=== PATIENT | female | born 1960 | race Caucasian/White ===

== ENCOUNTER 2021-03-24 13:04 | Outpatient (CLI) | payer MEDICAID, SELFPAY ==
--- NOTE | 2021-03-24 13:00 | RT.EKG_ITS ---
APPROVED REPORT Exam: Resting ECG Reason for Exam: HTN Patient Location: O HR:82 bpm ECG Measurements Heart Rate 82 AXIS CO 146 P 18 QRSd 88 QRS 11 QT 368 T 13 QTc 430 Conclusion Sinus rhythm...normal P axis, V-rate 50- [address] abnormalities
== END 2021-03-24 13:05 | disposition home or self-care (01) ==
LOC: DI.CARD 13:04
PROVIDERS: PCP Internal Medicine; Visit Provider Internal Medicine Cardiovascular Disease
DX: I10 Essential (primary) hypertension (principal)
CPT/HCPCS: 93010

== ENCOUNTER 2023-02-09 19:39 | Outpatient (REF) | payer BC, SELFPAY ==
[2023-02-09 21:16] LABS: HGB 15.6 g/dL (11.2-15.7); MCH 29.8 pg (27.0-33.0); MCHC 33.9 % (32.0-36.0); MCV 88 fL (80-95); MPV 11.6 fL (8.0-11.0); Platelet Count 248 10^3/uL (130-400); RBC 5.24 10^6/uL (3.93-5.22); RDW 12.5 % (11.7-14.6); RDW-SD 40.4 fL; WBC 9.83 10^3/uL (4.4-10.8)
[2023-02-09 21:35] LABS: ALT 45 U/L (14-59); AST 30 U/L (15-37); Albumin 3.8 g/dL (3.4-5.0); Alkaline Phosphatase 86 U/L (46-116); Anion Gap 7.8 mmol/L (3-11); BUN 22 mg/dL (7-18); Bilirubin, Total 0.3 mg/dL (0.2-1.0); CO2 28.2 mmol/L (21.0-32.0); CREATININE 0.8 mg/dL (0.55-1.02); Calcium 9.8 mg/dL (8.5-10.1); Chloride 103 mmol/L (98-107); Estimated GFR 82.74 (mL/min/1.73m2); Glucose 93 mg/dL (74-106); Potassium 3.9 mmol/L (3.5-5.1); Sodium 139 mmol/L (136-145); TSH (W/Ref FT4) 1.38 uIU/mL (0.36-3.74); Total Protein 7.7 g/dL (6.4-8.2)
[2023-02-09 21:50] LABS: Hemoglobin A1C 5.7 % (<5.7)
== END 2023-02-09 19:40 | disposition home or self-care (01) ==
LOC: NCHCN 19:39
PROVIDERS: PCP Internal Medicine; Visit Provider Family Medicine
DX: E03.9 Hypothyroidism, unspecified (principal); R73.03 Prediabetes; E66.9 Obesity, unspecified
CPT/HCPCS: 80053; 85027; 83036; 84443

== ENCOUNTER 2024-03-09 07:57 | Outpatient (REF) | payer BC, SELFPAY ==
--- OUTSIDE RECORDS SUMMARY | 2024-03-09 08:00 | XMS_ITS ---
Author Organization Unknown Address [address] [place] [address] [phone] Phone Care Team Providers Care Hr Assistant Name Role Phone JEFF Tamez Attending Unavailable AYESHA [place] Primary Unavailable Social History Type Status Start Date End Date Code Code Syst em Smoking History Former smoker 0580133 SNOMED CT Sex Female Medications Medication Start Date End Date Route Frequency Dose Code Code System Medication Instructions Home Meds Antivert/25 25MG Oral Tablet 03/18/2021 05/04/2021 ORAL NEEDED EVERY 8 HOURS 1 TABLET 090915 RxNorm TAKE 1 TABLET ORAL NEEDED EVERY 8 HOURS No alcohol/driving with this Tamsulosin HCl 0.4MG Oral Capsule 05/04/2021 05/29/2022 ORAL DAILY 1 CAPSULE 404367 RxNorm TAKE 1 CAPSULE ORAL DAILY Hospital Discharge Instructions Should you have any questions prior to discharge, please contact a member of your healthcare team. If you have left the hospital and have any questions, please contact your primary care physician. Reason For Referral No Data Found Allergies and Adverse Reactions Allergy Substance Reaction Severity Start Date Concern Status Co de Code System OPIOID Active [id number] SNOMED-CT Plan of Treatment Pre-Op Covid-19 Testing 03/30/2020 MRI UPPER EXT JOINT W/O CONTRAST 2021 LAB DRAW 15MIN 11/04/2021 US CAROTID BILAT 11/04/2021 LAB DRAW 15MIN 05/06/2021 Personal Care Team Section Performer Name Performer Role Active Date Inactive Da te
--- OUTSIDE RECORDS SUMMARY | 2024-03-09 08:00 | XMS_ITS ---
Author Organization Unknown Address [address] [place] [address] [phone] Phone Care Team Providers Care Real Estate Developer Name Role Phone EV LUND Attending Unavailable AYESHA [place] Primary Unavailable Social History Type Status Start Date End Date Code Code Syst em Smoking History Former smoker 9061055 SNOMED CT Sex Female Medications Medication Start Date End Date Route Frequency Dose Code Code System Medication Instructions Home Meds Antivert/25 25MG Oral Tablet 03/18/2021 05/04/2021 ORAL NEEDED EVERY 8 HOURS 1 TABLET 849392 RxNorm TAKE 1 TABLET ORAL NEEDED EVERY 8 HOURS No alcohol/driving with this Tamsulosin HCl 0.4MG Oral Capsule 05/04/2021 05/29/2022 ORAL DAILY 1 CAPSULE 480308 RxNorm TAKE 1 CAPSULE ORAL DAILY Hospital [...] Status Co de Code System OPIOID Active [id number] SNOMED-CT Plan of Treatment Pre-Op Covid-19 Testing 03/30/2020 MRI UPPER EXT JOINT W/O CONTRAST 2021 LAB DRAW 15MIN 11/04/2021 US CAROTID BILAT 11/04/2021 LAB DRAW 15MIN 05/06/2021 Encounters Encounter Diagnosis Start Date Code Code Sys tem 04/28/2021 [id number] SNOMED-CT Personal Care Team Section Performer Name Performer Role Active Date Inactive Da te
--- OUTSIDE RECORDS SUMMARY | 2024-03-09 08:01 | XMS_ITS ---
Author Organization Unknown Address [address] [place] [address] [phone] Phone Care Team Providers Care Gusset Folder Name Role Phone CHERYL HOPE Registered Nurse Unavailable VIRGEN Isaacs Attending Unavailable ZULEIMA An [facility] Unavailable AYESHA [place] Primary Unavailable UNLISTED PROVIDER - REQUESTED Xhandoff Un available Results LACTIC ACID - Collect Date/T keegan: 05/04/2021 14:23 [facility] ID: [id number] [address] [place] [address], [address] LOINC: Test Value Unit Reference Range Code Code System Flag LACTIC ACID 2.4 mmol/L L=0.7 H=2.1 62808-9 LOINC H [facility]* - Eva ect Date/Time: 05/04/2021 13:01 [facility] ID: [id number] [address] [place] [address], [id number] LOINC: 48088-1 Test Value Unit Reference Range Code Code System Flag Tier- INPATIENT/ED SARS COV2 RNA: NEGATIVE REFERENCE RAN GE: NEGAT 67968-4 LOINC CULT URINE CULTURE* - Collec t Date/Time: 05/04/2021 12:37 [facility] ID: [id number] [address] [place] [address], [phone] LOINC: 630-4 Test Value Unit Reference Range Code Code System Flag COLLECTION MODE: STRAIGHT CATH C REACTIVE PROTEIN HIGH SENS ITIVITY* - Collect Date/Time: 05/04/2021 12:37 [facility] ID: [id number] - [id number] [address] [place], [place], [address] LOINC: 59166-4 Test Value Unit Reference Range Code Code System Flag CRP-HIGH SENS. 91.74 mg/L L=0.00 H=3.00 57001-9 LOINC H CRP-HIGH SENS 9.17 mg/dL L=0.00 H=0.30 22841-1 LOINC H CBC W/ DIFFERENTIAL* - Colle ct Date/Time: 05/04/2021 12:37 [facility] ID: [id number] [address] [place], [place], [address] LOINC: 10773-6 Test Value Unit Reference Range Code Code System Flag WBC 10.91 th/cmm L=5.00 H=10.00 6690-2 LOINC H NEUT % 85.3 % L=40.0 H=80.0 H LYMPH % 4.2 % L=10.0 H=50.0 L MONO % 5.8 % L=2.0 H=12.0 34763-2 LOINC EOS % 4.0 % L=0.0 H=8.0 BASO % 0.3 % L=0.0 H=3.0 IG % 0.4 % L=0.0 H=1.1 2514-8 LOINC NRBC % 0.0 % L=0.0 H=0.0 25026-2 LOINC NEUT abs count 9.3 th/cmm L=1.6 H=8.4 751-8 LOINC H LYMPH abs count 0.5 th/cmm L=1.5 H=4.0 731-0 LOINC L MONO abs count 0.6 th/cmm L=0.2 H=1.0 742-7 LOINC EOS abs count 0.4 th/cmm L=0.0 H=0.5 711-2 LOINC BASO abs count 0.0 th/cmm L=0.0 H=0.2 704-7 LOINC IG abs count 0.0 th/cmm L=0.0 H=0.1 30374-3 LOINC NRBC abs count 0.0 mil/cmm L=0.0 H=0.0 29350-2 LOINC RBC 5.11 mil/cmm L=3.90 H=5.40 789-8 LOINC HEMOGLOBIN 15.4 gm/dL L=12.0 H=16.0 718-7 LOINC HEMATOCRIT 45 % L=37 H=47 4544-3 LOINC MCV 88 fL L=82 H=92 787-2 LOINC MCH 30.1 pg L=27.0 H=31.0 785-6 LOINC MCHC 34.3 % L=32.0 H=36.0 786-4 LOINC RDW-SD 40.6 fL L=39.0 H=49.0 788-0 LOINC PLATELET COUNT 167 th/cmm L=150 H=450 777-3 LOINC Vaccuol neutr 1+ COMPREHENSIVE METABOLIC PANE L (CMP) - Collect Date/Time: 05/04/2021 12:37 [facility] ID: [id number] [address] [place], [place], [address] LOINC: 53073-7 Test Value Unit Reference Range Code Code System Flag GLUCOSE 137 mg/dL L=70 H=116 2345-7 LOINC H BUN 14 mg/dL L=6 H=25 3094-0 LOINC CREATININE 0.81 mg/dL L=0.51 H=0.95 2160-0 LOINC SODIUM SERUM 134 mmol/L L=136 H=145 2951-2 LOINC L POTASSIUM SERUM 3.8 mmol/L L=3.4 H=5.2 2823-3 LOINC CHLORIDE SERUM 101 mmol/L L=96 H=110 2075-0 LOINC CARBON DIOXIDE (CO2) 28 mmol/L L=22 H=34 2028-9 LOINC ANION GAP 5.3 mmol/L 66821-6 LOINC CALCIUM SERUM 8.6 mg/dL L=8.2 H=10.2 52819-4 LOINC BILIRUBIN TOTAL 0.8 mg/dL L=0.0 H=1.3 1975-2 LOINC ALK. PHOS. 94 U/L L=46 H=116 6768-6 LOINC SGOT (AST) 35 U/L L=15 H=37 1920-8 LOINC SGPT (ALT) 51 U/L L=12 H=78 1742-6 LOINC TOTAL PROTEIN 6.8 gm/dL L=6.0 H=8.0 2885-2 LOINC ALBUMIN 3.1 gm/dL L=3.4 H=5.0 1751-7 LOINC L AGE 61 years eGFR (non-Afr.Amer.) 72 mL/min 43193-5 LOINC eGFR (Afr-Jordanian) 87 mL/min 66804-0 LOINC URINALYSIS WITH REFLEX CULT IF POSITIVE* - Collect Date/Time: 05/04/2021 12:37 [facility] ID: [id number] - [id number] [address] [place], [place], [address] LOINC: 32513-0 Test Value Unit Reference Range Code Code System Flag COLLECTION MODE: STRAIGHT CATH Color ORANGE yellow 5778-6 LOINC A Appearance CLEAR clear 5767-9 LOINC Glucose urine DNR negative mg/dl 18915-0 LOINC Bilirubin DNR negative 5770-3 LOINC Ketones DNR negative mg/dl 2514-8 LOINC Spec gravity DNR 1.003 - 1.030 5811-5 LOINC pH urine DNR 5.0 - 7.0 2756-5 LOINC Protein DNR negative mg/dl 56577-3 LOINC Urobilinogen DNR <or= 1 EU/dl 73361-6 LOINC Nitrite. DNR negative 5802-4 LOINC Blood DNR negative 5794-3 LOINC Leukocytes. DNR negative MICROSCOPIC INDICATED WBCs. 0-5 0-5 / hpf 38631-7 LOINC RBCs 0-5 0-5 / hpf 23653-4 LOINC Epith cells 0-5 0-5 / hpf 28697-8 LOINC Cell types squamous Crystals none none Bacteria minimal none Mucus present none 8247-9 LOINC Casts none none /lpf 85466-2 LOINC Other 72536-[address] ABD + PELV W CONTRAST - C ompleted: 05/04/2021 19:00 LOINC: Radiation optimization: All CT scans at this facility use at least one of these dose optimization techniques: automated exposure control; mA and/or kV adjustment per patient size (includes targeted exams where dose is matched to clinical indication); or iterative reconstruction. ABDOMINAL AND PELVIC CT:CT examination of the abdomen and pelvis was performed with a bolus infusion of 100 cc of Omnipaque 350. Images obtained through the lung bases are unremarkable. The liver and spleen appear normal as does the pancreas. The gallbladder and bile ducts are CT normal. Abdominal aorta and major visceral branches appear intact. No significant abdominal wall hernia. No abdominal or pelvic adenopathy. The appendix is normal. No evidence of diverticulitis or bowel obstruction. Adrenals appear normal bilaterally. Right kidney and ureter are normal with incidental tiny right renal cortical cyst. There is a small nonobstructing left upper pole renal stone. There is no left hydronephrosis or hydroureter. There is, however, a 2 mm in diameter stone which appears to lie at the orifice of the distal ureter on the left. Alternatively, this could lie within the urinary bladder. MAINTENANCE GROUNDMAN structures appear intact. CONCLUSION: 1. Nonobstructing left upper pole renal calculus. 2. Nonobstructing stone which lies either in the intramural portion of the distal left ureter or within the urinary bladder. No evidence of left hydroureter or hydronephrosis. Dictated by: HELEN BURR RADIOLOGIST Transcribed by: KRYSTA 05/04/21/16:26 D Tuesday, May 04, 2021 2:54:48 PM [id number] Electronically Reviewed and Signed By: ASHELY BURR RADIOLOGIST 05/06/21 08:14 Copy for: [facility] [employer] INFORMATION MGMT DISCHARGED XR EXAM ABDOMEN 1 VIEW - Com pleted: 05/04/2021 17:58 LOINC: KUB Comparison CT scan is from 05/04/21. The visualized lung bases are clear. There is intravenous contrast seen within the renal collecting system and urinary bladder. The renal calyces are within normal limits. Contrast is seen in the urinary bladder. There is a rounded calcification in the left pelvis just superior to the urinary bladder which may represent a phlebolith. The stone noted in the bladder on the CT scan from 05/04/21 appears to lie within the urinary bladder. Bowel gas pattern is nonspecific. There are degenerative changes seen in the lumbar spine. No definite urinary tract calculi are appreciated. Dictated by: JOSE GUADALUPE CORRALES MD Transcribed by: [facility] 05/05/21/08:37 D 05/05/2021 08:01:55 [id number] Electronically Reviewed and Signed By: LUCIA CORRALES MD 05/05/21 12:32 Copy for: 185 HEALTH INFORMATION MGMT DISCHARGED Social History Type Status Start Date End Date Code Code Syst em Smoking History Former smoker 4242976 SNOMED CT Sex Female Vital Signs Vital Sign Value Unit Harris Value Harris Unit Date/Time Recent/Initial? Code Code System Body Mass Index 32.95 kg/m2 05/04/2021 12:24 Initial 23731 -5 LOINC Systolic Blood Pressure 121 mm[Hg] 05/04/2021 16:16 Most Recent 8480- 6 LOINC Diastolic Blood Pressure 64 mm[Hg] 05/04/2021 16:16 Most Recent 8462- 4 LOINC Systolic Blood Pressure 150 mm[Hg] 05/04/2021 12:24 Initial 8480- 6 LOINC Diastolic Blood Pressure 111 mm[Hg] 05/04/2021 12:24 Initial 8462- 4 LOINC Body Surface Area 2.03 m2 05/04/2021 12:24 Initial 3140- 1 LOINC Height 165.100 0 cm 65.00 in 05/04/2021 12:24 Initial 8302- 2 LOINC O2 Saturation 98 % 2021 16:16 Most Recent 28858 -5 LOINC O2 Saturation 100 % 2021 12:24 Initial 97649 -5 LOINC Pulse 86.0 /min 05/04/2021 16:16 Most Recent 8867- 4 LOINC Pulse 129.0 /min 05/04/2021 12:24 Initial 8867- 4 LOINC Respiration 16 /min 05/04/19 16:16 Most Recent 9279- 1 LOINC Respiration 20 /min 05/04/19 12:24 Initial 9279- 1 LOINC Temperature 39.1 Valeria 102.4 F 05/04/19 12:24 Initial 8310- 5 LOINC Weight 89.81 kg 198.00 lbs 05/04/2021 12:24 Initial 36932 -7 [facility] Medications Medication Start Date End Date Route Frequency Dose Code Code System Medication Instructions Home Meds Antivert/25 25MG Oral Tablet 03/18/2021 05/04/2021 ORAL NEEDED EVERY 8 HOURS 1 TABLET 760690 RxNorm TAKE 1 TABLET ORAL NEEDED EVERY 8 HOURS No alcohol/driving with this Tamsulosin HCl 0.4MG Oral Capsule 05/04/2021 05/29/2022 ORAL DAILY 1 CAPSULE 635406 RxNorm TAKE 1 CAPSULE ORAL DAILY Hospital [...] Status Co de Code System OPIOID Active 239847327 SNOMED-CT Plan of Treatment Pre-Op Covid-19 Testing 03/30/2020 MRI UPPER EXT JOINT W/O CONTRAST 2021 LAB DRAW 15MIN 11/04/2021 US CAROTID BILAT 11/04/2021 LAB DRAW 15MIN 05/06/2021 Encounters Encounter Diagnosis Start Date Code Code Sys tem Calculus of ureter 05/04/2021 SNOMED-CT Personal Care Team Section Performer Name Performer Role Active Date Inactive Da te
--- OUTSIDE RECORDS SUMMARY | 2024-03-09 08:03 | XMS_ITS ---
Author Organization Unknown Address [address] [place] [address] [phone] Phone Care Team Providers Care Program Services Assistant Name Role Phone EV LUND Attending Unavailable AYESHA [place] Primary Unavailable Social History Type Status Start Date End Date Code Code Syst em Smoking History Former smoker 1851839 SNOMED CT Sex Female Medications Medication Start Date End Date Route Frequency Dose Code Code System Medication Instructions Home Meds Tamsulosin HCl 0.4MG Oral Capsule 05/04/2021 05/29/2022 ORAL DAILY 1 CAPSULE 339166 RxNorm TAKE 1 CAPSULE ORAL DAILY Hospital [...] Status Co de Code System OPIOID Active 363570686 SNOMED-CT Plan of Treatment Pre-Op Covid-19 Testing 03/30/2020 MRI UPPER EXT JOINT W/O CONTRAST 2021 LAB DRAW 15MIN 11/04/2021 US CAROTID BILAT 11/04/2021 LAB DRAW 15MIN 05/06/2021 Encounters Encounter Diagnosis Start Date Code Code Sys tem Pain in right shoulder 05/21/2021 SNOME D-CT Personal Care Team Section Performer Name Performer Role Active Date Inactive Da te
--- OUTSIDE RECORDS SUMMARY | 2024-03-09 08:03 | XMS_ITS ---
Author Organization Unknown Address [address] [place] [address] [phone] Phone Care Team Providers Care Electric Wheelchair Repairer Name Role Phone EV LUND Attending Unavailable AYESHA Houston Primary Unavailable Results MR UPPER EXT ANY JOINT RT WO CONTRAST - Completed: 03/05/2022 15:32 LOINC: [facility] RADIOLOGY [place], [place] [address] PACS PASSENGER CONDUCTOR REPORT Patient Name: MARIETTA DAVIS MRN: Sex: : Age: F 1960 62 Account: Accession: Admit: StayType: [id number] 03/05/2022 O/P Ordered: Order ID: Submitted: Ordering Provider: 03/05/2022 15:04 [id number] ASHELY CARMONA Completed: Technologist: Resulted: 03/05/2022 15:32 ALS 03/05/2022 17:28 Study Description: MR UPPER EXT ANY JOINT RT WO CONTRAST Study Reason: EVAL FOR NEW RETEAR TECHNIQUE: Multiplanar multisequence MRI of the shoulder was performed. COMPARISON: Prior x-rays of 02/20/2022. These radiographs reveal evidence of biceps tenodesis at the upper diaphysis level of the humerus and widening of the AC joint. FINDINGS: MARROW:There is no evidence of fracture, Hill-Sachs deformity, nor osseous Bankhart lesion. There are no ominous osseous lesions. There are degenerative cysts in the posterior lateral and lateral aspects of the humeral head. ROTATOR CUFF MECHANISM: AC JOINT/ACROMIUM: There is postoperative decompression widening of the AC joint. Distance between the acromion and clavicle is 12 mm.. There is no evidence of os acromiale. Supraspinatus: Evidence of previous surgery with 2 fasteners at the greater tuberosity level. There is signal abnormality in the most anterior aspect of the supraspinatus tendon. Also at the space between the supra and infraspinatus. These have appearance of partial thickness tears although there does appear to be a small amount of fluid in the overlying subacromial-subdeltoid bursa. There is no retraction of the musculotendinous junction. No significant supraspinatus atrophy. Infraspinatus: Abnormal signal at the conjoined tendon as scribed above. There is degenerative subarticular cyst in the posterior humeral head subjacent to the infraspinatus. Teres Minor: Intact. No evidence of tear nor muscle atrophy. Subscapularis/anterior cuff: Intact. No abnormal signal at the level of the multipennate insertional fibers. No significant tear nor atrophy. BICEPS TENDON: Tenodesis evident. LABRUM: No labral tear identified. No evidence of paralabral cyst. GLENOHUMERAL JOINT: No joint effusion nor obvious loose intra-articular bodies. No chondral defects. No osteophytes. No degenerative subarticular cysts. No evidence of capsular tear. The inferior glenohumeral ligament is intact. QUADRILATERAL SPACE: No evidence of mass in the region of the axillary nerve and dorsal circumflex humeral vessels. Visualized triceps at this level appears unremarkable. IMPRESSION: 1. There is evidence of surgery as described above including decompression widening of the AC joint, rotator cuff tendon tear repair surgery, and biceps tenodesis. 2. There are partial-thickness tears evident at the conjoined tendon level of the supra/infraspinatus. Also at the most anterior level supraspinatus fibers.. There is some fluid in the overlying subacromial bursa and therefore there may be a small thickness component to these tears. There is no retraction musculotendinous junction and there a is no muscle atrophy. 3. Biceps tenodesis appears intact. There are no labral tears Report Digitally Signed by Al Trotter on 03/05/2022 05:28 PM EDT Social History Type Status Start Date End Date Code Code Syst em Smoking History Former smoker 4325616 SNOMED CT Sex Female Medications Medication Start Date End Date Route Frequency Dose Code Code System Medication Instructions Home Meds Tamsulosin HCl 0.4MG Oral Capsule 05/04/2021 05/29/2022 ORAL DAILY 1 CAPSULE 729068 RxNorm TAKE 1 CAPSULE ORAL DAILY Hospital [...] Status Co de Code System OPIOID Active 976199359 SNOMED-CT Plan of Treatment Pre-Op Covid-19 Testing 03/30/2020 MRI UPPER EXT JOINT W/O CONTRAST 2021 LAB DRAW 15MIN 11/04/2021 US CAROTID BILAT 11/04/2021 LAB DRAW 15MIN 05/06/2021 Encounters Encounter Diagnosis Start Date Code Code Sys tem Incomplete rotator cuff tear or rupture of right shoulder, not specified as traumatic 03/05/2022 SNO MED-CT Personal Care Team Section Performer Name Performer Role Active Date Inactive Da nataliia
--- OUTSIDE RECORDS SUMMARY | 2024-03-09 08:03 | XMS_ITS ---
Author Organization Unknown Address [address] [place] [address] [phone] Phone Care Team Providers Care Instrumentation Specialist Name Role Phone AYESHA [place] Attending Unavailable Results C REACTIVE PROTEIN HIGH SENS ITIVITY* - Collect Date/Time: 11/04/2021 14:44 [facility] ID: [id number] [address] [place] [address], [address] LOINC: 82986-2 Test Value Unit Reference Range Code Code System Flag CRP-HIGH SENS. 1.19 mg/L L=0.00 H=3.00 24915-4 LOINC CRP-HIGH SENS 0.12 mg/dL L=0.00 H=0.30 47363-6 LOINC LIPID PANEL* - Collect Date/ Time: 11/04/2021 14:44 [facility] ID: [id number] [address] [place] [address], [phone] LOINC: Test Value Unit Reference Range Code Code System Flag FASTING STATUS: FASTING CHOLESTEROL 117 mg/dL L=0 H=200 2093-3 LOINC TRIGLYCERIDES 107 mg/dL L=57 H=256 2571-8 LOINC HDL 40 mg/dL L=38 H=92 2085-9 LOINC non-HDL-C 77 mg/dL L=0 H=160 76248-2 LOINC LDL (CALC) 56 mg/dL L=0 H=130 96255-0 LOINC % HDL 34.2 % Chol/HDL Ratio 2.9 L=0.0 H=4.4 9830-1 LOINC CHD Relative Risk 0.7 x Avg L=0.0 H=1.0 LDL/HDL Ratio 1.4 L=0.0 H=3.2 79494-4 LOINC CHD Relative Risk. 0.4 x Avg L=0.0 H=1.0 LIPOPROTEIN A (LP a) - [facility] Date/Time: 11/04/2021 14:44 [facility] ID: [id number] [address] [place], [place], [id number] LOINC: 79777-0 Test Value Unit Reference Range Code Code System Flag Lipoprotein(a), S 104 <75 24402-2 LOINC H CBC W/ DIFFERENTIAL* - [facility] ct Date/Time: 11/04/2021 14:44 [facility] ID: [id number] [address] [place] [address], [address] LOINC: 38197-5 Test Value Unit Reference Range Code Code System Flag WBC 6.58 th/cmm L=5.00 H=10.00 6690-2 LOINC NEUT % 45.1 % L=40.0 H=80.0 LYMPH % 45.6 % L=10.0 H=50.0 MONO % 7.0 % L=2.0 H=12.0 12384-0 LOINC EOS % 1.8 % L=0.0 H=8.0 BASO % 0.3 % L=0.0 H=3.0 IG % 0.2 % L=0.0 H=1.1 2514-8 LOINC NRBC % 0.0 % L=0.0 H=0.0 41988-1 LOINC NEUT abs count 3.0 th/cmm L=1.6 H=8.4 751-8 LOINC LYMPH abs count 3.0 th/cmm L=1.5 H=4.0 731-0 LOINC MONO abs count 0.5 th/cmm L=0.2 H=1.0 742-7 LOINC EOS abs count 0.1 th/cmm L=0.0 H=0.5 711-2 LOINC BASO abs count 0.0 th/cmm L=0.0 H=0.2 704-7 LOINC IG abs count 0.0 th/cmm L=0.0 H=0.1 92790-7 LOINC NRBC abs count 0.0 mil/cmm L=0.0 H=0.0 77300-4 LOINC RBC 4.72 mil/cmm L=3.90 H=5.40 789-8 LOINC HEMOGLOBIN 14.5 gm/dL L=12.0 H=16.0 718-7 LOINC HEMATOCRIT 43 % L=37 H=47 4544-3 LOINC MCV 91 fL L=82 H=92 787-2 LOINC MCH 30.7 pg L=27.0 H=31.0 785-6 LOINC MCHC 33.7 % L=32.0 H=36.0 786-4 LOINC RDW-SD 40.5 fL L=39.0 H=49.0 788-0 LOINC PLATELET COUNT 193 th/cmm L=150 H=450 777-3 LOINC TSH THYROID STIMULATING HORM ONE* - Collect Date/Time: 11/04/2021 14:44 [facility] ID: [id number] [address] [place] [address], [address] LOINC: 3014-8 Test Value Unit Reference Range Code Code System Flag TSH 1.970 uIU/mL L=0.360 H=3.740 3014-8 LOINC COMPREHENSIVE METABOLIC PANE L (CMP) - Collect Date/Time: 11/04/2021 14:44 [facility] ID: [id number] [address] [place] [address], [address] LOINC: 87450-5 Test Value Unit Reference Range Code Code System Flag GLUCOSE 80 mg/dL L=70 H=116 2345-7 LOINC BUN 19 mg/dL L=6 H=25 3094-0 LOINC CREATININE 0.75 mg/dL L=0.51 H=0.95 2160-0 LOINC SODIUM SERUM 137 mmol/L L=136 H=145 2951-2 LOINC POTASSIUM SERUM 4.0 mmol/L L=3.4 H=5.2 2823-3 LOINC CHLORIDE SERUM 102 mmol/L L=96 H=110 2075-0 LOINC CARBON DIOXIDE (CO2) 28 mmol/L L=22 H=34 2028-9 LOINC ANION GAP 7.5 mmol/L 09070-3 LOINC CALCIUM SERUM 8.6 mg/dL L=8.2 H=10.2 51997-7 LOINC BILIRUBIN TOTAL 0.6 mg/dL L=0.0 H=1.3 1975-2 LOINC ALK. PHOS. 69 U/L L=46 H=116 6768-6 LOINC SGOT (AST) 12 U/L L=15 H=37 1920-8 LOINC L SGPT (ALT) 23 U/L L=12 H=78 1742-6 LOINC TOTAL PROTEIN 7.0 gm/dL L=6.0 H=8.0 2885-2 LOINC ALBUMIN 3.7 gm/dL L=3.4 H=5.0 1751-7 LOINC AGE 61 years eGFR (non-Afr.Amer.) 79 mL/min 82028-1 LOINC eGFR (Afr-Vatican Citizen) 95 mL/min 54251-3 LOINC US CAROTID BILATERAL - Compl eted: 11/04/2021 15:34 LOINC: CAROTID ULTRASOUND:Compariso n is made with January 21. There is minimal plaque in the common carotid bulbs and proximal internal carotid arteries but no significant visible stenosis. Both internal carotid arteries are tortuous in the mid to distal portion. Elevated velocities are seen in these regions. Both vertebral arties show antegrade flow. IMPRESSION:Minimal plaque. Elevated velocity measurements in the mid and distal internal carotid arteries bilaterally could be secondary to tortuosity since no focal stenosis is visible. Dictated by: CEO FRANCISCO JAVIER PEÑALOZA MD Transcribed by: KRYSTA 11/05/21/08:58 D Thursday, November 04, 2021 3:42:21 PM [id number] Electronically Reviewed and Signed By: FRANCISCO JAVIER PEÑALOZA MD 11/06/21 09:37 Copy for: AYESHA [place] via modem Copy for: [facility] HEALTH INFORMATION MGMT Social History Type Status Start Date End Date Code Code Syst em Smoking History Former smoker 5725910 SNOMED CT Sex Female Medications Medication Start Date End Date Route Frequency Dose Code Code System Medication Instructions Home Meds Tamsulosin HCl 0.4MG Oral Capsule 05/04/2021 05/29/2022 ORAL DAILY 1 CAPSULE 936534 RxNorm TAKE 1 CAPSULE ORAL DAILY Hospital [...] Status Co de Code System OPIOID Active [id number] SNOMED-CT Plan of Treatment Pre-Op Covid-19 Testing 03/30/2020 MRI UPPER EXT JOINT W/O CONTRAST 2021 LAB DRAW 15MIN 11/04/2021 US CAROTID BILAT 11/04/2021 LAB DRAW 15MIN 05/06/2021 Encounters Encounter Diagnosis Start Date Code Code Sys tem Occlusion and stenosis of bilateral carotid arteries 0 11/04/2021 SNOMED-CT Personal Care Team Section Performer Name Performer Role Active Date Inactive Da nataliia
--- OUTSIDE RECORDS SUMMARY | 2024-03-09 08:03 | XMS_ITS ---
Author Organization Unknown Address [address] [place] [address] [phone] Phone Care Team Providers Care Dye Tub Operator Name Role Phone EV LUND Attending Unavailable AYESHA Houston Primary Unavailable Results XR SHOULDER 2V OR MORE RT* - Completed: 02/20/2022 14:24 [facility]: [place], [place] [address] PACS CAVITY PUMP OPERATOR REPORT Patient Name: MARIETTA DAVIS MRN: Sex: : Age: F 1960 62 Account: Accession: Admit: StayType: [id number] 02/20/2022 CLINIC Ordered: Order ID: Entered Order: Ordering Provider: 02/20/2022 14:19 [id number] ASHELY NIELSEN Completed: Tech Completed: Resulted DTTM: 02/20/2022 14:24 KUL[facility]ER 02/20/2022 14:56 Study Description: XR SHOULDER 2V OR MORE RT* Reason for Study: Pain COMPARISON: Findings: 3 views were obtained. There is a suture anchor adjacent to the proximal humeral diaphysis with presumed reimplanted biceps tendon bony cortical defect. There are slight degenerative changes of the AC joint and glenohumeral joint. No other significant abnormality seen. Impressions: Report Digitally Signed by Ashely Knight on 02/20/2022 02:56 PM EDT Social History Type Status Start Date End Date Code Code Syst em Smoking History Former smoker [id number] SNOMED CT Sex Female Medications Medication Start Date End Date Route Frequency Dose Code Code System Medication Instructions Home Meds Tamsulosin HCl 0.4MG Oral Capsule 05/04/2021 05/29/2022 ORAL DAILY 1 CAPSULE 338699 RxNorm TAKE 1 CAPSULE ORAL DAILY Hospital [...] Status Co de Code System OPIOID Active 851193016 SNOMED-CT Plan of Treatment Pre-Op Covid-19 Testing 03/30/2020 MRI UPPER EXT JOINT W/O CONTRAST 2021 LAB DRAW 15MIN 11/04/2021 US CAROTID BILAT 11/04/2021 LAB DRAW 15MIN 05/06/2021 Encounters Encounter Diagnosis Start Date Code Code Sys tem 02/20/2022 [id number] SNOMED-CT Personal Care Team Section Performer Name Performer Role Active Date Inactive Da te
--- OUTSIDE RECORDS SUMMARY | 2024-03-09 08:04 | XMS_ITS ---
Author Organization Unknown Address [address] [place] [address] [phone] Phone Care Team Providers Care Hospital Fellow Name Role Phone EV LUND Attending Unavailable ZACKERY DUNLAP Primary Unavailable Social History Type Status Start Date End Date Code Code Syst em Smoking History Former smoker [id number] SNOMED CT Sex Female Medications Medication Start Date End Date Route Frequency Dose Code Code System Medication Instructions Home Meds Tamsulosin HCl 0.4MG Oral Capsule 05/04/2021 05/29/2022 ORAL DAILY 1 CAPSULE 999817 RxNorm TAKE 1 CAPSULE ORAL DAILY Hospital [...] Status Co de Code System OPIOID Active 671662496 SNOMED-CT Plan of Treatment Pre-Op Covid-19 Testing 03/30/2020 MRI UPPER EXT JOINT W/O CONTRAST 2021 LAB DRAW 15MIN 11/04/2021 US CAROTID BILAT 11/04/2021 LAB DRAW 15MIN 05/06/2021 Encounters Encounter Diagnosis Start Date Code Code Sys tem 04/09/2022 [id number] SNOMED-CT Personal Care Team Section Performer Name Performer Role Active Date Inactive Da te
--- OUTSIDE RECORDS SUMMARY | 2024-03-09 08:04 | XMS_ITS ---
Author Organization Unknown Address [address] [place] [address] [phone] Phone Care Team Providers Care Clinical Nursing Instructor Name Role Phone ARY PENG Manley Attending Unavailable ZACKERY DULNAP Primary Unavailable Results BASIC METABOLIC PANEL (BMP) - Collect Date/Time: 05/25/2022 16:29 [facility] ID: [id number] [address] [place], [place], [address] LOINC: 86978-8 Test Value Unit Reference Range Code Code System Flag GLUCOSE 84 mg/dL L=70 H=116 2345-7 LOINC BUN 18 mg/dL L=6 H=25 3094-0 LOINC CREATININE 0.71 mg/dL L=0.51 H=0.95 2160-0 LOINC SODIUM SERUM 142 mmol/L L=136 H=145 2951-2 LOINC POTASSIUM SERUM 3.6 mmol/L L=3.4 H=5.2 2823-3 LOINC CHLORIDE SERUM 105 mmol/L L=96 H=110 2075-0 LOINC CARBON DIOXIDE (CO2) 29 mmol/L L=22 H=34 2028-9 LOINC ANION GAP 8.1 mmol/L 80599-0 LOINC CALCIUM SERUM 9.0 mg/dL L=8.2 H=10.2 47165-7 LOINC AGE 62 years eGFR (non-Afr.Amer.) 83 mL/min 15727-3 LOINC eGFR (Afr-Lithuanian) 101 mL/min 29555-5 LOINC CBC W/ DIFFERENTIAL* - Colle ct Date/Time: 05/25/2022 16:29 [facility] ID: [id number] 8 [facility], [place], [place], [address] LOINC: 13655-1 Test Value Unit Reference Range Code Code System Flag WBC 7.50 th/cmm L=5.00 H=10.00 6690-2 LOINC NEUT % 58.4 % L=40.0 H=80.0 LYMPH % 32.3 % L=10.0 H=50.0 MONO % 7.6 % L=2.0 H=12.0 41936-4 LOINC EOS % 0.9 % L=0.0 H=8.0 BASO % 0.4 % L=0.0 H=3.0 IG % 0.4 % L=0.0 H=1.1 2514-8 LOINC NRBC % 0.0 % L=0.0 H=0.0 88972-8 LOINC NEUT abs count 4.4 th/cmm L=1.6 H=8.4 751-8 LOINC LYMPH abs count 2.4 th/cmm L=1.5 H=4.0 731-0 LOINC MONO abs count 0.6 th/cmm L=0.2 H=1.0 742-7 LOINC EOS abs count 0.1 th/cmm L=0.0 H=0.5 711-2 LOINC BASO abs count 0.0 th/cmm L=0.0 H=0.2 704-7 LOINC IG abs count 0.0 th/cmm L=0.0 H=0.1 04505-8 LOINC NRBC abs count 0.0 mil/cmm L=0.0 H=0.0 70350-0 LOINC RBC 4.95 mil/cmm L=3.90 H=5.40 789-8 LOINC HEMOGLOBIN 14.8 gm/dL L=12.0 H=16.0 718-7 LOINC HEMATOCRIT 45 % L=37 H=47 4544-3 LOINC MCV 90 fL L=82 H=92 787-2 LOINC MCH 29.9 pg L=27.0 H=31.0 785-6 LOINC MCHC 33.1 % L=32.0 H=36.0 786-4 LOINC RDW-SD 41.8 fL L=39.0 H=49.0 788-0 LOINC PLATELET COUNT 210 th/cmm L=150 H=450 777-3 LOINC Social History Type Status Start Date End Date Code Code Syst em Smoking History Former smoker 9622028 SNOMED CT Sex Female Medications Medication Start Date End Date Route Frequency Dose Code Code System Medication Instructions Home Meds Tamsulosin HCl 0.4MG Oral Capsule 05/04/2021 05/29/2022 ORAL DAILY 1 CAPSULE 299479 RxNorm TAKE 1 CAPSULE ORAL DAILY Hospital [...] Status Co de Code System OPIOID Active 444570571 SNOMED-CT Plan of Treatment Pre-Op Covid-19 Testing 03/30/2020 MRI UPPER EXT JOINT W/O CONTRAST 2021 LAB DRAW 15MIN 11/04/2021 US CAROTID BILAT 11/04/2021 LAB DRAW 15MIN 05/06/2021 Encounters Encounter Diagnosis Start Date Code Code Sys tem Other specified diseases of anus and rectum 05/25/2022 SNOMED-CT Personal Care Team Section Performer Name Performer Role Active Date Inactive Iftikhar william
--- OUTSIDE RECORDS SUMMARY | 2024-03-09 08:05 | XMS_ITS ---
Author Organization Unknown Address [address] [place] [address] [phone] Phone Care Team Providers Care Recreation Instructor Name Role Phone JEFF RANDOLPH Attending Unavailable AYESHA [place] Primary Unavailable Social History Type Status Start Date End Date Code Code Syst em Smoking History Former smoker 7531932 SNOMED CT Sex Female Medications Medication Start Date End Date Route Frequency Dose Code Code System Medication Instructions Home Meds Antivert/25 25MG Oral Tablet 03/18/2021 05/04/2021 ORAL NEEDED EVERY 8 HOURS 1 TABLET 642403 RxNorm TAKE 1 TABLET ORAL NEEDED EVERY 8 HOURS No alcohol/driving with this Tamsulosin HCl 0.4MG Oral Capsule 05/04/2021 05/29/2022 ORAL DAILY 1 CAPSULE 056030 RxNorm TAKE 1 CAPSULE ORAL DAILY Hospital [...] Status Co de Code System OPIOID Active 350526727 SNOMED-CT Plan of Treatment Pre-Op Covid-19 Testing 03/30/2020 MRI UPPER EXT JOINT W/O CONTRAST 2021 LAB DRAW 15MIN 11/04/2021 US CAROTID BILAT 11/04/2021 LAB DRAW 15MIN 05/06/2021 Encounters Encounter Diagnosis Start Date Code Code Sys tem Postprocedural state finding 11/18/2020 900401143 SNOMED-CT Personal Care Team Section Performer Name Performer Role Active Date Inactive Da te
--- OUTSIDE RECORDS SUMMARY | 2024-03-09 08:05 | XMS_ITS ---
Author Organization Unknown Address [address] [place] [address] [phone] Phone Care Team Providers Care Rental Sales Agent Name Role Phone NEYMAR Tamez Attending Unavailable ZACKERY DUNLAP Primary Unavailable Social History Type Status Start Date End Date Code Code Syst em Smoking History Former smoker 9708454 SNOMED CT Sex Female Hospital Discharge Instructions Should you have any questions prior to discharge, please contact a member of your healthcare team. If you have left the hospital and have any questions, please contact your primary care physician. Reason For Referral No Data Found Allergies and Adverse Reactions Allergy Substance Reaction Severity Start Date Concern Status Co de Code System OPIOID Active 812600046 SNOMED-CT Plan of Treatment Pre-Op Covid-19 Testing 03/30/2020 MRI UPPER EXT JOINT W/O CONTRAST 2021 LAB DRAW 15MIN 11/04/2021 US CAROTID BILAT 11/04/2021 LAB DRAW 15MIN 05/06/2021 Encounters Encounter Diagnosis Start Date Code Code Sys tem Idiopathic osteoarthritis 01/31/2024 109764264 SN OMED-CT Personal Care Team Section Performer Name Performer Role Active Date Inactive Da te
--- OUTSIDE RECORDS SUMMARY | 2024-03-09 08:05 | XMS_ITS ---
Author Organization Unknown Address [address] [place] [address] [phone] Phone Care Team Providers Care Change Number Operator Name Role Phone ARY Manley Attending Unavailable ZACKERY DUNLAP Primary Unavailable Social History Type Status Start Date End Date Code Code Syst em Smoking History Former smoker 2829669 SNOMED CT Sex Female Hospital Discharge Instructions Should you have any questions prior to discharge, please contact a member of your healthcare team. If you have left the hospital and have any questions, please contact your primary care physician. Reason For Referral No Data Found Allergies and Adverse Reactions Allergy Substance Reaction Severity Start Date Concern Status Co de Code System OPIOID Active 950152069 SNOMED-CT Plan of Treatment Pre-Op Covid-19 Testing 03/30/2020 MRI UPPER EXT JOINT W/O CONTRAST 2021 LAB DRAW 15MIN 11/04/2021 US CAROTID BILAT 11/04/2021 LAB DRAW 15MIN 05/06/2021 Encounters Encounter Diagnosis Start Date Code Code Sys tem Canceled operative procedure 06/06/2022 57048637 SNOMED-CT Personal Care Team Section Performer Name Performer Role Active Date Inactive Da te
--- OUTSIDE RECORDS SUMMARY | 2024-03-09 08:05 | XMS_ITS ---
Author Organization Unknown Address [address] [place] [address] [phone] Phone Care Team Providers Care Spinning Machine Tender Name Role Phone KARON Warren Attending Unavailable ZACKERY DUNLAP Primary Unavailable Results XR KNEE 4V LT* - Completed: 11/17/2023 15:49 LOINC: [facility] [place], [place] [address] RADIOLOGY RING SPINNER REPORT Patient Name: MARIETTA DAVIS MRN: Sex: : Age: F 1960 63 Account: Accession: Admit: StayType: [id number] 11/17/2023 O Ordered: Order ID: Submitted: Ordering Provider: 11/17/2023 15:30 [id number] TINO SANTIZO Completed: Technologist: Resulted: 11/17/2023 15:27 MG 12/27/2023 08:10 ADDENDUM #1 TECHNIQUE: 4 views LEFT knee Thank you for letting us participate in the care of this patient. If you are a health care provider and have any questions regarding this report, please contact the number below. For patients who have questions please contact the health family day care provider that requested your imaging first. Electronically signed by: Nima Agarwal MD [facility] ([phone]), at 12/27/2023 8:10 AM ORIGINAL EXAMINATION: XR KNEE 4V LT CLINICAL HISTORY: Reason for Extrem: LT KNEE PAIN Add'l Info: TECHNIQUE: 3 views LEFT knee COMPARISON: None FINDINGS: No acute fracture or dislocation is noted. A small joint effusion is present. Mild osteoarthritis is noted with preferential narrowing the medial tibiofemoral and patellofemoral compartments of the knee. Small osteophyte is identified along the medial aspect of the medial femoral condyle. IMPRESSION: 1. No acute fracture or dislocation. 2. Small joint effusion. 3. Mild osteoarthritis is noted with preferential narrowing the medial tibiofemoral and patellofemoral compartments of the knee. Thank you for letting us participate in the care of this patient. If you are a health care provider and have any questions regarding this report, please contact the number below. For patients who have questions please contact the health family day care provider that requested your imaging first. Electronically signed by: Nima Agarwal MD [facility] ([phone]), at 11/17/2023 6:11 PM -- Social History Type Status Start Date End Date Code Code Syst em Smoking History Former smoker 6382822 SNOMED CT Sex Female Hospital Discharge Instructions Should you have any questions prior to discharge, please contact a member of your healthcare team. If you have left the hospital and have any questions, please contact your primary care physician. Reason For Referral No Data Found Allergies and Adverse Reactions Allergy Substance Reaction Severity Start Date Concern Status Co de Code System OPIOID Active 885891465 SNOMED-CT Plan of Treatment Pre-Op Covid-19 Testing 03/30/2020 MRI UPPER EXT JOINT W/O CONTRAST 2021 LAB DRAW 15MIN 11/04/2021 US CAROTID BILAT 11/04/2021 LAB DRAW 15MIN 05/06/2021 Encounters Encounter Diagnosis Start Date Code Code Sys tem Idiopathic osteoarthritis 11/17/2023 515128256 SN OMED-CT Personal Care Team Section Performer Name Performer Role Active Date Inactive Da te
--- OUTSIDE RECORDS SUMMARY | 2024-03-09 08:06 | XMS_ITS | Encounter Summary ---
Author Organization [facility] Address [facility] [place] [address] Care Team Providers Care Roof Cement And Paint Maker Helper Name Role Phone Sun Borrero DO Primary Care Provider [phone] Encounter Details Date Type Department Care Team (Late st Contact Info) Description 04/14/2022 Telephone Cardiology at [address] [place] [address] Carmita Chandler MD [facility] [place] [address] Social History Tobacco Use Types Packs/Day Years Used Date Smoking Tobacco: Never Smokeless Tobacco: Never Sex and Gender Information Value Date Recorded Sex Assigned at Not on file Gender Identity Not on file Sexual Orientation Not on file documented as of this encounter Miscellaneous Notes * Telephone Encounter - Carmita Chandler MD - 04/14/2022 8:57 AM ESTSummary: letter sent with follow up information Cortes Hewitt, Can you please put this on letterhead and send to her? I had sent a previous message-- the AVS can also be put into this envelope to her. Dear Ms. Ruano, It was a pleasure to meet with you yesterday and I hope I was helpful in explaining your cholesterol issues. I do feel you are at goal. In terms of plans, I know that it is a far trip to come here and we talked about my recommending a can top setter closer to where you live. [facility] in [facility] now has a multimedia teacher can top setter who used to work with me here at [facility]. He also has practiced lipidology and is an excellent can top setter. They do all the stress testing at [place] as well. His name is Dr. Aditya Lechuga and you can schedule an appointment with him by calling [phone]. He will be able to access the notes from Dr. Hahn and my clinic note as well. Enclosed is the printed version of your After Visit Summary. You can also call in to our office andask to have a copy of your lab tests mailed to you. I made note that you do not want any information sent via the internet All the very best wishes, Carmita Chandler MD, Christina documented in this encounter Plan of Treatment Not on file documented as of this encounter Visit Diagnoses Not on filedocumented in this encounter Care Teams Roof Cement And Paint Maker Helper Relationship Specialty Start Date End Date Sun Borrero DO [address] [place] [id number] PCP - General Internal Medicine 01/29/21 02/17/24 documented as of this encounter
--- OUTSIDE RECORDS SUMMARY | 2024-03-09 08:06 | XMS_ITS | Encounter Summary ---
[place] [address] Care Team Providers Care Rand Maker Name Role Phone Niki Boykin MD Primary Care Provider [phone] Encounter Details Date Type Department Care Team (Latest Contact Info) Description 02/18/2024 Travel Social History Tobacco Use Types Packs/Day Years Used Date Smoking Tobacco: Never Smokeless Tobacco: Never Sex and Gender Information Value Date Recorded Sex Assigned at Not on file Gender Identity Not on file Sexual Orientation Not on file documented as of this encounter Plan of Treatment Not on file documented as of this encounter Visit Diagnoses Not on filedocumented in this encounter Care Teams Rand Maker Relationship Specialty Start Date End Date Niki Boykin MD [address] [place] [address] PCP - General General Internal Medicine 02/18/24 documented as of this encounter
--- OUTSIDE RECORDS SUMMARY | 2024-03-09 08:06 | XMS_ITS ---
Author Organization Unknown Address [address] [place] [address] [phone] Phone Care Team Providers Care Senior Mechanical Project Engineer Name Role Phone VICKY GARIBAY Attending Unavailable AYESHA Houston Primary Unavailable Social History Type Status Start Date End Date Code Code Syst em Smoking History Former smoker 4172357 SNOMED CT Sex Female Medications Medication Start Date End Date Route Frequency Dose Code Code System Medication Instructions Home Meds Antivert/25 25MG Oral Tablet 03/18/2021 05/04/2021 ORAL NEEDED EVERY 8 HOURS 1 TABLET 764236 RxNorm TAKE 1 TABLET ORAL NEEDED EVERY 8 HOURS No alcohol/driving with this Tamsulosin HCl 0.4MG Oral Capsule 05/04/2021 05/29/2022 ORAL DAILY 1 CAPSULE 677060 RxNorm TAKE 1 CAPSULE ORAL DAILY Hospital [...] Status Co de Code System OPIOID Active 606336383 SNOMED-CT Plan of Treatment Pre-Op Covid-19 Testing 03/30/2020 MRI UPPER EXT JOINT W/O CONTRAST 2021 LAB DRAW 15MIN 11/04/2021 US CAROTID BILAT 11/04/2021 LAB DRAW 15MIN 05/06/2021 Encounters Encounter Diagnosis Start Date Code Code Sys tem Tremor, unspecified 12/10/2020 SNOMED-C T Personal Care Team Section Performer Name Performer Role Active Date Inactive Da te
--- OUTSIDE RECORDS SUMMARY | 2024-03-09 08:06 | XMS_ITS | Encounter Summary ---
[place] [address] Care Team Providers Care Supervisor Assembly Department Name Role Phone Niki Boykin MD Primary Care Provider [phone] Reason for Visit * Reason Comments Annual Exam Encounter Details Date Type Department Care Team (Late st Contact Info) Description 02/18/2024 4:00 PM EDT Office Visit Dermatology at [address] [phone] Miguel Ángel Thomason MD [address] [facility] [place] [address] History of SCC (squamous cell carcinoma) of skin; Seborrheic keratosis; Seborrheic keratoses, inflamed Social History Tobacco Use Types Packs/Day Years Used Date Smoking Tobacco: Never Smokeless Tobacco: Never Sex and Gender Information Value Date Recorded Sex Assigned at Not on file Gender Identity Not on file Sexual Orientation Not on file documented as of this encounter Progress Notes * Miguel Ángel Thomason MD - 02/18/2024 4:00 PM EDT Problem: 1. Early annual skin checkup 2. 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 History of SCCA right mid back October 2020 3. History of seborrheic dermatitis of scalp, improved with softened water 4. [place] ethnic background Alejandra follows up for her yearly skin checkup. Her tinea unguium has resolved and she has been able to finish and stop the thymol. Unfortunately her acrochordon/hemorrhoid recurred but is not symptomatic or bothering her. She does not desire any further treatment of it. Physical examination reveals a pleasant 64-year-old woman who has a benign examination of the head and the neck the chest the back the hands arms forearms thighs and calves. She has no evidence of any cutaneous malignancies. Her toenails are free today of tinea unguium. Assessment plan: Benign skin examination 1. Patient reassured about her benign skin examination 2. No treatment necessary 3. Return to clinic in a year for recheck. Tinea unguium, resolved 1. Would call in new prescription for thymol 3% in ethyl alcohol if she has recurrence 2. No need for therapy now Seborrheic dermatitis scalp 1. Patient request refills of her ketoconazole 2% shampoo, uses shampoo for scalp every day 2 weekson 2 weeks off dispense 120 mL with 5 refills 2. Patient request refills of her selenium sulfide 2.5% lotion uses shampoo every other day 2 weekson 2 weeks off alternating with other shampoo dispense 120 mL with 5 refills. CC: Niki Boykin MD documented in this encounter Plan of Treatment Not on file documented as of this encounter Visit Diagnoses Diagnosis History of SCC (squamous cell carcinoma) of skin Personal history of other malignant neoplasm of skin Seborrheic keratosis Other seborrheic keratosis Seborrheic keratoses, inflamed documented in this encounter Care Teams Supervisor Assembly Department Relationship Specialty Start Date End Date Niki Boykin MD [address] [place] [address] PCP - General General Internal Medicine 02/18/24 documented as of this encounter
--- OUTSIDE RECORDS SUMMARY | 2024-03-09 08:06 | XMS_ITS | Encounter Summary ---
[place] [address] Care Team Providers Care Fitter Helper Name Role Phone Sun Borrero Primary Care Provider [phone] Encounter Details Date Type Department Care Team (Latest Contact Info) Description 04/13/2022 3:40 PM EST Laboratory Appointment Lab [address] [place] [address] PONCHO (obstructive sleep apnea); Pure hypercholesterolemia Social History Tobacco Use Types Packs/Day Years Used Date Smoking Tobacco: Never Smokeless Tobacco: Never Sex and Gender Information Value Date Recorded Sex Assigned at Not on file Gender Identity Not on file Sexual Orientation Not on file documented as of this encounter Plan of Treatment Not on file documented as of this encounter Procedures Procedure Name Priority Date/Time Associated Diagnosis Comments [facility] APOLIPO PROTEIN B Routine 04/13/2022 5:26 PM EST PONCHO (obstructive sleep apnea) Pure hypercholesterolemia PC LIPOPROTEIN A Routine 04/13/2022 5:26 PM EST PONCHO (obstructive sleep apnea) Pure hypercholesterolemia HC VENIPUNCTURE Routine 04/13/2022 5:26 PM EST PONCHO (obstructive sleep apnea) Pure hypercholesterolemia documented in this encounter Results * (ABNORMAL) Lipoprotein A (04/13/2022 5:26 PM EST) Lipoprotein(A) (AUGUST) 109(H) <75 nmol/L [facility] Comment: Lp(a) confers increased risk for coronary disease and aortic stenosis starting at concentrations of 75 nmol/L and greater. Lp(a) >=125 nmol/L is considered a risk-enhancing factor for cardiovascular disease by several professional societies. ??Clinician-patient discussion of therapeutic strategy is warranted. ADDITIONAL INFORMATION Please notice that Lp(a) values are reported in molar units (nmol/L). ??These units are recommended by professional society guidelines and expert opinion statements. ??Measured results and risk thresholds are higher than those generated using mass units (mg/dL). Cardiovascular risk increases starting at 75 nmol/L. Lp(a) >=125 nmol/L is considered a risk enhancing factor by the [place] [employer]. This test has been modified from the relocation director's instructions. Its performance characteristics were determined by [facility] in a manner consistent with CLIA requirements. This test has not been cleared or approved by the U.S. Food and Drug Administration. Test Performed by: [facility] [place] [place] [address] Seed Cutter: Venu Michaud M.D. Ph.D.; CLIA# [id number] Blood 04/13/2022 5:26 PM EST 04/14/2022 11:29 AM EST Narrative Resulting Agency Comment Spec In Lab Carmita Chandler MD LAB SEND OUT ORDERAB LES Performing Organization Address City/State/[facility] Co de Phone Number [facility] [place] [address] * Apolipoprotein B (04/13/2022 5:26 PM EST) Apolipoprotein B (AUGUST) 65 mg/dL [facility] Comment: REFERENCE VALUE Desirable: <90 Above Desirable: 90-99 Borderline high: 100-119 High: 120-139 Very high: > or = 140 Test Performed by: [facility] - [address] [address] Seed Cutter: Venu Michaud M.D. Ph.D.; CLIA# [id number] Blood 04/13/2022 5:26 PM EST 04/14/2022 11:29 AM EST Narrative Resulting Agency Comment Spec In Lab Carmita Chandler MD LAB SEND OUT ORDERAB LES Performing Organization Address City/State/[facility] Co de Phone Number [facility] [place] [address] * Lipid Panel (Reflex Direct LDL) (04/13/2022 5:26 PM EST) [facility] Cholesterol, Total 127 mg/dL [facility] Comment: Lower Risk: <200 mg/dL Average Risk: 200-239 mg/dL Higher Risk: >rc=933 mg/dL Triglyceride 70 mg/dL [facility] Comment: Average Risk/Lower Risk: <150 mg/dL Borderline High Risk: 150-199 mg/dL High Risk: 200-499 mg/dL Very High Risk: >nq=431 mg/dL HDL Cholesterol 43 mg/dL [facility] Comment: Males: ?? Higher Risk: <40 mg/dL Females: ?? Higher Risk: <50 mg/dL LDL Cholesterol 70 mg/dL [facility] Comment: Lowest Risk: <100 mg/dL Lower Risk: 100-129 mg/dL Borderline High Risk: 130-159 mg/dL High Risk: 160-189 mg/dL Very High Risk: >ip=662 mg/dL Cholesterol/HDL Ratio 3.0 ratio [facility] Lipid Interpretation See Note [facility] Comment: Lipid management should be guided by a patient? s ASCVD risk, goals and preferences. ACC/AHA Guidelines recommend high intensity statin if clinical ASCVD or LDL greater than or equal to 190 mg/dL. http://tinyurl.com/BJP-KCS-Swbcxhujp Adults aged 40-75 with LDL 70-189 mg/dL should have their 10 year ASCVD risk estimated with the ACC/AHA ASCVD risk lumber estimator http://tools.acc.org/VVAUH-Pucy-Euuxealoi/ Statin should be discussed if risk greater than or equal to 7.5% in non-diabetics. With diabetes, moderate intensity statin is recommended if risk less than 7.5%, high intensity if risk greater than or equal to 7.5%. Annual lipid monitoring on statins is not necessary. Evaluate secondary causes of Triglycerides greater than 500 mg/dL or LDL greater than 190 mg/dL: See table 6 of ACC/AHA Guideline. Lifestyle modification is a critical component of ASCVD risk reduction. Blood 04/13/2022 5:26 PM EST 04/13/2022 5:59 PM EST Narrative Resulting Agency Comment Spec In Lab Carmita Chandler MD CHEMISTRY ORDERABLES [facility] [place] [address] documented in this encounter Visit Diagnoses Diagnosis PONCHO (obstructive sleep apnea) Obstructive sleep apnea (adult) (pediatric) Pure hypercholesterolemia documented in this encounter Care Teams Fitter Helper Relationship Specialty Start Date End Date Sun Borrero DO [address] [place] [id number] PCP - General Internal Medicine 01/29/21 02/17/24 documented as of this encounter
--- OUTSIDE RECORDS SUMMARY | 2024-03-09 08:06 | XMS_ITS ---
Author Organization Unknown Address [address] [place] [phone] Phone Care Team Providers Care Ball Machine Operator Name Role Phone AYESHA Houston Attending Unavailable Results US CAROTID BILATERAL - Compl eted: 01/10/2021 16:43 LOINC: ULTRASOUND OF THE CAROTID AR TERIES: Dc scale, color, and doppler imaging was performed. There is no significant plaque in the ascending right common carotid artery. Mild plaque is noted at the right carotid bulb/proximal right internal carotid artery. However, there are no significant elevated velocities at this level. Right ICA higher up in the neck is patent. Left common carotid artery also exhibits minimal plaque. At the carotid bifurcation and proximal left ICA there is mild plaque without elevated velocities evident. Left ICA in the upper aspect of the neck is patent. Antegrade flow is demonstrated in both vertebral arteries. IMPRESSION: Mild bilateral plaque as described above. No prominent stenosis. Stenosis is estimated at less than 40% bilaterally. Dictated by: YOANA TENORIO M.D. RADIOLOGIST Transcribed by: CATIA 01/11/21/16:51 [id number] Electronically Reviewed and Signed By: KODY TENORIO M.D. RADIOLOGIST 01/11/21 17:03 Copy for: AYESHA Houston via link Social History Type Status Start Date End Date Code Code Syst em Smoking History Former smoker [id number] SNOMED CT Sex Female Medications Medication Start Date End Date Route Frequency Dose Code Code System Medication Instructions Home Meds Antivert/25 25MG Oral Tablet 03/18/2021 05/04/2021 ORAL NEEDED EVERY 8 HOURS 1 TABLET 337383 RxNorm TAKE 1 TABLET ORAL NEEDED EVERY 8 HOURS No alcohol/driving with this Tamsulosin HCl 0.4MG Oral Capsule 05/04/2021 05/29/2022 ORAL DAILY 1 CAPSULE [id number] RxNorm TAKE 1 CAPSULE ORAL DAILY Hospital [...] Status Co de Code System OPIOID Active 314852801 SNOMED-CT Plan of Treatment Pre-Op Covid-19 Testing 03/30/2020 MRI UPPER EXT JOINT W/O CONTRAST 2021 LAB DRAW 15MIN 11/04/2021 US CAROTID BILAT 11/04/2021 LAB DRAW 15MIN 05/06/2021 Encounters Encounter Diagnosis Start Date Code Code Sys tem Occlusion and stenosis of bilateral carotid arteries 0 01/10/2021 SNOMED-CT Personal Care Team Section Performer Name Performer Role Active Date Inactive Da te
--- OUTSIDE RECORDS SUMMARY | 2024-03-09 08:06 | XMS_ITS | Encounter Summary ---
[place] [address] Care Team Providers Care Railroad Construction Director Name Role Phone Sun Borrero DO Primary Care Provider [phone] Encounter Details Date Type Department Care Team (Latest Contact Info) Description 04/13/2022 Travel Social History Tobacco Use Types Packs/Day [...] on filedocumented in this encounter Care Teams Railroad Construction Director Relationship Specialty Start Date End Date Sun Borrero DO [address] [facility] [place] [facility] [place] [address] PCP - General Internal Medicine 01/29/21 02/17/24 documented as of this encounter
--- OUTSIDE RECORDS SUMMARY | 2024-03-09 08:06 | XMS_ITS | Encounter Summary ---
Author Organization [facility] Address [facility] [place] [address] Care Team Providers Care Planishing Hammer Operator Name Role Phone Sun Borrero Primary Care Provider [phone] Encounter Details Date Type Department Care Team (Latest Contact Info) Description 04/13/2022 4:40 PM EST Office Visit Cardiology at [address] [place] [address] Carmita Chandler MD [facility] [place] [address] PONCHO (obstructive sleep apnea); Pure hypercholesterolemia Social History Tobacco Use Types Packs/Day Years Used Date Smoking Tobacco: Never Smokeless Tobacco: Never Sex and Gender Information Value Date Recorded Sex Assigned at Not on file Gender Identity Not on file Sexual Orientation Not on file documented as of this encounter Last Filed Vital Signs Vital Sign Reading Time Taken Comments Blood Pressure 150/84 04/13/2022 4:38 PM EST Pulse 83 04/13/2022 4:38 PM EST Temperature - - Respiratory Rate - - Oxygen Saturation 99% 04/13/2022 4:38 PM EST Inhaled Oxygen Concentration - - Weight 80.7 kg (178 lb) 04/13/2022 4:38 PM EST p atient reported Height - - Body Mass Index 29.17 08/04/2021 3:00 PM EDT documented in this encounter Patient Instructions * Patient Instructions* Carmita Chandler MD - 04/13/2022 4:40 PM EST Information on lipids When you get your cholesterol numbers (from your blood tests) you will see several results. Note that the word ???lipid?? refers to all your values and ???cholesterol?? to all values except Triglycerides. Total cholesterol: this is a measure of all the cholesterol however it is more important to look atthe ???breakdown?? into LDL, HDL, and Triglycerides LDL cholesterol: this is the ???bad?? cholesterol. Your goal is based on your medical history and risk factors. For patients at low risk, this number should be < 130 and optimally < 100. For those at higher risk (with diabetes, known coronary artery disease, stroke, or peripheral vascular disease) your number should be < 70 (with some guidelines recommending < 55) HDL cholesterol: this is the ???good?? cholesterol because it helps take the bad cholesterol out of your body. Higher numbers are generally better but > 40 is considered adequate. At this time the importance of HDL is not entirely clear and we have no good medications to raise this at present. Triglycerides: This is another lipid and is associated with risk for heart disease. Very high levels (> 1000) can put you at risk for pancreatitis (an inflammation of your pancreas organ). Lifestyle factors are very helpful in lowering Triglycerides including weight loss, diet, and exercise. Optimal level is < 150 however mild elevations are generally treated with life style changes. Apolipoprotein B (ApoB): you may also see a result for this on your lab sheet. This is another measure of the ???bad?? cholesterol and is felt to be a very accurate way to measure how much you have Lipoprotein(a) (Lp(a)): This is another lipid particle that is associated with risk for cardiovascular disease. It is heavily influenced by genetics (your level is determined from ). At present we do not have specific medications to lower Lp(a) but when it is elevated we try to get the LDL cholesterol level very low Lipid targets and goals: The targets for treatment of dyslipidemia, in particular LDL-cholesterol and Apolipoprotein B (a better measure of total atherosclerotic particle burden) are based on the 2020 [place] [employer] ofClinical Endocrinologists and the [place] College [employer]ocrin[employer], also with information from [id number] ACC/AHA/National Lipid Association Guideline on the Management of Blood Cholesterol. The 2013 ACC/AHA Guidelines eliminated lipid targets and goals and provided 4 categories; if a patient was inone of these then initiation of statin was indicated. The Guidelines were based only on randomized clinical statin trials and were directed to patients ages 40-70 years. 2020 Endocrinology Guidelines Category LDL-C Goal Apolipoprotein B Goal Extreme Risk < 55 < 70 Very High Risk < 70 < 80 High Risk < 100 < 90 Moderate Risk < 100 < 90 Low Risk < 130 none Extreme Risk Progressive ASCVD, established ASCVD + CKD 3+, Heterozygous Familial Hypercholesterolemia, premature ASCVD (male < 55 and female < 65) Very High Risk Established ASCVD, 10-year risk score > 20%, diabetes and 1+ risk factor, CKD 3 + albuminuria, Heterozygous Familial Hypercholesterolemia High Risk 2+ risk factors and 10 year risk score 10-20%, diabetes or CKD 3+ with no other risk factors Moderate Risk < 2 risk factors and 10-year risk < 10% Low Risk No risk factors Incorporation of ASCVD Risk Enhancers ?? Many guidelines list markers of risk that can be considered when determining need for LDL-lowering. These include Chronic Kidney Disease, family history of premature ASCVD, metabolic syndrome, inflammatory diseases (HIV, arthritis), [place] ancestry. ?? Coronary Artery Calcium: if score = zero, consider no treatment unless patient has diabetes, family history of premature CAD, or other compelling reasons. Note that very elevated LDL should be considered for reducing long-term risk (> 10 years) ?? Elevated CRP (2.0+ mg/dL) has been included however CRP is a non-specific marker and may be elevated due to many medical conditions therefore harder to interpret significance in terms of lipid management ?? Elevated Lipoprotein (a). Lp(a) is a very atherogenic lipid particle: it is similar to plasminogen and is antifibrinolytic, content contains oxidized phospholipids, and has an LLD-like component. It is very influenced by genetics. PCSK9 inhibitors can lower Lp(a) however no RCT has specifically shown benefit to lowering Lp(a) although it is assumed to be of benefit. Elevated Lp(a) is associated with premature ASCVD and family history of premature disease. Some Guidelines recommend measuring once in all patients, in particular those with family history, risk factors, or known ASCVD. Measurement should be done in a lab that uses assays for nmol/L. In general Lp(a) is stable without need for routine measurement. Guidelines recommend aggressive LDL-lowering in patients with elevated Lp(a) and treatment of risk factors. documented in this encounter Progress Notes * Carmita Chandler MD - 04/13/2022 4:40 PM EST CARDIOLOGY OUTPATIENT CLINIC NOTE PRIMARY CARE PROVIDER: Sun Borrero DO REFERRING PROVIDER: Sun Borrero Patient ID: Alejandra Ruano is a 62 y.o. female. HPI: 04/13/22 NEW PATIENT EVALUATION DYSLIPIDEMIA She has been followed by general cardiology, most recently by Dr. Hahn in [facility]. She states that my current artificial marble worker does not seem to understand Lipoprotein (a) and I asked tosee someone else. She was seeing a artificial marble worker as she has a strong family history. She has buildup plaque in my carotid arteries. She has no history of personal heart disease. She has unusual pains in her legs and a magnesium supplement has helped resolve this. She has a little trouble breathing and does not know if this isbecause she is not in good physical shape. She does not have chest pain. She states she is taking thornton pplements that have been shown in peer reviewed research to lower Lipoprotein (a) and she is using the amounts that were used in the research. Note: she does not use My and asks that [facility] does not put any information online. She is concerned about breach of information. EKG 04/13/22 CT Angiogram 02/18/22 Coronary calcium score: Left main: Agatston score: 0; Volume score: 0; Mass: 0 mg Left anterior descending: Agatston score: 1; Volume score: 4; Mass: 0.56 mg Left circumflex: Agatston score: 0; Volume score: 0; Mass: 0 mg Right coronary: Agatston score: 0; Volume score: 0; Mass: 0 mg TOTAL: Agatston score: 1; Volume score: 4; Mass: 0.56 mg ??Coronary arteries: Right dominant coronary artery circulation. Left main: Normal origin. No demonstrable plaque or stenosis. Left anterior descending: Very small punctate eccentric calcified plaque in the proximal left anterior descending artery. No luminal narrowing. Diagonal branches: No demonstrable plaque or stenosis. Left Circumflex: No demonstrable plaque or stenosis. Obtuse marginal branches: No demonstrable plaque or stenosis. Right coronary: Normal origin. Soft plaque in the mid right coronary artery with subtle associated atherosclerotic calcification. Luminal narrowing is 25-49%. Posterior descending: No demonstrable plaque or stenosis. Posterolateral branch: No demonstrable plaque or stenosis. ?? Cardiac chambers: No significant findings. Great vessels: No significant findings. Pulmonary parenchyma, airways, pleura: No significant findings. Upper abdomen: No significant findings Skeletal Structures: No significant findings. ?? IMPRESSION Coronary calcium score of 1, consistent with minimal atherosclerotic plaque burden and 59%-ile rank based on age, race/ethnicity, and gender. ?? Punctate atherosclerotic calcifications in the proximal LAD with luminal narrowing of less than 25%. Soft plaque in the mid right coronary artery narrows the lumen by slightly more than 25%. Atherosclerotic plaque burden, based on Agatston score: Minimal Percentile rank, based on age, race/ethnicity, and gender PROBLEM LIST: Problem List: 2021-08: PONCHO (obstructive sleep apnea) 2021-08: Anxiety 2021-08: Hyperlipidemia 2021-08: Essential tremor 2018-04: Seborrheic keratoses, inflamed 2017-07: History of SCC (squamous cell carcinoma) of skin 2017-03: Seborrheic dermatitis 2015-06: Varicose veins of both lower extremities 2014-: AK (actinic keratosis) 2013-01: Seborrheic keratosis 2011-11: Seborrheic keratosis, inflamed MEDICATIONS: Current Outpatient Medications Medication Sig Dispense Refill ??? ciclopirox (PENLAC) 8 % Solution ??? ondansetron ODT (Zofran-ODT) 4 mg Tablet, Rapid Dissolve ??? zolpidem (AMBIEN) 10 mg Tablet ??? ketoconazole (NIZORAL) 2 % Shampoo Use as shampoo for scalp every day , two weeks on and 2 weeks off 120 mL 5 ??? selenium sulfide 2.5 % Lotion Use as shampoo for scalp every day 2 weeks on and 2 weeks off, alternating with second shampoo 120 mL 5 ??? FLUoxetine (PROzac) 20 mg Capsule Take 20 mg by mouth daily. ??? propranoloL (Inderal) 10 mg Tablet Take 10 mg by mouth as needed. For tremor ??? famciclovir (FAMVIR) 125 mg Tablet Take 500 mg by mouth as needed. ??? rosuvastatin (Crestor) 20 mg Tablet Take 20 mg by mouth daily. ??? aspirin 81 mg Tablet, Chewable Take 81 mg by mouth Daily. One tablet every 5 days ??? ALPRAZolam (XANAX) 1 mg Tablet Takes 1/2 as needed 1 No current facility-administered medications for this visit. Subjective: Review of Systems Constitutional: Negative for malaise/fatigue and weight gain. Cardiovascular: Positive for dyspnea on exertion. Negative for chest pain, claudication, cyanosis, irregular heartbeat, leg swelling, near-syncope, orthopnea, palpitations, paroxysmal nocturnal dyspnea and syncope. Respiratory: Negative for shortness of breath and sleep disturbances due to breathing. Hematologic/Lymphatic: Does not bruise/bleed easily. Musculoskeletal: Positive for myalgias. Negative for back pain, falls and joint pain. Genitourinary: Negative for frequency. Neurological: Negative for dizziness, light-headedness and loss of balance. Psychiatric/Behavioral: Negative for altered mental status and memory loss. Social History: Social History Socioeconomic History ??? Marital status: Spouse name: Not on file ??? Number of children: Not on file ??? Years of education: Not on file ??? Highest education level: Not on file Occupational History ??? Not on file Tobacco Use ??? Smoking status: Never ??? Smokeless tobacco: Never Substance and Sexual Activity ??? Alcohol use: Not on file ??? Drug use: Not on file ??? Sexual activity: Not on file Other Topics Concern ??? Not on file Social History Narrative ??? Not on file Social Determinants of Health Financial Resource Strain: Not on file Food Insecurity: Not on file Transportation Needs: Not on file Physical Activity: Not on file Housing Stability: Not on file Objective: Physical Exam Constitutional: Appearance: She is well-developed. Neck: Vascular: No JVD. Cardiovascular: Rate and Rhythm: Normal rate and regular rhythm. Heart sounds: Normal heart sounds. Pulmonary: Effort: Pulmonary effort is normal. Breath sounds: Normal breath sounds. Skin: General: Skin is warm and dry. Neurological: Mental Status: She is alert and oriented to person, place, and time. Psychiatric: Behavior: Behavior normal. Patient Vitals for the past 24 hrs: Pulse BP SpO2 04/13/22 1638 83 150/84 99 % No results found for this or any previous visit (from the past 72 hour(s)). Assessment and Plan: No problem-specific Assessment & Plan notes found for this encounter. Blood pressure Lipids ?? Lp(a) 104 11/02/21 Nmol/L 11/05/20 148 nmol/L ?? Supplements being two tablespoons of flax seed every morning Red yeast rice, L carnitine, clover, CoEnzyme Q 10, rosuvastatin 20 mg ?? 11/04/21 total cholesterol 117 LDL 56 HDL 40 TG 107 We had an extended discussion on each lipid measure, what it represented, and what her goal would be. I explained that Lp(a) was a very atherogenic lipid particle and highly influenced by genetics. At present we do not have any FDA- approved medications for lowering this (or results from randomized controlled trials to show reduction in mortality from lowering Lp(a)). Current guidelines recommend aggressively lowering LDL for patients who have elevated Lp(a) which hers is already very low and would be considered at goal. She is on a statin but also on several supplements, one is Red Yeast Rice which contains lovastatin. I explained that as these are not FDA approved, I could not attest to their safety and efficacy. In my experience as a Board-certified Lipidologist I have no information on these supplements being used to lower Lp(a). She asks why her Lp(a) changed from 2020 to 2021. I explained that different labs may use different assays but short of using niacin (she did not) I would not be able to determine why. While my feeling was that she was at goal for her lipids, she did request repeat panel including Lp(a). I ordered this and it was drawn right after her appointment; I will have results communicated to her (she does not use myDH). PLAN: 1. Discussed that her lipid panel was at goal and reviewed Lp(a) 2. I reviewed her CT scan and explained the results noted above. I explained that this was more of an anatomical test and understood that Dr. Hahn (the artificial marble worker who ordered the test) did not feel any further cardiac testing was indicated. I suggested she reach out to Dr. Hahn to review however she said that I won't be going back to Dr. Hahn. I also explained that a functional test such as a stress test would provide other information and another way to evaluate 3. She shared with me that coming to [facility] is a 3 [address] round trip. In the future we may no longer have telemedicine and also that I strongly prefer to have in- person appointments so that I may see andexamine them. To have a stress test here would require coming to [facility] as may any follow up appointments. I let her know that I will identify cardiologists near where she lives and communicate with them regarding her cardiac issues; she could then have follow up in a more convenient manner. Time spent for this clinic appointment on the date of service includes: New patient evaluation, 20 minutes review of previous records, extensive discussion, documentation,coordination of care. 1) [id number] counseling as noted above 2) reviewing past medical records, cardiac testing, results of laboratory testing 3) coordinating care with other physicians and allied health care providers Carmita Chandler MD, Christina, FACC, FNLA Attending Doping Supervisor [facility] Preventive Cardiology Lipid Clinic Advanced Hypertension Clinic documented in this encounter Plan of Treatment Not on file documented as of this encounter Procedures Procedure Name Priority Date/Time Associated Diagnosis Comments EKG 12-LEAD Routine 04/13/2022 4:44 PM EST PONCHO (obstructive sleep apnea) Pure hypercholesterolemia documented in this encounter Results * Lipid Panel (Reflex Direct LDL) (04/13/2022 5:26 PM EST) [facility] Cholesterol, Total 127 mg/dL [facility] Comment: Lower Risk: <200 mg/dL Average Risk: 200-239 mg/dL Higher Risk: >ca=496 mg/dL Triglyceride 70 mg/dL [facility] Comment: Average Risk/Lower Risk: <150 mg/dL Borderline High Risk: 150-199 mg/dL High Risk: 200-499 mg/dL Very High Risk: >xm=270 mg/dL HDL Cholesterol 43 mg/dL [facility] Comment: Males: ?? Higher Risk: <40 mg/dL Females: ?? Higher Risk: <50 mg/dL LDL Cholesterol 70 mg/dL [facility] Comment: Lowest Risk: <100 mg/dL Lower Risk: 100-129 mg/dL Borderline High Risk: 130-159 mg/dL High Risk: 160-189 mg/dL Very High Risk: >sy=430 mg/dL Cholesterol/HDL Ratio 3.0 ratio [facility] Lipid Interpretation See Note [facility] Comment: Lipid management should be guided by a patient? s ASCVD risk, goals and preferences. ACC/AHA Guidelines recommend high intensity statin if clinical ASCVD or LDL greater than or equal to 190 mg/dL. [email or web address] Adults aged 40-75 with LDL 70-189 mg/dL should have their 10 year ASCVD risk estimated with the ACC/AHA ASCVD risk sales estimator http://tools.acc.org/SPSVI-Mfbj-Qycotbdyi/ Statin should be discussed if risk greater [...] In Lab Carmita Chandler MD CHEMISTRY ORDERABLES [facility] [place] [address] * Apolipoprotein B (04/13/2022 5:26 PM EST) Apolipoprotein B (AUGUST) 65 mg/dL [facility] Comment: REFERENCE VALUE Desirable: <90 Above Desirable: 90-99 Borderline high: 100-119 High: 120-139 Very high: > or = 140 Test Performed by: [facility] - [address] [address] Assistant Director Of Public Works: Venu Michaud M.D. Ph.D.; CLIA# [id number] Blood 04/13/2022 5:26 PM EST 04/14/2022 11:29 AM EST Narrative Resulting Agency Comment Spec In Lab Carmita Chandler MD LAB SEND OUT ORDERAB LES Performing Organization Address City/[facility] Co de Phone Number [facility] [place] [address] * (ABNORMAL) Lipoprotein A (04/13/2022 5:26 PM EST) Lipoprotein(A) (AUGUST) 109(H) <75 nmol/L [facility] Comment: Lp(a) confers increased risk for [...] considered a risk enhancing factor by the [place] [employer]. This test has been modified from the code enforcement inspector's instructions. Its performance characteristics were determined by [facility] in a manner consistent with CLIA requirements. This test has not been cleared or approved by the U.S. Food and Drug Administration. Test Performed by: [facility] [place] [address] Assistant Director Of Public Works: Venu Michaud M.D. Ph.D.; CLIA# [id number] Blood 04/13/2022 5:26 PM EST 04/14/2022 11:29 AM EST Narrative Resulting Agency Comment Spec In Lab Carmita Chandler MD LAB SEND OUT ORDERAB LES Performing Organization Address City/State/[facility] Co de Phone Number [facility] [place] [address] * EKG 12 Lead (04/13/2022 4:44 PM EST) Ventricular rate 73 BPM MUSE SYSTEM Atrial Rate 73 BPM MUSE SYSTEM P-R Interval 150 ms MUSE SYSTEM QRS Duration 86 ms MUSE SYSTEM Q-T Interval 402 ms MUSE SYSTEM QTC Calculated (Bezet) 442 ms MUSE SYSTEM Calculated P [place] 72 degrees MUSE SYSTEM Calculated R [place] 67 degrees MUSE SYSTEM Calculated T [place] 62 degrees MUSE SYSTEM INTERPRETATION Normal sinus rhythm with sinus arrhythmia Nonspecific ST abnormality Abnormal ECG No previous ECGs available Confirmed by MD LUIS F, SAMEER ([id number]) on 04/13/2022 9:22:54 PM MUSE SYSTEM 04/13/2022 4:44 PM EST 04/13/2022 9:22 PM EST Carmita Chandler MD ECG ORDERABLES Performing Organization Address City/[facility] Co de Phone Number MUSE SYSTEM documented in this encounter Visit Diagnoses Diagnosis PONCHO (obstructive sleep apnea) Obstructive sleep apnea (adult) (pediatric) Pure hypercholesterolemia documented in this encounter Care Teams Planishing Hammer Operator Relationship Specialty Start Date End Date Sun Borrero DO [facility] [place] [address] PCP - General Internal Medicine 01/29/21 02/17/24 documented as of this encounter
--- OUTSIDE RECORDS SUMMARY | 2024-03-09 08:06 | XMS_ITS | Encounter Summary ---
[place] [address] Care Team Providers Care Venetian Blind Worker Name Role Phone Sun Borrero Primary Care Provider [phone] Encounter Details Date Type Department Care Team (Late st Contact Info) Description 11/17/2023 Interpretation Only in [address] [address] Peggy Hernandez MD [address] [place], [place] [address] Social History Tobacco Use Types Packs/Day Years Used Date Smoking Tobacco: Never Smokeless Tobacco: Never Sex and Gender Information Value Date Recorded Sex Assigned at Not on file Gender Identity Not on file Sexual Orientation Not on file documented as of this encounter Plan of Treatment Not on file documented as of this encounter Procedures Procedure Name Priority Date/Time Associated Diagnosis Comments XR KNEE 4 OR MORE VIEWS LEFT Routine 11/17/2023 3:49 PM EDT documented in this encounter Results * XR Knee 4 or more views Left (11/17/2023 3:49 PM EDT) PT CLASS O RAD ADMITDTTM [id number] RAD PT RAD INFO [id number]^KARON ^PEGGY^Briana RAD EXAM DESC XKN4L^XR KNEE 4V LT^RIS DH RAD WORKSTATION ID [id number] [facility] Anatomical Region Laterality Modality Knee Left Radiographic Lauren ging Addenda Addendum by Nima Agarwal MD on 12/27/2023 8:16 AM EDT ADDENDUM #1 TECHNIQUE: 4 views LEFT knee Thank you for letting us participate in the care of this patient. ??If you are a health care provider and have any questions regarding this report, please contact the number below. ??For patients who have questions please contact the health certified caregiver that requested your imaging first. ? Electronically signed by: Nima Agarwal MD, [facility] ([phone]), at 12/27/2023 8:10 AM ORIGINAL REPORT EXAMINATION: XR KNEE 4V LT CLINICAL HISTORY: ??Reason for Extrem: ??LT KNEE PAIN ??Add'l Info: TECHNIQUE: 3 views LEFT knee COMPARISON: [...] participate in the care of this patient. ??If you are a health care provider and have any questions regarding this report, please contact the number below. ??For patients who have questions please contact the health certified caregiver that requested your imaging first. ? Electronically signed by: Nima Agarwal MD, [facility] ([phone]), at 11/17/2023 6:11 PM Addendum by Nima Agarwal MD on 12/24/2023 3:43 PM EDT ADDENDUM #1 TECHNIQUE: 4 views LEFT knee ORIGINAL REPORT EXAMINATION: XR KNEE 4V LT CLINICAL HISTORY: ??Reason for Extrem: ??LT KNEE PAIN ??Add'l Info: TECHNIQUE: 3 views LEFT knee COMPARISON: [...] participate in the care of this patient. ??If you are a health care provider and have any questions regarding this report, please contact the number below. ??For patients who have questions please contact the health certified caregiver that requested your imaging first. ? Electronically signed by: Nima Agarwal MD, [facility] ([phone]), at 11/17/2023 6:11 PM Impressions 11/17/2023 6:11 PM EDT 1. No acute fracture or dislocation. 2. Small joint effusion. 3. Mild osteoarthritis is noted with preferential narrowing the medial tibiofemoral and patellofemoral compartments of the knee. Thank you for letting us participate in the care of this patient. ??If you are a health care provider and have any questions regarding this report, please contact the number below. ??For patients who have questions please contact the health certified caregiver that requested your imaging first. ? Narrative 11/17/2023 6:11 PM EDT EXAMINATION: XR KNEE 4V LT CLINICAL HISTORY: ??Reason for Extrem: ??LT KNEE PAIN ??Add'l Info: TECHNIQUE: 3 views LEFT knee COMPARISON: None FINDINGS: No acute fracture or dislocation is noted. A small joint effusion is present. Mild osteoarthritis is noted with preferential narrowing the medial tibiofemoral and patellofemoral compartments of the knee. Small osteophyte is identified along the medial aspect of the medial femoral condyle. Procedure Note Nima Agarwal MD - 11/17/2023 EXAMINATION: XR KNEE 4V LT CLINICAL HISTORY: Reason for Extrem: LT KNEE PAIN Add'l Info: TECHNIQUE: 3 views LEFT knee COMPARISON: None FINDINGS: No acute fracture or dislocation is noted. A small joint effusion ispresent. Mild osteoarthritis is noted with preferential narrowing the medialtibiofemoral and patellofemoral compartments of the knee. Small osteophyte isidentified along the medial aspect of the medial femoral condyle. IMPRESSION 1. No acute fracture or dislocation. 2. Small joint effusion. 3. Mild osteoarthritis is noted with preferential narrowing the medial tibiofemoral and patellofemoral compartments of the knee. Thank you for letting us participate in the care of this patient. If youare a health care provider and have any questions regarding this report,please contact the number below. For patients who have questions please contactthe health certified caregiver that requested your imaging first. Electronically signed by: Nima Agarwal MD, [facility]([phone]), at 11/17/2023 6:11 PM Peggy Hernandez MD IMG DX ORDERABLES documented in this encounter Visit Diagnoses Not on filedocumented in this encounter Care Teams Venetian Blind Worker Relationship Specialty Start Date End Date Sun Borrero DO [address] [place] [address] PCP - General Internal Medicine 01/29/21 02/17/24 documented as of this encounter
--- OUTSIDE RECORDS SUMMARY | 2024-03-09 08:06 | XMS_ITS | Encounter Summary ---
Author Organization [facility] [place] [address] Care Team Providers Care Computational Mathematician Name Role Phone Sun Borrero DO Primary Care Provider [phone] Reason for Visit * Reason Comments Annual Exam Encounter Details Date Type Department Care Team (Late st Contact Info) Description 04/16/2023 4:00 PM EST Office Visit Dermatology at [address] [address] Miguel Ángel Thomason MD [address] [facility], ON LICENSE OF [facility] [address] History of SCC (squamous cell carcinoma) of skin; Seborrheic keratosis Social History Tobacco Use Types Packs/Day Years Used Date Smoking Tobacco: Never Smokeless Tobacco: Never Sex and Gender Information Value Date Recorded Sex Assigned at Not on file Gender Identity Not on file Sexual Orientation Not on file documented as of this encounter Progress Notes * Miguel Ángel Thomason MD - 04/16/2023 4:00 PM EST Problem: 1. Annual skin checkup 2. 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 History of SCCA right mid back October 2020 3. History of seborrheic dermatitis of scalp, improved with softened water 4. [place] ethnic background Alejandra follows up for her yearly skin checkup. Physical examination reveals a pleasant 63-year-old woman who has a benign examination of the head and the neck the chest the back the hands arms forearms thighs and calves. She has no evidence of any cutaneous malignancies. She continues to have a probable external hemorrhoid rectum on her perineum. Assessment plan: Benign skin examination 1. Patient reassured about her benign skin examination 2. No treatment necessary 3. Return to clinic in a year for recheck. Tinea unguium 1. Significantly improved with thymol 3% in ethyl alcohol 2. Continue to apply to affected toenails. External hemorrhoid, perineum 1. After obtaining informed patient consent, the site was anesthetized and the lesion removed with electrodesiccation. 2. A specimen was submitted to [facility] [place] at patient request 3. Wound care instructions and supplies given. CC: Sun Borrero DO documented in this encounter Plan of Treatment Not on file documented as of this encounter Visit Diagnoses Diagnosis History of SCC (squamous cell carcinoma) of skin Personal history of other malignant neoplasm of skin Seborrheic keratosis Other seborrheic keratosis documented in this encounter Care Teams Computational Mathematician Relationship Specialty Start Date End Date Sun Borrero DO [address] [place] [address] PCP - General Internal Medicine 01/29/21 02/17/24 documented as of this encounter
--- OUTSIDE RECORDS SUMMARY | 2024-03-09 08:06 | XMS_ITS | Encounter Summary ---
[place] [address] Care Team Providers Care Bi Report Developer Name Role Phone Sun Borrero Primary Care Provider Encounter Details Date Type Department Care Team (Late st Contact Info) Description 02/18/2022 9:20 AM EDT Laboratory Appointment Lab [address] [place] [id number] Social History Tobacco Use Types Packs/Day Years Used Date Smoking Tobacco: Never Smokeless Tobacco: Never Sex and Gender Information Value Date Recorded Sex Assigned at Not on file Gender Identity Not on file Sexual Orientation Not on file documented as of this encounter Plan of Treatment Not on file documented as of this encounter Procedures Procedure Name Priority Date/Time Associated Diagnosis Comments CREATININE Routine 02/18/2022 9:43 AM EDT documented in this encounter Results * (ABNORMAL) Creatinine (02/18/2022 9:43 AM EDT) Creatinine 0.63(L) 0.70 - 1.20 mg/dL [facility] Est Glomerular Filtration Rate 100 >=60 mL/min/1. 73 m?? [facility] Comment: This patient's estimated GFR was calculated using the 2020 CKD-EPI equation. The estimated GFR can vary from the measured GFR by up to 30% in the absence of rapidly changing kidney function. Assessment of the estimated GFR is not appropriate when creatinine concentrations are rapidly changing. For clinical situations in which a more precise estimate of GFR is necessary, consider alternative methods of GFR estimation such as a 24-hour urine creatinine clearance. Assignment of CKD stage 1-5 for patients with an eGFR near the transition point between stages may be based on clinical assessment of muscle mass and symptoms in addition to eGFR. Blood Venous Draw / Unknown 02/18/2022 9:43 AM EDT 02/18/2022 9:52 AM EDT Narrative Resulting Agency Comment Spec In Lab Betty Hahn MD CHEMISTRY ORDERABLES [facility] [place] [address] documented in this encounter Visit Diagnoses Not on filedocumented in this encounter Care Teams Bi Report Developer Relationship Specialty Start Date End Date Sun Borrero DO [address] [place] [address] PCP - General Internal Medicine 01/29/21 02/17/24 documented as of this encounter
--- OUTSIDE RECORDS SUMMARY | 2024-03-09 08:06 | XMS_ITS | Encounter Summary ---
[place] [address] Care Team Providers Care Oil Rigger Name Role Phone Sun Borrero DO Primary Care Provider Encounter Details Date Type Department Care Team (Latest Contact Info) Description 04/16/2023 Travel Social History Tobacco Use Types Packs/Day [...] on filedocumented in this encounter Care Teams Oil Rigger Relationship Specialty Start Date End Date Sun Borrero DO [address] [facility] [address] PCP - General Internal Medicine 01/29/21 02/17/24 documented as of this encounter
--- OUTSIDE RECORDS SUMMARY | 2024-03-09 08:06 | XMS_ITS | Encounter Summary ---
[place] [address] Care Team Providers Care Gill Box Fixer Name Role Phone Sun Borrero Primary Care Provider [phone] Encounter Details Date Type Department Care Team (Latest Contact Info) Description 04/16/2023 10:03 PM EST - 04/16/2023 11:59 PM EST Hospital [place] [address] Discharge Disposition: Home Social History Tobacco Use Types Packs/Day Years Used Date Smoking Tobacco: Never Smokeless Tobacco: Never Sex and Gender Information Value Date Recorded Sex Assigned at Not on file Gender Identity Not on file Sexual Orientation Not on file documented as of this encounter Medications at Time of Discharge Medication Sig Dispensed Refills Start Date End Date rosuvastatin (Crestor) 20 mg Tablet Take 20 mg by mouth daily. aspirin 81 mg Tablet, Chewable Take 81 mg by mouth Daily. One tablet every 5 days ketoconazole (NIZORAL) 2 % Shampoo Use as shampoo for scalp every day , two weeks on and 2 weeks off 120 mL 5 01/06/2022 02/18/2024 selenium sulfide 2.5 % Lotion Use as shampoo for scalp every day 2 weeks on and 2 weeks off, alternating with second shampoo 120 mL 5 01/06/2022 02/18/2024 ciclopirox (PENLAC) 8 % Solution 01/29/2022 02/18/2024 zolpidem (AMBIEN) 10 mg Tablet 11/20/2021 02/18/2024 propranoloL (Inderal) 10 mg Tablet Take 10 mg by mouth as needed. For tremor 02/18/2024 ALPRAZolam (XANAX) 1 mg Tablet Takes 1/2 as needed 1 01/29/2017 02/18/20 24 documented as of this encounter Plan of Treatment Not on file documented as of this encounter Procedures Procedure Name Priority Date/Time Associated Diagnosis Comments SURGICAL PATHOLOGY REPORT Routine 04/16/2023 4:30 PM EST documented in this encounter Results * Surgical Pathology Report (04/16/2023 4:30 PM EST) Final Diagnosis [id number] ? Location: [facility] The signing pathologist has (i) examined the relevant preparation(s) for the specimen(s) and (ii) rendered or confirmed the diagnosis(es). . ?Surgical Pathology DIAGNOSIS Perineum, skin shave biopsy: - ??Acrochordon Electronically signed by: ?Dg ZULETA, PhD, Angelo An Verified: ??04/29/2023 9:32 ?? Dermatopatholog ist, Bone & Soft Tissue Pathologist Performed at: ??-[facility] Dept. of [place]ology, [place] [address] [place]: Quincy Ruvalcaba MD, FCAP, ??CLIA Certificate: [id number] SPECIMEN(S) SUBMITTED A - Perineum, shave CLINICAL INFORMATION Soft fleshy protuberance. ??Verruca, acrochordon, hemorrhoid (external) SPECIMEN PROCESSING A - Labeled/Fixativ e: Patient demographics, formalin. Quantity/Size: ??Single, 0.5 x 0.4 x 0.3 cm. Tissue Description: Stack-anderson papule. Sections/Proces sing: Inked, bisected and entirely submitted in 1 cassette labeled A1. ??pps 04/29/2023 9:32 AM EST [facility] SPECIMEN FROM SKIN / Unknown 04/16/2023 4:30 PM EST 04/16/2023 4:30 PM EST Miguel Ángel Thomason MD [facility] [place] [address] [place] [address] documented in this encounter Visit Diagnoses Not on filedocumented in this encounter Care Teams Gill Box Fixer Relationship Specialty Start Date End Date Sun Borrero DO [address] [place] [address] PCP - General Internal Medicine 01/29/21 02/17/24 documented as of this encounter
--- OUTSIDE RECORDS SUMMARY | 2024-03-09 08:06 | XMS_ITS | Clinical Summary ---
Author Organization [facility] [place] [address] Care Team Providers Care Dealer Support Technician Name Role Phone Niki Boykin MD Primary Care Provider [phone] Allergies No known active allergies Medications Medication Sig Dispensed Refills Start Date End Date Status aspirin 81 mg Tablet, Chewable Take 81 mg by mouth Daily. One tablet every 5 days Active rosuvastatin (Crestor) 20 mg Tablet Take 20 mg by mouth daily. Active ketoconazole (NIZORAL) 2 % Shampoo Use as shampoo for scalp every day , two weeks on and 2 weeks off 120 mL 5 02/18/2024 Active selenium sulfide 2.5 % Lotion Use as shampoo for scalp every day 2 weeks on and 2 weeks off, alternating with second shampoo 120 mL 5 02/18/2024 Active Active Problems Problem Noted Date Diagnosed Date PONCHO (obstructive sleep apnea) 09/12/2021 Anxiety 08/04/2021 Hyperlipidemia 08/04/2021 Essential tremor 08/04/2021 Seborrheic keratoses, inflamed 04/06/2018 History of SCC (squamous cell carcinoma) of skin 07/08/2017 Seborrheic dermatitis 03/16/2017 Varicose veins of both lower extremities 016 AK (actinic keratosis) 06/19/2014 Seborrheic keratosis 01/23/2013 Seborrheic keratosis, inflamed 11/23/2011 Encounters Date Type Department Care Team Description 02/18/2024 4:00 PM EDT Office Visit Dermatology at [address] [place] [phone] Miguel Ángel Thomason MD History of SCC (squamous cell carcinoma) of skin; Seborrheic keratosis; Seborrheic keratoses, inflamed 02/18/2024 Travel from Last 3 Months Social History Tobacco Use Types Packs/Day Years Used Date Smoking Tobacco: Never Smokeless Tobacco: Never Sex and Gender Information Value Date Recorded Sex Assigned at Not on file Gender Identity Not on file Sexual Orientation Not on file Last Filed Vital Signs Vital Sign Reading Time Taken Comments Blood Pressure 150/84 04/13/2022 4:38 PM EST Pulse 83 04/13/2022 4:38 PM EST Temperature - - Respiratory Rate - - Oxygen Saturation 99% 04/13/2022 4:3 8 PM EST Inhaled Oxygen Concentration - - Weight 80.7 kg (178 lb) 04/13/2022 4:38 PM EST patient reported Height 166.4 cm (5' 5.5) 08/04/2021 3: 00 PM EDT Body Mass Index 29.17 08/04/2021 3:00 PM EDT Plan of Treatment Health Maintenance Due Date Last Done Comments CT Colonography 1960 Colonoscopy 1960 Colorectal Cancer Screening 1960 FIT DNA 1960 FIT 1960 Sigmoidoscopy (10 year) with FIT yearly 1960 Sigmoidoscopy 1960 HIV screen 12/31/1977 Hepatitis C Screening 12/31/1977 Tetanus/Diphtheria/Pertussis Vaccines (1 - Tdap) 12/31/1978 HPV test 12/31/1989 PAP Smear 12/31/1989 Breast Cancer Share Decision Needed 2000 Breast Cancer screening 2000 Diabetes Screening (HgbA1C o r Glucose) 2000 Zoster vaccine (1 of 2) 12/31/2009 Advance Directive 12/31/2014 Covid-19 Vaccine ( season) 2024 03/06/2021, 09/02/2020, 08/05/2020 Influenza (Flu) vaccine (1 o f 1 - Influenza standard series) 01/02/2024 Care Teams Dealer Support Technician Relationship Specialty Start Date End Date Niki Boykin MD [address] [place], [place] [address] PCP - General General Internal Medicine 02/18/24
--- OUTSIDE RECORDS SUMMARY | 2024-03-09 08:06 | XMS_ITS | Encounter Summary ---
[place] [address] Care Team Providers Care Product Demonstrator Name Role Phone Sun Borrero DO Primary Care Provider [phone] Reason for Visit * Reason Comments Skin Check Encounter Details Date Type Department Care Team (Late st Contact Info) Description 02/23/2022 3:30 PM EDT Office Visit Dermatology at [address] [address] Miguel Ángel Thomason MD [address] [place] [address], [facility] [place] [address] History of SCC (squamous cell carcinoma) of [...] Notes * Miguel Ángel Thomason MD - 02/23/2022 3:30 PM EDT Problem: 1.?Annual skin checkup 2. 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 History of SCCA right mid back October 2020 3. ??History of seborrheic dermatitis of scalp, improved with softened water 4. ??Mohawk ethnic background Alejandra follows up for her yearly skin checkup. Physical examination reveals a pleasant 62-year-old woman who has benign examination of the head and the neck the chest the back the hands arms forearms thighs and calves. There is no evidence of anymalignant lesions or premalignant lesions. She has some early tinea unguium developing in the hallux left and right and wonders about treatment for that. She has a tag versus condyloma present adjacent to the rectal verge on just to the left of the rectum. Assessment plan: Benign skin examination 1. Patient reassured about her benign skin examination 2. Recommend I see again in a year for repeat check Tinea unguium 1. Prescription will be called in for thymol 3% in ethyl alcohol apply to affected toenails on a twice daily basis for the next 3 to 6 months. Dispense 30 mL with 2 refills 2. This be called into her [facility] compounding pharmacy. Tag versus condyloma perirectal 1. Site was visualized today and is about 2 to 3 mm in diameter 2. We will schedule a 15-minute appointment for snip biopsy removal of this. She would like this nilda sent to [facility] [place]. CC: Sun Borrero DO documented in this encounter Plan of Treatment Not on file documented as of this encounter Visit Diagnoses Diagnosis History of SCC (squamous cell carcinoma) of skin Personal history of other malignant neoplasm of skin Seborrheic keratosis Other seborrheic keratosis Seborrheic keratoses, inflamed documented in this encounter Care Teams Product Demonstrator Relationship Specialty Start Date End Date Sun Borrero DO [facility] [place] [address] PCP - General Internal Medicine 01/29/21 02/17/24 documented as of this encounter
--- OUTSIDE RECORDS SUMMARY | 2024-03-09 08:06 | XMS_ITS ---
Author Organization Unknown Address [address] [place] [phone] Phone Care Team Providers Care Mixing And Molding Machine Operator Name Role Phone VICKY GARIBAY Attending Unavailable AYESHA Houston Primary Unavailable Social History Type Status Start Date End Date Code Code Syst em Smoking History Former smoker [id number] SNOMED CT Sex Female Medications Medication Start Date End Date Route Frequency Dose Code Code System Medication Instructions Home Meds Antivert/25 25MG Oral Tablet 03/18/2021 05/04/2021 ORAL NEEDED EVERY 8 HOURS 1 TABLET 975806 RxNorm TAKE 1 TABLET ORAL NEEDED EVERY 8 HOURS No alcohol/driving with this Tamsulosin HCl 0.4MG Oral Capsule 05/04/2021 05/29/2022 ORAL DAILY 1 CAPSULE [id number] RxNorm TAKE 1 CAPSULE ORAL DAILY Hospital [...] Status Co de Code System OPIOID Active [id number] SNOMED-CT Plan of Treatment Pre-Op Covid-19 Testing 03/30/2020 MRI UPPER EXT JOINT W/O CONTRAST 2021 LAB DRAW 15MIN 11/04/2021 US CAROTID BILAT 11/04/2021 LAB DRAW 15MIN 05/06/2021 Encounters Encounter Diagnosis Start Date Code Code Sys tem Dysphagia, pharyngeal phase 01/10/2021 SNOMED-CT Personal Care Team Section Performer Name Performer Role Active Date Inactive Da te
--- OUTSIDE RECORDS SUMMARY | 2024-03-09 08:07 | XMS_ITS | Encounter Summary ---
Author Organization [facility] [place] [address] Care Team Providers Care Making Department Preparer Name Role Phone Sun Borrero DO Primary Care Provider Encounter Details Date Type Department Care Team (Late st Contact Info) Description 12/16/2021 Telephone Sleep Center at [facility] [address] [place] [address] Tanna Adams Social History Tobacco Use Types Packs/Day Years Used Date Smoking Tobacco: Never Smokeless Tobacco: Never Sex and Gender Information Value Date Recorded Sex Assigned at Not on file Gender Identity Not on file Sexual Orientation Not on file documented as of this encounter Miscellaneous Notes * Telephone Encounter - Tanna Adams - 12/16/2021 3:45 PM EDT Lvm/mydh to r/s 01/06 Due to SD leaving documented in this encounter Plan of Treatment Not on file documented as of this encounter Visit Diagnoses Not on filedocumented in this encounter Care Teams Making Department Preparer Relationship Specialty Start Date End Date Sun Borrero DO [address] [place] [address] PCP - General Internal Medicine 01/29/21 02/17/24 documented as of this encounter
--- OUTSIDE RECORDS SUMMARY | 2024-03-09 08:07 | XMS_ITS | Encounter Summary ---
Author Organization Formerly [facility] [place] [address] Care Team Providers Care Networks Computer Consultant Name Role Phone Sun Borrero Primary Care Provider [phone] Encounter Details Date Type Department Care Team (Latest Contact Info) Description 02/21/2021 9:19 PM EDT - 02/21/2021 11:59 PM EDT Hospital Encounter [place] [address] Discharge Disposition: Home Social History Tobacco Use Types Packs/Day Years Used Date Smoking Tobacco: Never Smokeless Tobacco: Never Sex and Gender Information Value Date Recorded Sex Assigned at Not on file Gender Identity Not on file Sexual Orientation Not on file documented as of this encounter Medications at Time of Discharge Medication Sig Dispensed Refills Start Date End Date aspirin 81 mg Tablet, Chewable Take 81 mg by mouth Daily. One tablet every 5 days ketoconazole (NIZORAL) 2 % Shampoo Use as shampoo for scalp every day, two weeks on and 2 weeks off 120 mL 5 07/05/2017 05/13/2021 ALPRAZolam (XANAX) 1 mg Tablet Takes 1/2 as needed 1 01/29/2017 02/18/20 24 guanFACINE (INTUNIV) 3 mg Tablet Sustained Release 24 hr TAKE 1 (ONE) TABLET BY MOUTH EVERY MORNING 1 03/05/2017 05/13/2021 fluocinolone acetonide (SYNALAR) 0.01 % Solution Apply to scalp every HS 60 mL 5 03/16/2017 05/13/2021 documented as of this encounter Plan of Treatment Not on file documented as of this encounter Procedures Procedure Name Priority Date/Time Associated Diagnosis Comments SURGICAL PATHOLOGY REPORT Routine 02/21/2021 12:00 PM EDT documented in this encounter Results * Surgical Pathology Report (02/21/2021 12:00 PM EDT) Final Diagnosis [id number] ? Location: [facility] The signing pathologist has (i) examined the relevant preparation(s) for the specimen(s) and (ii) rendered or confirmed the diagnosis(es). . ?Surgical Pathology DIAGNOSIS Right back, skin shave biopsy: - ??Seborrheic keratosis Electronically signed by: ?Dhiraj ZULETA, PhD, [facility] Verified: ??02/27/2021 10:09 ??Dermatopathol ogist Performed at: ??-[facility] [place] Dept. of Pathology, [place], [place] SPECIMEN(S) SUBMITTED A - R back, skin shave biopsy Referring Identifier: ?(not provided) CLINICAL INFORMATION Gerald K, patient concerned SPECIMEN PROCESSING A - Labeled/Fixativ e: Patient demographics, formalin. Quantity/Size: ??Single, 0.4 x 0.3 x 0.1 cm. Tissue Description: Shave of white skin with a 0.3 cm norwood papule. Sections/Proces sing: Inked, bisected and entirely submitted in 1 cassette labeled A1. ??sns 02/27/2021 10:09 AM EDT [facility] SPECIMEN FROM SKIN / Unknown 02/21/2021 12:00 PM EDT 02/21/2021 12:00 PM EDT Miguel Ángel Thomason MD PATHOLOGY/CYTOLOGY Jenn BLANCA [facility] [place] [address] documented in this encounter Visit Diagnoses Not on filedocumented in this encounter Care Teams Networks Computer Consultant Relationship Specialty Start Date End Date Sun Borrero DO [address] [place] [address] PCP - General Internal Medicine 01/29/21 02/17/24 documented as of this encounter
--- OUTSIDE RECORDS SUMMARY | 2024-03-09 08:07 | XMS_ITS | Encounter Summary ---
Author Organization Formerly [facility] [place] [address] Care Team Providers Care Heel Top Lift Splitter Name Role Phone Lee Anne APRN Primary Care Provider [phone] Reason for Visit * Reason Comments Skin Check Encounter Details Date Type Department Care Team (Late st Contact Info) Description 06/14/2020 4:00 PM EST Office Visit Dermatology at [address] [address] Miguel Ángel Thomason MD [address] [facility] [place] [address] History of SCC (squamous cell carcinoma) of skin; Seborrheic keratosis Social History Tobacco Use Types Packs/Day Years Used Date Smoking Tobacco: Never Smokeless Tobacco: Never Sex and Gender Information Value Date Recorded Sex Assigned at Not on file Gender Identity Not on file Sexual Orientation Not on file documented as of this encounter Progress Notes * Miguel Ángel Thomason MD - 06/14/2020 4:00 PM EST Problem: 1.? Follow-up for yearly skin checkup 2. 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 ??History of seborrheic dermatitis of scalp, improved with softened water 4. ??[place]ambodian ethnic background ?? Alejandra follows up for her yearly check. She has been doing well. She has not noted any particulars of concerns of one on her right superior helical rim. Physical examination reveals a pleasant 60-year-old woman who is very fair skinned with minimal minimal sun damage fortunately on examination of the face the neck the chest to the back the hands the arms forearms the thighs and the calves. There is no evidence of recurrent SCC on the left lower back. She does have a hyperkeratotic papule on the right helical rim which appears to be an early seborrheic keratosis. Otherwise examination is benign. She just underwent right rotator cuff surgery a few months back and still is dealing with that unable to fully utilize her right arm. She has some early seborrheic keratoses developing on the submammary breast areas and in the inguinal fold areas. Assessment plan: Benign skin examination 1. Patient reassured about her benign skin examination 2. No evidence of new lesions concerns 3. Return to clinic another year for repeat check. History of SCCA left lower back July 2017 1. No evidence recurrence 2. Patient reassured 3. Return to clinic in 1 year Seborrheic keratosis right superior helical rim 1. Could consider LN2 x2 for this site. CC: Lee Anne APRN documented in this encounter Plan of Treatment Not on file documented as of this encounter Visit Diagnoses Diagnosis History of SCC (squamous cell carcinoma) of skin Personal history of other malignant neoplasm of skin Seborrheic keratosis Other seborrheic keratosis documented in this encounter Care Teams Heel Top Lift Splitter Relationship Specialty Start Date End Date Lee Anne APRN [address] [place] [address] [place] [address] PCP - General Family Medicine 06/19/15 01/28/21 documented as of this encounter
--- OUTSIDE RECORDS SUMMARY | 2024-03-09 08:07 | XMS_ITS | Encounter Summary ---
Author Organization Formerly [facility] [place] [address] Care Team Providers Care Support Teacher Name Role Phone Sun Borrero DO Primary Care Provider [phone] Encounter Details Date Type Department Care Team (Late st Contact Info) Description 01/06/2022 Refill Dermatology at [address] [address] Clarisse Marsh LPN Social History Tobacco Use Types Packs/Day Years Used Date Smoking Tobacco: Never Smokeless Tobacco: Never Sex and Gender Information Value Date Recorded Sex Assigned at Not on file Gender Identity Not on file Sexual Orientation Not on file documented as of this encounter Miscellaneous Notes * Telephone Encounter - Clarisse Marsh LPN - 01/06/2022 4:18 PM EDT Patient requesting refills on ketoconazole 2% shampoo and selenium sulfide 2.5% lotion. Seborrheic dermatitis of scalp documented in this encounter Plan of Treatment Not on file documented as of this encounter Visit Diagnoses Not on filedocumented in this encounter Care Teams Support Teacher Relationship Specialty Start Date End Date Sun Borrero DO [address] [place] [id number] PCP - General Internal Medicine 01/29/21 02/17/24 documented as of this encounter
--- OUTSIDE RECORDS SUMMARY | 2024-03-09 08:07 | XMS_ITS | Encounter Summary ---
[place] [address] Care Team Providers Care Education Director Name Role Phone Franko Vance MD Primary Care Provider [phone] Reason for Visit * Reason Comments Skin Check Encounter Details Date Type Department Care Team (Late st Contact Info) Description 06/19/2014 9:45 AM EST Office Visit Dermatology at [address] [place] [address] Miguel Ángel Thomason MD [address] [facility] [place] [address] [place] (actinic keratosis) Discharge Disposition: Home Social History Tobacco Use Types Packs/Day Years Used Date Smoking Tobacco: Never Sex and Gender Information Value Date Recorded Sex Assigned at Not on file Gender Identity Not on file Sexual Orientation Not on file documented as of this encounter Patient Instructions * Patient Instructions* Andie Nuñez LPN - 06/19/2014 10:18 AM EST Images from the original note were not included. [facility] Seborrheic Keratosis: After Your Visit Your Care Instructions Seborrheic keratoses are raised skin growths that look scaly or warty. They usually look like they were stuck onto the skin. They most often grow in groups on the back or chest and are more common inolder people. A seborrheic keratosis can be norwood or dark brown. A seborrheic keratosis is not a moleand never turns into cancer. But it is still a good idea to check your skin regularly. Sometimes a seborrheic keratosis can itch. Scratching it can cause it to bleed and sometimes even scar. A seborrheic keratosis is removed only if it bothers you. The doctor will freeze it or scrape it off with a tool. The doctor can also use a laser to remove a seborrheic keratosis. Treatment usually results in normal-looking skin, but it can leave a light or dark jian or even a scar on the skin. Follow-up care is a moore part of your treatment and safety. Be sure to make and go to all appointments, and call your doctor if you are having problems. It's also a good idea to know your test resultsand keep a list of the medicines you take. How can you care for yourself at home? ?? If clothing irritates your seborrheic keratosis, cover it with a bandage to prevent rubbing and bleeding. ?? If you have a seborrheic keratosis removed, clean the area with soap and water two times a day unless your doctor gives you different instructions. Don't use hydrogen peroxide or alcohol, which can slow healing. ?? You may cover the wound with a thin layer of petroleum jelly, such as Vaseline, and a nonstick bandage. ?? Check all the skin on your body once a month for skin growths or other changes, such as color and feel of the skin. ?? in store marketing associate front of a full-length mirror. Look carefully at the front and back of your body. Then look at your right and left sides with your arms raised. ?? Bend your elbows and look carefully at your forearms, the back of your upper arms, and your palms. ?? Look at your feet, the soles of your feet, and the spaces between your toes. ?? Use a hand mirror to look at the back of your legs, the back of your neck, and your back, rear end (buttocks), and genital area. Part the hair on your head to look at your scalp. ?? If you see a change in a skin growth, contact your doctor. Look for: ?? A mole that bleeds. ?? A fast-growing mole. ?? A scaly or crusted growth on the skin. ?? A sore that will not heal. When should you call for help? Call your doctor now or seek immediate medical care if: ?? You have an area of normal skin that suddenly changes in shape, size, or how it looks. ?? Your skin is badly broken from scratching. ?? You have signs of infection such as: ?? Pain, warmth, or swelling in your skin. ?? Red streaks near a wound in your skin. ?? Pus coming from a wound in your skin. ?? A fever not due to the flu or other illness. Watch closely for changes in your health, and be sure to contact your doctor if: ?? You do not get better as expected. Where can you learn more? Visit our health information library at [email or web address] You can also view health information on [employer], your personal patient account. Log in or sign up today. Enter Z945 in the search box to learn more about Seborrheic Keratosis: After Your Visit. ?? [id number] [employer]. Care instructions adapted under license by [facility]. This care instruction is for use with your licensed healthcare professional. If you have questions about a medical condition or this instruction, always ask your healthcare professional. [employer] disclaims any warranty or liability for your use of this information. Content Version: 10.3.834395; Current as of: July 12, 2013 documented in this encounter Progress Notes * Miguel Ángel Thomason MD - 06/19/2014 10:32 AM EST Problem: Yearly skin checkup. Alejandra follows up and is doing well. She would like to have a yearly skin checkup. She reminds me that she lived for many years in [facility] but did have a lot of sun exposure and tried to norwood in the past. She would never norwood. Eventually she would just end up burning. She denies any personal history of skin cancer or melanoma. Physical examination reveals a pleasant, 54-year-old woman who has seborrheic keratoses, one on the left and one on the right lateral breast. She has a number of small seborrheic keratoses on her back diffusely. She has several small seborrheic keratoses, each about 6 mm in diameter and non pigmented on the right medial knee. She also has a milium on the right upper medial canthus. Otherwise, careful examination of the head and neck, chest, back, hands, arms, forearms, thighs, and calves is benign. Assessment and Plan: Benign skin examination. a. Patient reassured about benign skin examination and benign seborrheic keratoses. b. No treatment necessary. c. LN2 was utilized today to treat the sites on her breasts, which are occasionally rubbed and irritated. d. I reinforced sun avoidance precautions, which the patient is following. e. Return to clinic in another year for repeat check. Note: I had treated the breast seborrheic keratoses with LN2 last year, and they resolved for about a year and then recurred. We discussed the option of light C and D to remove them, but the patient deferred, preferring again LN2 this time. documented in this encounter Plan of Treatment Not on file documented as of this encounter Visit Diagnoses Diagnosis AK (actinic keratosis) Actinic keratosis documented in this encounter Care Teams Education Director Relationship Specialty Start Date End Date Franko Vance MD [address] [place] [id number] PCP - General 01/23/13 06/18/15 documented as of this encounter
--- OUTSIDE RECORDS SUMMARY | 2024-03-09 08:07 | XMS_ITS | Clinical Summary ---
Author Organization [facility] Address [address] [place] [address] Care Team Providers Care Substance Abuse Nurse Name Role Phone AnneLee Jenn VEGA Primary Care Provider [phone] Allergies No known active allergies Medications Medication Sig Dispensed Refills Start Date End Date Status ASCORBIC ACID/HESPERIDIN (BIOFLAVONOID PRODUCTS ORAL) Take by mouth. Active famciclovir (FAMVIR) 250 mg tablet Take 250 mg by mouth as needed. Active propRANolol (INDERAL) 40 mg tablet Take 40 mg by mouth as needed. Active meloxicam (MOBIC) 7.5 mg tablet Take 7.5 mg by mouth daily. Active zolpidem (AMBIEN) 10 mg tablet Take 10 mg by mouth at bedtime as needed for Sleep. Active ALPRAZolam (XANAX) 1 mg tablet Take 0.5 mg by mouth at bedtime as needed. Active sertraline (ZOLOFT) 100 mg tablet Take 100 mg by mouth 2 times daily. 2 tabs by mouth daily Active aspirin chewable 81 mg tablet Take 81 mg by mouth daily. Active rosuvastatin (CRESTOR) 20 mg tablet Take 1 Tab by mouth daily. 90 Tab 2 02/27/2020 Active Surgical History Surgery Date Site/Laterality Comments NOSE SURGERY Medical History Medical History Date Comments Environmental allergies Anxiety Cancer (HCC-CMS) skin Depression Neuromuscular disorder (HCC-CMS) Thyroid disease Ruptured lumbar disc Hyperlipidemia Family History Medical History Relation Comments *Other(comment) Father aortic aneurysm Cancer Mother breast Heart Disease Mother Relation Status Comments Father Mother Social History Tobacco Use Types Packs/Day Years Used Date Smoking Tobacco: Former Cigarettes Smokeless Tobacco: Never Tobacco Cessation:Counseling Given: Yes Comments:quit 13 years ago Alcohol Use Standard Drinks/Week Comments No 0 (1 standard drink = 0.6 oz pur e alcohol) Interpersonal Safety Answer Date Record ed Physically Hurt Never 12/03/2019 Verbally Threaten Not on file 12/03/2019 Sex and Gender Information Value Date Recorded Sex Assigned at Not on file Gender Identity Not on file Sexual Orientation Not on file Obstetrics History Last Filed Vital Signs Vital Sign Reading Time Taken Comments Blood Pressure 147/75 02/26/2020 1135 EDT Pulse 99 04/22/2020 1152 EST Temperature 36.8 ??C (98.3 ??F) 04/22/2020 1152 EST Respiratory Rate - - Oxygen Saturation - - Inhaled Oxygen Concentration - - Weight 91.6 kg (202 lb) 02/26/2020 1135 EDT Height 167.6 cm (5' 6) 10/22/2017 1441 EDT Body Mass Index 32.6 10/22/2017 1441 EDT Plan of Treatment Health Maintenance Due Date Last Done Comments Hepatitis C Screen 1960 RSV Immunization ( o r 60+ Years) (1 - 1-dose 60+ series) 2020 COVID-19 Vaccine (2022-24 season) 2023 Care Teams Substance Abuse Nurse Relationship Specialty Start Date End Date Lee Anne APRN [address] [place] [address] [facility] [address] [place] [address] PCP - General 07/16/17
--- OUTSIDE RECORDS SUMMARY | 2024-03-09 08:07 | XMS_ITS | Encounter Summary ---
Author Organization [facility] Address [address] [place] [address] Care Team Providers Care Jewel Hole Gauger Name Role Phone Lee Anne APRN Primary Care Provider [phone] Encounter Details Date Type Department Care Team (Late st Contact Info) Description 05/21/2021 Lab Requisition [facility] Pathology & Laboratory Medicine - [address] [address] Outr Resulting Lab, Provider Social History Tobacco Use Types Packs/Day Years Used Date Smoking Tobacco: Former Cigarettes Smokeless Tobacco: Never Comments:quit 13 years ago Alcohol Use Standard [...] on file documented as of this encounter Functional Status Functional Status Response Date of Assess ment Because of a physical, menta l, or emotional condition, does this person have difficulty doing errands alone such as visiting a doctor's office or shopping? No 10/14/2017 Cognitive Status Response Date of Assessm ent Because of a physical, menta l, or emotional condition, does this person have serious difficulty concentrating, remembering, or making decisions? Yes 10/14/2017 documented as of this encounter Plan of Treatment Not on file documented as of this encounter Visit Diagnoses Not on filedocumented in this encounter Care Teams Jewel Hole Gauger Relationship Specialty Start Date End Date Lee Anne APRN [address] [place] [address] [address] [place] [address] PCP - General 07/16/17 documented as of this encounter
--- OUTSIDE RECORDS SUMMARY | 2024-03-09 08:07 | XMS_ITS | Encounter Summary ---
[place] [address] Care Team Providers Care Counter Intelligence Name Role Phone Lee Anne APRN Primary Care Provider [phone] Reason for Visit * Reason Comments Skin Check Encounter Details Date Type Department Care Team (Late st Contact Info) Description 10/18/2020 9:15 AM EDT Office Visit Dermatology at [address] [address] Miguel Ángel Thomason MD [address] [facility] [address] History of SCC (squamous cell carcinoma) of [...] Notes * Miguel Ángel Thomason MD - 10/18/2020 9:15 AM EDT Problem: 1.?Early follow-up for skin lesion of concern on back 2. 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 ??History of seborrheic dermatitis of scalp, improved with softened water 4. ??Sudanese ethnic background Alejandra follows up for a lesion of concern on her back. She concerned that it might be an early SCCA. She has been developing symptoms that may indicate she is developing early Parkinson's disease. She has lost 30 pounds and is trying to become more physically active and fit in an attempt prevent development of Parkinson's disease which is very prevalent in her family. Physical examination reveals a pleasant 60-year-old woman who has what appears to be an early seborrheic keratosis, a 3 mm papule on the right mid central back. There is no surrounding erythema or underlying induration. I see no evidence of recurrent SCCA, nor new area of SCCA. She has number of other small seborrheic keratoses on her back as well which are somewhat irritated and red. Also on herleft medial breast. Assessment plan: Probable early seborrheic keratosis, rule out SCCA given high level of patient concern 1. Today site was anesthetized removed shave biopsy 2. Submitted for pathologic analysis 3. Wound care instructions and supplies given. Irritated seborrheic keratoses on back and left breast. 1. Today sites were treated with LN2 at patient request. 2. Return to clinic in January for regular annual skin checkup. Patient prefers January to Aprilgiven weather issues and her distance of travel. CC: Lee Anne APRN ?? documented in this encounter Plan of Treatment Not on file documented as of this encounter Visit Diagnoses Diagnosis History of SCC (squamous cell carcinoma) of skin Personal history of other malignant neoplasm of skin Seborrheic keratosis Other seborrheic keratosis Seborrheic keratoses, inflamed documented in this encounter Care Teams Counter Intelligence Relationship Specialty Start Date End Date Lee Anne APRN [address] [place] [address] [place] [address] PCP - General Family Medicine 06/19/15 01/28/21 documented as of this encounter
--- OUTSIDE RECORDS SUMMARY | 2024-03-09 08:07 | XMS_ITS | Encounter Summary ---
Author Organization [facility] Address [address] [place] [address] Care Team Providers Care Well Logging Mud Analysis Captain Name Role Phone Omid Lee Barajas APRN Primary Care Provider [phone] Reason for Visit * Reason Onset Date Comments Appointment Related 2021 Encounter Details Date Type Department Care Team (Late st Contact Info) Description 2021 Telephone [facility] Endocrinology - [address] [address] Arpan Truong MD [address] [place] [address] Appointment Related Social History Tobacco Use Types Packs/Day Years [...] Yes 10/14/2017 documented as of this encounter Miscellaneous Notes * Telephone Encounter - Genoveva Walton - 2021 1510 EDT LMOM to schedule FUR from the Recall List. Deleted Recall. Mailed letter. Different provider/same pathway. documented in this encounter Plan of Treatment Not on file documented as of this encounter Visit Diagnoses Not on filedocumented in this encounter Care Teams Well Logging Mud Analysis Captain Relationship Specialty Start Date End Date Lee Anne APRN [address] [place] [address] [address] [place] [address] PCP - General 07/16/17 documented as of this encounter
--- OUTSIDE RECORDS SUMMARY | 2024-03-09 08:07 | XMS_ITS | Encounter Summary ---
Author Organization [facility] [place] [address] Care Team Providers Care Administrative Medical Director Name Role Phone Lee Anne APRN Primary Care Provider [phone] Encounter Details Date Type Department Care Team (Late st Contact Info) Description 11/07/2018 3:15 PM EDT Office Visit Dermatology at [address] [place] [address] Miguel Ángel Thomason MD [address] [facility], [place] [address] Seborrheic keratosis; Seborrheic dermatitis; History of SCC (squamous cell carcinoma) of skin; Seborrheic keratoses, inflamed Social History Tobacco Use Types Packs/Day Years Used Date Smoking Tobacco: Never Smokeless Tobacco: Never Sex and Gender Information Value Date Recorded Sex Assigned at Not on file Gender Identity Not on file Sexual Orientation Not on file documented as of this encounter Progress Notes * Miguel Ángel Thomason MD - 11/07/2018 3:15 PM EDT Problem: 1. Changing lesion of concern of the left superior shoulder 2. 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 History of seborrheic dermatitis of scalp, improved with softened water 4. Tajik ethnic background Alejandra follows up and is concerned about a lesion that is enlarging on her left superior shoulder. She states that this has been there for some time, actually a flat topped papule and a satellite smaller papule just superior to it. However in recent months the larger of the 2 sites has become much more elevated. Has not bled, it has not scabbed, nor has it crusted. But because of her past SCCA of the lower back she is concerned about this changing lesion and would like to have it checked. Physical examination reveals a pleasant 58-year-old woman who has what appears to be a 4 x 5 mm seborrheic keratosis that is arising and becoming more elevated on her left superior shoulder. There jayshree satellite lesion 2 mm papule immediately superior to it. Examination of her back is unremarkable.She has a well-healed shave C&D scar on the left lower back at the site of her SCCA from July 2017. Assessment plan: Probable irritated seborrheic keratosis left superior shoulder, rule out SCCA/BCCA 1. After obtaining consent site was anesthetized and removed with shave C&D x3. 2. Triple antibiotic ointment and bandage placement 3. Wound care instructions and supplies given 4. Discussed my opinion that this is a benign lesion but will let patient know the biopsy results in 1 week. 5. After curettage site measured 7 mm in diameter. 6. Return to clinic in March for regular yearly skin checkup. Note: Patient states that her seborrheic dermatitis resolved while using softened water at a different home/domicile. She will be moving out of her current home and hopes that she will be able to have a water softener and that new place and expects her seborrheic dermatitis will again resolve with this. Cc: Lee Anne APRN documented in this encounter Plan of Treatment Not on file documented as of this encounter Visit Diagnoses Diagnosis Seborrheic keratosis Other seborrheic keratosis Seborrheic dermatitis Seborrheic dermatitis, unspecified History of SCC (squamous cell carcinoma) of skin Personal history of other malignant neoplasm of skin Seborrheic keratoses, inflamed documented in this encounter Care Teams Administrative Medical Director Relationship Specialty Start Date End Date Lee Anne APRN [address] [place] [address] [place] [address] PCP - General Family Medicine 06/19/15 01/28/21 documented as of this encounter
--- OUTSIDE RECORDS SUMMARY | 2024-03-09 08:07 | XMS_ITS | Encounter Summary ---
Author Organization [facility] Address [address] [place] [address] Care Team Providers Care Computer Operations Technician Name Role Phone OmidElizabethjessica Barajas APRN Primary Care Provider [phone] Encounter Details Date Type Department Care Team (Late st Contact Info) Description 12/31/2020 Transcribe Orders [facility] Gastroenterology - Main [address] [address] Maxwell Adhikari MD [address] [place] [phone] Dysphagia, unspecified type (Primary Dx); Family history of Parkinson disease Social History Tobacco Use Types Packs/Day Years [...] as of this encounter Visit Diagnoses Diagnosis Dysphagia, unspecified type- Primary Family history of Parkinson disease documented in this encounter Care Teams Computer Operations Technician Relationship Specialty Start Date End Date Lee Anne APRN [address] [place] [address] [address] [place] [address] PCP - General 07/16/17 documented as of this encounter
--- OUTSIDE RECORDS SUMMARY | 2024-03-09 08:07 | XMS_ITS | Encounter Summary ---
[place] [address] Care Team Providers Care Color Corrector Name Role Phone Franko Vance MD Primary Care Provider [phone] Reason for Visit * Reason Comments Skin Check Encounter Details Date Type Department Care Team (Late st Contact Info) Description 01/23/2013 3:00 PM EDT Office Visit Dermatology [address] [facility] [address] [place] [address] Miguel Ángel Thomason MD [address] [facility], [place] [address] Seborrheic keratosis (Primary Dx) Social History Tobacco Use Types Packs/Day Years Used Date Smoking Tobacco: Never Sex and Gender Information Value Date Recorded Sex Assigned at Not on file Gender Identity Not on file Sexual Orientation Not on file documented as of this encounter Progress Notes * Miguel Ángel Thomason MD - 01/23/2013 3:24 PM EDT Problem is skin check. Alejandra is a 53-year-old woman who would like to have a general skin checkup. She was seen by Dr. Nguyen in October but would like to have her skin checkups done in the [facility], as she lives in [place]. She denies any personal history of skin cancer or melanoma. Apparently her parents had a nonmelanomatous skin cancer in later years. She has had seborrheic keratoses treated with LN2 on both breasts in the past, but they are starting to grow back again. Physical examination reveals a pleasant 53-year-old woman who has seborrheic keratoses present, one on the left and one on the right breast. She has a number of small seborrheic keratoses on her back diffusely. She has two small seborrheic keratoses, each about 6 mm in diameter, on the right medial knee. She is brown eyed and reddish brown haired and has a very benign examination of the head and the neck, the chest, the back, hands, arms, forearms, thighs, and calves. She has relatively little solar damage of the sun exposed skin of the face or of her shoulders. Assessment and Plan: Benign skin examination. a. Patient reassured about benign seborrheic keratoses. b. As they are asymptomatic, we have opted not to treat them today. c. The patient is happy that they are smaller following the LN2 therapy even though they are starting to come back a little bit again on her breasts. d. Recommend yearly skin checkups, and we will set this up for her. e. The patient is following sun avoidance precautions, and I advised her to continue with these. f. The patient wonders whether she should use Retin-A cream for her face, and I would in her situation and benign examination actually advise against it. Return to clinic in one year. COPY: Franko Vance M.D. documented in this encounter Plan of Treatment Not on file documented as of this encounter Visit Diagnoses Diagnosis Seborrheic keratosis- Primary Other seborrheic keratosis documented in this encounter Care Teams Color Corrector Relationship Specialty Start Date End Date Franko Vance MD [address] [place] [address] [place] [address] PCP - General 01/23/13 06/18/15 documented as of this encounter
--- OUTSIDE RECORDS SUMMARY | 2024-03-09 08:07 | XMS_ITS | Encounter Summary ---
[place] [address] Care Team Providers Care Supervisor Mapping Name Role Phone Lee Anne APRN Primary Care Provider [phone] Reason for Visit * Reason Comments Skin Check Encounter Details Date Type Department Care Team (Late st Contact Info) Description 03/16/2017 3:45 PM EST Office Visit Dermatology at [address] [address] Miguel Ángel Thomason MD [address] [facility], [place] [address] Seborrheic keratosis; Seborrheic dermatitis Social History Tobacco Use Types Packs/Day Years Used Date Smoking Tobacco: Never Smokeless Tobacco: Never Sex and Gender Information Value Date Recorded Sex Assigned at Not on file Gender Identity Not on file Sexual Orientation Not on file documented as of this encounter Progress Notes * Miguel Ángel Thomason MD - 03/16/2017 3:45 PM EST PROBLEM: 1. Yearly skin checkup. 2. Rough lesions on back, arms and legs. 3. Seborrheic dermatitis of scalp. Alejandra follows up and reminds me that she is 100% Maori ethnic background. She is concerned about her skin. She has had a number of sunburns in the past. She denies any personal history of skin cancer or melanoma. She complains of continued itching in her scalp diffusely and feels that there is a significant odor to this. She shampoos every day and has tried every shampoo, even my ketoconazole, but nothing has really helped. She suggests biopsy or tests to rule out infection. Physical examination reveals a pleasant 57-year-old woman who has reddish hair, blue eyes and fair skin, and has freckling over her forehead and cheeks. These are new for her. She has a number of small seborrheic keratoses on her back and some stucco keratoses on her arms and legs. Fortunately examination of the face, the scalp, chest, back, hands, arms, forearms, thighs and the calves is benign. She has some mild erythema and some slight scaling in her scalp. She does have significant scaling. I do not notice any perceivable odor to her scalp. A/P: Stucco keratoses, seborrheic keratoses. a. Patient reassured about benign skin examination. 2. Scalp pruritus. a. Begin fluocinolone 0.01% solution, applying to scalp on an at bedtime basis for 10 to 14 days until itching is resolved, then use p.r.n. Patient's insurance is not likely to cover clobetasol. b. Continue to use medicated shampoos alternating between one for 2 weeks, then switching to another for 2 weeks. Would recommend a tar shampoo and a salicylic acid product shampoo. Lather and rinse out after 2 or 3 minutes. Obtain over the counter. c. Continue once-yearly skin checkups. Return to clinic reminder in 1 year. NOTE: One-half hour spent with the patient with half spent counseling. Cc: Mesha Anne APRN documented in this encounter Plan of Treatment Not on file documented as of this encounter Visit Diagnoses Diagnosis Seborrheic keratosis Other seborrheic keratosis Seborrheic dermatitis Seborrheic dermatitis, unspecified documented in this encounter Care Teams Supervisor Mapping Relationship Specialty Start Date End Date Lee Anne APRN [address] [place] [address] [place] [address] PCP - General Family Medicine 06/19/15 01/28/21 documented as of this encounter
--- OUTSIDE RECORDS SUMMARY | 2024-03-09 08:07 | XMS_ITS | Encounter Summary ---
Author Organization [facility] Address [address] [place] [address] Care Team Providers Care Hand Method Lasting Machine Operator Name Role Phone Lee Anne APRN Primary Care Provider [phone] Encounter Details Date Type Department Care Team (Latest Contact Info) Description 12/25/2019 Travel Social History Tobacco Use Types Packs/Day [...] on file Sexual Orientation Not on file COVID-19 Exposure Response Date Recorded In the last month, have you been in contact with someone who was confirmed or suspected to have Coronavirus / COVID-19? No / Unsure 12/25/2019 13:58 EDT documented as of this encounter Functional Status [...] on filedocumented in this encounter Care Teams Hand Method Lasting Machine Operator Relationship Specialty Start Date End Date Lee Anne APRN [address] [place] [address] [address] [place] [address] PCP - General 07/16/17 documented as of this encounter
--- OUTSIDE RECORDS SUMMARY | 2024-03-09 08:07 | XMS_ITS | Encounter Summary ---
[place] [address] Care Team Providers Care Filter Washer And Presser Name Role Phone Lee Anne APRN Primary Care Provider [phone] Encounter Details Date Type Department Care Team (Late st Contact Info) Description 07/05/2017 Refill Dermatology at [address] [address] Clarisse Marsh, CERTIFIED HAND THERAPIST Social History Tobacco Use Types Packs/Day Years [...] on filedocumented in this encounter Care Teams Filter Washer And Presser Relationship Specialty Start Date End Date Lee Anne APRN [address] [place] [address] [place] [phone] PCP - General Family Medicine 06/19/15 01/28/21 documented as of this encounter
--- OUTSIDE RECORDS SUMMARY | 2024-03-09 08:07 | XMS_ITS | Encounter Summary ---
Author Organization [facility] [place] [address] Care Team Providers Care Bullet Swaging Machine Adjuster Name Role Phone MyronSun brown Rosemarie GASTON Primary Care Provider [phone] Reason for Visit * Diagnostic Test (Routine) - Closed Specialty Diagnoses / Procedures Referred By Kaelyn garcia Referred To Contact Sleep Center Diagnoses Observed sleep apnea Procedures Home Sleep Study Stefani Lang MD [facility] [place] [address] [facility] [address] [place] [address] Referral ID Status Reason Start Date Expiration Date V isits Requested Visits Authorized [id number] Closed Specialty Service Requested 08/04/2021 08/04/2022 1 1 Encounter Details Date Type Department Care Team (Late st Contact Info) Description 09/04/2021 2:00 PM EDT Procedure visit Sleep Center at [facility] [address] [place] [address] Stefani Lang MD [facility] [place] [address] PONCHO (obstructive sleep apnea) Social History Tobacco Use Types Packs/Day Years Used Date Smoking Tobacco: Never Smokeless Tobacco: Never Sex and Gender Information Value Date Recorded Sex Assigned at Not on file Gender Identity Not on file Sexual Orientation Not on file documented as of this encounter Progress Notes * Stefani Lang MD - 09/04/2021 2:00 PM EDT Images from the original note were not included. HOME SLEEP APNEA TEST RESULTS Home sleep testing performed with a 4 channel Apnea Link Plus Monitor, recording respiratory effort, airflow, oxygen saturation and heart rate. DOS: 09/04/21 Total recording time: 501 min 4% MADISON/AHI: 13.9 Apnea index: 3.0 Central apnea index: 1.8 Hypopnea with desaturation > or equal to 4% index: 10.9 Average SpO2: 92% Minimum SpO2: 81% Average heart rate: 65 bpm Assessment: Home sleep testing demonstrates evidence of obstructive sleep apnea, overall in at least the high mild range of severity with a 4%MADISON/AHI of 13.9. There were significant cyclical oxyhemoglobin desaturations associated with the obstructive events although no persistent hypoxia. Study results and recommendations relayed via letter. Recommendations: AutoPAP 5-15cm F/U in PAP clinic after initiating CPAP [facility] HOME SLEEP APNEA TEST REPORT Patient Name: Alejandra Ruano Study Date: 09/04/2021 Age & Sex: 61 y.o. Female Height: 5'5.5 Date of : 1960 Weight: 190 BMI: 31.1 Referring Prov.: Scoring Tech: CLARE MACIAS [facility] Sleep Fellow: Sleep Specialist: STEFANI LANG M.D. General Test Details Type III home sleep apnea testing was performed utilizing nasal pressure, single thoracoabdominal movement, heart rate, and oxygen saturation according to established AASM guidelines. Recording Start Time: 22:32:09 Monitoring Start Time: 22:32:09 Recording End Time: :53:09 Monitoring End Time: :53:09 Total Recording Time (TRT): 501.0 minutes Monitoring Time (MT): 501.0 minutes Respiratory Details Respiratory Event Total Count Index (events/hr) Obstructive apnea 10 1.2 Mixed apnea 0 0.0 Central apnea 15 1.8 Sum of all apnea types 25 3.0 Hypopneas without associated desaturation 2 0.2 Hypopneas with desaturation >=4% (CMS) 91 10.9 4% Respiratory Event Index (4%MADISON): 13.9 *Includes the sum of all apneas and hypopneas (assoc. with desaturation of >=4%) per hour of monitoring. 4% AHI (CMS): 13.9 *Includes the sum of all apneas and hypopneas (assoc. with desaturation of >=4%) per hour of monitoring. Omero-Denny Breathin.0% of total monitoring time Minimum SpO2: 81% Average SpO2 (during TRT): 92% SpO2 <= X%: Total Time <=90% 64.8 min <=89% 32.4 min <=88% 15.4 min SpO2 Ranges: Total Time 90%-99% 391.8 min 80%-90% 32.4 min 70%-80% 0.0 min 60%-70% 0.0 min 0%-60% 0.0 min Cardiac Details Minimum Heart Rate 50 bpm Maximum Heart Rate 88 bpm Average Heart Rate 65 bpm Graphs Time Scale Respiratory Event Graph SpO2 Trend documented in this encounter Plan of Treatment Not on file documented as of this encounter Visit Diagnoses Diagnosis PONCHO (obstructive sleep apnea) Obstructive sleep apnea (adult) (pediatric) documented in this encounter Care Teams Bullet Swaging Machine Adjuster Relationship Specialty Start Date End Date uSn Borrero DO [address] [place] [address] PCP - General Internal Medicine 01/29/21 02/17/24 documented as of this encounter
--- OUTSIDE RECORDS SUMMARY | 2024-03-09 08:07 | XMS_ITS | Encounter Summary ---
[place] [address] Care Team Providers Care Felt Hat Flanging Operator Name Role Phone Lee Anne APRN Primary Care Provider [phone] Encounter Details Date Type Department Care Team (Late st Contact Info) Description 04/05/2018 4:45 PM EST Office Visit Dermatology at [place] [address] [facility] [place] [address] Miguel Ángel Thomason MD [address] [facility] D[facility] [place], [place] [id number] Seborrheic keratosis; Seborrheic dermatitis; History of SCC [...] Notes * Miguel Ángel Thomason MD - 04/05/2018 4:45 PM EST Problem: 1. Nine month skin check up 2. 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 History of seborrheic dermatitis of scalp 4. Sinhala ethnic background Alejandra follows up and is still bothered by her jorge derm of the scalp. She states that she is bothered by its odor, and by its itchiness. She states that she does not recall now how a previous rx for Fluocinolone soln 0.01% rx'ed in March of 2017 worked for her then, but the more recent prescription of Selenim Sulfide 2.5% Lotion alternating every two weeks with Ketoconazole 2% shampoo has only given her a 15% improvement. Ketoconazole by itself was not helpful. Tar shampoos and salicyclic acid containing shampoos used on an OTC basis previously were also not helpful. She would like a complete skin check given her fair skin. She lived [facility] a number of [facility] in [facility]. Physical examination reveals a fair complected 58 yo woman with small (1-3 mm) seborrheic keratosis on her back, upper chest, and lateral arms. She points to eight of these which she states are quite pruritic and which she would like to have removed. There is no evidence of recurrence at the SCCa treatment site. Examination of the scalp shows minimal erythema / scaling. She has no facial erythema. She has no stigmata of psoriasis and a benign skin examination of the head and the neck, the chest, the back, hands, arms, forearms, thighs, calves and feet. I note no ill odor of her scalp / hair. Assessment and Plan: History of SCCa, left lower back 1. No evidence of recurrence 2. Patient reassured 3. Recommend RTC in one year 4. Patient reassured about her benign skin examination today. Seborrheic dermatitis of scalp 1. Clinical control appears good, but patient complains of odor and pruritus. 2. Continue current prescriptions, and add back Fluocinolone soln 0.01%, apply to scalp on a qhs basis. Disp 60 ml with 5 refills. Use nightly until itching controlled, then decrease to frequency of application that controls symptoms. Symptomatic, pruritic seborrheic keratoses 1. After obtaining informed patient consent, LN2 x 2 was applied to each of 8 symptomatic pruritic jorge keratoses. Cc: Lee Anne APRN documented in this encounter Plan of Treatment Not on file documented as of this encounter Visit Diagnoses Diagnosis Seborrheic keratosis Other seborrheic keratosis Seborrheic dermatitis Seborrheic dermatitis, unspecified History of SCC (squamous cell carcinoma) of skin Personal history of other malignant neoplasm of skin Seborrheic keratoses, inflamed documented in this encounter Care Teams Felt Hat Flanging Operator Relationship Specialty Start Date End Date Lee Anne APRN [address] [facility] [place] [id number] PCP - General Family Medicine 06/19/15 01/28/21 documented as of this encounter
--- OUTSIDE RECORDS SUMMARY | 2024-03-09 08:07 | XMS_ITS | Encounter Summary ---
[place] [address] Care Team Providers Care Finance Clerk Name Role Phone Sun Borrero DO Primary Care Provider [phone] Reason for Visit * Reason Comments Medication Refill Encounter Details Date Type Department Care Team (Late st Contact Info) Description 07/07/2018 Refill Dermatology at [place] [address] [place] [address] Miguel Ángel Thomason MD [address] [facility] [place] [address] Social History Tobacco Use Types Packs/Day Years [...] on filedocumented in this encounter Care Teams Finance Clerk Relationship Specialty Start Date End Date Sun Borrero DO [facility] [place] [address] PCP - General Internal Medicine 01/29/21 02/17/24 documented as of this encounter
--- OUTSIDE RECORDS SUMMARY | 2024-03-09 08:07 | XMS_ITS | Encounter Summary ---
Author Organization [facility] Address [address] [place] [address] Care Team Providers Care Rehabilitation Team Lead Name Role Phone Lee Anne Jenn VEGA Primary Care Provider [phone] Reason for Visit * Reason Comments Goiter Encounter Details Date Type Department Care Team (Late st Contact Info) Description 02/26/2020 11:10 EDT Office Visit [facility] Endocrinology - [address] [address] Arpan Truong MD [address] [place] [address] Thyroid nodule (Primary Dx); Dyslipidemia (high LDL; low HDL) Social History Tobacco Use Types Packs/Day Years [...] Blood Pressure 147/75 02/26/2020 1135 EDT Pulse 71 02/26/2020 1135 EDT Temperature 35.2 ??C (95.3 ??F) 02/26/2020 1135 EDT Respiratory Rate - - Oxygen Saturation - - Inhaled Oxygen Concentration - - Weight 91.6 kg (202 lb) 02/26/2020 1135 EDT Height - - Body Mass Index 32.6 10/22/2017 1441 EDT documented in this encounter Functional Status Functional Status Response [...] Yes 10/14/2017 documented as of this encounter Progress Notes * Arpan Truong MD - 02/26/2020 1110 EDT Subjective: Patient ID: Alejandra Ruano is an 60 y.o. female. No chief complaint on file. HPI follow-up February 26, 2020 I saw her for the first time in July 2017 in consultation for a thyroid nodule. She underwent biopsy in October 2017, cytology showed: Benign follicular nodule with cystic degeneration and superimposedchronic lymphocytic thyroiditis. She had a follow-up thyroid ultrasound around December 2019 at [facility] which basically reports a 0.8 cm isoechoic well-defined nodule in the right thyroid lobe.He does not report the previously found thyroid nodules when the US was done at [facility]. She also has a history of dyslipidemia with an elevated lipoprotein (a). Back in 2017 she did not have diabetes and her A1c was 5.6%. Her LDL cholesterol was also elevated at 150. She reports workingon her diet. She understands that her BMI is consistent with overweight and reports that her cholesterol improved with dietary changes alone. However, she understands the lipoprotein (a) is genetically determined #1 thyroid nodule Ultrasound from [facility], [facility] on June 24, 2017 revealed: #1 well circumscribed, heterogeneous, hypoechoic, wider than tall, WITH calcification 1.4??0.9??1.0cm nodule in the right thyroid lobe #2 well-circumscribed, hypoechoic, wider than tall, without calcifications 1.0 ??0.7??0.9 cm nodulein the right lobe #3 well-circumscribed, heterogeneous, hypoechoic 1.0 cm thyroid nodule in the right lobe Normal left thyroid lobe Note addendum 10/27 to correct gross spelling error and to add: #2 dyslipidemia Family history: Both parents had heart disease. Mother when she was 49 years old. Father when he was 75 years old when he had a pacemaker placed, he also had a left leg aneurysm. She says that she had been experiencing chest pressure. Her primary care physician said this could be anxiety and the pain improved with Xanax. She also had a negative stress test. She requested thather lipoprotein A be checked. Past medical history: Dyslipidemia Former smoker Negative stress test Other family history mother with breast cancer Father with prostate carcinoma Past Medical History: Diagnosis Date ??? Anxiety ??? Cancer (HCC-CMS) skin ??? Depression ??? Environmental allergies ??? Hyperlipidemia ??? Neuromuscular disorder (HCC-CMS) ??? Ruptured lumbar disc ??? Thyroid disease Past Surgical History: Procedure Laterality Date ??? NOSE SURGERY Family History Problem Relation Age of Onset ??? Cancer Mother breast ??? Heart Disease Mother ??? *Other(comment) Father aortic aneurysm Social Social History Socioeconomic History ??? Marital status: Single Spouse name: Not on file ??? Number of children: Not on file ??? Years of education: Not on file ??? Highest education level: Not on file Occupational History ??? Not on file Social Needs ??? Financial resource strain: Not on file ??? Food insecurity Worry: Not on file Inability: Not on file ??? Transportation needs Medical: Not on file Non-medical: Not on file Tobacco Use ??? Smoking status: Former Smoker Types: Cigarettes ??? Smokeless tobacco: Never Used ??? Tobacco comment: quit 13 years ago Substance and Sexual Activity ??? Alcohol use: No ??? Drug use: No ??? Sexual activity: Not on file Lifestyle ??? Physical activity Days per week: Not on file Minutes per session: Not on file ??? Stress: Not on file Relationships ??? Social connections Talks on phone: Not on file Gets together: Not on file Attends faith service: Not on file Active member of club or organization: Not on file Attends meetings of clubs or organizations: Not on file Relationship status: Not on file ??? Intimate partner violence Fear of current or ex partner: Not on file Emotionally abused: Not on file Physically abused: Not on file Forced sexual activity: Not on file Other Topics Concern ??? Not on file Social History Narrative ??? Not on file Current Outpatient Medications on File Prior to Visit Medication Sig Dispense Refill ??? ALPRAZolam (XANAX) 1 mg tablet Take 0.5 mg by mouth at bedtime as needed. ??? ASCORBIC ACID/HESPERIDIN (BIOFLAVONOID PRODUCTS ORAL) Take by mouth. ??? aspirin chewable 81 mg tablet Take 81 mg by mouth daily. ??? famciclovir (FAMVIR) 250 mg tablet Take 250 mg by mouth as needed. ??? meloxicam (MOBIC) 7.5 mg tablet Take 7.5 mg by mouth daily. ??? propRANolol (INDERAL) 40 mg tablet Take 40 mg by mouth as needed. ??? rosuvastatin (CRESTOR) 10 mg tablet Take 10 mg by mouth daily. ??? sertraline (ZOLOFT) 100 mg tablet Take 100 mg by mouth 2 times daily. 2 tabs by mouth daily ??? zolpidem (AMBIEN) 10 mg tablet Take 10 mg by mouth at bedtime as needed for Sleep. No current facility-administered medications on file prior to visit. No Known Allergies Review of Systems Constitutional: Negative for malaise/fatigue and weight loss. Musculoskeletal: Negative for myalgias. Psychiatric/Behavioral: The patient is not nervous/anxious. - See HPI Objective: BP (!) 147/75 Pulse 71 Temp (!) 35.2 ??C (95.3 ??F) Wt 91.6 kg (202 lb) BMI 32.60 kg/m?? Physical Exam Vitals signs and nursing note reviewed. Constitutional: Appearance: She is well-developed and well-nourished. Eyes: Extraocular Movements: EOM normal. Conjunctiva/sclera: Conjunctivae normal. Pupils: Pupils are equal, round, and reactive to light. Neck: Musculoskeletal: Normal range of motion and neck supple. Thyroid: Thyromegaly present. Cardiovascular: Rate and Rhythm: Normal rate. Pulmonary: Effort: Pulmonary effort is normal. Musculoskeletal: Normal range of motion. Lymphadenopathy: Cervical: No cervical adenopathy. Neurological: Mental Status: She is alert and oriented to person, place, and time. Cranial Nerves: No cranial nerve deficit. Motor: No abnormal muscle tone. Coordination: Coordination normal. Deep Tendon Reflexes: Reflexes normal. Psychiatric: Mood and Affect: Mood and affect normal. Behavior: Behavior normal. Thought Content: Thought content normal. Judgment: Judgment normal. Assessment: #1 Non toxic Multinodular goiter #2 Dyslipidemia #3 Family Hx of early Cardiovascular disease (mother) #4 Elevated Lipoprotein A #5 Euthyroid #6 class I obesity Plan: 1. Follow-up in 12 months 2. Follow-up thyroid ultrasound and [facility] around December 2020 3. Checking cholesterol panel today, may increase Crestor 4. I do not think that she needs a calcium score at this time. Diagnoses and all orders for this visit: Thyroid nodule - US THYROID/NECK; Future - HEMOGLOBIN A1C; Future - LIPID PROFILE (INCLUDES CHOLESTEROL, TRIGLYCERIDES, HDL, LDL); Future - TSH; Future - HEMOGLOBIN A1C - LIPID PROFILE (INCLUDES CHOLESTEROL, TRIGLYCERIDES, HDL, LDL) - TSH Dyslipidemia (high LDL; low HDL) - US THYROID/NECK; Future - HEMOGLOBIN A1C; Future - LIPID PROFILE (INCLUDES CHOLESTEROL, TRIGLYCERIDES, HDL, LDL); Future - TSH; Future - LIPOPROTEIN A, SERUM; Future - HEMOGLOBIN A1C - LIPID PROFILE (INCLUDES CHOLESTEROL, TRIGLYCERIDES, HDL, LDL) - TSH - LIPOPROTEIN A, SERUM Other orders - aspirin chewable 81 mg tablet; Take 81 mg by mouth daily. * Genoveva Ramsey MA - 02/26/2020 1110 EDT A venous blood collection was preformed today via venipuncture on this patient. I was supervised by Yvette Suarez who was present and immediately available in the office suite. GENOVEVA RAMSEY MA 02/26/2020 11:52 documented in this encounter Miscellaneous Notes * Result Encounter Note - Arpan Truong MD - 02/26/2020 1110 EDT Please call patient Her Crestor should be increased Her LDL cholesterol is slightly above target and t her non-HDL cholesterol is above target LDL target less than 70, hers is 87 Non-HDL cholesterol 100, hers is 112 Lipoprotein (a) is pending but management will be the same. I do not know what pharmacy to send it therefore I prescribed as a no print. * Result Encounter Note - Arpan Truong MD - 02/26/2020 1110 EDT I sent a message previously about the same. I would like her to increase Crestor and we will be increasing Crestor to maximum dose or the next few appointments.. documented in this encounter Plan of Treatment Not on file documented as of this encounter Procedures Procedure Name Priority Date/Time Associated Diagnosis Comments ZZLIPOPROTEIN A, SERUM Routine 0 11:52 EDT Dyslipidemia (high LDL; low HDL) TSH Routine 02/26/2020 11:52 EDT Thyroid nodule Dyslipidemia (high LDL; low HDL) HEMOGLOBIN A1C Routine 02/26/2020 11:52 EDT Thyroid nodule Dyslipidemia (high LDL; low HDL) LIPID PROFILE (INCLUDES CHOLESTEROL, TRIGLYCERIDES, HDL, LDL) Routine 02/26/2020 11:52 EDT Thyroid nodule Dyslipidemia (high LDL; low HDL) documented in this encounter Results * (ABNORMAL) LIPOPROTEIN A, SERUM (02/26/2020 11:52 EDT) Lipoprotein A, S 69(H) <=30 mg/dL 02/27/2020 11:37 EDT [facility] Comment: Test Performed by: [facility] - [address] [address] [employer]: Venu Michaud M.D. Ph.D.; CLIA# [id number] Blood VENOUS BLOOD / Unknown Venipuncture / Unknown 02/26/2020 11:52 EDT 02/26/2020 11:52 EDT Arpan Solorzano MD CHEMISTRY & BLOOD GAS ORDERABLES [facility] [employer] [address] [place] [id number] * TSH (02/26/2020 11:52 EDT) TSH 2.59 0.47 - 4.68 uIU/mL 02/26/2020 13:59 EDT [facility] Blood VENOUS BLOOD / Unknown Venipuncture / Unknown 02/26/2020 11:52 EDT 02/26/2020 11:52 EDT Narrative [facility] - 02/26/2020 13:59 EDT The results of this assay can be falsely lowered due to the consumption of Biotin. Arpan Solorzano MD CHEMISTRY & BLOOD GAS ORDERABLES [facility] [address] [place] [address] * LIPID PROFILE (INCLUDES CHOLESTEROL, TRIGLYCERIDES, HDL, LDL) (02/26/2020 11:52 EDT) Pathologist [facility] Cholesterol 153 See Note mg/dL 02/26/2020 13:25 [facility] Comment: Acceptable: ?<200 mg/dL Borderline High: 200-239 mg/dL High: ?> or = 240 mg/dL HDL 41 See Note mg/dL 02/26/2020 13:25 [facility] Comment: Low: ? <40 mg/dL Normal: ??40-60 mg/dL High: ?>60 mg/dL LDL, Calculated 87 See Note mg/dL 02/26/2020 13:25 [facility] Comment: Optimal: ? <100 mg/dL Near Optimal: ?100-129 mg/dL Borderline High: 130-159 mg/dL High: ?160-189 mg/dL Very High: ? > or = 190 mg/dL Triglyceride 126 See Note mg/dL 02/26/2020 13:25 [facility] Comment: Normal: ? <150 mg/dL Borderline High: ??150 - 199 mg/dL High: ? 200 - 499 mg/dL Very High: ?> or = 500 mg/dL Chol/HDL Ratio 3.7 See Note 02/26/2020 13:25 EDT [facility] Comment:No reference range h as been established for CHOL/HDL ratio. Non HDL Cholesterol 112 See Note mg/dL 02/26/2020 13:25 EDT [facility] Comment: Desirable: ?<130 mg/dL Borderline High: ??130-159 mg/dL High: ? 160-189 mg/dL Very High: ?> or = 190 mg/dL Blood VENOUS BLOOD / Unknown Venipuncture / Unknown 02/26/2020 11:52 EDT 02/26/2020 11:52 EDT Arpan Solorzano MD CHEMISTRY & BLOOD GAS ORDERABLES [facility] [address] [place] [address] * HEMOGLOBIN A1C (02/26/2020 11:52 EDT) Hemoglobin A1c 5.5 <5.7 % 02/26/2020 15:24 EDT [facility] Comment: Glycemic Status References: Normal: ??<5.7% Pre-Diabetes: ??5.7% - 6.4% Diagnostic of Diabetes: ??> or = 6.5% (if confirmed) Goals for glycemic control in diabetics (ADA 2017): <7.0% target for non adults with diabetes. <7.5% target for children and adolescents with Type I Diabetes. More or less stringent targets may be appropriate for individual patients. Est Avg Glucose 111 mg/dL 0 15:24 EDT [facility] Comment:The eAG represents t he A1c result expressed as average glucose in mg/dL. Blood VENOUS BLOOD / Unknown Venipuncture / Unknown 02/26/2020 11:52 EDT 02/26/2020 11:52 EDT Arpan Solorzano MD CHEMISTRY & BLOOD GAS ORDERABLES [facility] [address] [place] [address] documented in this encounter Visit Diagnoses Diagnosis Thyroid nodule- Primary Nontoxic uninodular goiter Dyslipidemia (high LDL; low HDL) Other and unspecified hyperlipidemia documented in this encounter Historical Medications * This list may reflect changes made after this encounter. Medication Sig Dispensed Refills Start Date End Date aspirin chewable 81 mg tablet Take 81 mg by mouth daily. added in this encounter Care Teams Rehabilitation Team Lead Relationship Specialty Start Date End Date Lee Anne APRN [address] [place] [address] [address] [place] [address] PCP - General 07/16/17 documented as of this encounter
--- OUTSIDE RECORDS SUMMARY | 2024-03-09 08:07 | XMS_ITS | Encounter Summary ---
Author Organization [facility] Address [address] [place] [address] Care Team Providers Care Educational Aide Name Role Phone OmidElizabethjessica Barajas APRN Primary Care Provider [phone] Encounter Details Date Type Department Care Team (Late st Contact Info) Description 11/04/2019 Lab Requisition [facility] Pathology & Laboratory Medicine - [address] [address] Outr Resulting Lab, Provider Social History Tobacco Use Types Packs/Day Years Used Date Smoking Tobacco: Former Cigarettes Smokeless Tobacco: Never Comments:quit 13 years ago Alcohol Use Standard Drinks/Week Comments No 0 (1 standard drink = 0.6 oz pur e alcohol) Sex and Gender Information Value Date Recorded [...] Procedure Name Priority Date/Time Associated Diagnosis Comments ZZCOVID-19 TEST [facility] PCR Today 11/04/2019 14:00 EDT COVID-19 TESTING Routine 11/04/2019 14:0 0 EDT documented in this encounter Results * COVID-19 TEST [facility] PCR (11/04/2019 14:00 EDT) Swab ENTIRE NASOPHARYNX / Unknown 11/04/2019 14:00 EDT 11/04/2019 21:53 EDT Provider Outr Resulting Lab MICROBIOLOGY - GENERAL ORDERABLES Performing Organization Address [facility] Co de Phone Number [facility] [address] [place] [address] * COVID-19 TESTING (11/04/2019 14:00 EDT) COVID-19 rt-PCR Result Negative Negative 11/05/2019 2:21 EDT [facility] Comment: This test has not been FDA cleared or approved. This test has been authorized by FDA under an EUA for use by authorized laboratories. This test has been authorized only for detection of nucleic acid from 2019-nCoV, not for any other viruses or pathogens. This test is only authorized for the duration of the declaration that circumstances exist justifying the authorization of emergency use of in vitro diagnostic tests for detection and/or diagnosis of 2019-nCoV under section 564(b)(1) of Act, 21 U.S.C ?? 360bbb-3(b) (1), unless the authorization is terminated or revoked sooner. Negative results do not preclude 2019-nCoV infection and should not be used as the sole basis for treatment or other patient management decisions. Negative results must be combined with clinical observations, patient history, and epidemiological information. Performed on the [employer] Fusion instrument Performing Lab [place] [facility] 11/05/2019 2:21 EDT [facility] Swab 11/04/2019 14:0 0 EDT 11/04/2019 21:53 EDT Provider Outr Resulting Lab MICROBIOLOGY - GENERAL ORDERABLES Performing Organization Address City/[facility]/ZIP Co de Phone Number [facility] [address] [place] [address] documented in this encounter Visit Diagnoses Not on filedocumented in this encounter Additional Health Concerns Infection Onset Date Last Indicated Resolved Time R/O COVID-19 11/04/2019 11/04/2019 11/09/2019 22:1 6 EDT documented as of this encounter Care Teams Educational Aide Relationship Specialty Start Date End Date Lee Anne APRN [address] [place] [address] [address] [place] [address] PCP - General 07/16/17 documented as of this encounter
--- OUTSIDE RECORDS SUMMARY | 2024-03-09 08:07 | XMS_ITS | Encounter Summary ---
Author Organization [facility] Address [address] [place] [address] Care Team Providers Care Tag Writer Name Role Phone OmidElizabethjessica Barajas APRN Primary Care Provider [phone] Reason for Visit * Reason Onset Date Comments Results 01/24/2020 Encounter Details Date Type Department Care Team (Late st Contact Info) Description 01/24/2020 Telephone [facility] Endocrinology - [address] [address] Katerine Stephen RN Results Social History Tobacco Use Types Packs/Day Years [...] encounter Miscellaneous Notes * Telephone Encounter - Nita Pereira 01/24/2020 1628 EDT Patients record updated with cell # * Telephone Encounter - Katerine Stephen RN - 01/24/2020 1334 EDT Pt calling to follow up. Pt does want to have and keep her f/u appt with Dr. Suarez despite US results. Pt reports that she continues with trouble swallowing, has a phlegm in her throat especially in AM. Her PCP has not been helpful in explaining and helping her understand what is going on, and has deferred to endocrinology. Pt reports that her current Cell Phone Is : [phone] Patient verbalized understanding. No barriers to learning noted. Katerine Stephen RN Endocrinology documented in this encounter Plan of Treatment Not on file documented as of this encounter Visit Diagnoses Not on filedocumented in this encounter Care Teams Tag Writer Relationship Specialty Start Date End Date Lee Anne APRN [address] [place] [address] [address] [place] [address] PCP - General 07/16/17 documented as of this encounter
--- OUTSIDE RECORDS SUMMARY | 2024-03-09 08:07 | XMS_ITS | Encounter Summary ---
Author Organization [facility] Address [address] [place] [address] Care Team Providers Care Director Of Patient Care Name Role Phone Lee Anne APRN Primary Care Provider [phone] Encounter Details Date Type Department Care Team (Late st Contact Info) Description 05/06/2021 Lab Requisition [facility] Pathology & Laboratory Medicine - [address] [address] Outr Resulting Lab, Provider Social History Tobacco [...] Procedure Name Priority Date/Time Associated Diagnosis Comments VITAMIN D (25,OH) Routine 05/06/2021 12: 12 EST documented in this encounter Results * (ABNORMAL) VITAMIN D (25,OH) (05/06/2021 12:12 EST) 25OH Vitamin D Tot 26(L) 30 - 100 ng/mL 05/07/2021 10:30 EST [facility] Comment: Vitamin D 25,OH Interpretive Ranges: Deficiency: ??<10.0 ng/mL Insufficiency: ??10.0 - 30.0 ng/mL Sufficiency: ??30.0 - 100.0 ng/mL Toxicity: ??>100.0 ng/mL Blood VENOUS BLOOD / Unknown 05/06/2021 12:12 EST 05/06/2021 21:29 EST Provider Outr Resulting Lab CHEMISTRY & BLOOD GAS ORDERABLES Performing Organization Address City/State/[facility] Co de Phone Number [facility] [address] [place] [address] documented in this encounter Visit Diagnoses Not on filedocumented in this encounter Care Teams Director Of Patient Care Relationship Specialty Start Date End Date Lee Anne APRN [address] [place] [address] [address] [place] [address] PCP - General 07/16/17 documented as of this encounter
--- OUTSIDE RECORDS SUMMARY | 2024-03-09 08:07 | XMS_ITS | Encounter Summary ---
Author Organization [facility] Address [address] [place] [address] Care Team Providers Care Senior Net Application Developer Name Role Phone OmidLee Jenn VEGA Primary Care Provider [phone] Reason for Visit * Reason Onset Date Comments Dizziness 05/19/2021 Encounter Details Date Type Department Care Team (Late st Contact Info) Description 05/19/2021 Telephone [facility] ENT- Main [address] [address] Yamileth Loco LPN Dizziness Social History Tobacco Use Types Packs/Day Years [...] encounter Miscellaneous Notes * Telephone Encounter - Kaye Fisher RN - 05/19/2021 5888 EST Patient has been triaged with our dizziness screening protocol and notes have been reviewed. It hasbeen determined that patient would benefit from an evaluation with ENT. * Telephone Encounter - Yamileth LocoJOSE F - 05/19/2021 6630 EST DIZZINESS QUESTIONNAIRE DEPARTMENT OF OTOLARYNGOLOGY - HEAD AND NECK SURGERY I. When you are dizzy, do you experience any of the following sensation? Please read the entire list first. Then [place] the numbers of those which describe your feelings most accurately. a. Lightheadedness [Y] b. Tendency to lose balance or to fall [Y] c. Objects spinning or turning around you [Y] d. Sensation that you are turning [N] e. Headache [Y] f. Nausea or vomiting [Y] g. Pressure in the head [Y] II. Does the following refer to a typical dizzy spell: Do your dizzy spells come in sudden episodes? Yes How often? _two episode one after an MRI and one recently after her covid booster How long are the episodes? __10 days to two weeks Date of your first ???spell/episode??? _one year ago Are you free from dizziness between episodes? Yes Does your hearing change with an episodes? Yes-notes a decrease in her tinnitus Are you dizzy mainly when you sit or stand up quickly? Yes Are you dizzier in certain positions? Yes Are you nauseated during an episode? Yes Are you dizzy even when lying down? Yes Have you had fullness, pressure, or ringing in your ears? Yes- bilateral (fullness and pressure) tinnitus bilaterally for 6-8 yrs Have you had trouble walking in the dark? Yes Are you better if you sit or lie perfectly still? Yes Do loud sounds make you dizzy? No III. Does the following refer to other sensations that you may have: Do you black out or faint when dizzy? No Have you had: Severe or recurrent headaches? No Light sensitivity with your headaches or dizziness? Yes Any double or blurry vision? No Flashes before your eyes? No Numbness in your face or extremities? No Weakness or clumsiness in arms or legs? No Slurred or difficult speech? No Difficulty swallowing? No Jerking of arms or legs? No Seizures? No Confusion or memory loss? No Recent head trauma? (If yes, please explain): No IV. Does any of the following refer to your hearing? Indicate which side has been affected: Yes Difficulty hearing in one ear? bilateral Onset: recent minor bilateral hearing loss Yes Ringing in one ear? bilateral -for 6-8 years Yes Fullness in one ear? bilateral Yes Change in hearing when dizzy? bilateral Have you had any of the following? Yes Pain in ears? bilateral Onset: intermittent achy fullness No Discharge from ears? Yes Hearing Change? bilateral Better? Worse? bilateral Onset: minor-recentlu Yes Exposure to loud noises?-rock music in her 20's No Previous ear infections? No Trauma to your ear(s)? No Previous ear surgery? If yes, what type: No Family history of deafness? V. Does any of the following refer to your habits and lifestyle: Yes Is there added stress to your life recently? No Are you dizzy or unsteady constantly? Is your dizziness related to: No Moments of stress? No If Female: Menstrual period? No Overwork or exertion? Yes Do you feel lightheaded or have a swimming sensation when you are dizzy? Yes Do you suffer from motion intolerance? - on a large boat No Does working on a computer or watching TV make you dizzy? The answers to these questions and the notes from your referring doctor will be reviewed, and it will be determined which specialty service would be best for your symptoms and these recommendations will be discussed with your primary doctor. If ENT should see you we will call you with an appointment. Please contact your primary doctor to discuss the recommendations. + Meclizine and zofran, flonase, tired Sonal at home. feels like there is water in her ears. Comments: documented in this encounter Plan of Treatment Not on file documented as of this encounter Visit Diagnoses Not on filedocumented in this encounter Care Teams Senior Net Application Developer Relationship Specialty Start Date End Date Lee Anne APRN [address] [place] [address] [address] [place] [address] PCP - General 07/16/17 documented as of this encounter
--- OUTSIDE RECORDS SUMMARY | 2024-03-09 08:07 | XMS_ITS | Encounter Summary ---
Author Organization [facility] Address [address] [place] [address] Care Team Providers Care Wireless Retail Manager Name Role Phone AnneLee Jenn VEGA Primary Care Provider [phone] Encounter Details Date Type Department Care Team (Late st Contact Info) Description 02/26/2020 Orders Only [facility] Endocrinology - [address] [id number] Arpan Truong MD [address] [place] [address] Social History Tobacco Use Types Packs/Day Years [...] Yes 10/14/2017 documented as of this encounter Ordered Prescriptions Prescription Sig Dispensed Refills Start Date End Da te rosuvastatin (CRESTOR) 20 mg tablet Take 1 Tab by mouth daily. 90 Tab 2 02/26/2020 02/27/2020 documented in this encounter Plan of Treatment Not on file documented as of this encounter Visit Diagnoses Not on filedocumented in this encounter Discontinued Medications Medication Sig Discontinue Reason Start Date End Da te rosuvastatin (CRESTOR) 10 mg tablet Take 10 mg by mouth daily. Reorder 02/26/2020 documented as of this encounter Care Teams Wireless Retail Manager Relationship Specialty Start Date End Date Lee Anne APRN [address] [place] [address] [address] [place] [address] PCP - General 07/16/17 documented as of this encounter
--- OUTSIDE RECORDS SUMMARY | 2024-03-09 08:07 | XMS_ITS | Referral Summary ---
Author Organization [facility] Address [address] [place] [address] Care Team Providers Care Process Automation Engineer Name Role Phone Lee Anne Jenn VEGA Primary Care Provider [phone] Allergies No known active allergies Medications Medication [...] mouth daily. 90 Tab 2 02/27/2020 Active Social History Tobacco Use Types Packs/Day Years [...] Body Mass Index 32.6 10/22/2017 1441 EDT Functional Status Functional Status Response Date of [...] concentrating, remembering, or making decisions? Yes 10/14/2017 Plan of Treatment Not on file Care Teams Process Automation Engineer Relationship Specialty Start Date End Date Lee Anne APRN [address] [place] [address] [address] [place], [place] [address] PCP - General 07/16/17
--- OUTSIDE RECORDS SUMMARY | 2024-03-09 08:07 | XMS_ITS | Encounter Summary ---
[place] [address] Care Team Providers Care Legal Officer Name Role Phone Lee Anne APRN Primary Care Provider [phone] Reason for Visit * Reason Comments Skin Check Encounter Details Date Type Department Care Team (Late st Contact Info) Description 04/13/2019 4:15 PM EST Office Visit Dermatology at [address] [address] Miguel Ángel Thomason MD [address] [facility], [facility] [place] [address] History of SCC (squamous cell carcinoma) of skin; Seborrheic keratosis; Seborrheic dermatitis Social History Tobacco Use Types Packs/Day Years Used Date Smoking Tobacco: Never Smokeless Tobacco: Never Sex and Gender Information Value Date Recorded Sex Assigned at Not on file Gender Identity Not on file Sexual Orientation Not on file documented as of this encounter Progress Notes * Miguel Ángel Thomason MD - 04/13/2019 4:15 PM EST Problem: 1. ?? Follow-up for yearly skin checkup 2. 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 ??History of seborrheic dermatitis of scalp, improved with softened water 4. ??[place] ethnic background Alejandra follows up and is doing well. She is here for yearly skin checkup. I started in October and biopsied a an irritated lesion on the left superior shoulder which fortunately turned out to be a seborrheic keratosis with inflammation. The site is healed well. She is here for her regular yearly skin checkup today. Physical examination today reveals a pleasant 59-year-old woman who has a benign examination of theface the neck the chest the back, and the left shoulder where the biopsy was done as healed well and there is no sign of any recurrent seborrheic keratosis there. Exam further examination of the torso of the chest the back the hands arms forearms thighs and the calves and the soles of the feet is likewise benign. She has a well-healed shave C&D scar in the left lower back at the site of her SCCA from July 2017. Assessment and plan: Benign skin examination 1. Patient reassured about her benign skin examination 2. No evidence of any new lesions of concern 3. Recommend that I continue see her on a once yearly basis. 4. If doing well for the next year or 2 may be able to space visits out further. History of SCCA left lower back July 2017 1. No evidence recurrence 2. Patient reassured 3. Follow-up as outlined above. CC: Lee Anne APRN documented in this encounter Plan of Treatment Not on file documented as of this encounter Visit Diagnoses Diagnosis History of SCC (squamous cell carcinoma) of skin Personal history of other malignant neoplasm of skin Seborrheic keratosis Other seborrheic keratosis Seborrheic dermatitis Seborrheic dermatitis, unspecified documented in this encounter Care Teams Legal Officer Relationship Specialty Start Date End Date Lee Anne APRN [address] [place] [address] [place] [address] PCP - General Family Medicine 06/19/15 01/28/21 documented as of this encounter
--- OUTSIDE RECORDS SUMMARY | 2024-03-09 08:07 | XMS_ITS | Encounter Summary ---
Author Organization [facility] Address [facility] [place] [address] Care Team Providers Care Law Secretary Name Role Phone Theresa Duran APRN Primary Care Provider [phone] Encounter Details Date Type Department Care Team (Late st Contact Info) Description 10/18/2012 Telephone Dermatology at [facility] [address] [place] [address] Zion Kowalski III, MD [facility] [place] [address] Social History Tobacco Use Types Packs/Day Years Used Date Smoking Tobacco: Never Sex and Gender Information Value Date Recorded Sex Assigned at Not on file Gender Identity Not on file Sexual Orientation Not on file documented as of this encounter Miscellaneous Notes * Telephone Encounter - Zion Kowalski III, MD - 10/18/2012 4:51 PM EDT I called and left word on her answering machine that I forwarded her last note to Dr Thomason and advised him she would be calling his office for a yearly check up . She lives in the [facility] and wants to see someone closer to home. I advised her to call about 3 months before she needs to be seen as he stays booked up. documented in this encounter Plan of Treatment Not on file documented as of this encounter Visit Diagnoses Not on filedocumented in this encounter Care Teams Law Secretary Relationship Specialty Start Date End Date Theresa Duran APRN [address] [place] [address] [place] [address] PCP - General 11/23/11 01/22/13 documented as of this encounter
--- OUTSIDE RECORDS SUMMARY | 2024-03-09 08:07 | XMS_ITS | Encounter Summary ---
Author Organization [facility] [place] [address] [place] [address] Care Team Providers Care Store Receiver Name Role Phone Sun Borrero Primary Care Provider [phone] Encounter Details Date Type Department Care Team (Late st Contact Info) Description 01/22/2022 2:30 PM EDT TH Visit (TeleHealth) Sleep Center at [facility] [address] [place] [address] Yamileth Rice, NURSE HEAD SLEEP C[facility] PONCHO (obstructive sleep apnea) Social History Tobacco Use Types Packs/Day Years Used Date Smoking Tobacco: Never Smokeless Tobacco: Never Sex and Gender Information Value Date Recorded Sex Assigned at Not on file Gender Identity Not on file Sexual Orientation Not on file documented as of this encounter Patient Instructions * Patient Instructions* Sarah Cueva APRN - 01/22/2022 2:30 PM EDT Recommendations: 1) CPAP 5-15 cmwith ramp and HH 2) Follow-up: RTC in 9-12 weeks with laurie [employer] to assess new mask 3) Driving safety discussed, recommend patient not drive if drowsy, if drowsy while driving to pick pulling machine operator and take a nap. 4) Patient to replace supplies routinely and understands mask cushions can be replaced monthly. 5) Script to RR for the air touch FFM documented in this encounter Progress Notes * Yamileth Rice, NURSE HEAD - 01/22/2022 2:30 PM EDT Sleep Medicine Clinical Health Specialist Brief Follow-Up Note HPI:Ms Alejandra Ruano is a 62 y.o. female seen for follow-up of obstructive sleep apnea. Date:01/22/22. Patient gives verbal consent to the tele-health clinic visit. Ms Ruano understandsthis visit may be billed to a similar clinic visit. [place] and [place]. Consultation provided by Dr. Lang on 08/04/21 Weight: 190# Alejandra Ruano is a 61 y.o. female seen at the request of Dr. Sun Borrero for advice regarding observed pauses in breathing. She has some snoring. Recently shared room with sister who noted some snoring but more prominently noticed pauses in breathing. Patient not aware of waking gasping/choking. Lives alone and doesn't have anyone observing sleep other than when shared room with sister last fall. Has some trouble sleeping. Has more problems getting sleep. Has to wake to use bathroom - usually can get back to sleep. INsomnia started with perimenopause. Better since through menopause. Was using ambien for 8 yrs - stopped last summer because of concerns of adjunct faculty for medical terminology effects of ambien. Now sleep hit or miss. Has hard time shutting mind off. Takes xanax for anxiety - if has had a few bad nights will take xanax. Has to get up 1-2x to urinate. Can be tired if has slept very poorly with disrupted sleep and vivid dreams. Sometimes can take hours to get to sleep. Won't stay in bed if can't get to sleep - will get up, do something low light and relaxing. Works at [employer]. No alertness problems while working. Can get sleepy in middle of day if relaxing; can get tired driving. Has not fallen asleep driving in recent years; one close call 12 yrs ago after overnight flight. [employer]. If gets tired driving now will eat or get out of car and do jumping jacks. Did have amnestic behaviors when on ambien - eating, getting food. No injuries or dangerous behaviors. Excerpt provided by Dr. Lang Sleep Study Date: 09/04/21 Weight: 190# HOME SLEEP APNEA TEST RESULTS Home sleep [...] Study results and recommendations relayed via letter. ?? Recommendations: AutoPAP 5-15cm F/U in PAP clinic after initiating CPAP Patient RTC today to assess adherence and tolerance with CPAP. Treatment: CPAP Pressure: 5-15 cm Interface: FFM s/m/l using has been trying all the sizes Fit: has tried all three sizes they leak and wakes her Chin Strap: no HCC: RR Insurance: [place] caid Snoring: not aware lives alone Dry Mouth/Throat: mouth breather Mouth Breathing: yes Symptom Benefit: [place]: Patient-reported last 4 scores: No flowsheet data found. Sleep quality: Sleep position mostly back prefers side but shoulders hurt Sleep meds: Xanax PRN Used to take Ambien for 8 years but when heard about side effects she tried to go without-sleep is worse without. Her PCP will not prescribe for her. BT: no set time 9-MN Latency: always has trouble falling asleep. Has been worse since her doctor no longer prescribes ambien. Takes Xanax for anxiety Nocturia: yes 1-3 times/night sometimes will have trouble returning to sleep RT: 7-730 am, rested a handful of times and lasted all day Daytime Symptoms: 3 days she felt like she was 15 the next day Involuntary Dozing: no Napping: not when works 6 days/week may on a wednesday Driving: Sleepiness or drowsiness yes, No caffeine ROS: ENT: Nasal Obstruction: no Constitutional: Date: Study weight: Date: weight: reported 174.5# Compliance Card Data: Date Range: 11/18-12/17/21 Settin-15 cm median 8.5 cm/95% 11 cm Residual AHI: 7 (OA 1.5/HI 1.2/CA 3/unknown 1.2) Vibratory Snore Index: n/a % Night in Large Leak: median 11/95% 51 Average usage all days-Hours: 5 hr 21 min # of Days of usage: 30/30 % Days used > 4 hours 77% Total % Days used 100% Physical Exam: Respirations: Even and not labored at rest DERM: Skin irritation: ok no trauma There were no vitals filed for this visit. Assessment: Ms. Alejandra Ruano is a 62 y.o. female seen for follow-up of obstructive sleep apnea. Ms Ruano was diagnosed with a high mild degree of sleep apnea on 09/04/21. This is a tele-health clinic visit to assess compliance and response to CPAP. The data download reveals Ms Ruano is using her CPAP and meeting adherence. The leak has been elevated above threshold most nights. She describes using a FF vitera that was sent to her. Has tried sizes S/M/large. All leaked. She has an indent on side of her cheek-is where it leaks most. She will try some mole skin over her indent under the mask. I will order the air touch memory foam FF mask. She has noticed significant improvement a handful of times when able to use mask all night and is motivated to make this work. No setting changes made at this time. Focus is to address leak first. RTC in 9-12 weeks tele-health with dc. Recomendations: 1) CPAP 5-15 cmwith ramp and HH 2) Follow-up: RTC in 9-12 weeks with [facility] to assess new mask 3) Driving safety discussed, recommend patient not drive if drowsy, if drowsy while driving to pick pulling machine operator and take a nap. 4) Patient to replace supplies routinely and understands mask cushions can be replaced monthly. 5) Script to RR for the air touch FFM The patient indicates understanding of these issues and agrees with the plan. The case was discussed with Sarah Cueva who saw (tele-health) the patient and participated in the formulation and decision making. * Sarah Cueva Yvette, SUPERVISOR [employer] - 01/22/2022 2:30 PM EDT Sleep Medicine Telehealth Follow-Up Note Patient location: [place] Telehealth visit required due to ongoing covid-19 public health emergency CC/HPI: Ms. Alejandra Ruano is a 62 y.o. female seen for follow-up of at least mild obstructivesleep apnea and compliance on new CPAP therapy. Getting used to CPAP. Struggles with FFM. Given a Vitera. Switching between SML cushions. Leak elevated. Dimple on cheek--mask leaks around it. Data ended 12/17 because she pulled card out and sent it to us. JESSA wants to order the AirTouch FFM med. Denies snoring. When able to use for longer at night, notes she feels better the next day. Has dry mouth. Sleeps mostly on her back because shoulders hurt. Up to void 1-3x/night. Latency: always difficulty with sleep onset. Venessa was taken away a year ago. She had been on it for 8 years. She had already tried CBTi. Study Hx: 08/04/[address] Lagn: history of observed apneas, some snoring, poor sleep and daytime tiredness. She has a family history of obstructive sleep apnea and an elevated BMI. 09/04/21 HSAT, Wt: 190lbs, Dr. Lang: 4% [place]/AHI:??13.9 APAP 5-15cw [place]. Treatment: APAP Device: 10 , setup 10/30/21 Pressure: 5-15cw Supplemental oxygen? no HCC: RR ROS: Wt: today Wt: 174.5lbs, 190lbs at HSAT ENT: dry mouth: yes : nocturia: 1-3x per night No past medical history on file. Patient Active Problem List Diagnosis Code ??? Seborrheic keratosis, inflamed L82.0 ??? Seborrheic keratosis L82.1 ??? AK (actinic keratosis) L57.0 ??? Varicose veins of both lower extremities I83.93 ??? Seborrheic dermatitis L21.9 ??? History of SCC (squamous cell carcinoma) of skin Z85.828 ??? Seborrheic keratoses, inflamed L82.0 ??? Anxiety F41.9 ??? Hyperlipidemia E78.5 ??? Essential tremor G25.0 ??? PONCHO (obstructive sleep apnea) G47.33 PE: General: pleasant, 62 y.o. female, no distress PAP data download reviewed and documented both below and in the RT portion of the note Data Download: Date Range: 11/18-12/17/21 (no more recent data) Pressure: 5-15cw EPR 2 Residual AHI: 7 95th % Leak: 51 Median Leak: 11 Max 108 Average Usage (Days Used/Hours): 5 hours 21 mins # Days of usage: 100% % Days used > 4 hours: 77% Assessment: Ms. Alejandra Ruano is a 62 y.o. female is seen in follow-up for at least mild obstructive sleep apnea on CPAP therapy for compliance visit/assessment. The latest data download shows a residual AHI in the mild range. Leak is elevated which can influence residual AHI. Usage is very good. She appears to have met compliance. Denies snoring and finds benefit the longer she is able to use CPAP. Pressures are well tolerated. Mask leak is elevated. We will try to reduce leak with education on proper mask fit, trying a different mask (AirTouch F20, med), trying moleskin near dimple where cushion rests to reduce leak as shereports it leaks at that area. Has dry mouth. Remedies reviewed by RT. Total visit time 30 minutes including chart activities and records review, discussion with the RT, discussion with the patient and documentation on the day of the encounter Recommendations: --Continue APAP 5-15cw --Script for AirTouch F20 med --RTC 9-12 weeks, making sure she has her new mask Patient voices understanding and acceptance of this advice and will call back if any further questions or concerns. I evaluated Ms. Alejandra Ruano with Laurie Rice CRT and performed moore aspects of the history. Iactively participated in the formulation of the management strategy. I have reviewed Laurie Rice CRT's note and agree with the assessment and recommendations. As this was a telehealth visit, the patient is not physically present with Laurie Rice CRT, and me. I, as the supervising nurse practitioner, am concurrently monitoring the patient care through appropriate telecommunication technology. Sarah Cueva APRN documented in this encounter Plan of Treatment Not on file documented as of this encounter Visit Diagnoses Diagnosis PONCHO (obstructive sleep apnea) Obstructive sleep apnea (adult) (pediatric) documented in this encounter Care Teams Store Receiver Relationship Specialty Start Date End Date Sun Borrero DO [address] [place] [address] PCP - General Internal Medicine 01/29/21 02/17/24 documented as of this encounter
--- OUTSIDE RECORDS SUMMARY | 2024-03-09 08:07 | XMS_ITS | Encounter Summary ---
Author Organization [facility] Address [address] [place] [address] Care Team Providers Care Peoplesoft Financials Consultant Name Role Phone AnneLee Jenn VEGA Primary Care Provider [phone] Reason for Visit * Reason Onset Date Comments Ultrasound 12/25/2019 Encounter Details Date Type Department Care Team (Late st Contact Info) Description 12/25/2019 Telephone [facility] [place] - [address] [address] Arpan Truong MD [address] [place] [address] Ultrasound Social History Tobacco Use Types Packs/Day Years [...] encounter Miscellaneous Notes * Telephone Encounter - Erin Rosales RN - 01/23/2020 1005 EDT Calling patient 01/23/20 10:06 Wrong number [phone]. Calling phone number [phone] Unable to reach patient. Left message to call back, no name on voicemail. ERIN MCKNIGHT RN 01/23/2020 10:08 * Telephone Encounter - Sravan Atwood RN - 12/28/2019 1432 EDT Attempted to contact pt. No answer/No VM. Will attempt again later. Ultrasound reviewed Very small benign appearing nodule measuring 0.8 cm No follow up indicated at this time Consider ultrasound in 3 years Can request a follow up in 3 years * Telephone Encounter - Sravan Atwood RN - 12/26/2019 1427 EDT Called and requested results of US from [facility] for provider to review. * Telephone Encounter - Kristie Archer - 12/25/2019 1404 EDT Per patient, has in person follow up with Dr Suarez 02-25. Per patient, had ultrasound ordered by Lee Anne done recently at [facility]. Would like him to view results and for nurse to call her back. Has been having some symptoms with her thyroid. Please call back documented in this encounter Plan of Treatment Not on file documented as of this encounter Visit Diagnoses Not on filedocumented in this encounter Care Teams [employer] Consultant Relationship Specialty Start Date End Date Lee Anen APRN [address] [place] [address] [address] [place] [address] PCP - General 07/16/17 documented as of this encounter
--- OUTSIDE RECORDS SUMMARY | 2024-03-09 08:07 | XMS_ITS | Encounter Summary ---
Author Organization [facility] Address [address] [place] [address] Care Team Providers Care Threading Machine Feeder Automatic Name Role Phone OmidElizabethjessica Barajas APRN Primary Care Provider [phone] Encounter Details Date Type Department Care Team (Late st Contact Info) Description 12/11/2021 Lab Requisition [facility] Pathology & Laboratory Medicine - [address] [address] Rossana Hernandez MD [address] [place] [address], [address] [place] [address] Neoplasm of uncertain behavior of skin Social History Tobacco Use Types Packs/Day Years [...] Priority Date/Time Associated Diagnosis Comments SURGICAL PATHOLOGY Today 12/11/2021 15 :51 EDT documented in this encounter Results * SURGICAL PATHOLOGY (12/11/2021 15:51 EDT) Note to Patient The following pathology results have been interpreted by your pathologist and may be available to you before your health provider has had the opportunity to review them. Please allow time for your provider to receive these results and explore management options, if applicable. 12/12/2021 11:46 [facility] Final Diagnosis A. SKIN OF BACK, LEFT MID, SHAVE BIOPSY: - Seborrheic keratosis, inflamed. 12/12/2021 11:46 [facility] Attestation By the signature below, the attending physician certifies that they have 1) personally conducted a gross and/or microscopic examination of the described specimen(s), and/or personally interpreted the results of laboratory testing of the described specimen(s), and 2) personally rendered or confirmed the above diagnosis. 12/12/2021 11:46 [facility] at 1146 Clinical History ISK vs SCC; clinical diagnosis code: D48.5 12/12/2021 11:46 [facility] Gross Description A. Received in formalin labelled with proper patient identification (initials C, P) and L mid back is a shave biopsy of a pearly white lobulated, granular papule (1.5 x 0.8 x 0.2 cm). The specimen is inked, trisected, and submitted in A1. AGUSTÍN CRUZ(ASCP) 12/11/2021 19:40 12/12/2021 11:46 [facility] Performing Lab [facility] 12/12/2021 11:46 [facility] Scanned Images 12/12/2021 11:46 [facility] Tissue TISSUE SPECIMEN FROM SKIN / Unknown 12/11/2021 15:51 EDT 12/11/2021 19:14 EDT Rossana Hernandez MD PATHOLOGY ORDERAB LES [facility] [address] [place] [address] documented in this encounter Visit Diagnoses Diagnosis Neoplasm of uncertain behavior of skin documented in this encounter Care Teams Threading Machine Feeder Automatic Relationship Specialty Start Date End Date Lee Anne APRN [address] [place] [address] [address] [place], [place] [id number] PCP - General 07/16/17 documented as of this encounter
--- OUTSIDE RECORDS SUMMARY | 2024-03-09 08:07 | XMS_ITS | Encounter Summary ---
[place] [address] Care Team Providers Care Instrumentation And Controls Technician Name Role Phone Lee Anne APRN Primary Care Provider [phone] Reason for Visit * Reason Comments Skin Check Encounter Details Date Type Department Care Team (Late st Contact Info) Description 08/16/2015 3:45 PM EDT Office Visit Dermatology at [address] [place] [address] Miguel Ángel Thomason MD [address] [facility] [place] [address] Seborrheic keratosis Social History Tobacco Use Types Packs/Day Years Used Date Smoking Tobacco: Never Sex and Gender Information Value Date Recorded Sex Assigned at Not on file Gender Identity Not on file Sexual Orientation Not on file documented as of this encounter Progress Notes * Miguel Ángel Thomason MD - 08/16/2015 5:38 PM EDT Problem: Yearly skin checkup. Alejandra follows up and has been doing well. She would like to have her yearly skin checkup. She reminds me that she is 100% [place] ethnic background and has had a number of phillips in the past. She denies any personal history of skin cancer or melanoma. The patient complains of itching in her scalp diffusely throughout the scalp, which is a relatively new problem for her. She thinks it may be due to a yeast or a fungus, as when she used an antifungal product and diluted it in her scalp it seemed to help. Physical examination reveals a pleasant now 55-year-old woman who is here with her service dog. She has a number of small seborrheic keratoses, two on her lower back, and two on her left and one on her right breast. She has several small sites in her scalp. Fortunately, careful examination of the scalp, the head and the neck, the chest, back, hands, arms, forearms, thighs, and calves is benign. She has no erythema, no scaling noted in her scalp. Assessment and Plan: 1. Benign skin examination. a. Patient reassured about benign skin examination and benign seborrheic keratoses. b. LN2 times two applied to irritated sites on breasts. c. Reinforced sun avoidance precautions, which the patient is following. d. Return to clinic in another year for repeat check. 2. Scalp pruritus. a. Begin a trial of ketoconazole 2% shampoo, use daily or q.o.day, rinsing out lather after two or three minutes; 120 mL dispensed with p.r.n. refills. 3. Mild photodamage. a. Prescription given for tretinoin 0.025% cream, which the patient can apply on a q.o.h.s. basis for two weeks, then q.h.s. one-half hour after washing; 20 grams dispensed with p.r.n. refills. COPY: Lee Anne A.P.R.N. documented in this encounter Plan of Treatment Not on file documented as of this encounter Visit Diagnoses Diagnosis Seborrheic keratosis Other seborrheic keratosis documented in this encounter Care Teams Instrumentation And Controls Technician Relationship Specialty Start Date End Date Lee Anne APRN [address] [place] [address] [place] [address] PCP - General Family Medicine 06/19/15 01/28/21 documented as of this encounter
--- OUTSIDE RECORDS SUMMARY | 2024-03-09 08:07 | XMS_ITS | Encounter Summary ---
Author Organization [facility] Address [address] [place] [address] Care Team Providers Care Flood Control Engineer Name Role Phone Omid Lee Barajas APRN Primary Care Provider [phone] Encounter Details Date Type Department Care Team (Late st Contact Info) Description 07/24/2020 Lab Requisition [facility] Pathology & Laboratory Medicine - [address] [address] Outr Resulting Lab, Provider Social History Tobacco [...] Priority Date/Time Associated Diagnosis Comments ZZCOVID-19 TEST [facility] PCR Today 07/24/2020 15:04 EDT COVID-19 TESTING Routine 07/24/2020 15:0 4 EDT documented in this encounter Results * COVID-19 TEST [facility] PCR (07/24/2020 15:04 EDT) Swab ENTIRE NASOPHARYNX / Unknown 07/24/2020 15:04 EDT 07/24/2020 22:01 EDT Provider Outr Resulting Lab MICROBIOLOGY - GENERAL ORDERABLES Performing Organization Address City/[facility]/ZIP Co de Phone Number [facility] [address] [place] [address] * COVID-19 TESTING (07/24/2020 15:04 EDT) COVID-19 rt-PCR Result Negative Negative 07/25/2020 11:38 EDT [facility] Comment: This test has [...] clinical observations, patient history, and epidemiological information. Testing was performed using the jonna SARS-CoV-2 assay ([employer] on the Jonna 6800 System Performing Lab Jonna [address]00 [facility] 07/25/2020 11:38 EDT [facility] Swab 07/24/2020 15:0 4 EDT 07/24/2020 22:01 EDT Provider Outr Resulting Lab MICROBIOLOGY - GENERAL ORDERABLES [facility] [address] [place] [address] documented in this encounter Visit Diagnoses Not on filedocumented in this encounter Care Teams Flood Control Engineer Relationship Specialty Start Date End Date Lee Anne APRN [address] [place] [address] [address] [place] [address] PCP - General 07/16/17 documented as of this encounter
--- OUTSIDE RECORDS SUMMARY | 2024-03-09 08:07 | XMS_ITS | Encounter Summary ---
[place] [address] Care Team Providers Care Refrigeration Engineering Teacher Name Role Phone Sun Borrero Primary Care Provider [phone] Reason for Referral * Diagnostic Test (Routine) - Closed Specialty Diagnoses / Procedures Referred By Kaelyn t Referred To Contact Radiology Diagnoses Elevated lipoprotein A level Procedures CT Angiogram Coronary Arteries Betty Hahn MD [address] [place] [address] [place] [address] [facility] [place] [address] Referral ID Status Reason Start Date Expiration Date V isits Requested Visits Authorized [id number] Closed Specialty Service Requested 01/21/2022 07/22/2023 1 1 Reason for Visit * Diagnostic Test (Routine) - Closed Specialty Diagnoses / Procedures Referred By Kaelyn garcia Referred To Contact Radiology Diagnoses Elevated lipoprotein A level Procedures CT Angiogram Coronary Arteries Betty Hahn MD [address] [place] [address] [place] [address] [facility] [place] [address] Referral ID Status Reason Start Date Expiration Date V isits Requested Visits Authorized [id number] Closed Specialty Service Requested 01/21/2022 07/22/2023 1 1 Encounter Details Date Type Department Care Team (Latest Contact Info) Description 02/18/2022 10:37 AM EDT - 02/18/2022 11:59 PM EDT Hospital [place] [address] Betty Hahn MD [address] [place] [address] [place] [address] Elevated lipoprotein A level Discharge Disposition: Home Social History Tobacco Use [...] ciclopirox (PENLAC) 8 % Solution 01/29/2022 02/18/2024 ondansetron ODT (Zofran-ODT) 4 mg Tablet, Rapid Dissolve 09/24/202104/16 zolpidem (AMBIEN) 10 mg Tablet 11/20/2021 02/18/2024 FLUoxetine (PROzac) 20 mg Capsule Take 20 mg by mouth daily. 04/16/2023 propranoloL (Inderal) 10 mg Tablet Take 10 mg by mouth as needed. For tremor 02/18/2024 famciclovir (FAMVIR) 125 mg Tablet Take 500 mg by mouth as needed. 04/16/2023 ALPRAZolam (XANAX) 1 mg Tablet Takes 1/2 as needed 1 01/29/2017 02/18/20 24 documented as of this encounter Plan of Treatment Not on file documented as of this encounter Procedures Procedure Name Priority Date/Time Associated Diagnosis Comments CT ANGIOGRAM CORONARY ARTERIES Routine 02/18/2022 11:15 AM EDT Elevated lipoprotein A level documented in this encounter Results * CT Angiogram Coronary Arteries (02/18/2022 11:15 AM EDT) Anatomical Region Laterality Modality Cardiac Computed Tomogra phy Impressions 02/18/2022 6:29 PM EDT Coronary calcium score of 1, consistent with minimal atherosclerotic plaque burden and 59%-ile rank based on age, race/ethnicity, and gender. Punctate atherosclerotic calcifications in the proximal LAD with luminal narrowing of less than 25%. Soft plaque in the mid right coronary artery narrows the lumen by slightly more than 25%. CAD RADS 2 Thank you for letting us participate in the care of this patient. ??If you are a health care provider and have any questions regarding this report, please contact the number below. ??For patients who have questions please contact the health hospice patient care secretary that requested your imaging first. ? Electronically signed by: Janna Kumar MD, [facility] ([phone]), at 02/18/2022 6:29 PM Narrative 02/18/2022 6:29 PM EDT EXAMINATION: CT ANGIOGRAM CORONARY ARTERIES CLINICAL HISTORY: ASCVD elevated lip-protein A. Angina. Strong family HX CAD COMPARISON: None. TECHNIQUE: 3 mm thick axial contiguous sections through the heart were obtained via ECG-gated axial mode acquisition without intravenous contrast. After time bolus, 0.625 mm thick axial contiguous sections were obtained through the heart via ECG-gated helical acquisition during intravenous administration of 106.5 cc Omnipaque 350. Post-processing was performed on an independent computer workstation including curved multiplanar reformats, coronary calcium scoring, and 3D reconstructions. FINDINGS: Coronary calcium score: Left main: ??Agatston score: 0; Volume score: 0; Mass: 0 mg Left anterior descending: ??Agatston score: 1; Volume score: 4; Mass: 0.56 mg Left circumflex: ??Agatston score: 0; Volume score: 0; Mass: 0 mg Right coronary: ??Agatston score: 0; Volume score: 0; Mass: 0 mg TOTAL: ??Agatston score: 1; Volume score: 4; Mass: 0.56 mg Atherosclerotic plaque burden, based on Agatston score: Minimal Percentile rank, based on age, race/ethnicity, and gender: 59%-ile. Reference: Mar RL, Mckeon H, Samson R, et al. ??Distribution of coronary artery calcium by race, gender, and age: results from the Multi-Ethnic Study of Atherosclerosis (SHEPARD). Circulation. 2006;113(1):30-37. Coronary arteries: Right dominant coronary artery circulation. Left [...] Posterolateral branch: No demonstrable plaque or stenosis. Cardiac chambers: No significant findings. Great vessels: No significant findings. Pulmonary parenchyma, airways, pleura: No significant findings. Upper abdomen: No significant findings Skeletal Structures: No significant findings. Procedure Note Janna Martinez MD - 02/18/2022 EXAMINATION: CT ANGIOGRAM CORONARY ARTERIES CLINICAL HISTORY: ASCVD elevated lip-protein A. Angina. Strong family HX CAD COMPARISON: None. TECHNIQUE: 3 mm thick axial contiguous sections through the heart wereobtained via ECG-gated axial mode acquisition without intravenous contrast. Aftertime bolus, 0.625 mm thick axial contiguous sections were obtained through theheart via ECG-gated helical acquisition during intravenous administration of106.5 cc Omnipaque 350. Post-processing was performed on an independent computer workstation including curved multiplanar reformats, coronary calciumscoring, and 3D reconstructions. FINDINGS: Coronary calcium score: Left main: Agatston score: 0; Volume score: 0; Mass: 0 mg Left anterior descending: Agatston score: 1; Volume score: 4; Mass: 0.56mg Left circumflex: Agatston score: 0; Volume score: 0; Mass: 0 mg Right coronary: Agatston score: 0; Volume score: 0; Mass: 0 mg TOTAL: Agatston score: 1; Volume score: 4; Mass: 0.56 mg Atherosclerotic plaque burden, based on Agatston score: Minimal Percentile rank, based on age, race/ethnicity, and gender: 59%-ile. Reference: Mar RL, Mike H, Samson R, et al. ??Distribution ofcoronary artery calcium by race, gender, and age: results from the Multi-EthnicStudy of Atherosclerosis (SHEPARD). Circulation. 2006;113(1):30-37. Coronary arteries: Right dominant coronary artery circulation. Left main: Normal origin. No demonstrable plaque or stenosis. Left anterior descending: Very small punctate eccentric calcified plaquein the proximal left anterior descending artery. No luminal narrowing. Diagonal branches: No demonstrable plaque or stenosis. Left Circumflex: No demonstrable plaque or stenosis. Obtuse marginal branches: No demonstrable plaque or stenosis. Right coronary: Normal origin. Soft plaque in the mid right coronaryartery with subtle associated atherosclerotic calcification. Luminal narrowing is25-49%. Posterior descending: No demonstrable plaque or stenosis. Posterolateral branch: No demonstrable plaque or stenosis. Cardiac chambers: No significant findings. Great vessels: No significant findings. Pulmonary parenchyma, airways, pleura: No significant findings. Upper abdomen: No significant findings Skeletal Structures: No significant findings. IMPRESSION Coronary calcium score of 1, consistent with minimal atheroscleroticplaque burden and 59%-ile rank based on age, race/ethnicity, and gender. Punctate atherosclerotic calcifications in the proximal LAD with luminal narrowing of less than 25%. Soft plaque in the mid right coronary artery narrows the lumen by slightlymore than 25%. CAD RADS 2 Thank you for letting us participate in the care of this patient. If youare a health care provider and have any questions regarding this report,please contact the number below. For patients who have questions please contactthe health hospice patient care secretary that requested your imaging first. 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 documented in this encounter Administered Medications Inactive Administered Medications - up to 3 most recent administrations Medication Order MAR Action Action Date Dose Rate Site iohexoL (Omnipaque) (350 mg/mL) solution 0-200 mL 0-200 mL, Intravenous, ONCE PRN, 1 dose, Starting on Wed02/18/22 at 1046, Until Wed02/18/22 at 1107, Per Protocol, Warning Vesicant/Irritant Medication , Radiology Contrast, Routine Given 02/18/2022 11:07 AM EDT 106 mLs documented in this encounter Care Teams Refrigeration Engineering Teacher Relationship Specialty Start Date End Date Sun Borrero DO [address] [place] [address] PCP - General Internal Medicine 01/29/21 02/17/24 documented as of this encounter
--- OUTSIDE RECORDS SUMMARY | 2024-03-09 08:07 | XMS_ITS | Encounter Summary ---
Author Organization [facility] [place] [address] Care Team Providers Care Delivery Person Name Role Phone Sun Borrero Primary Care Provider [phone] Encounter Details Date Type Department Care Team (Late st Contact Info) Description 02/17/2022 Telephone Cardiology at [address] [place] [address] Betty Hahn MD [address] [place] [address] DR CARDIOLOGY [place], [place] [id number] Social History Tobacco Use Types Packs/Day Years Used Date Smoking Tobacco: Never Smokeless Tobacco: Never Sex and Gender Information Value Date Recorded Sex Assigned at Not on file Gender Identity Not on file Sexual Orientation Not on file documented as of this encounter Miscellaneous Notes * Telephone Encounter - Rafael Aldrich RN - 02/17/2022 9:04 AM EDT Received call from , patient having CTA tomorrow. Patient needs to have BMP prior to procedure. They are requesting that Dr. Hahn order one. Upon further review, patient sees Dr. Hahn at [facility], have called their office and requested a BMP order be sent to for this patient. documented in this encounter Plan of Treatment Not on file documented as of this encounter Visit Diagnoses Not on filedocumented in this encounter Care Teams Delivery Person Relationship Specialty Start Date End Date Sun Borrero DO [address] [facility] [place] [address] PCP - General Internal Medicine 01/29/21 02/17/24 documented as of this encounter
--- OUTSIDE RECORDS SUMMARY | 2024-03-09 08:07 | XMS_ITS | Encounter Summary ---
Author Organization [facility] Address [facility] [place] [address] Care Team Providers Care Map Compiler Name Role Phone Sun Borrero Primary Care Provider [phone] Encounter Details Date Type Department Care Team (Late st Contact Info) Description 01/20/2010 Orders Only Dermatology at [facility] [address] [place] [address] Zion Kowalski III, MD [facility] [address] [address] Social History Tobacco Use Types Packs/Day Years Used Date Smoking Tobacco: Never Assessed Sex and Gender Information Value Date Recorded Sex Assigned at Not on file Gender Identity Not on file Sexual Orientation Not on file documented as of this encounter Plan of Treatment Not on file documented as of this encounter Procedures Procedure Name Priority Date/Time Associated Diagnosis Comments SURGICAL PATHOLOGY REPORT Routine 01/20/2010 3:06 PM EDT documented in this encounter Results * Surgical Pathology Report (01/20/2010 3:06 PM EDT) Surgical Pathology Report [id number] ? Location: [facility] The signing pathologist has (i) examined the relevant preparation(s) for the specimen(s) and (ii) rendered or confirmed the diagnosis(es). . ?Pathology Surgical Pathology Final Report Clinical Information Specimen Submitted: A - (L) supraclavicular , Shave. Clinical History: Bleeding pigmented crusted lesion Clinical Diagnosis: SK, irritated Gross Description Labeled/Fixativ e: ? Labeled with the patient's name and medical ?record number, formalin. Qty/Size/Weight : ?Single papule, 0.7 x 0.2 cm, there is a ?domed, norwood-anderson skin surface. Sections/Proces sing: ??Inked. ??Trisected. ??(T1) ??vms/PPS Microscopic Description Slides reviewed, microscopic description not recorded. Diagnosis Left supraclavicular , ?? shave biopsy: Seborrheic keratosis. CR-0 01/21/10 AEP 01/21/10 Verified by: ? Andie Castro MD ?Dermatopathol ogist ?(Electronic Signature) The attending pathologist whose signature appears on this report has reviewed all diagnostic slides and has edited the gross and/or microscopic portion of the report in rendering the final pathologic diagnosis. ANUSHKA MARTE 01/20/2010 3:06 PM EDT Zion Kowalski III, MD PATHOLOGY/CYTOL OGY ORDERABLES ANUSHKA MARTE documented in this encounter Visit Diagnoses Not on filedocumented in this encounter Care Teams Map Compiler Relationship Specialty Start Date End Date Sun Borrero DO [address] [place] [address] PCP - General Internal Medicine 01/29/21 02/17/24 documented as of this encounter
--- OUTSIDE RECORDS SUMMARY | 2024-03-09 08:07 | XMS_ITS | Encounter Summary ---
Author Organization [facility] Address [address] [place] [address] Care Team Providers Care Tool Grinding Technician Name Role Phone AnneLee Jenn VEGA Primary Care Provider [phone] Reason for Visit * Reason Onset Date Comments Results 02/27/2020 Encounter Details Date Type Department Care Team (Late st Contact Info) Description 02/27/2020 Telephone [facility] Endocrinology - [address] [address] Arpan Truong MD [address] [place] [address] Results Social History Tobacco Use Types Packs/Day [...] by mouth daily. 90 Tab 2 02/27/2020 documented in this encounter Miscellaneous Notes * Telephone Encounter - Katerine Stephen RN - 02/27/2020 1601 EDT Called pt and reviewed Dr. Suarez's message: I sent a message previously about the same. ??I would like her to increase Crestor and we will be increasing Crestor to maximum dose or the next few appointments.. Pt has spoken to Erin Aviles, her script has been sent. We are waiting on another lab result. Patient verbalized understanding. No barriers to learning noted. Katerine Stephen RN Endocrinology * Telephone Encounter - Erin Rosales RN - 02/27/2020 1300 EDT ----- Message from Arpan Solorzano MD sent at 02/26/2020 15:27 EDT ----- Please call patient Her Crestor should be increased Her LDL cholesterol is slightly above target and t her non-HDL cholesterol is above target LDL target less than 70, hers is 87 Non-HDL cholesterol 100, hers is 112 Lipoprotein (a) is pending but management will be the same. I do not know what pharmacy to send it therefore I prescribed as a no print. Calling patient 02/27/20 13:01 This commercial real estate underwriter relayed Dr. Oropeza message to the patient. Patient asked for all results to be read to her. Hemoglobin A1C, Lipid profile, TSH and Lipoprotein read to the patient. Pharmacy : [facility] [place] Dispense quantity : 90 days with refills Patient informed that the new script is for Crestor 20 mg daily and will be sent shortly to the pharmacy. The Lipoprotein A result has been received The encounter will be routed back to Dr. Suarez. ERIN MCKNIGHT RN 02/27/2020 13:12 * Telephone Encounter - Erin Rosales RN - 02/27/2020 1300 EDT ----- Message from Arpan Solorzano MD sent at 02/26/2020 15:27 EDT ----- Please call patient Her Crestor should be increased Her LDL cholesterol is slightly above target and t her non-HDL cholesterol is above target LDL target less than 70, hers is 87 Non-HDL cholesterol 100, hers is 112 Lipoprotein (a) is pending but management will be the same. I do not know what pharmacy to send it therefore I prescribed as a no print. documented in this encounter Plan of Treatment Not on file documented as of this encounter Visit Diagnoses Not on filedocumented in this encounter Discontinued Medications Medication Sig Discontinue Reason Start Date End Da te rosuvastatin (CRESTOR) 20 mg tablet Take 1 Tab by mouth daily. Reorder 02/26/2020 02/27/2020 documented as of this encounter Care Teams Tool Grinding Technician Relationship Specialty Start Date End Date Lee Anne APRN [address] [place] [address] [address] [place] [address] PCP - General 07/16/17 documented as of this encounter
--- OUTSIDE RECORDS SUMMARY | 2024-03-09 08:07 | XMS_ITS | Encounter Summary ---
[place] [address] Care Team Providers Care Ski Maker Name Role Phone Lee Anne APRN Primary Care Provider [phone] Encounter Details Date Type Department Care Team (Late st Contact Info) Description 03/16/2017 Refill Dermatology at [address] [address] Clarisse Marsh, SINGE MACHINE OPERATOR Social History Tobacco Use Types Packs/Day Years [...] on filedocumented in this encounter Care Teams Ski Maker Relationship Specialty Start Date End Date Lee Anne APRN [address] [place] [address] [place] [address] PCP - General Family Medicine 06/19/15 01/28/21 documented as of this encounter
--- OUTSIDE RECORDS SUMMARY | 2024-03-09 08:07 | XMS_ITS | Encounter Summary ---
[place] [address] Care Team Providers Care Scanner Supervisor Name Role Phone Lee Anne APRN Primary Care Provider [phone] Reason for Visit * Reason Comments Follow-up Encounter Details Date Type Department Care Team (Late st Contact Info) Description 07/05/2017 4:45 PM EST Office Visit Dermatology at [address] [address] Miguel Ángel Thomason MD [address] [facility] [place] [address] Seborrheic keratosis; Seborrheic dermatitis; History of SCC (squamous cell carcinoma) of skin Social History Tobacco Use Types Packs/Day Years Used Date Smoking Tobacco: Never Smokeless Tobacco: Never Sex and Gender Information Value Date Recorded Sex Assigned at Not on file Gender Identity Not on file Sexual Orientation Not on file documented as of this encounter Progress Notes * Miguel Ángel Thomason MD - 07/05/2017 4:45 PM EST Problem: 1. New lesion, left lower back 2. Seborrheic dermatitis of scalp Alejandra follows up and is noticed recently a new papule left lower back. She thinks might be a basal cell. Also she has a couple of itchy spots on her bra strap should like to have frozen off. Also she is concerned about her seborrheic dermatitis which is not really yet improved utilizing [id number] shampoos in the fluocinolone solution. She is having these every other night to get relief.Physical examination Reveals a pleasant 57-year-old woman who has a pearly papule on the left lower back 6 mm in diameter. She very fair skin but otherwise has benign examination of the scalp the face the neck the chest the back hands arms and forearms. She does have 3 irritated seborrheic keratoses underneath her bra strap. She has mild seborrhea still present in her scalp Assessment and plan Probable basal cell carcinoma left lower back 1. After obtaining informed consent, the site was anesthetized and removed shave biopsy was C&D??3 2. Triple antibiotic and bandage placed. After curettage, the site measured 7 mm. 3. RTC in March for yearly skin checkup Seborrheic dermatitis scalp 1. Recommend that we advance to prescription shampoos. We will call in the ketoconazole 2% shampoo uses a shampoo for scalp on a daily basis 2 weeks on 2 weeks off dispense 120 mils with 5 refills. Called into [facility] in [place] Allow lather to sit for 2 to minutes before rinsing out. 2. Recommend that we also advanced to selenium sulfide 2.5% lotion apply on a daily basis and she rinse out rinsing out after 2 or 3 minutes alternating every 2 weeks with ketoconazole. Dispense 120 mils with 5 refills. Also called into [facility] in [place] 3. May continue using the fluocinolone 0.01% solution. Cc: Lee Anne APRN documented in this encounter Plan of Treatment Not on file documented as of this encounter Procedures Procedure Name Priority Date/Time Associated Diagnosis Comments LAB SCAN 07/08/2017 12:00 AM EST documented in this encounter Results * SCAN DOC: LAB (07/08/2017 12:00 AM EST) Narrative 07/08/2017 12:00 AM EST Ordered by an unspecified provider. Scanning Provider MEDIA MGR SCAN EXT O RDR/RSLT documented in this encounter Visit Diagnoses Diagnosis Seborrheic keratosis Other seborrheic keratosis Seborrheic dermatitis Seborrheic dermatitis, unspecified History of SCC (squamous cell carcinoma) of skin Personal history of other malignant neoplasm of skin documented in this encounter Care Teams Scanner Supervisor Relationship Specialty Start Date End Date Lee Anne APRN [address] [place] [address] [place] [id number] PCP - General Family Medicine 06/19/15 01/28/21 documented as of this encounter
--- OUTSIDE RECORDS SUMMARY | 2024-03-09 08:07 | XMS_ITS | Encounter Summary ---
Author Organization [facility] Address [address] [place] [address] Care Team Providers Care Pilot Supervisor Name Role Phone Lee Anne APRN Primary Care Provider [phone] Encounter Details Date Type Department Care Team (Late st Contact Info) Description 11/02/[address] [facility] Pathology & Laboratory Medicine - [address] [address] Lee Anne APRN [address] [place] [address] [address] [place], [place] [id number] Encounter for other general examination Social History Tobacco Use Types Packs/Day Years [...] Procedure Name Priority Date/Time Associated Diagnosis Comments PAP TEST Today 11/02/2019 17:22 EDT HPV DNA DETECTION WITH GENOTYPING, PCR Today 11/02/2019 17:22 EDT documented in this encounter Results * HUMAN PAPILLOMAVIRUS (HPV) DETECTION-HIGH RISK TYPES (11/02/2019 17:22 EDT) HPV other High Risk types, PCR Negative Negative 11/14/2019 11:12 EDT [facility] Comment:No E6 or E7 mRNA is detected from HPV types 16,18,31,33,35,39,45,51,52,56,58,59,66, and 68 by clean up supervisor mediated amplification. Papanicolaou smear specimen (specimen) CERVIX UTERI STRUCTURE / Unknown 11/02/2019 17:22 EDT 11/10/2019 15:51 EDT Lee Anne APRN MICROBIOLOGY - GENER AL ORDERABLES [facility] [address] [place] [address] * PAP TEST (11/02/2019 17:22 EDT) Specimens A. Cervix and/or Endocervix , ThinPrep Imaging System with Manual Evaluation 11/14/2019 11:12 T [facility] Specimen Adequacy Satisfactory for Evaluation - assessment of transformation zone component not applicable ( e.g. atrophy, vaginal sample, hysterectomy) 11/14/2019 11:12 EDT [facility] General Categorization Negative for intraepithelial lesion or malignancy 11/14/2019 11:12 [facility] Attestation . 11/14/2019 11:12 [facility] at 1112 Clinical History SEE ORDER COMMENT 0 11/14/2019 11:12 [facility] HPV The result for the Human Papillomavirus (HPV) Detection-High Risk Types is Negative. No E6 or E7 mRNA is detected from HPV types 16,18,31,33,35,39 ,45,51,52,56,58,5 9,66, and 68 by clean up supervisor mediated amplification.Melany ting was performed on specimen [id number] and was resulted on 11/14/2019 1059 EDT by LYNDSAY, LAB INSTRUMENT RESULTS IN 11/14/2019 11:12 EDT [facility] Scanned Images 11/14/2019 11:12 EDT [facility] Papanicolaou smear specimen (specimen) CERVIX UTERI STRUCTURE / Unknown 11/02/2019 17:22 EDT 11/06/2019 10:55 EDT Lee Anne APRN PATHOLOGY ORDERABLES [facility] [address] [place] [address] documented in this encounter Visit Diagnoses Diagnosis Encounter for other general examination documented in this encounter Additional Health Concerns Infection Onset Date Last Indicated Resolved Time R/O COVID-19 11/04/2019 11/04/2019 11/09/2019 22:1 6 EDT documented as of this encounter Care Teams Pilot Supervisor Relationship Specialty Start Date End Date Lee Anne APRN [address] [place] [address] [address] [place] [address] PCP - General 07/16/17 documented as of this encounter
--- OUTSIDE RECORDS SUMMARY | 2024-03-09 08:07 | XMS_ITS | Encounter Summary ---
Author Organization [place] [address] Care Team Providers Care Glazier Supervisor Name Role Phone Sun Borrero DO Primary Care Provider [phone] Encounter Details Date Type Department Care Team (Late st Contact Info) Description 01/27/2022 Telephone Sleep Center at [facility] [address] [place] [address] Maria T Jordan Social History Tobacco Use Types Packs/Day Years Used Date Smoking Tobacco: Never Smokeless Tobacco: Never Sex and Gender Information Value Date Recorded Sex Assigned at Not on file Gender Identity Not on file Sexual Orientation Not on file documented as of this encounter Miscellaneous Notes * Telephone Encounter - Maria T Jordan - 01/27/2022 12:03 PM EDT Return 9-12 weeks with himanshu for Telehealth documented in this encounter Plan of Treatment Not on file documented as of this encounter Visit Diagnoses Not on filedocumented in this encounter Care Teams Glazier Supervisor Relationship Specialty Start Date End Date Sun Borrero DO [address] [place] [address] PCP - General Internal Medicine 01/29/21 02/17/24 documented as of this encounter
--- OUTSIDE RECORDS SUMMARY | 2024-03-09 08:07 | XMS_ITS | Encounter Summary ---
Author Organization [facility] [place] [address] Care Team Providers Care Mri Assistant Name Role Phone Sun Borrero DO Primary Care Provider [phone] Reason for Referral * Diagnostic Test (Routine) - Closed Specialty Diagnoses / Procedures Referred By Kaelyn garcia Referred To Contact Sleep Center Diagnoses Observed sleep apnea Procedures Home Sleep Study Ashley Lang MD [facility] [place] [address] [facility] Sleep Medicine [address] [place] [address] Referral ID Status Reason Start Date Expiration Date V isits Requested Visits Authorized [id number] Closed Specialty Service Requested 08/04/2021 08/04/2022 1 1 Reason for Visit * Consultation (Routine) - Closed Specialty Diagnoses / Procedures Referred By Contchris garcia Referred To Contact Sleep Center Diagnoses Sleep apnea, unspecified Sun Borrero DO [address] [place] [address] [facility] Sleep Medicine [address] [place] [address] Referral ID Status Reason Start Date Expiration Date V isits Requested Visits Authorized [id number] Closed Consult, Test & Treat Connection Center PCP Updated and/or Approved 01/09/2021 01/09/2022 12 12 Encounter Details Date Type Department Care Team (Late st Contact Info) Description 08/04/2021 2:30 PM EDT TH Visit (TeleHealth) Sleep Center at [facility] [address] [place] [address] Ashley Lang MD [facility] [place] [address] Observed sleep apnea; Insomnia, unspecified type; Tiredness Social History Tobacco Use Types Packs/Day Years Used Date Smoking Tobacco: Never Smokeless Tobacco: Never Sex and Gender Information Value Date Recorded Sex Assigned at Not on file Gender Identity Not on file Sexual Orientation Not on file documented as of this encounter Last Filed Vital Signs Vital Sign Reading Time Taken Comments Blood Pressure - - Pulse - - Temperature - - Respiratory Rate - - Oxygen Saturation - - Inhaled Oxygen Concentration - - Weight 86.2 kg (190 lb) 08/04/2021 3:00 PM EDT s elf reported Height 166.4 cm (5' 5.5) 08/04/2021 3:00 PM EDT Body Mass Index 31.14 08/04/2021 3:00 PM EDT documented in this encounter Progress Notes * Ashley Lang MD - 08/04/2021 2:30 PM EDT Sleep Medicine Telehealth Consultation Note Telehealth visit required due to ongoing covid-19 public health emergency Patient location: [place] HPI: Alejandra Ruano is a 61 y.o. 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 Now sleep hit or miss. Has hard time shutting mind off. Takes xanax for anxiety - if has had afew bad nights will take xanax. Has to get up 1-2x to urinate. Can be tired if has slept very poorly with disrupted sleep and vivid dreams. Sometimes can take hours to get to sleep. Won't stay in bedif can't get to sleep - will get up, do something low light and relaxing. Works at [employer]. No alertness problems while working. Can get sleepy in middle of day if relaxing; can get tired driving. Has not fallen asleep driving in recent years; one close call 12 yrs ago after overnight flight. Not recently. If gets tired driving now will eat or get out of car and do jumping jacks. Did have amnestic behaviors when on ambien - eating, getting food. No injuries or dangerous behaviors. Sleep Pattern: Bed/Recliner/Wedge: bed, flat Bedtime: 9-11 Lights out: immediate Latency: 1-4 hrs Awakenings: 1-2x; sometimes more Wake time: 6-7 Respiratory: Snoring: some (no one observes sleep regularly) Observed Apneas: yes Mouth Breathing: sometimes Dry Mouth: yes Nocturnal Gasping: no Nasal Obstruction: yes (better if uses breathe [employer]) Daytime Symptoms: Adell: not available Upon Awakening: depends Naps: 2-3 days a week; usually less than an hour but can be prolonged Involuntary Dozing: some Driving: some Close calls related to sleepiness distant past Accidents related to sleepiness no Other Associates Sleep Symptoms: Parasomnias: Sleep Walking: no Dream Enactment: no Motor: RLS: no PLMS: no Family History: Family history of sleep disorders: sister and father have PONCHO ROS: CON: weight change: has lost about 40# in the past 8 months ENT: nasal obstruction: yes PUL: HORTON: no CV: chest pain: no Palpitations: no LE edema: no GI: GERD: no : Nocturia: 1-2x MSK: Pain: no NEURO: sleep related headaches: occaional ENDO: no menses, no hot flashes PSY: Depression, anxiety: not currently Past Medical History: Patient Active Problem List Diagnosis Code ??? Seborrheic keratosis, inflamed L82.0 ??? Seborrheic keratosis L82.1 ??? AK (actinic keratosis) L57.0 ??? Varicose veins of both lower extremities I83.93 ??? Seborrheic dermatitis L21.9 ??? History of SCC (squamous cell carcinoma) of skin Z85.828 ??? Seborrheic keratoses, inflamed L82.0 ??? Anxiety F41.9 ??? Hyperlipidemia E78.5 ??? Essential tremor G25.0 Medications: Outpatient Medications Marked as Taking for the 08/04/21 encounter (TH Visit (TeleHealth)) with Ashley Lang MD Medication Sig Dispense Refill ??? FLUoxetine (PROzac) 20 mg Capsule Take [...] Chewable Take 81 mg by mouth Daily. ??? ALPRAZolam (XANAX) 1 mg Tablet Takes 1/2 as needed 1 Social History: Living situation: lives alone Employment: postal service Alcohol: minimal Smoking: no Caffeine: none Other drugs: denies PE: Ht 166.4 cm (5' 5.5) Wt 86.2 kg (190 lb) Comment: self reported BMI 31.14 kg/m?? General: alert, no distress Eyes: PERRL, conjunctiva clear ENT: oropharynx MP: 2-3 Crowded: clear Dentition: intact Mandibular structure and position: normal NECK: Submental fat present: yes PSYCH: Alert and appropriate: yes Oriented to person, place and time: yes Affect: full range Mood:good Judgement and insight: intact Assessment: Alejandra Ruano is a 61 y.o. female with a history of observed apneas, some snoring, poor sleepand daytime tiredness. She has a family history of obstructive sleep apnea and an elevated BMI. Thehistory and symptoms are suspicious for obstructive sleep apnea. The diagnosis of obstructive sleepapnea was reviewed in detail with the patient at this time. Potential consequences of untreated obstructive sleep apnea reviewed, including increased cardiovascular risk. Home sleep testing and in-lab testing reviewed. Treatment options reviewed in detail. Patient confirms that study results can berelayed by letter or myDH. We also discussed her sleep initiation difficultues and discussed that she may benefit from cognitive behavioral therapy for insomnia, although will wait to reassess insomnia symptoms after evaluating for PONCHO (and treating, if indicated). Ms. Ruano is currently not using ambien, although she did have some amnestic behaviors with the medication. We reviewed that ambien can be associated with dangerous sleep-related behaviors and further use is not recommended if shehas amnestic behaviors. Questions regarding diagnosis and management answered at this time. Total visit time 60 minutes including chart activities and review, discussion with the patient and documentation on the day of the encounter Recommendations: 1. HSAT 2. Conservative measures reviewed including weight loss, avoidance of the supine sleeping position and efforts to improve nasal breathing 3. Safe driving precautions extensively reviewed with the patient. Advised not to drive if feeling sleepy. If becomes sleepy while driving, advised to immediately mandrel puller to a safe area and take a brief nap 4. Consider CBT-I - will defer until after evaluation for PONCHO (and treatment, if indicated) documented in this encounter Plan of Treatment Scheduled Orders Name Type Priority Associated Diagnoses Orde r Schedule Home Sleep Study Sleep Center Routine Observed sleep apnea Expected: 08/04/2021, Expires: 08/04/2022 documented as of this encounter Visit Diagnoses Diagnosis Observed sleep apnea Unspecified sleep apnea Insomnia, unspecified type Tiredness Other malaise and fatigue documented in this encounter Care Teams Mri Assistant Relationship Specialty Start Date End Date Sun Borrero DO [address] [place] [address] PCP - General Internal Medicine 01/29/21 02/17/24 documented as of this encounter
--- OUTSIDE RECORDS SUMMARY | 2024-03-09 08:07 | XMS_ITS | Encounter Summary ---
[place] [address] Care Team Providers Care Caustic Liquor Maker Name Role Phone Sun Borrero Primary Care Provider Reason for Visit * Reason Comments Skin Check Encounter Details Date Type Department Care Team (Late st Contact Info) Description 02/21/2021 4:00 PM EDT Office Visit Dermatology at [address] [address] Miguel Ángel Thomason MD [address] [facility] [place] [address] History of SCC (squamous cell carcinoma) of [...] Notes * Miguel Ángel Thomason MD - 02/21/2021 4:00 PM EDT Problem: 1.?Annual skin checkup 2. 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 History of SCCA right mid back October 2020 3. ??History of seborrheic dermatitis of scalp, improved with softened water 4. ??Faroese ethnic background Alejandra follows up for her annual skin checkup. She is concerned about a lesion on her right lateral lower back. She asks asked me to biopsy this to rule in or rule out SCCA. She states that she hashad 2 squamous cell skin cancers now. At the time of her last visit in October shave biopsy came up with a squamous cell on her right mid back which had appeared to be a Gerald K clinically. Physical examination reveals a fair skinned 61-year-old woman with reddish-brown hair who has a benign examination of the face the neck the chest the back the hands the arms deforms the thighs and the calves. She has a waxy stuck on appearing 2 mm seborrheic keratosis on the right lower lateral back. Given patient concern we will do a shave biopsy to establish its benign nature. She is concerned because it is a new growth that has developed relatively recently and suddenly. Assessment plan: Seborrheic keratosis rule out SCCA right lower lateral back 1. After obtaining informed consent site was anesthetized removed with shave biopsy 2. Triple antibiotic ointment bandage placed 3. Wound care instructions was given 4. Return to clinic in another year for repeat check. CC: Sun Borrero DO documented in this encounter Plan of Treatment Not on file documented as of this encounter Visit Diagnoses Diagnosis History of SCC (squamous cell carcinoma) of skin Personal history of other malignant neoplasm of skin Seborrheic keratosis Other seborrheic keratosis Seborrheic keratoses, inflamed documented in this encounter Care Teams Caustic Liquor Maker Relationship Specialty Start Date End Date Sun Borrero DO [facility] [place] [address] PCP - General Internal Medicine 01/29/21 02/17/24 documented as of this encounter
--- OUTSIDE RECORDS SUMMARY | 2024-03-09 08:07 | XMS_ITS | Encounter Summary ---
Author Organization [facility] Address [address] [place] [address] Care Team Providers Care Marketing Coordinator Name Role Phone OmidElizabethjessica Barajas APRN Primary Care Provider [phone] Reason for Visit * Vascular Lab (Routine) - Authorization Not Required Specialty Diagnoses / Procedures Referred By Contac t Referred To Contact Diagnoses Varicose veins of bilateral lower extremities with other complications Procedures VARICOSE VEIN DUPLEX Sun Borrero, [address] [address] [facility] Vascular Lab Referral ID Status Reason Start Date Expiration Date Visits Requested Visits Authorized [id number] Authorization Not Required 09/25/2021 1 1 Encounter Details Date Type Department Care Team (Late st Contact Info) Description 10/07/2021 16:00 EDT Ancillary Procedure Vascular Surgery and Endovascular Therapy - [address] [address] Social History Tobacco Use Types Packs/Day Years [...] Procedure Name Priority Date/Time Associated Diagnosis Comments US VARICOSE VEIN DUPLEX BILATERAL Routine 10/07/2021 16:41 EDT Varicose veins of bilateral lower extremities with other complications documented in this encounter Results * US VARICOSE VEIN DUPLEX BILATERAL (10/07/2021 16:41 EDT) Right GSJ camacho 0.72 cm [facility] POINT OF CARE Right GSJ reflux 0.0 s [facility] POINT OF CARE Right GSPT camacho 0.45 cm [facility] POINT OF CARE Right GSPT reflux 0.0 s [facility] POINT OF CARE Right GSMT camacho 0.45 cm [facility] POINT OF CARE Right GSMT reflux 0.0 s [facility] POINT OF CARE Right GSK camacho 0.51 cm [facility] POINT OF CARE Right GSK reflux 0.0 s [facility] POINT OF CARE Right SSPC camacho 0.40 cm [facility] POINT OF CARE Right SSPC reflux 0.0 s [facility] POINT OF CARE Left GSJ camacho 0.52 cm [facility] P OINT OF CARE Left GSJ reflux 0.0 s [facility] N POINT OF CARE Left GSMT camacho 0.49 cm [facility] POINT OF CARE Left GSMT reflux 0.0 s [facility] POINT OF CARE Left GSK camacho 0.51 cm [facility] P OINT OF CARE Left GSK reflux 0.0 s [facility] N POINT OF CARE Left SSPC camacho 0.42 cm [facility] POINT OF CARE Left SSPC reflux 0.0 s [facility] POINT OF CARE Left AAS camacho 0.52 cm [facility] P OINT OF CARE Left AAS reflux 0.0 s [facility] N POINT OF CARE Anatomical Region Laterality Modality Vascular Ultrasound Narrative 10/13/2021 8:07 EDT ?No evidence of deep or superficial venous thrombosis in the right lower extremity. ??No evidence of reflux in the deep veins, great saphenous, or short saphenous. ?No evidence of deep or superficial venous thrombosis in the left lower extremity. ??No evidence of reflux in the deep veins, great saphenous, or short saphenous. Right Lower Venous Other The right external iliac, common femoral, proximal greater saphenous, proximal profunda femoris, femoral, and popliteal veins demonstrate normal Doppler flow/waveforms and compression. Left Lower Venous Other The left external iliac, common femoral, proximal greater saphenous, proximal profunda femoris, femoral, and popliteal veins demonstrate normal Doppler flow/waveforms and compression. Venous HPI and Indications Lower extremity pain. Pain in both medial lower extremities and left arm when dehydrated, 8 year duration. Sun Borrero DO [facility] VASCULAR ORDBriana REILLY documented in this encounter Visit Diagnoses Not on filedocumented in this encounter Care Teams Marketing Coordinator Relationship Specialty Start Date End Date Lee Anne APRN [address] [place] [address] [address] [place] [address] PCP - General 07/16/17 documented as of this encounter
--- OUTSIDE RECORDS SUMMARY | 2024-03-09 08:07 | XMS_ITS | Encounter Summary ---
Author Organization [facility] Address [facility] [place] [address] Care Team Providers Care Network Engineer Name Role Phone Theresa Duran APRN Primary Care Provider Reason for Visit * Reason Comments Skin Check Encounter Details Date Type Department Care Team (Late st Contact Info) Description 11/23/2011 10:45 AM EDT [place] [address] Zion Kowalski III, MD [facility] [place] [address] Seborrheic keratosis, inflamed Discharge Disposition: Home Social History Tobacco Use Types Packs/Day Years Used Date Smoking Tobacco: Never Sex and Gender Information Value Date Recorded Sex Assigned at Not on file Gender Identity Not on file Sexual Orientation Not on file documented as of this encounter Progress Notes * Zion Kowalski III, MD - 11/23/2011 11:29 AM EDT DERMATOLOGY ESTABLISHED PATIENT CLINIC NOTE Date of service: 11/23/2011 Alejandra Ruano : 1960 Provider: Zion Kowalski MD PROBLEM: annual skin exam SKIN HISTORY: SK's HPI Alejandra Ruano is a 51 y.o. year old female. She is here for her annual skin exam. She has some new little spots scattered on her body that are of concern. She has 2 in particular that she does not like on her breasts. They are enlarging and are irritated at times by her clothes. ADR: Allergies Allergen Reactions ??? Cis Free Text Allergy all antibiotics. CIS - Nausea/Vomiting ??? Cis Free Text Allergy all pain killers. CIS - Nausea/Vomiting ROS General: feeling well Skin: denies other skin complaints EXAM General: NAD, pleasant, cooperative female. A total body skin exam except for the genitalia was performed. This includes examination of the skin of the face, ears, neck, chest, axillae, left and right upper and lower extremities, hands, feet, abdomen, back, and buttocks. The genitalia, perineum, and perianal areas were not examined. Skin: Significant skin findings: A. Multiple 0.4-1 brown papules/plaques with waxy, stuck-on appearance on breasts, back. Some evidence of excoriation is noted. No suspicious nevi are noted, an occasional pineda angioma; no worrisome or ominous lesions. ASSESSMENT/PLAN: A. Irritated seborrheic keratosis - I discussed treating these with LN2 and she agreed. Procedure(s): Destruction of lesion(s) with cryotherapy. Number: 5 Location: as above Discussed procedure and expectations including risks (including risk of hypopigmentation) and benefits. Verbal consent obtained. Frozen with LN2, 15-30 second thaw time, TWICE. There were no complications; the patient tolerated the procedure well. Post-procedure expectations and wound care were reviewed. If these don't resolve, she will call for another evaluation, otherwise RTC in 1 year. Note initiated by: .Joaquina Flores LPN Routed to physician for review and changes: Zion Kowalski MD Section of Dermatology [facility] documented in this encounter Plan of Treatment Not on file documented as of this encounter Visit Diagnoses Diagnosis Seborrheic keratosis, inflamed Inflamed seborrheic keratosis documented in this encounter Care Teams Network Engineer Relationship Specialty Start Date End Date Theresa Duran APRN [address] [place] [address] [place] [address] PCP - General 11/23/11 01/22/13 documented as of this encounter
--- OUTSIDE RECORDS SUMMARY | 2024-03-09 08:07 | XMS_ITS | Encounter Summary ---
[place] [address] Care Team Providers Care Topographical Engineer Name Role Phone Lee Anne APRN Primary Care Provider [phone] Encounter Details Date Type Department Care Team (Late st Contact Info) Description 06/21/2015 Abstract [place] [address] Iram Dinh, RN Social History Tobacco Use Types Packs/Day Years Used Date Smoking Tobacco: Never Sex and Gender Information Value Date Recorded Sex Assigned at Not on file Gender Identity Not on file Sexual Orientation Not on file documented as of this encounter Plan of Treatment Not on file documented as of this encounter Visit Diagnoses Not on filedocumented in this encounter Care Teams Topographical Engineer Relationship Specialty Start Date End Date Lee Anne APRN [address] [place] [address] [place] [id number] PCP - General Family Medicine 06/19/15 01/28/21 documented as of this encounter
--- OUTSIDE RECORDS SUMMARY | 2024-03-09 08:07 | XMS_ITS | Encounter Summary ---
Author Organization [facility] Address [address] [place] [address] Care Team Providers Care Fitness/Wellness Director Name Role Phone OmidLee Jenn VEGA Primary Care Provider [phone] Encounter Details Date Type Department Care Team (Late st Contact Info) Description 09/05/2020 Lab Requisition [facility] Pathology & Laboratory Medicine - [address] [address] Maxwell Adhikari MD [address] [place] [phone] Encounter for other general examination Social History [...] Date/Time Associated Diagnosis Comments SURGICAL PATHOLOGY Today 09/05/2020 12 :00 EDT documented in this encounter Results * SURGICAL PATHOLOGY (09/05/2020 12:00 EDT) Final Diagnosis A. DUODENUM, BIOPSY: - Duodenal mucosa with no significant diagnostic abnormalities. B. STOMACH, ANTRUM, BIOPSY: - Gastric transitional mucosa with no significant diagnostic abnormalities. - Negative for Helicobacter pylori on H&E stained sections. C. ESOPHAGUS, DISTAL, BIOPSY: - Squamous mucosa with mild reactive changes. D. ESOPHAGUS, MID, BIOPSY: - Squamous mucosa with mild reactive changes and rare eosinophil. E. ESOPHAGUS, PROXIMAL, BIOPSY: - Squamous mucosa with mild reactive changes and rare eosinophil. F. RECTUM, POLYP, BIOPSY: - Colonic mucosa with focal hyperplastic change. - Deeper sections x3 examined. 09/09/2020 6:54 [facility] Attestation By the signature below, the attending physician certifies that they have 1) personally conducted a gross and/or microscopic examination of the described specimen(s), and/or personally interpreted the results of laboratory testing of the described specimen(s), and 2) personally rendered or confirmed the above diagnosis. 09/09/2020 6:54 [facility] at 0654 Clinical History Dysphagia and family history of colon cancer; rectal polyps, esophagitis 09/09/2020 6:54 [facility] Gross Description A. Received in formalin labelled with proper patient identification (initials C, P) and duodenum Bx are 4 norwood-brown tissues ranging from 0.2 x 0.1 x 0.1 cm to 0.3 x 0.2 x 0.2 cm. Entirely submitted in A1. B. Received in formalin labelled with proper patient identification (initials C, P) and antral Bx are two norwood tissues, 0.2 x 0.1 x 0.1 cm and 0.2 x 0.2 x 0.2 cm. Entirely submitted in B1. C. Received in formalin labelled with proper patient identification (initials C, P) and distal esophagus Bx are two anderson-brown tissues, 0.1 cm in greatest dimension and 0.2 x 0.1 x 0.1 cm. Entirely submitted in C1. D. Received in formalin labelled with proper patient identification (initials C, P) and mid esophagus Bx are two anderson-brown tissues, 0.2 x 0.2 x 0.1 cm and 0.2 x 0.2 x 0.2 cm. Entirely submitted in D1. E. Received in formalin labelled with proper patient identification (initials C, P) and proximal esophagus Bx is a anderson-brown tissue, 0.3 x 0.2 x 0.2 cm. Entirely submitted in E1. F. Received in formalin labelled with proper patient identification (initials C, P) and rectal polyp is a norwood-brown tissue, 0.3 x 0.2 x 0.2 cm. Entirely submitted in F1. AGUSTÍN LUGO(ASCP) 09/06/2020 8:32 09/09/2020 6:54 EDT [facility] Performing Lab [facility] 09/09/2020 6:54 EDT [facility] Scanned Images 09/09/2020 6:54 EDT [facility] Tissue SPECIMEN FROM RECTUM / Unknown 09/05/2020 12:00 EDT 09/06/2020 8:01 EDT Tissue specimen (specimen) PYLORIC ANTRUM STRUCTURE / Unknown 09/05/2020 12:00 EDT 09/06/2020 8:01 EDT Tissue specimen (specimen) ESOPHAGEAL STRUCTURE / Unknown 09/05/2020 12:00 EDT 09/06/2020 8:01 EDT Tissue specimen (specimen) ESOPHAGEAL STRUCTURE / Unknown 09/05/2020 12:00 EDT 09/06/2020 8:01 EDT Tissue specimen (specimen) ESOPHAGEAL STRUCTURE / Unknown 09/05/2020 12:00 EDT 09/06/2020 8:01 EDT Tissue specimen (specimen) SPECIMEN FROM RECTUM / Unknown 09/05/2020 12:00 EDT 09/06/2020 8:01 EDT Maxwell Adhikari MD PATHOLOGY KYRA REILLY [facility] [address] [place] [address] documented in this encounter Visit Diagnoses Diagnosis Encounter for other general examination documented in this encounter Care Teams Fitness/Wellness Director Relationship Specialty Start Date End Date Lee Anne APRN [address] [facility] [address] [place] [address] PCP - General 07/16/17 documented as of this encounter
--- OUTSIDE RECORDS SUMMARY | 2024-03-09 08:07 | XMS_ITS | Encounter Summary ---
Author Organization [facility] Address [address] [place] [address] Care Team Providers Care Steel Buffer Name Role Phone OmidLee Jenn VEGA Primary Care Provider [phone] Reason for Referral * Vascular Lab (Routine) - Authorization Not Required Specialty Diagnoses / Procedures Referred By Contac t Referred To Contact Diagnoses Varicose veins of bilateral lower extremities with other complications Procedures US VARICOSE VEIN DUPLEX Sun Borrero DO [address] [address] [facility] Vascular Lab Referral ID Status Reason Start Date Expiration Date Visits Requested Visits Authorized [id number] Authorization Not Required 09/25/2021 1 1 Encounter Details Date Type Department Care Team (Latest Contact Info) Description 09/25/2021 Transcribe Orders Vascular Surgery and Endovascular Therapy - [address] [address] Sun Borrero DO [address] [place] [address] Varicose veins of bilateral lower extremities with other complications (Primary Dx) Social History Tobacco Use Types [...] dehydrated, 8 year duration. Sun Borrero DO IM[facility] VASCULAR ORDBriana REILLY documented in this encounter Visit Diagnoses Diagnosis Varicose veins of bilateral lower extremities with other complications- Primary documented in this encounter Care Teams Steel Buffer Relationship Specialty Start Date End Date Lee Anne APRN [address] [place] [address] [address] [place] [address] PCP - General 07/16/17 documented as of this encounter
--- OUTSIDE RECORDS SUMMARY | 2024-03-09 08:07 | XMS_ITS | Encounter Summary ---
Author Organization [facility] Address [address] [place] [address] Care Team Providers Care Utilization Management Manager Name Role Phone Omid Lee Barajas APRN Primary Care Provider Encounter Details Date Type Department Care Team (Late st Contact Info) Description 08/29/2020 Lab Requisition [facility] Pathology & Laboratory Medicine - [address] [address] Outr Resulting Lab, Provider Social History Tobacco [...] Priority Date/Time Associated Diagnosis Comments ZZCOVID-19 TEST [facility] PCR Today 08/29/2020 15:00 EDT COVID-19 TESTING Routine 08/29/2020 15:0 0 EDT documented in this encounter Results * COVID-19 TEST [facility] PCR (08/29/2020 15:00 EDT) Swab ENTIRE NASOPHARYNX / Unknown 08/29/2020 15:00 EDT 08/29/2020 20:28 EDT Provider Outr Resulting Lab MICROBIOLOGY - GENERAL ORDERABLES Performing Organization Address City/[facility]/ZIP Co de Phone Number [facility] [address] [place] [address] * COVID-19 TESTING (08/29/2020 15:00 EDT) COVID-19 rt-PCR Result Negative Negative 08/30/2020 14:42 EDT [facility] Comment: This test has [...] performed using the jonna SARS-CoV-2 assay ([employer] on the Jonna 6800 System Performing Lab Jonna 6800 [facility] 08/30/2020 14:42 EDT [facility] Swab 08/29/2020 15:0 0 EDT 08/29/2020 20:28 EDT Provider Outr Resulting Lab MICROBIOLOGY - GENERAL ORDERABLES [facility] [address] [place] [address] documented in this encounter Visit Diagnoses Not on filedocumented in this encounter Care Teams Utilization Management Manager Relationship Specialty Start Date End Date Lee Anne APRN [address] [place] [address] [address] [place] [address] PCP - General 07/16/17 documented as of this encounter
--- OUTSIDE RECORDS SUMMARY | 2024-03-09 08:07 | XMS_ITS | Encounter Summary ---
Author Organization [facility] Address [address] [place] [address] Care Team Providers Care Pocket Cutter Name Role Phone OmidLee Jenn VEGA Primary Care Provider [phone] Encounter Details Date Type Department Care Team (Late st Contact Info) Description 03/08/2020 Results Only Imaging [facility] Radiology Results [address] [place] [address] Niki Meng, DPM [address] [facility] [address] [place], [place] [id number] Social History Tobacco Use Types Packs/Day Years [...] Name Priority Date/Time Associated Diagnosis Comments XR FOOT RIGHT 3 OR MORE VIEWS 03/08/2020 12:03 EST documented in this encounter Results * XR FOOT RIGHT 3 OR MORE VIEWS (03/08/2020 12:03 EST) Anatomical Region Laterality Modality Lower Extremities Right Computed Radio graphy 03/08/2020 12:0 3 EST Narrative 03/08/2020 12:03 EST ? EXAM: RADIOLOGY/FOOT RIGHT 3+VIEW ? EX. D/ (1147) ? CLINICAL INFORMATION: ? M79.671, RIGHT FOOT PAIN ? PROCEDURE INFORMATION: ? Exam: XR Right Foot Complete ? Exam date and time: 03/08/2020 11:42 AM ? Age: 60 years old ? Clinical indication: Pain; Foot; Right; Additional info: ? M79.671, right foot pain ? TECHNIQUE: ? Imaging protocol: XR Right foot. ? Views: 3 or more views. ? COMPARISON: ? No relevant prior studies available. ? FINDINGS: ? Bones/joints: An external marker is present laterally at the ? base of the 5th metatarsal. No fracture is identified here or ? elsewhere. The joint spaces are normally aligned. There is a ? very small posterior calcaneal enthesophyte. ? Soft tissues: The soft tissues appear grossly unremarkable. ? IMPRESSION: ? 1. No acute abnormality identified, including at the level of an ? external marker laterally at the base of the 5th metatarsal. ? 2. Very small posterior calcaneal enthesophyte. ? REPORT SIGNED IN OTHER VENDOR SYSTEM 03/08/2020 ?Reported By: Faustino Meadows MD ? CC: ? Transcribed Date/Time: 03/08/2020 (1203) ? Senior Control Systems Engineer: ? Printed Date/Time: 03/08/2020 (1203) ? PAGE 1 ? Signed Report ? Procedure Note Faustino Meadows MD - 03/25/2020 EXAM: RADIOLOGY/FOOT RIGHT 3+VIEW EX. D/ (1147) CLINICAL INFORMATION: M79.671, RIGHT FOOT PAIN PROCEDURE INFORMATION: Exam: XR Right Foot Complete Exam date and time: 03/08/2020 11:42 AM Age: 60 years old Clinical indication: Pain; Foot; Right; Additional info: M79.671, right foot pain TECHNIQUE: Imaging protocol: XR Right foot. Views: 3 or more views. COMPARISON: No relevant prior studies available. FINDINGS: Bones/joints: An external marker is present laterally at the base of the 5th metatarsal. No fracture is identified here or elsewhere. The joint spaces are normally aligned. There is a very small posterior calcaneal enthesophyte. Soft tissues: The soft tissues appear grossly unremarkable. IMPRESSION: 1. No acute abnormality identified, including at the level of an external marker laterally at the base of the 5th metatarsal. 2. Very small posterior calcaneal enthesophyte. REPORT SIGNED IN OTHER VENDOR SYSTEM 03/08/2020 Reported By: Faustino Meadows MD CC: Transcribed Date/Time: 03/08/2020 (1203) Senior Control Systems Engineer: Printed Date/Time: 03/08/2020 (1203) PAGE 1 Signed Report Niki Meng DPM IMG DIAGNOSTIC IMAG ING ORDERABLES documented in this encounter Visit Diagnoses Not on filedocumented in this encounter Care Teams Pocket Cutter Relationship Specialty Start Date End Date Lee Anne APRN [address] [place] [address] [address] [place] [address] PCP - General 07/16/17 documented as of this encounter
--- OUTSIDE RECORDS SUMMARY | 2024-03-09 08:07 | XMS_ITS | Encounter Summary ---
Author Organization [facility] Address [address] [place] [address] Care Team Providers Care Rn Lpn Lvn Name Role Phone Lee Anne APRN Primary Care Provider [phone] Reason for Visit * Reason Comments Pain * Referral (Routine) - Closed Specialty Diagnoses / Procedures Referred By Kaelyn garcia Referred To Contact Orthopedic Surgery Diagnoses Pain in left foot Lee Anne APRN [address] [facility] [address] [place] [address] [facility] [address] [place] [address] Referral ID Status Reason Start Date Expiration Date Visits Re quested Visits Authorized [id number] Closed 1 1 Encounter Details Date Type Department Care Team (Late st Contact Info) Description 03/08/2020 11:00 EST Office Visit [facility] Podiatry [address] [place], [place] [id number] Niki Meng, [facility] [address] [facility] [address] [place] [id number] Pain in right foot (Primary Dx) Social History Tobacco Use Types [...] Taken Comments Blood Pressure - - Pulse 99 04/22/2020 1152 EST Temperature 36.8 ??C (98.3 ??F) 04/22/2020 1152 EST Respiratory Rate - - Oxygen Saturation - - Inhaled Oxygen Concentration - - Weight - - Height - - Body Mass Index - - documented in this encounter Functional Status Functional [...] as of this encounter Progress Notes * Niki Megn DPM - 03/08/2020 1100 EST Due to computer system disruption, additional clinical information for this visit is Scanned Note. For patients, please refer to guidance in [employer] on how to locate information. Generally this information will appear as a scanned documents saved in My Documents activity. documented in this encounter Plan of Treatment Not on file documented as of this encounter Visit Diagnoses Diagnosis Pain in right foot- Primary Pain in limb documented in this encounter Care Teams Rn Lpn Lvn Relationship Specialty Start Date End Date Lee Anne APRN [address] [place] [address] [address] [place] [address] PCP - General 07/16/17 documented as of this encounter
--- OUTSIDE RECORDS SUMMARY | 2024-03-09 08:08 | XMS_ITS | Encounter Summary ---
Author Organization [facility] Address [address] [place] [address] Care Team Providers Care Digital Commentator Name Role Phone OmidElizabethjessica Barajas APRN Primary Care Provider [phone] Encounter Details Date Type Department Care Team (Late st Contact Info) Description 10/20/2019 Lab Requisition [facility] Pathology & Laboratory Medicine - [address] [address] Outr Resulting Lab, Provider Social History Tobacco [...] Comments ZZCOVID-19 TEST [facility] PCR Today 10/20/2019 15:03 EDT COVID-19 TESTING Routine 10/20/2019 15:0 3 EDT documented in this encounter Results * COVID-19 TEST [facility] PCR (10/20/2019 15:03 EDT) Swab ENTIRE NASOPHARYNX / Unknown 10/20/2019 15:03 EDT 10/20/2019 21:38 EDT Provider Outr Resulting Lab MICROBIOLOGY - GENERAL ORDERABLES Performing Organization Address [facility] Co de Phone Number [facility] [address] [place] [address] * COVID-19 TESTING (10/20/2019 15:03 EDT) COVID-19 rt-PCR Result Negative Negative 10/21/2019 16:48 EDT [facility] Comment: This test has not [...] history, and epidemiological information. Performed on the [employer] Fusion instrument Performing Lab [place] [facility] 10/21/2019 16:48 EDT [facility] Swab 10/20/2019 15:0 3 EDT 10/20/2019 21:38 EDT Provider Outr Resulting Lab MICROBIOLOGY - GENERAL ORDERABLES Performing Organization Address City/[facility]/ZIP Co de Phone Number [facility] [address] [place] [address] documented in this encounter Visit Diagnoses Not on filedocumented in this encounter Additional Health Concerns Infection Onset Date Last Indicated Resolved Time R/O COVID-19 11/04/2019 11/04/2019 11/09/2019 22:1 6 EDT documented as of this encounter Care Teams Digital Commentator Relationship Specialty Start Date End Date Lee Anne APRN [address] [place] [address] [address] [place] [address] PCP - General 07/16/17 documented as of this encounter
--- OUTSIDE RECORDS SUMMARY | 2024-03-09 08:08 | XMS_ITS | Encounter Summary ---
Author Organization [facility] Address [address] [place] [address] Care Team Providers Care Nickel Operator Name Role Phone Lee Anne Jenn VEGA Primary Care Provider [phone] Reason for Visit * Reason Onset Date Comments Results 10/27/2017 thyroid Encounter Details Date Type Department Care Team (Late st Contact Info) Description 10/27/2017 Telephone [facility] Endocrinology - [address] [address] Arpan Truong MD [address] [place] [address] Results (thyroid) Social History Tobacco Use Types Packs/Day Years [...] encounter Miscellaneous Notes * Telephone Encounter - Janet Harden RN - 10/28/2017 1130 EDT Called and left message from Dr. Suarez.concerning her thyroid nodule. Requested a call back if she needed labs drawn for follow up of her cholesterol, where to sent the requisitition. * Telephone Encounter - Arpan Truong MD - 10/27/2017 1946 EDT Please inform patient that her right sided nodule was benign. Follow up (for this issue) needed in 12 months She may want to see me sooner to discuss her cholesterol/dyslipidemia - at her convenience Before that appointment I would like to have: fasting lipoprotein profile or fasting lipid profile.Former preferred documented in this encounter Plan of Treatment Not on file documented as of this encounter Visit Diagnoses Not on filedocumented in this encounter Care Teams Nickel Operator Relationship Specialty Start Date End Date Lee Anne APRN [address] [place] [address] [address] [place] [address] PCP - General 07/16/17 documented as of this encounter
--- OUTSIDE RECORDS SUMMARY | 2024-03-09 08:08 | XMS_ITS | Encounter Summary ---
Author Organization [facility] Address [address] [place] [address] Care Team Providers Care Speech Language Pathologist Travel Name Role Phone AnneLee Jenn VEGA Primary Care Provider [phone] Reason for Visit * Reason Comments Thyroid Problem Encounter Details Date Type Department Care Team (Late st Contact Info) Description 07/16/2017 15:00 EDT Office Visit [facility] Endocrinology - [address] [phone] Arpan Truong MD [address] [place] [address] Thyroid nodule (Primary Dx); Dyslipidemia; Obesity (BMI 30-39.9) Discharge Disposition: Auto Discharge Social History Tobacco Use Types Packs/Day Years [...] Sign Reading Time Taken Comments Blood Pressure 126/77 07/16/2017 1510 EDT Pulse 67 07/16/2017 1510 EDT Temperature - - Respiratory Rate - - Oxygen Saturation - - Inhaled Oxygen Concentration - - Weight 88.5 kg (195 lb) 07/16/2017 1510 EDT Height 171.5 cm (5' 7.5) 07/16/2017 1510 EDT Body Mass Index 30.09 07/16/2017 1510 EDT documented in this encounter Functional Status Functional Status Response Date of Assess ment Because of a physical, menta l, or emotional condition, does this person have difficulty doing errands alone such as visiting a doctor's office or shopping? No 07/16/2017 Cognitive Status Response Date of Assessm ent Because of a physical, menta l, or emotional condition, does this person have serious difficulty concentrating, remembering, or making decisions? Yes 07/16/2017 documented as of this encounter Discharge Disposition Disposition Code Departure Means Destination Auto Discharge documented in this encounter Progress Notes * Arpan Truong MD - 07/16/2017 1500 EDT Subjective: Patient ID: Alejandra Ruano is an 57 y.o. female. Chief Complaint Patient presents with ??? Thyroid Problem HPI She is referred to me in consultation for nontoxic multinodular goiter Lab work from April 2017 shows lipoprotein A 50 Total cholesterol: 193 Triglycerides: 231 LDL: 150 A1c: 5.6% Ultrasound from [facility] reveals: #1 well circumscribed, heterogeneous, hypoechoic, wider than tall, WITH calcification 1.4??0.9??1.0cm nodule in the right thyroid lobe #2 well-circumscribed, hypoechoic, wider than tall, without calcifications 1.0 ??0.7??0.9 cm nodulein the right lobe #3 well-circumscribed, heterogeneous, hypoechoic 1.0 cm thyroid nodule in the right lobe Normal left thyroid lobe Note addendum 10/27 to correct gross spelling error and to add: 10/26 - right 1.4 cm thyroid nodule Bx: Benign follicular nodule with cystic degeneration and superimposed chronic lymphocytic thyroiditis. #2 dyslipidemia Family history: Both parents had heart disease. Mother when she was 49 years old. Father when he was 75 years old when he had a pacemaker placed, he also had a left leg aneurysm. She says that she had been experiencing chest pressure. Her primary care physician Percy this could be anxiety and the pain improved with Xanax. She also had a negative stress test. She requested thather lipoprotein A be checked. Past medical history: Dyslipidemia Former smoker Negative stress test Other family history mother with breast cancer Father with prostate carcinoma Past Medical History: Diagnosis Date ??? Anxiety ??? Cancer (CMS-HCC) skin ??? Depression ??? Environmental allergies ??? Neuromuscular disorder (CMS-HCC) ??? Ruptured lumbar disc ??? Thyroid disease Past Surgical History: Procedure Laterality Date ??? NOSE SURGERY Family History Problem Relation Age of Onset ??? Cancer Mother breast ??? Heart Disease Mother ??? *Other(comment) Father aortic aneurysm Social Social History Social History ??? Marital status: Single Spouse name: N/A ??? Number of children: N/A ??? Years of education: N/A Occupational History ??? Not on file. Social History Main Topics ??? Smoking status: Former Smoker Types: Cigarettes ??? Smokeless tobacco: Never Used Comment: quit 13 years ago ??? Alcohol use No ??? Drug use: No ??? Sexual activity: Not on file Other Topics Concern ??? Not on file Social History Narrative ??? No narrative on file No current outpatient prescriptions on file prior to visit. No current facility-administered medications on file prior to visit. No Known Allergies Review of Systems Constitutional: Positive for malaise/fatigue. Negative for weight loss. HENT: Tinnitus Gastrointestinal: Difficulty swallowing Musculoskeletal: Positive for myalgias. Psychiatric/Behavioral: The patient is nervous/anxious. - See HPI Objective: BP 126/77 Pulse 67 Ht 171.5 cm (67.5) Wt 88.5 kg (195 lb) BMI 30.09 kg/m2 Physical Exam Constitutional: She is oriented to person, place, and time. She appears well- developed and well-nourished. Eyes: Conjunctivae and EOM are normal. Pupils are equal, round, and reactive to light. Neck: Normal range of motion. Neck supple. Thyromegaly present. Cardiovascular: Normal rate. Pulmonary/Chest: Effort normal. Musculoskeletal: Normal range of motion. Lymphadenopathy: She has no cervical adenopathy. Neurological: She is alert and oriented to person, place, and time. She displays normal reflexes. No cranial nerve deficit. She exhibits normal muscle tone. Coordination normal. Psychiatric: She has a normal mood and affect. Her behavior is normal. Judgment and thought contentnormal. Nursing note and vitals reviewed. Assessment: #1 Non toxic Multinodular goiter #2 Dyslipidemia #3 Family Hx of early Cardiovascular disease (mother) #4 Elevated Lipoprotein A #5 Euthyroid #6 class I obesity Unfortunately I cannot do a thyroid ultrasound today in the office However based on the report from [facility], I will schedule the patient to undergoa fine needle aspiration of her dominant hand right sided 1.4 cm nodule. She knows that the fellow/attending mlt will perform a thyroid ultrasound and if she does not have any nodules no biopsy will be attempted. Her right thyroid lobe is larger than the left and I cannot palpate nodulebut I do not suspect that to happen Other 1 cm nodules I will follow up in 6 months At her follow-up appointment we are going to discuss her dyslipidemia. She should continue statins,lipoprotein a should be rechecked later and Niacin considered. Did discuss with her that she needs to lose weight given the BMI over 30. This would be the treatment for her borderline A1c as well as her elevated triglycerides I spent 45 minutes with her in a [id number] encounter, more than 50% of time was spent counseling Plan: Alejandra was seen today for thyroid problem. Diagnoses and all orders for this visit: Thyroid nodule - TSH; Future - T4, Free; Future - Thyroperoxidase Antibody; Future Dyslipidemia Obesity (BMI 30-39.9) Other orders - ASCORBIC ACID/HESPERIDIN (BIOFLAVONOID PRODUCTS ORAL); Take by mouth. - rosuvastatin (CRESTOR) 10 mg tablet; Take 10 mg by mouth daily. - famciclovir (FAMVIR) 250 mg tablet; Take 250 mg by mouth as needed. - propRANolol (INDERAL) 40 mg tablet; Take 40 mg by mouth as needed. - meloxicam (MOBIC) 7.5 mg tablet; Take 7.5 mg by mouth daily. - zolpidem (AMBIEN) 10 mg tablet; Take 10 mg by mouth at bedtime as needed for Sleep. - ALPRAZolam (XANAX) 1 mg tablet; Take 0.5 mg by mouth at bedtime as needed. - sertraline (ZOLOFT) 100 mg tablet; Take 100 mg by mouth 2 times daily. documented in this encounter Plan of Treatment Not on file documented as of this encounter Results * THYROPEROXIDASE ANTIBODY (07/16/2017 16:25 EDT) Thyroperoxidase Ab <28 <61 U/mL 2017 11:51 EDT [facility] Blood specimen (specimen) BLOOD SPECIMEN / Unknown 07/16/2017 16:25 EDT 07/16/2017 18:52 EDT Arpan Solorzano MD CHEMISTRY & BLOOD GAS ORDERABLES Performing Organization Address [facility] Co de Phone Number [facility] [address] [place] [address] * (ABNORMAL) T4 FREE (07/16/2017 16:25 EDT) T4, Free 0.7(L) 0.8 - 2.2 ng/dl 07/16/2017 20:01 EDT [facility] Blood specimen (specimen) BLOOD SPECIMEN / Unknown 07/16/2017 16:25 EDT 07/16/2017 18:52 EDT Arpan Solorzano MD CHEMISTRY & BLOOD GAS ORDERABLES Performing Organization Address [facility] Co de Phone Number [facility] [address] [place] [address] * TSH (07/16/2017 16:25 EDT) TSH 1.23 0.47 - 4.68 uIU/ml 07/16/2017 20:15 EDT [facility] Blood specimen (specimen) BLOOD SPECIMEN / Unknown 07/16/2017 16:25 EDT 07/16/2017 18:52 EDT Arpan Solorzano MD CHEMISTRY & BLOOD GAS ORDERABLES Performing Organization Address [facility] Co de Phone Number [facility] [address] [place] [address] documented in this encounter Visit Diagnoses Diagnosis Thyroid nodule- Primary Nontoxic uninodular goiter Dyslipidemia Other and unspecified hyperlipidemia Obesity (BMI 30-39.9) Obesity, unspecified documented in this encounter Historical Medications * This list may reflect changes made after this encounter. Medication Sig Dispensed Refills Start Date End Date sertraline (ZOLOFT) 100 mg tablet Take 100 mg by mouth 2 times daily. 2 tabs by mouth daily ALPRAZolam (XANAX) 1 mg tablet Take 0.5 mg by mouth at bedtime as needed. zolpidem (AMBIEN) 10 mg tablet Take 10 mg by mouth at bedtime as needed for Sleep. meloxicam (MOBIC) 7.5 mg tablet Take 7.5 mg by mouth daily. propRANolol (INDERAL) 40 mg tablet Take 40 mg by mouth as needed. famciclovir (FAMVIR) 250 mg tablet Take 250 mg by mouth as needed. ASCORBIC ACID/HESPERIDIN (BIOFLAVONOID PRODUCTS ORAL) Take by mouth. rosuvastatin (CRESTOR) 10 mg tablet Take 10 mg by mouth daily. 02/26/2020 added in this encounter Care Teams Speech Language Pathologist Travel Relationship Specialty Start Date End Date Lee Anne APRN [address] [place] [address] [address] [place] [address] PCP - General 07/16/17 documented as of this encounter
--- OUTSIDE RECORDS SUMMARY | 2024-03-09 08:08 | XMS_ITS | Encounter Summary ---
Author Organization [facility] Address [address] [place] [address] Care Team Providers Care Vocational Evaluator Name Role Phone Unavailable Primary Care Provider Unavailabl e Encounter Details Date Type Department Care Team (Late st Contact Info) Description 11/21/2013 Results Only [facility] [phone] Quinten Estrella MD [address] [facility] [address] [place] [address] Social History Tobacco Use Types Packs/Day Years Used Date Smoking Tobacco: Never Assessed Sex and Gender Information Value Date Recorded Sex Assigned at Not on file Gender Identity Not on file Sexual Orientation Not on file documented as of this encounter Plan of Treatment Not on file documented as of this encounter Procedures Procedure Name Priority Date/Time Associated Diagnosis Comments SURGICAL PATHOLOGY Routine 11/21/2013 15 :45 EDT documented in this encounter Results * SURGICAL PATHOLOGY (11/21/2013 15:45 EDT) Pathology Report: SURGICAL PATHOLOGY REPORT Reports generated via electronic interface contain original data; however they are lacking the format of the original report. Caution should be taken when reading/interpreti ng unformatted reports. Name: ? ALEJANDRA DAVIS ? Accession #: ? [id number] ? : ? 1960 (Age: 53) ??F ? Collect Date: ? 11/21/2013 ? Location: ? [facility] ? Receive Date: ? 11/22/2013 ? Provider: YANETH ESTRELLA MD Copy to: ? Final Pathologic Diagnosis: A. DUODENUM, SECOND PORTION, BIOPSY: - ??No specific pathologic features. B. STOMACH, ANTRUM, BIOPSY: - ??Body and antral type mucosa with no specific pathologic features. Document reviewed and electronically signed by: JAMAICA ELLIS MD Report ??Date: 11/23/2013 15:07 By the signature above, the attending physician certifies that he/she has personally conducted a gross and/or microscopic examination of the described specimens and rendered or confirmed the above diagnosis. Specimen(s) Received: A. ?2nd portion of duodenum B. ? Antrum Clinical History: Clinical diagnosis code: ??789.06, S30.81, V49.89 Gross Description: A. ?Received in formalin labelled with proper patient identification (initials C, P) and 2nd portion of duodenum is a single pink-norwood tissue fragment (0.3 x 0.1 x 0.1 cm). Submitted intact in A1. B. ?Received in formalin labelled with proper patient identification (initials C, P) and antrum is a single pink-norwood tissue fragment (0.6 x 0.2 x 0.1 cm). Submitted intact in B1. Priscilla Viera 11/22/2013 End of Report [facility] 11/21/2013 15:4 5 EDT 11/22/2013 15:45 EDT Quinten Estrella MD PATHOLOGY ORDERABLES [facility] [address] [place] [address] documented in this encounter Visit Diagnoses Not on filedocumented in this encounter
--- OUTSIDE RECORDS SUMMARY | 2024-03-09 08:08 | XMS_ITS | Encounter Summary ---
Author Organization [facility] Address [address] [place] [address] Care Team Providers Care Feather Washer Name Role Phone Unknown, Provider Primary Care Provider Unava ilable Encounter Details Date Type Department Care Team (Late st Contact Info) Description 04/09/2014 Results Only [facility] [phone] Franklin Benedict, [facility] [address] [facility] [address] [place], [place] [id number] Social History Tobacco Use Types Packs/Day Years Used Date Smoking Tobacco: Never Assessed Sex and Gender Information Value Date Recorded Sex Assigned at Not on file Gender Identity Not on file Sexual Orientation Not on file documented as of this encounter Plan of Treatment Not on file documented as of this encounter Procedures Procedure Name Priority Date/Time Associated Diagnosis Comments PAP TEST- RESULT ONLY Routine 04/09/2014 0:00 EST documented in this encounter Results * PAP TEST- RESULT ONLY (04/09/2014 0:00 EST) Pathology Report: CYTOPATHOLOGY REPORT Reports generated via electronic interface contain original data; however they are lacking the format of the original report. Caution should be taken when reading/interpreti ng unformatted reports. Name: ? ALEJANDRA DAVIS ? Accession #: ? [id number] ? : ? 1960 (Age: 54) ??F ?Collect Date: ? 04/09/2014 ? Location: ? [facility] ? Receive Date: ? 04/10/2014 ? Provider: [facility] Copy to: ? Final Report SPECIMEN ADEQUACY ? Satisfactory for Evaluation - transformation zone component absent GENERAL CATEGORIZATION ? Negative for Intraepithelial Lesion or Malignancy ?? Last Menstrual Period: 2011 Hormonal/Contracep tive status: LUISA Exposure: Daughter Specimen/Source: ??Pap Test, Cervix/Endocervix, ThinPrep Imaging System with manual evaluation Document reviewed and electronically signed by: ? Elaina Benavides, [facility](AS[facility]) ? Report ??Date: 04/16/2014 09:34 HPV with Pap Test ? Date Ordered: ? 04/13/2014 ? Status: ?? Signed Out ?Date Complete: ? 04/17/2014 ? By: ??System Interface ? Date Reported: ? 04/17/2014 ? Interpretation RESULT: Negative for HPV. No E6 or E7 mRNA is detected from HPV types 16,18,31,33,35, 39,45,51,52,56,58, 59,66, and 68 by property technician mediated amplification. Comments Document reviewed and electronically signed by: ? System Interface ? Report date: 04/17/2014 By the signature above, the attending physician certifies that he/she has personally conducted a gross and/or microscopic examination of the described specimens and rendered or confirmed the above diagnosis. End of Report [facility] 04/09/2014 04/10/2014 Franklin O Benedict CHANGE LEAD PATHOLOGY ORDERABLES [facility] [address] [place] [address] documented in this encounter Visit Diagnoses Not on filedocumented in this encounter Care Teams Feather Washer Relationship Specialty Start Date End Date Unknown, Provider, PCP - General 11/27/13 07/15/17 documented as of this encounter
--- OUTSIDE RECORDS SUMMARY | 2024-03-09 08:08 | XMS_ITS | Encounter Summary ---
Author Organization [facility] Address [address] [place] [address] Care Team Providers Care Cofferdam Construction Supervisor Name Role Phone OmidLee Jenn VEGA Primary Care Provider [phone] Encounter Details Date Type Department Care Team (Late st Contact Info) Description 07/16/2017 Results Only [facility] Endocrinology - [address] [address] Arpan Truong MD [address] [place] [address] Social History Tobacco Use Types [...] Yes 07/16/2017 documented as of this encounter Plan of Treatment Not on file documented as of this encounter Procedures Procedure Name Priority Date/Time Associated Diagnosis Comments HOLD RED TOP Routine 07/16/2017 16:25 EDT T3 FREE Routine 07/16/2017 16:25 EDT T3, TOTAL Routine 07/16/2017 16:25 EDT T4 Routine 07/16/2017 16:25 EDT documented in this encounter Results * T4 (07/16/2017 16:25 EDT) T4 6.3 5.5 - 11.0 ug/dl 07/17/2017 17:59 EDT [facility] BLOOD SPECIMEN / Unknown 07/16/2017 16:25 EDT 07/16/2017 18:52 EDT Arpan Solorzano MD CHEMISTRY & BLOOD GAS ORDERABLES [facility] [address] [place] [address] * T3, TOTAL (07/16/2017 16:25 EDT) T3, Total 168 97 - 169 ng/dl 07/17/2017 18:12 EDT [facility] BLOOD SPECIMEN / Unknown 07/16/2017 16:25 EDT 07/16/2017 18:52 EDT Arpan Solorzano MD CHEMISTRY & BLOOD GAS ORDERABLES [facility] [address] [place] [address] * T3 FREE (07/16/2017 16:25 EDT) T3, Free 4.7 2.8 - 5.3 pg/ml 07/17/2017 17:59 EDT [facility] BLOOD SPECIMEN / Unknown 07/16/2017 16:25 EDT 07/16/2017 18:52 EDT Arpan Solorzano MD CHEMISTRY & BLOOD GAS ORDERABLES [facility] [address] [place] [id number] * HOLD RED TOP (07/16/2017 16:25 EDT) Hold Red Top Hold for further testing. Specimen will be held for 5 days. 07/16/2017 18:52 EDT [facility] BLOOD SPECIMEN / Unknown 07/16/2017 16:25 EDT 07/16/2017 18:52 EDT Arpan Solorzano MD LAB INFO SER VICE AND SUPPORT & PHONE RESULT [facility] [address] [place] [address] documented in this encounter Visit Diagnoses Not on filedocumented in this encounter Care Teams [employer]dam Construction Supervisor Relationship Specialty Start Date End Date Lee Anne APRN [address] [place] [address] [address] [place] [address] PCP - General 07/16/17 documented as of this encounter
--- OUTSIDE RECORDS SUMMARY | 2024-03-09 08:08 | XMS_ITS | Encounter Summary ---
Author Organization [facility] Address [address] [place] [address] Care Team Providers Care Party Plan Sales Unit Advisor Name Role Phone Unavailable Primary Care Provider Unavailabl e Encounter Details Date Type Department Care Team (Latest Contact Info) Description 11/21/2013 12:17 EDT - 11/21/2013 23:59 EDT Hospital Encounter [address] [address] Unknown, Provider, MD Discharge Disposition: Home or Self Care Social History Tobacco Use Types Packs/Day Years Used Date Smoking Tobacco: Never Assessed Sex and Gender Information Value Date Recorded Sex Assigned at Not on file Gender Identity Not on file Sexual Orientation Not on file documented as of this encounter Discharge Disposition Disposition Code Departure Means Destination Home or Self Jail documented in this encounter Plan of Treatment Not on file documented as of this encounter Visit Diagnoses Not on filedocumented in this encounter
--- OUTSIDE RECORDS SUMMARY | 2024-03-09 08:08 | XMS_ITS | Encounter Summary ---
Author Organization [facility] Address [address] [place] [address] Care Team Providers Care Nut Chopper Name Role Phone AnneLee Jenn VEGA Primary Care Provider [phone] Reason for Visit * Reason Onset Date Comments Appointment Related 09/09/2017 Encounter Details Date Type Department Care Team (Late st Contact Info) Description 09/09/2017 Telephone [facility] Endocrinology - [address] [address] Arpan Truong MD [address] [place] [address] Appointment Related Social History Tobacco [...] Yes 07/16/2017 documented as of this encounter Miscellaneous Notes * Telephone Encounter - Юлия Barth - 09/10/2017 2602 EDT Clarified with patient * Telephone Encounter - Irma Pederson - 09/09/2017 1429 EDT Reason for Call: Appointment Related Summary/Symptoms: Patient is confused about message that was left , when she [facility] she wants clarification that she is having an ultrasound and a biopsy the same day. Please contact her for clarification of the appointment scheduled for 10.22.17 patient states it is hard to reach her by phone , ok to leave a detailed message . Irma Pederson 09/09/2017 14:29 documented in this encounter Plan of Treatment Not on file documented as of this encounter Visit Diagnoses Not on filedocumented in this encounter Care Teams Nut Chopper Relationship Specialty Start Date End Date Lee Anne APRN [address] [place] [address] [address] [place] [address] PCP - General 07/16/17 documented as of this encounter
--- OUTSIDE RECORDS SUMMARY | 2024-03-09 08:08 | XMS_ITS | Encounter Summary ---
Author Organization [facility] Address [address] [place] [address] Care Team Providers Care Stereoptic Projection Topographer Name Role Phone AnneLee Jenn VEGA Primary Care Provider [phone] Reason for Visit * Reason Onset Date Comments Discuss Test Results 07/20/2017 3.16.18 Encounter Details Date Type Department Care Team (Late st Contact Info) Description 07/20/2017 Telephone [facility] Endocrinology - [address] [address] Arpan Truong MD [address] [place] [address] Discuss Test Results (3.16.18) Social History Tobacco Use Types Packs/Day Years [...] encounter Miscellaneous Notes * Telephone Encounter - Sravan Atwood RN - 07/20/2017 1634 EDT Called and relayed Dr. Suarez's message to pt below: Normal thyroid function (I saw that she had a low free T4 ??But I doubted it was accurate given her normal TSH. I added on the complete panel and e/thing was normal. Patient verbalized understanding. No barriers to learning noted. * Telephone Encounter - Betty Castellanos V. - 07/20/2017 1521 EDT Reason for Call: Discuss Test Results (3..18) Summary/Symptoms: Patient calling for her 3.16 test results Betty Castellanos 07/20/2017 15:21 documented in this encounter Plan of Treatment Not on file documented as of this encounter Visit Diagnoses Not on filedocumented in this encounter Care Teams Stereoptic Projection Topographer Relationship Specialty Start Date End Date Lee Anne APRN [address] [place] [address] [address] [place] [address] PCP - General 07/16/17 documented as of this encounter
--- OUTSIDE RECORDS SUMMARY | 2024-03-09 08:08 | XMS_ITS | Encounter Summary ---
Author Organization [facility] Address [address] [place] [address] Care Team Providers Care Oil Boiler Name Role Phone Unknown, Provider Primary Care Provider Unava ilable Encounter Details Date Type Department Care Team (Late st Contact Info) Description 05/18/2017 Results Only [facility] [phone] Franklin Benedict, CIVIL DESIGN TECHNICIAN [address] [facility] [address] [place], [place] [id number] Social History Tobacco Use Types Packs/Day Years [...] Diagnosis Comments PAP TEST- RESULT ONLY Routine 05/18/2017 0:00 EST documented in this encounter Results * PAP TEST- RESULT ONLY (05/18/2017 0:00 EST) Pathology Report: CYTOPATHOLOGY REPORT Reports generated via electronic interface contain original data; however they are lacking the format of the original report. Caution should be taken when reading/interpreti ng unformatted reports. Name: ? ALEJANDRA DAVIS ? Accession #: ? [id number] ? : ? 1960 (Age: 57) ??F ?Collect Date: ? 05/18/2017 ? Location: ? [facility] ? Receive Date: ? 05/21/2017 ? Provider: FRANKLIN BENEDICT DIRECTOR OF MARKETING ANALYTICS Copy to: ? Final Report SPECIMEN ADEQUACY ? Satisfactory for Evaluation - transformation zone component present GENERAL CATEGORIZATION ? Negative for Intraepithelial Lesion or Malignancy ?? Last Menstrual Period: 2012 Hormonal/Contracep tive status: LUISA Exposure: daughter Other: Additional clinical information: all normal paps previous Specimen/Source: ??Pap Test, Cervix, ThinPrep Imaging System with manual evaluation Document reviewed and electronically signed by: ? LILY Goyal(ASCP) ? Report ??Date: 05/31/2017 14:30 HPV with Pap Test ? Date Ordered: ? 05/31/2017 ? Status: ?? Signed Out ?Date Complete: ? 06/01/2017 ? By: ??System Interface ? Date Reported: ? 06/01/2017 ? Interpretation RESULT: Negative for HPV. No E6 or E7 mRNA is detected from HPV types 16,18,31,33,35, 39,45,51,52,56,58, 59,66, and 68 by spooling supervisor mediated amplification. Comments Document reviewed and electronically signed by: ? System Interface ? Report date: 06/01/2017 By the signature above, the attending physician certifies that he/she has personally conducted a gross and/or microscopic examination of the described specimens and rendered or confirmed the above diagnosis. End of Report [facility] 05/18/2017 05/21/2017 Franklin Benedict APRN PATHOLOGY ORDERABLES [facility] [address] [place] [address] documented in this encounter Visit Diagnoses Not on filedocumented in this encounter Care Teams Oil Boiler Relationship Specialty Start Date End Date Unknown, Provider, PCP - General 11/27/13 07/15/17 documented as of this encounter
--- OUTSIDE RECORDS SUMMARY | 2024-03-09 08:08 | XMS_ITS | Encounter Summary ---
Author Organization [facility] Address [address] [place] [address] Care Team Providers Care Bottom Turner Name Role Phone Franklin Benedict APRN Primary Care Provider [phone] Encounter Details Date Type Department Care Team (Late st Contact Info) Description 09/19/2018 Results Only [facility] [phone] Franklin Benedict APRN [address] [place] [address] [address] [place], [place] [id number] Social History Tobacco Use Types Packs/Day Years [...] Diagnosis Comments PAP TEST- RESULT ONLY Routine 09/19/2018 0:00 EDT documented in this encounter Results * PAP TEST- RESULT ONLY (09/19/2018 0:00 EDT) Pathology Report: CYTOPATHOLOGY REPORT Reports generated via electronic interface contain original data; however they are lacking the format of the original report. Caution should be taken when reading/interpreti ng unformatted reports. Name: ? ALEJANDRA DAVIS ? Accession #: ? [id number] ? : ? 1960 (Age: 58) ??F ?Collect Date: ? 09/19/2018 ? Location: ? [facility] ? Receive Date: ? 09/21/2018 ? Provider: FRANKLIN BENEDICT NP Copy to: ? Final Report SPECIMEN ADEQUACY ? Satisfactory for Evaluation - transformation zone component present GENERAL CATEGORIZATION ? Negative for Intraepithelial Lesion or Malignancy ?? Last Menstrual Period: age 50 Hormonal/Contracep tive status: LUISA Exposure: daughter Specimen/Source: ??Pap Test, Cervix/Endocervix, ThinPrep Imaging System with manual evaluation Document reviewed and electronically signed by: ? LILY Contreras(ASCP) ? Report ??Date: 09/22/2018 15:18 HPV with Pap Test ? Date Ordered: ? 09/22/2018 ? Status: ?? Signed Out ?Date Complete: ? 09/23/2018 ? By: ??System Interface ? Date Reported: ? 09/23/2018 ? Interpretation RESULT: Negative for HPV. No E6 or E7 mRNA is detected from HPV types 16,18,31,33,35, 39,45,51,52,56,58, 59,66, and 68 by supervisor blast furnace mediated amplification. Comments Document reviewed and electronically signed by: ? System Interface ? Report date: 09/23/2018 By the signature above, the attending physician certifies that he/she has personally conducted a gross and/or microscopic examination of the described specimens and rendered or confirmed the above diagnosis. End of Report [facility] 09/19/2018 09/21/2018 Franklin Benedict APRN PATHOLOGY ORDERABLES [facility] [address] [place] [address] documented in this encounter Visit Diagnoses Not on filedocumented in this encounter Care Teams Bottom Turner Relationship Specialty Start Date End Date Franklin Benedict APRN [address] [place] [address] [address] [place], [place] [id number] PCP - General 07/16/17 documented as of this encounter
--- OUTSIDE RECORDS SUMMARY | 2024-03-09 08:08 | XMS_ITS | Encounter Summary ---
Author Organization [facility] Address [address] [place] [address] Care Team Providers Care Business Management Analyst Name Role Phone Unavailable Primary Care Provider Unavailabl e Encounter Details Date Type Department Care Team ([facility] st Contact Info) Description 10/02/2005 Results Only [facility] - [facility] [address] [place] [address] Sameer Still MD [address] [place] [id number] Social History Tobacco Use Types Packs/Day Years Used Date Smoking Tobacco: Never Assessed Sex and Gender Information Value Date Recorded Sex Assigned at Not on file Gender Identity Not on file Sexual Orientation Not on file documented as of this encounter Plan of Treatment Not on file documented as of this encounter Procedures Procedure Name Priority Date/Time Associated Diagnosis Comments CYTOPATHOLOGY Routine 10/02/2005 0:00 EDT documented in this encounter Results * CYTOPATHOLOGY (10/02/2005 0:00 EDT) Pathology Report: CYTOPATHOLOGY REPORT Reports generated via electronic interface contain original data; however they are lacking the format of the original report. Caution should be taken when reading/interpreti ng unformatted reports. Name: ? ALEJANDRA DAVIS ? Accession #: ? [id number] : ? 1960 (Age: 45) ??F ?Collect Date: ? 10/02/2005 Location: ? [facility] ? Receive Date: ? 10/05/2005 Provider: ?SAMEER STILL MD Copy to: ? Specimen/Source: ?ThinPrep Pap Test, Source Not Provided, processed on Paxfire ThinPrep Imaging System, with manual evaluation Last Menstrual Period: ? 09/14/05 ? SPECIMEN ADEQUACY ? Satisfactory for Evaluation - transformation zone component present GENERAL CATEGORIZATION ? Negative for Intraepithelial Lesion or Malignancy INTERPRETATION ? Shift in kaveh present suggestive of bacterial vaginosis. ? Document reviewed and electronically signed by: ? Elaina Benavides, SCT(ASCP) ? Report Date: ??10/07/2005 12:15 End of Report [facility] 10/02/2005 10/05/2005 Sameer Still MD PATHOLOGY ORDERABLES [facility] [address] [place] [address] documented in this encounter Visit Diagnoses Not on filedocumented in this encounter
--- OUTSIDE RECORDS SUMMARY | 2024-03-09 08:08 | XMS_ITS | Encounter Summary ---
Author Organization [facility] Address [address] [place] [address] Care Team Providers Care Filter Washer And Presser Name Role Phone Lee Anne APRN Primary Care Provider [phone] Reason for Visit * Reason Comments New Patient Visit u/s first * Referral (Routine) - Closed Specialty Diagnoses / Procedures Referred By Contchris t Referred To Contact Vascular Surgery Diagnoses Phlebitis and thrombophlebitis of unspecified deep vessels of lower extremities, bilateral ([facility]) Sima Anne MD [address] [place] [address] [facility] Vasc Surgery [address] [place] [id number] Referral ID Status Reason Start Date Expiration Date Visits Re quested Visits Authorized [id number] Closed 1 1 Encounter Details Date Type Department Care Team (Latest Contact Info) Description 10/14/2017 14:00 EDT Office Visit Vascular Surgery [place] [address] Russ Soriano MD Venous insufficiency of lower extremity, unspecified laterality (Primary Dx); Pain in extremity, unspecified extremity Social History Tobacco Use Types Packs/Day Years [...] Sign Reading Time Taken Comments Blood Pressure 120/77 10/14/2017 1417 EDT Pulse 68 10/14/2017 1408 EDT Temperature - - Respiratory Rate - - Oxygen Saturation - - Inhaled Oxygen Concentration - - Weight 86.2 kg (190 lb) 10/14/2017 1408 EDT Height 167.6 cm (5' 6) 10/14/2017 1408 EDT Body Mass Index 30.67 10/14/2017 1408 EDT documented in this encounter Functional Status [...] Yes 10/14/2017 documented as of this encounter Patient Instructions * Patient Instructions* Anna Marie Elaine - 10/14/2017 14:00 EDT Greater saphenous vein documented in this encounter Progress Notes * Russ Soriano MD - 10/14/2017 1400 EDT [facility] Vascular Surgery H & P Consultation Note - Initial Visit Note Date: 10/14/2017 Patient: Alejandar Ruano Subjective: Alejandra Ruaon is a 57 y.o. female who presents today for No chief complaint on file. Consult requested by Lee Anne Patient History of Present Illness: The patient complains of pain in the legs. This patient is here today with a chief complaint of legpain. She describes that her legs are equal, left and right, that this has been going on for at least a decade where she has pain on the medial aspect of her legs. It does not improve with leg elevation, compression, massage, or activity. It does get worse if she is dehydrated, so she is always drinking water and thus urinating. She says that she does have flares from time to time, which then affects her arms as well. The pain there is constant, ranging from a 2 to 4/10 but when there is a flare it can go up to a 6/10. Aspirin does help as well. She does have point tenderness that she can reproduce along the distribution of her medial legs. The pain does not keep her awake at night. The patient's history, allergies, and medications were documented, reviewed, and updated. Medications: Current Outpatient Prescriptions: ALPRAZolam (XANAX) 1 mg tablet ASCORBIC ACID/HESPERIDIN (BIOFLAVONOID PRODUCTS ORAL) famciclovir (FAMVIR) 250 mg tablet meloxicam (MOBIC) 7.5 mg tablet propRANolol (INDERAL) 40 mg tablet rosuvastatin (CRESTOR) 10 mg tablet sertraline (ZOLOFT) 100 mg tablet zolpidem (AMBIEN) 10 mg tablet No current facility-administered medications for this visit. History was documented as follows: [facility] Past Medical History: Diagnosis Date ??? Anxiety ??? Cancer ([facility]) ([facility]) skin ??? Depression ??? Environmental allergies ??? Neuromuscular disorder ([facility]) ([facility]) ??? Ruptured lumbar disc ??? Thyroid disease Past Surgical History: Procedure Laterality Date ??? NOSE SURGERY Social History Family History Social History Substance Use Topics ??? Smoking status: Former Smoker Types: Cigarettes ??? Smokeless tobacco: Never Used Comment: quit 13 years ago ??? Alcohol use No Family History Problem Relation Age of Onset ??? Cancer Mother breast ??? Heart Disease Mother ??? *Other(comment) Father aortic aneurysm Allergies No Known Allergies Review of Systems A comprehensive review of systems was negative except for: skin cancer, frequent urination Objective: Physical Examination: Vitals: There were no vitals taken for this visit. General Healthy-appearing 57 y.o. white female in no apparent distress who looks her stated age. Eyes: scelra non-icteric Musculoskeletal: No joint effusions or tenderness. Extremities: No bony abnormality. No joint effusions. BLE medial point TTP Skin: Warm and pink. No lesions or stasis dermatitis. Hematologic: There is no bruising. Neurologic: Gait and stance are normal; Strength Upper and lower extremities, 5/5. There is no tremor or slurred speech. Vascular: warm, pink, capillary refill brisk Non-invasive Vascular Lab Tests: Impressions 1. Superficial venous insufficiency noted bilaterally. 2. There is no significant reflux in the bilateral common femoral, femoral, popliteal veins. 3. No evidence of deep or superficial vein thrombosis in the right lower extremity or the left lower extremity. Assessment: Leg pain of unknown etiology. Although she does have mild venous insufficiency on her bilateral great saphenous veins, the symptom she complains of is not consistent with venous symptoms at all. She does have palpable pulses. I do not think there is arterial etiology. Given the point tenderness andher description of her discomfort, it does make me wonder if there could be a component of fibromyalgia or some other nerve etiology. Plan: - f/u with PCP - pursue diagnosis and treatment of fibromyalgia Submitted by: Russ Soriano MD CC: Lee Anne documented in this encounter Plan of Treatment Not on file documented as of this encounter Visit Diagnoses Diagnosis Venous insufficiency of lower extremity, unspecified laterality- Primary Pain in extremity, unspecified extremity documented in this encounter Care Teams Filter Washer And Presser Relationship Specialty Start Date End Date Lee Anne APRN [address] [place] [address] [address] [place] [address] PCP - General 07/16/17 documented as of this encounter
--- OUTSIDE RECORDS SUMMARY | 2024-03-09 08:08 | XMS_ITS | Encounter Summary ---
Author Organization [facility] Address [address] [place] [address] Care Team Providers Care Bomb Squad Officer Name Role Phone Lee Anne Jenn VEGA Primary Care Provider [phone] Reason for Referral * Vascular Lab (Other (Specify in Question)) - New Request Specialty Diagnoses / Procedures Referred By Contchris t Referred To Contact Diagnoses Pain in both lower extremities Procedures VL VENOUS INSUFFICIENCY (VARICOSE VEINS) CONCETTA Russ Soriano MD [address] [place] [address] Referral ID Status Reason Start Date Expiration Date V isits Requested Visits Authorized [id number] New Request 10/05/2017 1 1 Reason for Visit * Reason Onset Date Comments Procedure 10/05/2017 Encounter Details Date Type Department Care Team (Late st Contact Info) Description 10/05/2017 Orders Only Vascular Surgery and Endovascular Therapy - [address] [address] Russ Soriano MD Pain in both lower extremities (Primary Dx) Social History Tobacco Use Types [...] Procedure Name Priority Date/Time Associated Diagnosis Comments VL VENOUS INSUFFICIENCY (VARICOSE VEINS) CONCETTA Routine 10/14/2017 14:10 EDT Pain in both lower extremities documented in this encounter Results * VL VENOUS INSUFFICIENCY (VARICOSE VEINS) CONCETTA (10/14/2017 14:10 EDT) Anatomical Region Laterality Modality Other 10/14/2017 14:1 0 EDT Narrative 10/18/2017 8:45 EDT Vascular Diagnostic Laboratory [facility], [facility] [address] [place] [address] Technologist: Mary Alice Sharpe Fellow: IMPRESSIONS 1. Superficial venous insufficiency noted bilaterally. 2. There is no significant reflux in the bilateral common femoral, ?? femoral, popliteal veins. 3. No evidence of deep or superficial vein thrombosis in the right lower ?? extremity or the left lower extremity. PROCEDURE: Bilateral lower extremity venous ultrasound; common femoral, femoral, popliteal, and superficial veins assessed for thrombosis and venous insufficiency. INDICATION: Varicose veins with pain. Patient denies swelling. Pain worsens when dehydrated and when sitting for long periods of time. No relief from leg elevation. HISTORY: RISK FACTORS: Former tobacco use. VENOUS FLOW AND IMAGING: + + +------+ Vein ? Sonographic findings ? Diam ?? + + +------+ Right s-f junction With no reflux. ? + + +------+ Right GSV mid thigh With reflux (0.5 - 2sec). 0.50cm + + +------+ Right GSV knee ? With no reflux. ? 0.48cm + + +------+ Right SSV ? With reflux (0.5 - 2sec). 0.28cm + + +------+ Left s-f junction ?? With no reflux. ? 0.46cm + + +------+ Left GSV mid thigh With reflux (0.5 - 2sec). 0.39cm + + +------+ Left GSV knee ? With no reflux. ? 0.43cm + + +------+ Left SSV ? With reflux (0.5 - 2sec). 0.33cm + + +------+ Left ASV ? With no reflux. ? 0.40cm + + +------+ * GREYSCALE FINDINGS: Normal right lower extremity venous ultrasound: all segments visualized were compressible with spontaneous and phasic flow. Normal left lower extremity venous ultrasound: all segments visualized were compressible with spontaneous and phasic flow. Electronically signed by: Elpidio Lynn 10/18/2017 08:45 Procedure Note Elpidio Lynn MD - 10/18/2017 Vascular Diagnostic Laboratory [facility], Level [address] [place] [id number] Technologist: Mary Alice Sharpe Fellow: IMPRESSIONS 1. Superficial venous insufficiency noted bilaterally. 2. There is no significant reflux in the bilateral common femoral, femoral, popliteal veins. 3. No evidence of deep or superficial vein thrombosis in the right lower extremity or the left lower extremity. PROCEDURE: Bilateral lower extremity venous ultrasound; common femoral, femoral, popliteal, and superficial veins assessed for thrombosis and venous insufficiency. INDICATION: Varicose veins with pain. Patient denies swelling. Pain worsens when dehydrated and when sitting for long periods of time. No relief from leg elevation. HISTORY: RISK FACTORS: Former tobacco use. VENOUS FLOW AND IMAGING: + + +------+ Vein Sonographic findings Diam + + +------+ Right s-f junction With no reflux. + + +------+ Right GSV mid thigh With reflux (0.5 - 2sec). 0.50cm + + +------+ Right GSV knee With no reflux. 0.48cm + + +------+ Right SSV With reflux (0.5 - 2sec). 0.28cm + + +------+ Left s-f junction With no reflux. 0.46cm + + +------+ Left GSV mid thigh With reflux (0.5 - 2sec). 0.39cm + + +------+ Left GSV knee With no reflux. 0.43cm + + +------+ Left SSV With reflux (0.5 - 2sec). 0.33cm + + +------+ Left ASV With no reflux. 0.40cm + + +------+ * GREYSCALE FINDINGS: Normal right lower extremity venous ultrasound: all segments visualized were compressible with spontaneous and phasic flow. Normal left lower extremity venous ultrasound: all segments visualized were compressible with spontaneous and phasic flow. Electronically signed by: Elpidio Lynn 10/18/2017 08:45 Russ Soriano MD IMG US VASCULAR O RDERABLES documented in this encounter Visit Diagnoses Diagnosis Pain in both lower extremities- Primary documented in this encounter Care Teams Bomb Squad Officer Relationship Specialty Start Date End Date Lee Anne APRN [address] [place] [address] [address] [place] [id number] PCP - General 07/16/17 documented as of this encounter
--- OUTSIDE RECORDS SUMMARY | 2024-03-09 08:08 | XMS_ITS | Encounter Summary ---
Author Organization [facility] Address [address] [place] [address] Care Team Providers Care Fish Warden Name Role Phone Unavailable Primary Care Provider Unavailabl e Encounter Details Date Type Department Care Team (Late st Contact Info) Description 08/19/2007 Results Only [facility] - Maple conversion [address] [place] [address] Diane Javed PA [address] [place] [address] [place], [place] [id number] Social History Tobacco Use Types Packs/Day Years Used Date Smoking Tobacco: Never Assessed Sex and Gender Information Value Date Recorded Sex Assigned at Not on file Gender Identity Not on file Sexual Orientation Not on file documented as of this encounter Plan of Treatment Not on file documented as of this encounter Procedures Procedure Name Priority Date/Time Associated Diagnosis Comments HPV DETECTION, HIGH RISK TYPES Routine 08/19/2007 8:26 EDT CYTOPATHOLOGY Routine 08/19/2007 0:00 EDT documented in this encounter Results * HUMAN PAPILLOMA VIRUS DNA TEST (08/19/2007 8:26 EDT) Specimen Description Cervix, ThinPrep vial [facility] Result Negative for HPV types 16, 18, 31, 33, 35, 39, 45, 51, 52, 56, 58, 59, and 68. [facility] Report Status Final [id number] [facility] 08/19/2007 8:26 EDT 08/29/2007 8:26 EDT Diane RANDOLPH MICROBIOLOGY - GENER AL ORDERABLES [facility] [address] [place] [address] * CYTOPATHOLOGY (08/19/2007 0:00 EDT) Pathology Report: CYTOPATHOLOGY REPORT Reports generated via electronic interface contain original data; however they are lacking the format of the original report. Caution should be taken when reading/interpreti ng unformatted reports. Name: ? ALEJANDRA DAVIS ? Accession #: ? [id number] : ? 1960 (Age: 47) ??F ?Collect Date: ? 08/19/2007 Location: ? [facility] ? Receive Date: ? 08/22/2007 Provider: ?DIANE RANDOLPH Copy to: ? Specimen/Source: ?ThinPrep Pap Test, Cervix/Endocervix, processed on [employer] ThinPrep Imaging System, with manual evaluation Last Menstrual Period: ? 08/09/07 Hormonal/Contracep tive Status: ? Yes: Seasonique Infection History: ? Herpes: HSV Other: ? HPVDX - HPV testing requested regardless of diagnosis on current ThinPrep Pap test. ? SPECIMEN ADEQUACY ? Satisfactory for Evaluation - transformation zone component present GENERAL CATEGORIZATION ? Negative for Intraepithelial Lesion or Malignancy INTERPRETATION ? Fungal organisms present morphologically consistent with Olinda species. ? Document reviewed and electronically signed by: ? ESTUARDO Perez(ASCP) ? Report Date: ??08/26/2007 09:42 End of Report [facility] 08/19/2007 08/22/2007 Diane RANDOLPH PATHOLOGY ORDERABLES Performing Organization Address City/State/[facility] Co de Phone Number [facility] [address] [place] [address] documented in this encounter Visit Diagnoses Not on filedocumented in this encounter
--- OUTSIDE RECORDS SUMMARY | 2024-03-09 08:08 | XMS_ITS | Encounter Summary ---
Author Organization [facility] Address [address] [place] [address] Care Team Providers Care Plan Examiner Name Role Phone Lee Anne APRN Primary Care Provider [phone] Reason for Referral * Radiology Services (STAT) - New Request Specialty Diagnoses / Procedures Referred By Kaelyn t Referred To Contact Diagnoses Thyroid nodule Procedures ENDOCRINE CLINIC US GUIDANCE THYROID BIOPSY Chapin Brink MD [address] [place] [address] [place] [phone] Referral ID Status Reason Start Date Expiration Date V isits Requested Visits Authorized [id number] New Request 10/22/2017 1 1 Reason for Visit * Reason Comments Thyroid Problem Encounter Details Date Type Department Care Team (Latest Contact Info) Description 10/22/2017 14:30 EDT Office Visit [facility] Endocrinology - [address] [address] Unknown, Provider, Chapin Reyna MD [address] [place] [address] [address] [place] [address] Clinic, Thyroid Biopsy Thyroid nodule (Primary Dx) Discharge Disposition: Auto Discharge Social History Tobacco [...] Concentration - - Weight - - Height 167.6 cm (5' 6) 10/22/2017 1441 EDT Body Mass Index - - documented in [...] Yes 10/14/2017 documented as of this encounter Discharge Diagnoses Diagnosis E04.1 Nontoxic single thyroid nodule-E04.1[ICD-10-CM] documented in this encounter Patient Instructions * Patient Instructions* Yariel Acevedo MD - 10/22/2017 14:30 EDT Images from the original note were not included. [facility] Patient Instructions Fine-Needle Thyroid Biopsy: What to Expect at Home Your Recovery During your biopsy, your doctor placed a thin needle through your skin and into your thyroid gland to take a sample of tissue. This may have been done to find what is causing a lump or growth in your thyroid. You may find it uncomfortable to lie still with your head tipped backward. The biopsy site may be sore and tender for 1 to 2 days. This care sheet gives you a general idea about how long it will take for you to recover. But each person recovers at a different pace. Follow the steps below to feel better as quickly as possible. How can you care for yourself at home? Activity ? ?? Rest when you feel tired. Getting enough sleep will help you recover. Diet ? ?? You can eat your normal diet. If your stomach is upset, try bland, low-fat foods like plain rice, broiled chicken, toast, and yogurt. Medicines ? ?? Your doctor will tell you if and when you can restart your medicines. He or she will also giveyou instructions about taking any new medicines. ? ?? If you take blood thinners, such as warfarin (Coumadin), clopidogrel (Plavix), or aspirin, be sure to talk to your doctor. He or she will tell you if and when to start taking those medicines again. Make sure that you understand exactly what your doctor wants you to do. ? ?? Take pain medicines exactly as directed. ? If the doctor gave you a prescription medicine for pain, take it as prescribed. ? If you are not taking a prescription pain medicine, ask your doctor if you can take an zysa-epx-kyjqfac medicine. ? ?? If you think your pain medicine is making you sick to your stomach: ? Take your medicine after meals (unless your doctor has told you not to). ? Ask your doctor for a different pain medicine. Incision care ?Keep the biopsy site covered and dry for 48 hours. A small amount of bleeding from the biopsy sitecan be expected. Ask your doctor how much drainage to expect. Follow-up care is a moore part of your treatment and safety. Be sure to make and go to all appointments, and call your doctor if you are having problems. It's also a good idea to know your test resultsand keep a list of the medicines you take. When should you call for help? Call 911 anytime you think you may need emergency care. For example, call if: ? ?? You have severe trouble breathing. ?Call your doctor now or seek immediate medical care if: ? ?? You have a lot of bleeding through the bandage. ? ?? You have a hard time swallowing. ? ?? You have new or worsening pain. ? ?? You have symptoms of infection, such as: ? Increased pain, swelling, warmth, or redness. ? Red streaks leading from the biopsy site. ? Pus draining from the biopsy site. ? A fever. ?Watch closely for any changes in your health, and be sure to contact your doctor if: ? ?? You're not getting better as expected. ? ?? You notice a change in your voice. Where can you learn more? Go to www.[email or web address].net/eziCONEXedcenter or log into your [employer] account at [email or web address]. Enter O887 in the search box to learn more about Fine-Needle Thyroid Biopsy: What to Expect at Home. Current as of: September 11, 2016 Content Version: 11.6 ?? [id number] [employer]. Care instructions adapted under license by [facility] If you have questions about a medical condition or this instruction, always ask your healthcare professional. [employer] disclaims any warranty or liability foryour use of this information. documented in this encounter Discharge Disposition Disposition Code Departure Means Destination Auto Discharge documented in this encounter Progress Notes * Yariel Acevedo MD - 10/22/2017 1430 EDT Thyroid Biopsy Procedure Note Date Performed: 10/22/2017 Performed by: Faustino Plunkett MD Indications: Thyroid Nodule Anesthesia: ethyl chloride spray Procedure Details The procedure, risks and complications have been discussed in detail (including, but not limited tobleeding and infection) with the patient, and the patient has signed consent to the procedure. A time out was taken for the patient to verbally state his/her name, date of and procedure nilda done. After that, the area visualized with ultrasound was marked on the skin using a surgical pen. The skin was prepped with alcohol and betadine over the affected area in the usual fashion. Biopsy site: right Fine Needle Aspiration was performed. 3 passes were made after ultrasound localization and visualization of the needle point. Contents of Aspiration: 0 ml of serous fluid. Size of mass after cyst aspiration: no change Specimens sent to pathology. Sterile dressing placed. May place ice pack over affected area during the first 24 hours. Findings: Thyroid Nodule - right Condition: Left clinic in stable condition Complications: none Yariel Acevedo MD 10/22/2017 15:08 Attestation statement: I saw and examined the patient with the resident/fellow. I was present through out the biopsy procedure. I agree with the findings and plan of care documented in the resident's/fellow's note. Chapin Brink MD 10/22/2017 documented in this encounter Plan of Treatment Scheduled Orders Name Type Priority Associated Diagnoses Orde r Schedule CYTOLOGY (NON-GYNECOLOGIC INCLUDING FLUIDS AND FINE NEEDLE ASPIRATION)- ORDER ONLY Pathology Routine Thyroid nodule Ordered: 10/22/2017 documented as of this encounter Procedures Procedure Name Priority Date/Time Associated Diagnosis Comments ENDOCRINE CLINIC US GUIDANCE THYROID BIOPSY Routine 10/22/2017 15:00 EDT Thyroid nodule CYTOPATHOLOGY Routine 10/22/2017 0:00 EDT documented in this encounter Results * ENDOCRINE CLINIC US GUIDANCE THYROID BIOPSY (10/22/2017 15:00 EDT) Anatomical Region Laterality Modality Other 10/22/2017 15:0 0 EDT Narrative 10/22/2017 15:00 EDT Non Reportable Exam Procedure Note TENNIS DIRECTOR, IMAGING - 10/25/2017 Non Reportable Exam Chapin Brink MD [facility] [place]ES * CYTOPATHOLOGY (10/22/2017 0:00 EDT) Pathology Report: CYTOPATHOLOGY REPORT Reports generated via electronic interface contain original data; however they are lacking the format of the original report. Caution should be taken when reading/interpret ing unformatted reports. Name: ? ALEJANDRA DAVIS ? Accession #: ? [id number] : ? 1960 (Age: 57) ??F ?Collect Date: ? 10/22/2017 Location: ? [facility] ? Receive Date: ? 10/22/2017 Provider: ? CHAPIN BRINK MD Copy to: ?YARIEL ACEVEDO MD ? CYTOLOGIC DIAGNOSIS: THYROID, RIGHT LOBE, 1.4 CM NODULE, FINE NEEDLE ASPIRATION: - ??Benign follicular nodule with cystic degeneration and superimposed chronic lymphocytic thyroiditis. - ??See comment. ? COMMENT: Smears are adequately cellular and consist of sheets of benign follicular cells, some with H??rthle cell change in a background of watery colloid and admixed with numerous lymphoid cells and occasional macrophages. No malignant cells are identified. Dr. Flowers 10/26/2017 10:51 AM Document reviewed and electronically signed by: ? LISA FLOWERS MD Report Date: ??10/26/2017 15:46 By the signature above, the attending physician certifies that he/she has personally conducted a gross and/or microscopic examination of the described specimens and rendered or confirmed the above diagnosis. Specimen Type: ? Thyroid, Fine Needle Aspiration, right, 1.4cm Clinical History: ? Thyroid nodule; clinical diagnosis code: ??E04.1 ? Rapid Interpretation: THYROID, RIGHT, 1.4 CM, ULTRASOUND GUIDED FINE NEEDLE ASPIRATION: Evaluation episode #1: ??Pass 1-3: ??Follicular cells, colloid, lymphocytes; adequate. Dr. Rafael Plunkett 10/22/2017 3:05 PM I have reviewed the slides and diagnosis with the Fellow and agree with the diagnosis. Dr. Adams Madrigal 10/22/2017 3:05 PM Gross Description: ? 2 fixed prepared slides and 1 tube of Cytolyt were received and processed by selective cellular enhancement technique. ? End of Report [facility] 10/22/2017 10/22/2017 17: 15 EDT Chapin Brink MD PATHOLOGY KYRA REILLY [facility] [address] [place] [address] documented in this encounter Visit Diagnoses Diagnosis Thyroid nodule- Primary Nontoxic uninodular goiter documented in this encounter Care Teams Plan Examiner Relationship Specialty Start Date End Date Lee Anne APRN [address] [place] [address] [address] [place] [address] PCP - General 07/16/17 documented as of this encounter
--- OUTSIDE RECORDS SUMMARY | 2024-03-09 08:08 | XMS_ITS | Encounter Summary ---
Author Organization [facility] Address [address] [place] [address] Care Team Providers Care Sheather Name Role Phone Unknown, Provider Primary Care Provider Unava ilable Encounter Details Date Type Department Care Team (Late st Contact Info) Description 07/14/2017 Results Only Imaging [facility] [phone] Unknown, Provider, Social History Tobacco Use Types Packs/Day Years Used Date Smoking Tobacco: Never Assessed Sex and Gender Information Value Date Recorded Sex Assigned at Not on file Gender Identity Not on file Sexual Orientation Not on file documented as of this encounter Plan of Treatment Pending Results Name Type Priority Associated Diagnoses Date /Time OUTSIDE IMAGES - US BODY Imaging 07/14/2017 10:57 EDT documented as of this encounter Visit Diagnoses Not on filedocumented in this encounter Care Teams Sheather Relationship Specialty Start Date End Date Unknown, ProviderMD PCP - General 11/27/13 07/15/17 documented as of this encounter
--- OUTSIDE RECORDS SUMMARY | 2024-03-09 08:08 | XMS_ITS | Encounter Summary ---
Author Organization [facility] Address [address] [place] [address] Care Team Providers Care Insurance Application Investigator Name Role Phone Unavailable Primary Care Provider Unavailabl e Encounter Details Date Type Department Care Team (Late st Contact Info) Description 04/05/2009 Orders Only [facility] Laboratory Services - [facility] ([facility] [address] [place] [id number] Elaina Pro NP Social History Tobacco Use Types Packs/Day Years [...] Comments HPV DETECTION, HIGH RISK TYPES Routine 04/05/2009 14:36 EST CYTOPATHOLOGY Routine 04/05/2009 0:00 EST documented in this encounter Results * HUMAN PAPILLOMA VIRUS DNA TEST (04/05/2009 14:36 EST) Specimen Description Cervix, ThinPrep vial [facility] Result Negative for HPV types 16, 18, 31, 33, 35, 39, 45, 51, 52, 56, 58, 59, and 68. [facility] Report Status Final 04/16/2009 [facility] 04/05/2009 14:3 6 EST 04/10/2009 14:36 EST Elaina Pro NP MICROBIOLOGY - GENER AL ORDERABLES [facility] [address] [place] [address] * CYTOPATHOLOGY (04/05/2009 0:00 EST) Pathology Report: CYTOPATHOLOGY REPORT ? Reports generated via electronic interface contain original data; ? however they are lacking the format of the original report. ? Caution should be taken when reading/interpreti ng unformatted reports. ? Name: ? ALEJANDRA DAVIS ? Accession #: ? [id number] ? : ? 1960 (Age: 49) ??F ?Collect Date: ? 04/05/2009 ? Location: ? [facility] ? Receive Date: ? 04/08/2009 ? Provider: ?ELAINA PRO ENFORCEMENT OFFICER ? Copy to: ? Specimen/Source: ?Pap Test, Cervix/Endocervix, ThinPrep Imaging System ? with manual evaluation ? Last Menstrual Period: ? 05/20/09 ? Previous Gynecologic Pathology: ? Yes: 1 x abnormal 25 yrs ago secondary to Chlamydia infection ? Other: ? Additional clinical information: 12/3/09 sm pink d/c ? HPVDX - HPV testing requested regardless of diagnosis on current ThinPrep Pap ?? test. ? SPECIMEN ADEQUACY ? Satisfactory for Evaluation ? - transformation zone component present ? - scant squamous epithelial component ? GENERAL CATEGORIZATION ? Negative for Intraepithelial Lesion or Malignancy ? Document reviewed and electronically signed by: ? LILY Goyal(ASCP) ? Report Date: ??04/10/2009 10:12 ? End of Report ? [facility] 04/05/2009 04/08/2009 Elaina Pro NP PATHOLOGY ORDERABLES Performing Organization Address City/State/[facility] Co de Phone Number [facility] [address] [place] [address] documented in this encounter Visit Diagnoses Not on filedocumented in this encounter
--- OUTSIDE RECORDS SUMMARY | 2024-03-09 08:08 | XMS_ITS | Encounter Summary ---
Author Organization [facility] Address [address] [place] [address] Care Team Providers Care Woodwork Teacher Name Role Phone Lee Anne APRN Primary Care Provider [phone] Reason for Visit * Reason Onset Date Comments Paperwork request 07/31/2019 procedure note s Encounter Details Date Type Department Care Team (Late st Contact Info) Description 07/31/2019 Telephone [facility] Endocrinology - [address] [address] Arpan Truong MD [address] [place] [address] Paperwork request (procedure notes) Social History Tobacco Use Types Packs/Day Years [...] encounter Miscellaneous Notes * Telephone Encounter - Post, GUNNAR Garcias - 07/31/2019 1501 EDT Notes printed and mailed to pt per request. Katerine Stephen automobile glass technician * Telephone Encounter - Sahara Caldwell - 07/31/2019 1953 EDT Patient calling, she would like the procedure notes and information from her 10/22/2017 biopsy sent to her for her job. Her address is [address] [place] [address], [facility]. documented in this encounter Plan of Treatment Not on file documented as of this encounter Visit Diagnoses Not on filedocumented in this encounter Care Teams Woodwork Teacher Relationship Specialty Start Date End Date Lee Anne APRN [address] [place] [address] [address] [place] [address] PCP - General 07/16/17 documented as of this encounter
--- OUTSIDE RECORDS SUMMARY | 2024-03-09 08:08 | XMS_ITS | Encounter Summary ---
Author Organization [facility] Address [address] [place] [address] Care Team Providers Care Revenue Cycle Administrator Name Role Phone Unavailable Primary Care Provider Unavailabl e Encounter Details Date Type Department Care Team (Late st Contact Info) Description 09/18/2011 Results Only [facility] Laboratory Services - [facility] [place] [address] [place], [place] [id number] Andreea Greene, JACOBO [address] [place] [address],[address] [place] [address] Social History Tobacco Use Types Packs/Day Years [...] Diagnosis Comments PAP TEST- RESULT ONLY Routine 09/18/2011 0:00 EDT documented in this encounter Results * PAP TEST- RESULT ONLY (09/18/2011 0:00 EDT) Pathology Report: CYTOPATHOLOGY REPORT Reports generated via electronic interface contain original data; however they are lacking the format of the original report. Caution should be taken when reading/interpreti ng unformatted reports. Name: ? ALEJANDRA DAVIS ? Accession #: ? [id number] : ? 1960 (Age: 51) ??F ?Collect Date: ? 09/18/2011 Location: ? [facility] ? Receive Date: ? 09/21/2011 Provider: ?ANDREEA GREENE NP Copy to: ? Specimen/Source: ?Pap Test, Endocervix, ThinPrep Imaging System with manual evaluation Last Menstrual Period: ? SPECIMEN ADEQUACY ? Satisfactory for Evaluation - transformation zone component present GENERAL CATEGORIZATION ? Negative for Intraepithelial Lesion or Malignancy ? Document reviewed and electronically signed by: ? LILY Sinclair(ASCP) ? Report Date: ??09/23/2011 13:07 End of Report [facility] 09/18/2011 09/21/2011 Andreae Greene NP PATHOLOGY ORDERABLES [facility] [address] [place] [address] documented in this encounter Visit Diagnoses Not on filedocumented in this encounter
--- OUTSIDE RECORDS SUMMARY | 2024-03-09 08:08 | XMS_ITS | Encounter Summary ---
Author Organization [facility] Address [address] [place] [address] Care Team Providers Care Outside Sales Account Representative Name Role Phone Unknown, Provider Primary Care Provider Unava ilable Encounter Details Date Type Department Care Team (Late st Contact Info) Description 05/15/2016 Results Only [facility] [phone] Franklin Benedict, REVENUE ENFORCEMENT COLLECTION AGENT [address] [facility] [address] [place], [place] [id number] Social History Tobacco Use Types Packs/Day Years [...] Diagnosis Comments PAP TEST- RESULT ONLY Routine 05/15/2016 0:00 EST documented in this encounter Results * PAP TEST- RESULT ONLY (05/15/2016 0:00 EST) Pathology Report: CYTOPATHOLOGY REPORT Reports generated via electronic interface contain original data; however they are lacking the format of the original report. Caution should be taken when reading/interpreti ng unformatted reports. Name: ? ALEJANDRA DAVIS ? Accession #: ? [id number] ? : ? 1960 (Age: 56) ??F ?Collect Date: ? 05/15/2016 ? Location: ? [facility] ? Receive Date: ? 05/18/2016 ? Provider: FRANKLIN BENEDICT NP Copy to: ? Final Report SPECIMEN ADEQUACY ? Satisfactory for Evaluation - transformation zone component present GENERAL CATEGORIZATION ? Negative for Intraepithelial Lesion or Malignancy ?? Last Menstrual Period: 2014 Hormonal/Contracep tive status: None LUISA Exposure: daughter Other: Previous NIL Pap(s): all normal Specimen/Source: ??Pap Test, Cervix/Endocervix, ThinPrep Imaging System with manual evaluation Document reviewed and electronically signed by: ? Nicki Schaffer, LILY(ASCP) ? Report ??Date: 05/20/2016 14:49 HPV with Pap Test ? Date Ordered: ? 05/20/2016 ? Status: ?? Signed Out ?Date Complete: ? 05/22/2016 ? By: ??System Interface ? Date Reported: ? 05/22/2016 ? Interpretation RESULT: Negative for HPV. No E6 or E7 mRNA is detected from HPV types 16,18,31,33,35, 39,45,51,52,56,58, 59,66, and 68 by director pediatric mediated amplification. Comments Document reviewed and electronically signed by: ? System Interface ? Report date: 05/22/2016 By the signature above, the attending physician certifies that he/she has personally conducted a gross and/or microscopic examination of the described specimens and rendered or confirmed the above diagnosis. End of Report [facility] 05/15/2016 05/18/2016 Franklin Benedict APRN PATHOLOGY ORDERABLES [facility] [address] [place] [address] documented in this encounter Visit Diagnoses Not on filedocumented in this encounter Care Teams Outside Sales Account Representative Relationship Specialty Start Date End Date Unknown, Provider, PCP - General 11/27/13 07/15/17 documented as of this encounter
--- OUTSIDE RECORDS SUMMARY | 2024-03-09 08:08 | XMS_ITS | Encounter Summary ---
Author Organization [facility] Address [address] [place] [address] Care Team Providers Care Community Health Advisor Name Role Phone OmidLee Jenn VEGA Primary Care Provider Encounter Details Date Type Department Care Team (Latest Contact Info) Description 07/16/2017 16:00 EDT Procedure visit [facility] Endocrinology - [address] [phone] Arpan Truong MD [address] [place] [address] Phlebotomy, [facility] Endo Thyroid nodule (Primary Dx) Discharge Disposition: Auto [...] 07/16/2017 documented as of this encounter Discharge Diagnoses Diagnosis E04.1 Nontoxic single thyroid nodule-E04.1[ICD-10-CM] documented in this encounter Discharge Disposition Disposition Code Departure Means Destination Auto Discharge documented in this encounter Progress Notes * Genoveva Ramsey - 07/16/2017 1600 EDT Venipuncture preformed for TSH, T4 free, Thyroperoxidase Per orders of Yvette Suarez Diagnosis of E04.1 241.0 I was supervised by Juve Valdez who was present and immediately available in the office suite. Genoveva Ramsey 07/19/2017 10:41 documented in this encounter Plan of Treatment Not on file documented as of this encounter Procedures Procedure Name Priority Date/Time Associated Diagnosis Comments THYROPEROXIDASE ANTIBODY Routine 07/16/2017 16:25 EDT Thyroid nodule TSH Routine 07/16/2017 16:25 EDT Thyroid nodule T4 FREE Routine 07/16/2017 16:25 EDT Thyroid nodule documented in this encounter Results * THYROPEROXIDASE ANTIBODY (07/16/2017 16:25 EDT) Thyroperoxidase Ab <28 <61 U/mL 2017 11:51 EDT [facility] Blood specimen (specimen) BLOOD SPECIMEN / Unknown 07/16/2017 16:25 EDT 07/16/2017 18:52 EDT Arpan Solorzano MD CHEMISTRY & BLOOD GAS ORDERABLES [facility] [address] [place] [id number] * (ABNORMAL) T4 FREE (07/16/2017 16:25 EDT) T4, Free 0.7(L) 0.8 - 2.2 ng/dl 07/16/2017 20:01 EDT [facility] Blood specimen (specimen) BLOOD SPECIMEN / Unknown 07/16/2017 16:25 EDT 07/16/2017 18:52 EDT Arpan Solorzano MD CHEMISTRY & BLOOD GAS ORDERABLES Performing Organization Address City/[facility] Co de Phone Number [facility] [address] [place] [address] * TSH (07/16/2017 16:25 EDT) TSH 1.23 0.47 - 4.68 uIU/ml 07/16/2017 20:15 EDT [facility] Blood specimen (specimen) BLOOD SPECIMEN / Unknown 07/16/2017 16:25 EDT 07/16/2017 18:52 EDT Arpan Solorzano MD CHEMISTRY & BLOOD GAS ORDERABLES Performing Organization Address [facility] Co de Phone Number [facility] [address] [place] [address] documented in this encounter Visit Diagnoses Diagnosis Thyroid nodule- Primary Nontoxic uninodular goiter documented in this encounter Care Teams Community Health Advisor Relationship Specialty Start Date End Date Lee Anne, SKIDDER DRIVER [address] [place] [address] [address] [place] [address] PCP - General 07/16/17 documented as of this encounter
--- OUTSIDE RECORDS SUMMARY | 2024-03-09 08:08 | XMS_ITS | Encounter Summary ---
Author Organization [facility] Address [address] [place] [address] Care Team Providers Care Firer Boiler Name Role Phone OmidElizabethjessica Barajas APRN Primary Care Provider [phone] Encounter Details Date Type Department Care Team (Late st Contact Info) Description 07/17/2017 Orders Only [facility] Endocrinology - [address] [phone] Arpan Truong MD [address] [place] [address] Abnormal serum thyroxine (T4) level (Primary Dx) Social History Tobacco Use Types [...] Procedure Name Priority Date/Time Associated Diagnosis Comments OUTPATIENT ADD-ON Routine 07/17/2017 17: 08 EDT Abnormal serum thyroxine (T4) level documented in this encounter Results * OUTPATIENT ADD-ON (07/17/2017 17:08 EDT) Tests to be added TOTAL T4, TOTAL T3, FREE T3 07/17/2017 17:08 EDT [facility] Diagnosis Code NA 07/17/2017 17:12 EDT [facility] Number for problems HARDY RAMSEY 07/17/2017 17:08 EDT [facility] Accession number [id number] 07/17/2017 17:12 EDT [facility] Acknowledge ABP Done 8 17:12 EDT [facility] BLOOD SPECIMEN / Unknown 07/17/2017 17:08 EDT 07/17/2017 17:12 EDT Arpan Solorzano MD HEMATOLOGY & PF4 ORDERABLES [facility] [address] [place] [address] documented in this encounter Visit Diagnoses Diagnosis Abnormal serum thyroxine (T4) level- Primary documented in this encounter Care Teams Firer Boiler Relationship Specialty Start Date End Date Lee Anne APRN [address] [place] [address] [address] [place] [address] PCP - General 07/16/17 documented as of this encounter
--- OUTSIDE RECORDS SUMMARY | 2024-03-09 08:08 | XMS_ITS | Encounter Summary ---
Author Organization [facility] Address [address] [place] [address] Care Team Providers Care Fixture Fabricator Repairer Name Role Phone Unknown, Provider Primary Care Provider Unava ilable Encounter Details Date Type Department Care Team (Late st Contact Info) Description 07/09/2017 Results Only Imaging [facility] [phone] Unknown, Provider, Social History Tobacco Use Types Packs/Day Years Used Date Smoking Tobacco: Never Assessed Sex and Gender Information Value Date Recorded Sex Assigned at Not on file Gender Identity Not on file Sexual Orientation Not on file documented as of this encounter Plan of Treatment Pending Results Name Type Priority Associated Diagnoses Date /Time OUTSIDE IMAGES - US NEURO Imaging 07/09/2017 11:22 EST OUTSIDE IMAGES - US NEURO Imaging 07/09/2017 11:22 EST documented as of this encounter Visit Diagnoses Not on filedocumented in this encounter Care Teams Fixture Fabricator Repairer Relationship Specialty Start Date End Date Unknown, Provider, PCP - General 11/27/13 07/15/17 documented as of this encounter
[2024-03-09 15:35] LABS: HCT 44.6 % (36.0-46.0); HGB 14.5 g/dL (11.2-15.7); MCH 29.7 pg (27.0-33.0); MCHC 32.5 % (32.0-36.0); MCV 91 fL (80-95); MPV 11.7 fL (8.0-11.0); Platelet Count 242 10^3/uL (130-400); RBC 4.89 10^6/uL (3.93-5.22); RDW 12.5 % (11.7-14.6); RDW-SD 41.3 fL; WBC 8.75 10^3/uL (4.4-10.8)
[2024-03-09 15:59] LABS: ALT 41 U/L (14-59); AST 24 U/L (15-37); Albumin 3.4 g/dL (3.4-5.0); Alkaline Phosphatase 91 U/L (46-116); Anion Gap 5.9 mmol/L (3-11); BUN 17 mg/dL (7-18); CO2 28.1 mmol/L (21.0-32.0); CREATININE 0.8 mg/dL (0.55-1.02); Calcium 8.8 mg/dL (8.5-10.1); Calculated LDL 89 mg/dL (<100); Chloride 110 mmol/L (98-107); Cholesterol 150 mg/dL (<200); Estimated GFR 82.23 (mL/min/1.73m2); Glucose 119 mg/dL (74-106); HDL Cholesterol 38 mg/dL (40-60); Potassium 4.3 mmol/L (3.5-5.1); Sodium 144 mmol/L (136-145); TSH 2.13 uIU/mL (0.36-3.74); Triglyceride 118 mg/dL (<150)
[2024-03-09 16:21] LABS: Hemoglobin A1C 5.6 % (<5.7)
== END 2024-03-09 07:58 | disposition home or self-care (01) ==
LOC: NCHCN 07:57
PROVIDERS: PCP Internal Medicine; Visit Provider Internal Medicine
DX: E03.9 Hypothyroidism, unspecified (principal); E78.2 Mixed hyperlipidemia; R73.03 Prediabetes
CPT/HCPCS: 80053; 80061; 85027; 83036; 84443

== ENCOUNTER 2024-03-13 18:28 | Outpatient (REF) | payer BC, SELFPAY ==
--- OUTSIDE RECORDS SUMMARY | 2024-03-13 18:34 | XMS_ITS ---
Author Organization Unknown Address [address] [place] [phone] Phone Care Team Providers Care Sales Representative Publications Name Role Phone EV LUND Attending Unavailable AYESHA Houston Primary Unavailable Social History Type Status Start Date End Date Code Code Syst em Smoking History Former smoker 0517966 SNOMED CT Sex Female Medications Medication Start Date End Date Route Frequency Dose Code Code System Medication Instructions Home Meds Antivert/25 25MG Oral Tablet 03/18/2021 05/04/2021 ORAL NEEDED EVERY 8 HOURS 1 TABLET 510035 RxNorm TAKE 1 TABLET ORAL NEEDED EVERY 8 HOURS No alcohol/driving with this Tamsulosin HCl 0.4MG Oral Capsule 05/04/2021 05/29/2022 ORAL DAILY 1 CAPSULE 448208 RxNorm TAKE 1 CAPSULE ORAL DAILY Hospital [...] Status Co de Code System OPIOID Active 349922529 SNOMED-CT Plan of Treatment Pre-Op Covid-19 Testing 03/30/2020 MRI UPPER EXT JOINT W/O CONTRAST 2021 LAB DRAW 15MIN 11/04/2021 US CAROTID BILAT 11/04/2021 LAB DRAW 15MIN 05/06/2021 Encounters Encounter Diagnosis Start Date Code Code Sys tem 04/28/2021 [id number] SNOMED-CT Personal Care Team Section Performer Name Performer Role Active Date Inactive Da te
--- OUTSIDE RECORDS SUMMARY | 2024-03-13 18:34 | XMS_ITS ---
Author Organization Unknown Address [address] [place] [phone] Phone Care Team Providers Care Buggy Ladle Tender Name Role Phone JEFF Tamez Attending Unavailable AYESHA Houston Primary Unavailable Social History Type Status Start Date End Date Code Code Syst em Smoking History Former smoker 8568252 SNOMED CT Sex Female Medications Medication Start Date End Date Route Frequency Dose Code Code System Medication Instructions Home Meds Antivert/25 25MG Oral Tablet 03/18/2021 05/04/2021 ORAL NEEDED EVERY 8 HOURS 1 TABLET 263250 RxNorm TAKE 1 TABLET ORAL NEEDED EVERY 8 HOURS No alcohol/driving with this Tamsulosin HCl 0.4MG Oral Capsule 05/04/2021 05/29/2022 ORAL DAILY 1 CAPSULE 915496 RxNorm TAKE 1 CAPSULE ORAL DAILY Hospital [...] Status Co de Code System OPIOID Active 450845068 SNOMED-CT Plan of Treatment Pre-Op Covid-19 Testing 03/30/2020 MRI UPPER EXT JOINT W/O CONTRAST 2021 LAB DRAW 15MIN 11/04/2021 US CAROTID BILAT 11/04/2021 LAB DRAW 15MIN 05/06/2021 Personal Care Team Section Performer Name Performer Role Active Date Inactive Da te
--- OUTSIDE RECORDS SUMMARY | 2024-03-13 18:34 | XMS_ITS ---
Author Organization Unknown Address [address] [place] [phone] Phone Care Team Providers Care Manager Chemical Name Role Phone AYESHA Houston Attending Unavailable Results LACTIC ACID - Collect Date/T keegan: 05/06/2021 12:30 [facility] ID: [id number] [address] [place] [address], [address] LOINC: Test Value Unit Reference Range Code Code System Flag LACTIC ACID 1.8 mmol/L L=0.7 H=2.1 03881-8 LOINC COMPREHENSIVE METABOLIC PANE L (CMP) - Collect Date/Time: 05/06/2021 12:12 [facility] ID: [id number] [address] [place] [address], [address] LOINC: 29006-2 Test Value Unit Reference Range Code Code System Flag GLUCOSE 133 mg/dL L=70 H=116 2345-7 LOINC H BUN 9 mg/dL L=6 H=25 3094-0 LOINC CREATININE 0.81 mg/dL L=0.51 H=0.95 2160-0 LOINC SODIUM SERUM 138 mmol/L L=136 H=145 2951-2 LOINC POTASSIUM SERUM 3.8 mmol/L L=3.4 H=5.2 2823-3 LOINC CHLORIDE SERUM 103 mmol/L L=96 H=110 2075-0 LOINC CARBON DIOXIDE (CO2) 27 mmol/L L=22 H=34 2028-9 LOINC ANION GAP 7.8 mmol/L 01538-6 LOINC CALCIUM SERUM 8.5 mg/dL L=8.2 H=10.2 94699-5 LOINC BILIRUBIN TOTAL 0.3 mg/dL L=0.0 H=1.3 1975-2 LOINC ALK. PHOS. 97 U/L L=46 H=116 6768-6 LOINC SGOT (AST) 35 U/L L=15 H=37 1920-8 LOINC SGPT (ALT) 66 U/L L=12 H=78 1742-6 LOINC TOTAL PROTEIN 6.0 gm/dL L=6.0 H=8.0 2885-2 LOINC ALBUMIN 2.6 gm/dL L=3.4 H=5.0 1751-7 LOINC L AGE 61 years eGFR (non-Afr.Amer.) 72 mL/min 31596-6 LOINC eGFR (Afr-Nigerian) 87 mL/min 25236-5 LOINC SED RATE* - Collect Date/Mario e: 05/06/2021 12:12 [facility] ID: [id number] [address] [place] [address], [address] LOINC: 4537-7 Test Value Unit Reference Range Code Code System Flag SED. RATE 26 mm/hr L=0 H=30 4537-7 LOINC HEMOGLOBIN A1C* - Collect Da te/Time: 05/06/2021 12:12 [facility] ID: [id number] [address] [place] [address], [address] LOINC: 83823-3 Test Value Unit Reference Range Code Code System Flag Hgb A1c 5.7 % L=3.8 H=5.7 4548-4 LOINC MEAN BLOOD GLUCOSE 104 mg/dL 83763-7 LOINC C REACTIVE PROTEIN HIGH SENS ITIVITY* - Collect Date/Time: 05/06/2021 12:12 [facility] ID: [id number] [address] [place] [address], [address] LOINC: 23208-9 Test Value Unit Reference Range Code Code System Flag CRP-HIGH SENS. 59.36 mg/L L=0.00 H=3.00 47236-3 LOINC H CRP-HIGH SENS 5.94 mg/dL L=0.00 H=0.30 36615-5 LOINC H CPK SERUM TOTAL* - Collect D ate/Time: 05/06/2021 12:12 [facility] ID: [id number] [address] [place], [place], [address] LOINC: 2157-6 Test Value Unit Reference Range Code Code System Flag CPK 75 U/L L=0 H=150 2157-6 LOINC Specimen seq. Random Social History Type Status Start Date End Date Code Code Syst em Smoking History Former smoker 0405372 SNOMED CT Sex Female Medications Medication Start Date End Date Route Frequency Dose Code Code System Medication Instructions Home Meds Tamsulosin HCl 0.4MG Oral Capsule 05/04/2021 05/29/2022 ORAL DAILY 1 CAPSULE 429322 RxNorm TAKE 1 CAPSULE ORAL DAILY Hospital [...] Status Co de Code System OPIOID Active 660678601 SNOMED-CT Plan of Treatment Pre-Op Covid-19 Testing 03/30/2020 MRI UPPER EXT JOINT W/O CONTRAST 2021 LAB DRAW 15MIN 11/04/2021 US CAROTID BILAT 11/04/2021 LAB DRAW 15MIN 05/06/2021 Encounters Encounter Diagnosis Start Date Code Code Sys tem Muscle pain 05/06/2021 28569514 SNOMED-CT Personal Care Team Section Performer Name Performer Role Active Date Inactive Da te
--- OUTSIDE RECORDS SUMMARY | 2024-03-13 18:34 | XMS_ITS ---
Author Organization Unknown Address [address] [place] [phone] Phone Care Team Providers Care Forepart Reducer Name Role Phone AYESHA Houston Attending Unavailable Results CBC W/ DIFFERENTIAL* - Colle ct Date/Time: 05/21/2021 15:40 [facility] ID: [id number] [address] [place], [place], [address] LOINC: 26333-1 Test Value Unit Reference Range Code Code System Flag WBC 10.39 th/cmm L=5.00 H=10.00 6690-2 LOINC H NEUT % 50.5 % L=40.0 H=80.0 LYMPH % 33.5 % L=10.0 H=50.0 MONO % 7.8 % L=2.0 H=12.0 72215-3 LOINC EOS % 6.4 % L=0.0 H=8.0 BASO % 1.0 % L=0.0 H=3.0 IG % 0.8 % L=0.0 H=1.1 2514-8 LOINC NRBC % 0.0 % L=0.0 H=0.0 97391-6 LOINC NEUT abs count 5.3 th/cmm L=1.6 H=8.4 751-8 LOINC LYMPH abs count 3.5 th/cmm L=1.5 H=4.0 731-0 LOINC MONO abs count 0.8 th/cmm L=0.2 H=1.0 742-7 LOINC EOS abs count 0.7 th/cmm L=0.0 H=0.5 711-2 LOINC H BASO abs count 0.1 th/cmm L=0.0 H=0.2 704-7 LOINC IG abs count 0.1 th/cmm L=0.0 H=0.1 23866-0 LOINC NRBC abs count 0.0 mil/cmm L=0.0 H=0.0 28985-0 LOINC RBC 4.95 mil/cmm L=3.90 H=5.40 789-8 LOINC HEMOGLOBIN 15.0 gm/dL L=12.0 H=16.0 718-7 LOINC HEMATOCRIT 46 % L=37 H=47 4544-3 LOINC MCV 93 fL L=82 H=92 787-2 LOINC H MCH 30.3 pg L=27.0 H=31.0 785-6 LOINC MCHC 32.7 % L=32.0 H=36.0 786-4 LOINC RDW-SD 44.2 fL L=39.0 H=49.0 788-0 LOINC PLATELET COUNT 341 th/cmm L=150 H=450 777-3 LOINC Social History Type Status Start Date End Date Code Code Syst em Smoking History Former smoker 2016281 SNOMED CT Sex Female Medications Medication Start Date End Date Route Frequency Dose Code Code System Medication Instructions Home Meds Tamsulosin HCl 0.4MG Oral Capsule 05/04/2021 05/29/2022 ORAL DAILY 1 CAPSULE 039959 RxNorm TAKE 1 CAPSULE ORAL DAILY Hospital [...] Status Co de Code System OPIOID Active 923956375 SNOMED-CT Plan of Treatment Pre-Op Covid-19 Testing 03/30/2020 MRI UPPER EXT JOINT W/O CONTRAST 2021 LAB DRAW 15MIN 11/04/2021 US CAROTID BILAT 11/04/2021 LAB DRAW 15MIN 05/06/2021 Encounters Encounter Diagnosis Start Date Code Code Sys tem Leukocytosis 05/21/2021 761795767 SNOMED-CT Personal Care Team Section Performer Name Performer Role Active Date Inactive Da te
--- OUTSIDE RECORDS SUMMARY | 2024-03-13 18:34 | XMS_ITS ---
Author Organization Unknown Address [address] [place] [phone] Phone Care Team Providers Care Hull Molder Name Role Phone CHERYL HOPE Registered Nurse Unavailable VIRGEN Isaacs Attending Unavailable ZULEIMA An [facility] Unavailable AYESHA Houston Primary Unavailable UNLISTED PROVIDER - REQUESTED Xhandoff Un available Results LACTIC ACID - Collect Date/T keegan: 05/04/2021 14:23 [facility] ID: [id number] [address] [place] [address], [address] LOINC: Test Value Unit Reference Range Code Code System Flag LACTIC ACID 2.4 mmol/L L=0.7 H=2.1 61051-3 LOINC H [facility] COLLINS JANSENX* - Eva ect Date/Time: 05/04/2021 13:01 [facility] ID: [id number] [address] [place] [address], [id number] LOINC: 23307-2 Test Value Unit Reference Range Code Code System Flag Tier- INPATIENT/ED SARS COV2 RNA: NEGATIVE REFERENCE RAN GE: NEGAT 18902-5 LOINC CULT URINE CULTURE* - Collec t Date/Time: 05/04/2021 12:37 [facility] ID: [id number] [address] [place] [address], [id number] LOINC: 630-4 Test Value Unit Reference Range Code Code System Flag COLLECTION MODE: STRAIGHT CATH C REACTIVE PROTEIN HIGH SENS ITIVITY* - Collect Date/Time: 05/04/2021 12:37 [facility] ID: [id number] [address] [place], [place], [address] LOINC: 01682-5 Test Value Unit Reference Range Code Code System Flag CRP-HIGH SENS. 91.74 mg/L L=0.00 H=3.00 25956-6 LOINC H CRP-HIGH SENS 9.17 mg/dL L=0.00 H=0.30 52780-5 LOINC H CBC W/ DIFFERENTIAL* - Colle ct Date/Time: 05/04/2021 12:37 [facility] ID: [id number] [address] [place], [place], [address] LOINC: 78860-6 Test Value Unit Reference Range Code Code System Flag WBC 10.91 th/cmm L=5.00 H=10.00 6690-2 LOINC H NEUT % 85.3 % L=40.0 H=80.0 H LYMPH % 4.2 % L=10.0 H=50.0 L MONO % 5.8 % L=2.0 H=12.0 94964-5 LOINC EOS % 4.0 % L=0.0 H=8.0 BASO % 0.3 % L=0.0 H=3.0 IG % 0.4 % L=0.0 H=1.1 2514-8 LOINC NRBC % 0.0 % L=0.0 H=0.0 75090-2 LOINC NEUT abs count 9.3 th/cmm L=1.6 H=8.4 751-8 LOINC H LYMPH abs count 0.5 th/cmm L=1.5 H=4.0 731-0 LOINC L MONO abs count 0.6 th/cmm L=0.2 H=1.0 742-7 LOINC EOS abs count 0.4 th/cmm L=0.0 H=0.5 711-2 LOINC BASO abs count 0.0 th/cmm L=0.0 H=0.2 704-7 LOINC IG abs count 0.0 th/cmm L=0.0 H=0.1 36486-2 LOINC NRBC abs count 0.0 mil/cmm L=0.0 H=0.0 11515-2 LOINC RBC 5.11 mil/cmm L=3.90 H=5.40 789-8 [...] L (CMP) - Collect Date/Time: 05/04/2021 12:37 [facility] ID: [id number] [address] [place], [place], [address] LOINC: 57948-0 Test Value Unit Reference Range Code Code [...] H=34 2028-9 LOINC ANION GAP 5.3 mmol/L 73302-3 LOINC CALCIUM SERUM 8.6 mg/dL L=8.2 H=10.2 11691-3 LOINC BILIRUBIN TOTAL 0.8 mg/dL L=0.0 H=1.3 1975-2 LOINC ALK. PHOS. 94 U/L L=46 H=116 6768-6 LOINC SGOT (AST) 35 U/L L=15 H=37 1920-8 LOINC SGPT (ALT) 51 U/L L=12 H=78 1742-6 LOINC TOTAL PROTEIN 6.8 gm/dL L=6.0 H=8.0 2885-2 LOINC ALBUMIN 3.1 gm/dL L=3.4 H=5.0 1751-7 LOINC L AGE 61 years eGFR (non-Afr.Amer.) 72 mL/min 84437-2 LOINC eGFR (Afr-Ukrainian) 87 mL/min 63986-6 LOINC URINALYSIS WITH REFLEX CULT IF POSITIVE* - Collect Date/Time: 05/04/2021 12:37 [facility] ID: [id number] [address] [place], [place], [address] LOINC: 25240-1 Test Value Unit Reference Range Code Code System Flag COLLECTION MODE: STRAIGHT CATH Color ORANGE yellow 5778-6 LOINC A Appearance CLEAR clear 5767-9 LOINC Glucose urine DNR negative mg/dl 84405-7 LOINC Bilirubin DNR negative 5770-3 LOINC Ketones DNR negative mg/dl 2514-8 LOINC Spec gravity DNR 1.003 - 1.030 5811-5 LOINC pH urine DNR 5.0 - 7.0 2756-5 LOINC Protein DNR negative mg/dl 90424-4 LOINC Urobilinogen DNR <or= 1 EU/dl 58516-0 LOINC Nitrite. DNR negative 5802-4 LOINC Blood DNR negative 5794-3 LOINC Leukocytes. DNR negative MICROSCOPIC INDICATED WBCs. 0-5 0-5 / hpf 32460-2 LOINC RBCs 0-5 0-5 / hpf 52172-2 LOINC Epith cells 0-5 0-5 / hpf 37820-7 LOINC Cell types squamous Crystals none none Bacteria minimal none Mucus present none 8247-9 LOINC Casts none none /lpf 68290-1 LOINC Other 13735-[address] ABD + PELV W CONTRAST [...] this could lie within the urinary bladder. CONTRACTOR BUYER structures appear intact. CONCLUSION: 1. Nonobstructing left upper pole renal calculus. 2. Nonobstructing stone which lies either in the intramural portion of the distal left ureter or within the urinary bladder. No evidence of left hydroureter or hydronephrosis. Dictated by: HELEN BURR RADIOLOGIST Transcribed by: KRYSTA 05/04/21/16:26 D Tuesday, May 04, 2021 2:54:48 PM [id number] Electronically Reviewed and Signed By: ASHELY BURR RADIOLOGIST 05/06/21 08:14 Copy for: [facility] INFORMATION MGMT DISCHARGED XR EXAM ABDOMEN 1 [...] by: JOSE GUADALUPE CORRALES MD Transcribed by: [facility] 05/05/21/08:37 D 05/05/2021 08:01:55 [id number] Electronically Reviewed and Signed By: LUCIA CORRALES MD 05/05/21 12:32 Copy for: [facility] INFORMATION MGMT DISCHARGED Social History Type Status Start Date End Date Code Code Syst em Smoking History Former smoker 6662564 SNOMED CT Sex Female Vital Signs Vital Sign Value Unit [place] Value [place] Unit Date/Time Recent/Initial? Code Code System Body Mass Index 32.95 kg/m2 05/04/2021 12:24 Initial 25220 -5 LOINC Systolic Blood Pressure 121 mm[Hg] [...] Saturation 98 % 2021 16:16 Most Recent 27748 -5 LOINC O2 Saturation 100 % 2021 12:24 Initial 78444 -5 LOINC Pulse 86.0 /min 05/04/2021 16:16 Most Recent 8867- 4 LOINC Pulse 129.0 /min 05/04/2021 12:24 Initial 8867- 4 LOINC Respiration 16 /min 05/04/19 16:16 Most Recent 9279- 1 LOINC Respiration 20 /min 05/04/19 12:24 Initial 9279- 1 LOINC Temperature 39.1 Valeria 102.4 F 05/04/19 12:24 Initial 8310- 5 LOINC Weight 89.81 kg 198.00 lbs 05/04/2021 12:24 Initial 64712 -7 [facility] Medications Medication Start Date End Date Route Frequency Dose Code Code System Medication Instructions Home Meds Antivert/25 25MG Oral Tablet 03/18/2021 05/04/2021 ORAL NEEDED EVERY 8 HOURS 1 TABLET 666898 RxNorm TAKE 1 TABLET ORAL NEEDED EVERY 8 HOURS No alcohol/driving with this Tamsulosin HCl 0.4MG Oral Capsule 05/04/2021 05/29/2022 ORAL DAILY 1 CAPSULE 683190 RxNorm TAKE 1 CAPSULE ORAL DAILY Hospital [...] Status Co de Code System OPIOID Active 148132050 SNOMED-CT Plan of Treatment Pre-Op Covid-19 Testing 03/30/2020 MRI UPPER EXT JOINT W/O CONTRAST 2021 LAB DRAW 15MIN 11/04/2021 US CAROTID BILAT 11/04/2021 LAB DRAW 15MIN 05/06/2021 Encounters Encounter Diagnosis Start Date Code Code Sys tem Calculus of ureter 05/04/2021 SNOMED-CT Personal Care Team Section Performer Name Performer Role Active Date Inactive Da te
--- OUTSIDE RECORDS SUMMARY | 2024-03-13 18:35 | XMS_ITS ---
Author Organization Unknown Address [address] [place] [address] [phone] Phone Care Team Providers Care Surgical Services Coordinator Name Role Phone EV LUND Attending Unavailable AYESHA Houston Primary Unavailable Social History Type Status Start Date End Date Code Code Syst em Smoking History Former smoker 9591551 SNOMED CT Sex Female Medications Medication Start Date End Date Route Frequency Dose Code Code System Medication Instructions Home Meds Tamsulosin HCl 0.4MG Oral Capsule 05/04/2021 05/29/2022 ORAL DAILY 1 CAPSULE 735013 RxNorm TAKE 1 CAPSULE ORAL DAILY Hospital [...] Status Co de Code System OPIOID Active 581163609 SNOMED-CT Plan of Treatment Pre-Op Covid-19 Testing 03/30/2020 MRI UPPER EXT JOINT W/O CONTRAST 2021 LAB DRAW 15MIN 11/04/2021 US CAROTID BILAT 11/04/2021 LAB DRAW 15MIN 05/06/2021 Encounters Encounter Diagnosis Start Date Code Code Sys tem Pain in right shoulder 05/21/2021 SNOME D-CT Personal Care Team Section Performer Name Performer Role Active Date Inactive Da te
--- OUTSIDE RECORDS SUMMARY | 2024-03-13 18:35 | XMS_ITS ---
Author Organization Unknown Address [address] [place] [address] [phone] Phone Care Team Providers Care Vp Product Name Role Phone EV LUND Attending Unavailable AYESHA Houston Primary Unavailable Results MR UPPER EXT ANY JOINT RT WO CONTRAST - Completed: 03/05/2022 15:32 LOINC: [facility] [place], [place] [address] PACS MODEL MAKER FIBERGL[employer] REPORT Patient Name: MARIETTA DAVIS MRN: Sex: : Age: F 1960 62 Account: Accession: Admit: StayType: [id number] 03/05/2022 O/P Ordered: Order ID: Submitted: Ordering Provider: 03/05/2022 15:04 [id number] ASHELY CARMONA Completed: Technologist: Resulted: 03/05/2022 15:32 [...] Code Syst em Smoking History Former smoker 3182178 SNOMED CT Sex Female Medications Medication Start Date End Date Route Frequency Dose Code Code System Medication Instructions Home Meds Tamsulosin HCl 0.4MG Oral Capsule 05/04/2021 05/29/2022 ORAL DAILY 1 CAPSULE 094765 RxNorm TAKE 1 CAPSULE ORAL DAILY Hospital [...] Status Co de Code System OPIOID Active 632697320 SNOMED-CT Plan of Treatment Pre-Op Covid-19 Testing [...]
--- OUTSIDE RECORDS SUMMARY | 2024-03-13 18:35 | XMS_ITS ---
Author Organization Unknown Address [address] [place] [address] [phone] Phone Care Team Providers Care Adjunct Phlebotomy Instructor Name Role Phone EV LUND Attending Unavailable AYESHA Houston Primary Unavailable Results XR SHOULDER 2V OR MORE RT* - Completed: 02/20/2022 14:24 [facility]: [place], [place] [address] PACS PUNCHER AND FASTENER REPORT Patient Name: MARIETTA DAVIS MRN: Sex: : Age: F 1960 62 Account: Accession: Admit: StayType: [id number] 02/20/2022 CLINIC Ordered: Order ID: Entered Order: Ordering Provider: 02/20/2022 14:19 [id number] ASHELY NIELSEN Completed: Tech Completed: Resulted DTTM: [...] Code Syst em Smoking History Former smoker [id number] SNOMED CT Sex Female Medications Medication Start Date End Date Route Frequency Dose Code Code System Medication Instructions Home Meds Tamsulosin HCl 0.4MG Oral Capsule 05/04/2021 05/29/2022 ORAL DAILY 1 CAPSULE 480056 RxNorm TAKE 1 CAPSULE ORAL DAILY Hospital [...] Status Co de Code System OPIOID Active 927834319 SNOMED-CT Plan of Treatment Pre-Op Covid-19 Testing 03/30/2020 MRI UPPER EXT JOINT W/O CONTRAST 2021 LAB DRAW 15MIN 11/04/2021 US CAROTID BILAT 11/04/2021 LAB DRAW 15MIN 05/06/2021 Encounters Encounter Diagnosis Start Date Code Code Sys tem 02/20/2022 [id number] SNOMED-CT Personal Care Team Section Performer Name Performer Role Active Date Inactive Da te
--- OUTSIDE RECORDS SUMMARY | 2024-03-13 18:35 | XMS_ITS ---
Author Organization Unknown Address [address] [place] [address] [phone] Phone Care Team Providers Care Gas Meter Checker Name Role Phone AYESHA Houston Attending Unavailable Results C REACTIVE PROTEIN HIGH SENS ITIVITY* - Collect Date/Time: 11/04/2021 14:44 [facility] ID: [id number] [address] [place] [address], [address] LOINC: 32477-1 Test Value Unit Reference Range Code Code System Flag CRP-HIGH SENS. 1.19 mg/L L=0.00 H=3.00 17655-7 LOINC CRP-HIGH SENS 0.12 mg/dL L=0.00 H=0.30 74902-5 LOINC LIPID PANEL* - Collect Date/ Time: 11/04/2021 14:44 [facility] ID: [id number] [address] [place] [address], [id number] LOINC: Test Value Unit Reference Range Code Code System Flag FASTING STATUS: FASTING CHOLESTEROL 117 mg/dL L=0 H=200 2093-3 LOINC TRIGLYCERIDES 107 mg/dL L=57 H=256 2571-8 LOINC HDL 40 mg/dL L=38 H=92 2085-9 LOINC non-HDL-C 77 mg/dL L=0 H=160 50431-1 LOINC LDL (CALC) 56 mg/dL L=0 H=130 71898-0 LOINC % HDL 34.2 % Chol/HDL Ratio 2.9 L=0.0 H=4.4 9830-1 LOINC CHD Relative Risk 0.7 x Avg L=0.0 H=1.0 LDL/HDL Ratio 1.4 L=0.0 H=3.2 87161-0 LOINC CHD Relative Risk. 0.4 x Avg L=0.0 H=1.0 LIPOPROTEIN A (LP a) - [facility] ct Date/Time: 11/04/2021 14:44 [facility] ID: [id number] [address] [place], [place], [id number] LOINC: 68237-5 Test Value Unit Reference Range Code Code System Flag Lipoprotein(a), S 104 <75 97551-5 LOINC H CBC W/ DIFFERENTIAL* - [facility] ct Date/Time: 11/04/2021 14:44 [facility] ID: [id number] [address] [place] [address], [address] LOINC: 66433-7 Test Value Unit Reference Range Code Code System Flag WBC 6.58 th/cmm L=5.00 H=10.00 6690-2 LOINC NEUT % 45.1 % L=40.0 H=80.0 LYMPH % 45.6 % L=10.0 H=50.0 MONO % 7.0 % L=2.0 H=12.0 70976-3 LOINC EOS % 1.8 % L=0.0 H=8.0 BASO % 0.3 % L=0.0 H=3.0 IG % 0.2 % L=0.0 H=1.1 2514-8 LOINC NRBC % 0.0 % L=0.0 H=0.0 42350-4 LOINC NEUT abs count 3.0 th/cmm L=1.6 H=8.4 751-8 LOINC LYMPH abs count 3.0 th/cmm L=1.5 H=4.0 731-0 LOINC MONO abs count 0.5 th/cmm L=0.2 H=1.0 742-7 LOINC EOS abs count 0.1 th/cmm L=0.0 H=0.5 711-2 LOINC BASO abs count 0.0 th/cmm L=0.0 H=0.2 704-7 LOINC IG abs count 0.0 th/cmm L=0.0 H=0.1 19906-5 LOINC NRBC abs count 0.0 mil/cmm L=0.0 H=0.0 43267-8 LOINC RBC 4.72 mil/cmm L=3.90 H=5.40 789-8 [...] HORM ONE* - Collect Date/Time: 11/04/2021 14:44 [facility] ID: [id number] [address] [place] [address], [address] LOINC: 3014-8 Test Value Unit Reference Range Code Code System Flag TSH 1.970 uIU/mL L=0.360 H=3.740 3014-8 LOINC COMPREHENSIVE METABOLIC PANE L (CMP) - Collect Date/Time: 11/04/2021 14:44 [facility] ID: [id number] [address] [place] [address], [address] LOINC: 76807-0 Test Value Unit Reference Range Code Code [...] H=34 2028-9 LOINC ANION GAP 7.5 mmol/L 99568-9 LOINC CALCIUM SERUM 8.6 mg/dL L=8.2 H=10.2 45721-2 LOINC BILIRUBIN TOTAL 0.6 mg/dL L=0.0 H=1.3 1975-2 LOINC ALK. PHOS. 69 U/L L=46 H=116 6768-6 LOINC SGOT (AST) 12 U/L L=15 H=37 1920-8 LOINC L SGPT (ALT) 23 U/L L=12 H=78 1742-6 LOINC TOTAL PROTEIN 7.0 gm/dL L=6.0 H=8.0 2885-2 LOINC ALBUMIN 3.7 gm/dL L=3.4 H=5.0 1751-7 LOINC AGE 61 years eGFR (non-Afr.Amer.) 79 mL/min 39096-5 LOINC eGFR (Afr-[place] Citizen) 95 mL/min 02216-9 LOINC US CAROTID BILATERAL - Compl eted: [...] D Thursday, November 04, 2021 3:42:21 PM 365078 [id number] Electronically Reviewed and Signed By: FRANCISCO JAVIER PEÑALOZA MD 11/06/21 09:37 Copy for: AYESHA Houston via modem Copy for: [facility] HEALTH INFORMATION MGMT Social History Type Status Start Date End Date Code Code Syst em Smoking History Former smoker 3824844 SNOMED CT Sex Female Medications Medication Start Date End Date Route Frequency Dose Code Code System Medication Instructions Home Meds Tamsulosin HCl 0.4MG Oral Capsule 05/04/2021 05/29/2022 ORAL DAILY 1 CAPSULE 239906 RxNorm TAKE 1 CAPSULE ORAL DAILY Hospital [...] Status Co de Code System OPIOID Active 872014601 SNOMED-CT Plan of Treatment Pre-Op Covid-19 Testing [...]
--- OUTSIDE RECORDS SUMMARY | 2024-03-13 18:36 | XMS_ITS ---
Author Organization Unknown Address [address] [place] [phone] Phone Care Team Providers Care Cad Technician Name Role Phone ARY PENG Manley Attending Unavailable ZACKERY DUNLAP Primary Unavailable Results BASIC METABOLIC PANEL (BMP) - Collect Date/Time: 05/25/2022 16:29 [facility] ID: [id number] [address] [place], [place], [address] LOINC: 65071-1 Test Value Unit Reference Range Code Code [...] H=34 2028-9 LOINC ANION GAP 8.1 mmol/L 29191-5 LOINC CALCIUM SERUM 9.0 mg/dL L=8.2 H=10.2 14927-8 LOINC AGE 62 years eGFR (non-Afr.Amer.) 83 mL/min 75233-3 LOINC eGFR (Afr-Dominican) 101 mL/min 69572-3 LOINC CBC W/ DIFFERENTIAL* - Colle ct Date/Time: 05/25/2022 16:29 [facility] ID: [id number] [address] [facility], [place], [place], [address] LOINC: 57690-4 Test Value Unit Reference Range Code Code System Flag WBC 7.50 th/cmm L=5.00 H=10.00 6690-2 LOINC NEUT % 58.4 % L=40.0 H=80.0 LYMPH % 32.3 % L=10.0 H=50.0 MONO % 7.6 % L=2.0 H=12.0 99536-6 LOINC EOS % 0.9 % L=0.0 H=8.0 BASO % 0.4 % L=0.0 H=3.0 IG % 0.4 % L=0.0 H=1.1 2514-8 LOINC NRBC % 0.0 % L=0.0 H=0.0 50458-3 LOINC NEUT abs count 4.4 th/cmm L=1.6 H=8.4 751-8 LOINC LYMPH abs count 2.4 th/cmm L=1.5 H=4.0 731-0 LOINC MONO abs count 0.6 th/cmm L=0.2 H=1.0 742-7 LOINC EOS abs count 0.1 th/cmm L=0.0 H=0.5 711-2 LOINC BASO abs count 0.0 th/cmm L=0.0 H=0.2 704-7 LOINC IG abs count 0.0 th/cmm L=0.0 H=0.1 47803-9 LOINC NRBC abs count 0.0 mil/cmm L=0.0 H=0.0 95270-7 LOINC RBC 4.95 mil/cmm L=3.90 H=5.40 789-8 [...] Code Syst em Smoking History Former smoker 9449327 SNOMED CT Sex Female Medications Medication Start Date End Date Route Frequency Dose Code Code System Medication Instructions Home Meds Tamsulosin HCl 0.4MG Oral Capsule 05/04/2021 05/29/2022 ORAL DAILY 1 CAPSULE 329195 RxNorm TAKE 1 CAPSULE ORAL DAILY Hospital [...] Status Co de Code System OPIOID Active 770135793 SNOMED-CT Plan of Treatment Pre-Op Covid-19 Testing [...]
--- OUTSIDE RECORDS SUMMARY | 2024-03-13 18:36 | XMS_ITS ---
Author Organization Unknown Address [address] [place] [address] [phone] Phone Care Team Providers Care Primary Care Pediatrician Name Role Phone ARY Manley Attending Unavailable ZACKERY DUNLAP Primary Unavailable Social History Type Status Start Date End Date Code Code Syst em Smoking History Former smoker 9570645 SNOMED CT Sex Female Hospital Discharge Instructions Should you have any questions prior to discharge, please contact a member of your healthcare team. If you have left the hospital and have any questions, please contact your primary care physician. Reason For Referral No Data Found Allergies and Adverse Reactions Allergy Substance Reaction Severity Start Date Concern Status Co de Code System OPIOID Active 401043194 SNOMED-CT Plan of Treatment Pre-Op Covid-19 Testing 03/30/2020 MRI UPPER EXT JOINT W/O CONTRAST 2021 LAB DRAW 15MIN 11/04/2021 US CAROTID BILAT 11/04/2021 LAB DRAW 15MIN 05/06/2021 Encounters Encounter Diagnosis Start Date Code Code Sys tem Canceled operative procedure 06/06/2022 06172071 SNOMED-CT Personal Care Team Section Performer Name Performer Role Active Date Inactive Da te
--- OUTSIDE RECORDS SUMMARY | 2024-03-13 18:36 | XMS_ITS ---
Author Organization Unknown Address [address] [place] [address] [phone] Phone Care Team Providers Care Lawn Mower Repairer Name Role Phone EV LUND Attending Unavailable ZACKERY DUNLAP Primary Unavailable Social History Type Status Start Date End Date Code Code Syst em Smoking History Former smoker 5384447 SNOMED CT Sex Female Medications Medication Start Date End Date Route Frequency Dose Code Code System Medication Instructions Home Meds Tamsulosin HCl 0.4MG Oral Capsule 05/04/2021 05/29/2022 ORAL DAILY 1 CAPSULE 856149 RxNorm TAKE 1 CAPSULE ORAL DAILY Hospital [...] Status Co de Code System OPIOID Active 717483528 SNOMED-CT Plan of Treatment Pre-Op Covid-19 Testing 03/30/2020 MRI UPPER EXT JOINT W/O CONTRAST 2021 LAB DRAW 15MIN 11/04/2021 US CAROTID BILAT 11/04/2021 LAB DRAW 15MIN 05/06/2021 Encounters Encounter Diagnosis Start Date Code Code Sys tem 04/09/2022 [id number] SNOMED-CT Personal Care Team Section Performer Name Performer Role Active Date Inactive Da te
--- OUTSIDE RECORDS SUMMARY | 2024-03-13 18:36 | XMS_ITS ---
Author Organization Unknown Address [address] [place] [address] [phone] Phone Care Team Providers Care Box Press Operator Name Role Phone KARON Warren Attending Unavailable ZACKERY DUNLAP Primary Unavailable Results XR KNEE 4V LT* - Completed: 11/17/2023 15:49 LOINC: [facility] [place], [place] [address] RADIOLOGY FINANCIAL ECONOMIST REPORT Patient Name: MARIETTA DAVIS MRN: Sex: : Age: F 1960 63 Account: Accession: Admit: StayType: [id number] 11/17/2023 O Ordered: Order ID: Submitted: Ordering Provider: 11/17/2023 15:30 [id number] TINO SANTIZO Completed: Technologist: Resulted: 11/17/2023 15:27 MG 12/27/2023 08:10 ADDENDUM #1 TECHNIQUE: 4 views LEFT knee Thank you for letting us participate in the care of this patient. If you are a health care provider and have any questions regarding this report, please contact the number below. For patients who have questions please contact the health clinical care manager that requested your imaging first. Electronically signed by: Nima Agarwal MD [facility] ([phone]), at 12/27/2023 8:10 AM ORIGINAL EXAMINATION: XR [...] who have questions please contact the health clinical care manager that requested your imaging first. Electronically signed by: Nima Agarwal MD [facility] ([phone]), at 11/17/2023 6:11 PM -- Social History Type Status Start Date End Date Code Code Syst em Smoking History Former smoker 2158202 SNOMED CT Sex Female Hospital Discharge Instructions Should you have any questions prior to discharge, please contact a member of your healthcare team. If you have left the hospital and have any questions, please contact your primary care physician. Reason For Referral No Data Found Allergies and Adverse Reactions Allergy Substance Reaction Severity Start Date Concern Status Co de Code System OPIOID Active 495480718 SNOMED-CT Plan of Treatment Pre-Op Covid-19 Testing 03/30/2020 MRI UPPER EXT JOINT W/O CONTRAST 2021 LAB DRAW 15MIN 11/04/2021 US CAROTID BILAT 11/04/2021 LAB DRAW 15MIN 05/06/2021 Encounters Encounter Diagnosis Start Date Code Code Sys tem Idiopathic osteoarthritis 11/17/2023 126362410 SN OMED-CT Personal Care Team Section Performer Name Performer Role Active Date Inactive Da te
--- OUTSIDE RECORDS SUMMARY | 2024-03-13 18:37 | XMS_ITS ---
Author Organization Unknown Address [address] [place] [address] [phone] Phone Care Team Providers Care Ballistic Expert Name Role Phone VICKY GARIBAY Attending Unavailable AYESHA Houston Primary Unavailable Social History Type Status Start Date End Date Code Code Syst em Smoking History Former smoker 1859101 SNOMED CT Sex Female Medications Medication Start Date End Date Route Frequency Dose Code Code System Medication Instructions Home Meds Antivert/25 25MG Oral Tablet 03/18/2021 05/04/2021 ORAL NEEDED EVERY 8 HOURS 1 TABLET 787241 RxNorm TAKE 1 TABLET ORAL NEEDED EVERY 8 HOURS No alcohol/driving with this Tamsulosin HCl 0.4MG Oral Capsule 05/04/2021 05/29/2022 ORAL DAILY 1 CAPSULE 700074 RxNorm TAKE 1 CAPSULE ORAL DAILY Hospital [...] Status Co de Code System OPIOID Active 495231575 SNOMED-CT Plan of Treatment Pre-Op Covid-19 Testing 03/30/2020 MRI UPPER EXT JOINT W/O CONTRAST 2021 LAB DRAW 15MIN 11/04/2021 US CAROTID BILAT 11/04/2021 LAB DRAW 15MIN 05/06/2021 Encounters Encounter Diagnosis Start Date Code Code Sys tem Dysphagia, pharyngeal phase 01/10/2021 SNOMED-CT Personal Care Team Section Performer Name Performer Role Active Date Inactive Da te
--- OUTSIDE RECORDS SUMMARY | 2024-03-13 18:37 | XMS_ITS ---
Author Organization Unknown Address [address] [place] [address] [phone] Phone Care Team Providers Care Environmental Research Project Manager Name Role Phone JEFF RANDOLPH Attending Unavailable AYESHA Houston Primary Unavailable Social History Type Status Start Date End Date Code Code Syst em Smoking History Former smoker 5272022 SNOMED CT Sex Female Medications Medication Start Date End Date Route Frequency Dose Code Code System Medication Instructions Home Meds Antivert/25 25MG Oral Tablet 03/18/2021 05/04/2021 ORAL NEEDED EVERY 8 HOURS 1 TABLET 362569 RxNorm TAKE 1 TABLET ORAL NEEDED EVERY 8 HOURS No alcohol/driving with this Tamsulosin HCl 0.4MG Oral Capsule 05/04/2021 05/29/2022 ORAL DAILY 1 CAPSULE 652376 RxNorm TAKE 1 CAPSULE ORAL DAILY Hospital [...] Status Co de Code System OPIOID Active 160670107 SNOMED-CT Plan of Treatment Pre-Op Covid-19 Testing 03/30/2020 MRI UPPER EXT JOINT W/O CONTRAST 2021 LAB DRAW 15MIN 11/04/2021 US CAROTID BILAT 11/04/2021 LAB DRAW 15MIN 05/06/2021 Encounters Encounter Diagnosis Start Date Code Code Sys tem Postprocedural state finding 11/18/2020 169786899 SNOMED-CT Personal Care Team Section Performer Name Performer Role Active Date Inactive Da te
--- OUTSIDE RECORDS SUMMARY | 2024-03-13 18:37 | XMS_ITS ---
Author Organization Unknown Address [address] [place] [phone] Phone Care Team Providers Care Correctional Officer Lieutenant Name Role Phone NEYMAR Tamez Attending Unavailable ZACKERY DUNLAP Primary Unavailable Social History Type Status Start Date End Date Code Code Syst em Smoking History Former smoker 9072432 SNOMED CT Sex Female Hospital Discharge Instructions Should you have any questions prior to discharge, please contact a member of your healthcare team. If you have left the hospital and have any questions, please contact your primary care physician. Reason For Referral No Data Found Allergies and Adverse Reactions Allergy Substance Reaction Severity Start Date Concern Status Co de Code System OPIOID Active 600319230 SNOMED-CT Plan of Treatment Pre-Op Covid-19 Testing 03/30/2020 MRI UPPER EXT JOINT W/O CONTRAST 2021 LAB DRAW 15MIN 11/04/2021 US CAROTID BILAT 11/04/2021 LAB DRAW 15MIN 05/06/2021 Encounters Encounter Diagnosis Start Date Code Code Sys tem Idiopathic osteoarthritis 01/31/2024 441619194 SN OMED-CT Personal Care Team Section Performer Name Performer Role Active Date Inactive Da te
--- OUTSIDE RECORDS SUMMARY | 2024-03-13 18:37 | XMS_ITS ---
Author Organization Unknown Address [address] [place] [address] [phone] Phone Care Team Providers Care General Internist Name Role Phone VICKY GARIBAY Attending Unavailable AYESHA Houston Primary Unavailable Social History Type Status Start Date End Date Code Code Syst em Smoking History Former smoker 2159888 SNOMED CT Sex Female Medications Medication Start Date End Date Route Frequency Dose Code Code System Medication Instructions Home Meds Antivert/25 25MG Oral Tablet 03/18/2021 05/04/2021 ORAL NEEDED EVERY 8 HOURS 1 TABLET 896829 RxNorm TAKE 1 TABLET ORAL NEEDED EVERY 8 HOURS No alcohol/driving with this Tamsulosin HCl 0.4MG Oral Capsule 05/04/2021 05/29/2022 ORAL DAILY 1 CAPSULE 186306 RxNorm TAKE 1 CAPSULE ORAL DAILY Hospital [...] Status Co de Code System OPIOID Active 255463482 SNOMED-CT Plan of Treatment Pre-Op Covid-19 Testing 03/30/2020 MRI UPPER EXT JOINT W/O CONTRAST 2021 LAB DRAW 15MIN 11/04/2021 US CAROTID BILAT 11/04/2021 LAB DRAW 15MIN 05/06/2021 Encounters Encounter Diagnosis Start Date Code Code Sys tem Tremor, unspecified 12/10/2020 SNOMED-C T Personal Care Team Section Performer Name Performer Role Active Date Inactive Da te
--- OUTSIDE RECORDS SUMMARY | 2024-03-13 18:38 | XMS_ITS | Encounter Summary ---
Author Organization [facility] [address] Care Team Providers Care Cutter Hot Knife Name Role Phone Sun Borrero DO Primary Care Provider [phone] Encounter Details Date Type Department Care Team (Late st Contact Info) Description 01/27/2022 Telephone Sleep Center at [facility] [address] [place] [address] Maria T Jordan Social History Tobacco Use [...] on filedocumented in this encounter Care Teams Cutter Hot Knife Relationship Specialty Start Date End Date Sun Borrero DO [address] [place] [address] PCP - General Internal Medicine 01/29/21 02/17/24 documented as of this encounter
--- OUTSIDE RECORDS SUMMARY | 2024-03-13 18:38 | XMS_ITS | Encounter Summary ---
[place] [address] Care Team Providers Care Site Controller Name Role Phone Sun Borrero Primary Care Provider [phone] Reason for Visit * Reason Comments Skin Check Encounter Details Date Type Department Care Team (Late st Contact Info) Description 02/21/2021 4:00 PM EDT Office Visit Dermatology at [address] [phone] Miguel Ángel Thomason MD [address] [facility] [place] [address] History of SCC (squamous cell carcinoma) of [...] of scalp, improved with softened water 4. ??Jaquelin ethnic background Alejandra follows up for her [...] inflamed documented in this encounter Care Teams Site Controller Relationship Specialty Start Date End Date Sun Borrero DO [facility] [place] [address] PCP - General Internal Medicine 01/29/21 02/17/24 documented as of this encounter
--- OUTSIDE RECORDS SUMMARY | 2024-03-13 18:38 | XMS_ITS | Encounter Summary ---
[place] [address] Care Team Providers Care Smoking Pipe Repairer Name Role Phone Lee Anne APRN Primary Care Provider [phone] Encounter Details Date Type Department Care Team (Late st Contact Info) Description 11/07/2018 3:15 PM EDT Office Visit Dermatology at [address] [place] [address] Miguel Ángel Thomason MD [address] [facility] [place] [address] Seborrheic keratosis; Seborrheic dermatitis; History of SCC [...] of scalp, improved with softened water 4. Jaquelin ethnic background Alejandra follows up and is [...] inflamed documented in this encounter Care Teams Smoking Pipe Repairer Relationship Specialty Start Date End Date Lee Anne APRN [address] [place] [address] [place] [address] PCP - General Family Medicine 06/19/15 01/28/21 documented as of this encounter
--- OUTSIDE RECORDS SUMMARY | 2024-03-13 18:38 | XMS_ITS | Encounter Summary ---
[place] [address] Care Team Providers Care Nut Picker Name Role Phone Lee Anne APRN Primary Care Provider [phone] Encounter Details Date Type Department Care Team (Late st Contact Info) Description 07/05/2017 Refill Dermatology at [address] [address] Clarisse Marsh, EXCAVATING MACHINE OPERATOR Social History Tobacco Use Types [...] filedocumented in this encounter Care Teams Nut Picker Relationship Specialty Start Date End Date Lee nAne APRN [address] [place] [address] [place] [phone] PCP - General Family Medicine 06/19/15 01/28/21 documented as of this encounter
--- OUTSIDE RECORDS SUMMARY | 2024-03-13 18:38 | XMS_ITS ---
Author Organization Unknown Address [address] [place] [address] [phone] Phone Care Team Providers Care School Of Nursing Director Name Role Phone AYESHA Houston Attending Unavailable [...] TENORIO M.D. RADIOLOGIST Transcribed by: CATIA 01/11/21/16:51 [id number] Electronically Reviewed and Signed By: KODY TENORIO M.D. RADIOLOGIST 01/11/21 17:03 Copy for: AYESHA Houston via link Social History Type Status Start Date End Date Code Code Syst em Smoking History Former smoker 3304099 SNOMED CT Sex Female Medications Medication Start Date End Date Route Frequency Dose Code Code System Medication Instructions Home Meds Antivert/25 25MG Oral Tablet 03/18/2021 05/04/2021 ORAL NEEDED EVERY 8 HOURS 1 TABLET 558776 RxNorm TAKE 1 TABLET ORAL NEEDED EVERY 8 HOURS No alcohol/driving with this Tamsulosin HCl 0.4MG Oral Capsule 05/04/2021 05/29/2022 ORAL DAILY 1 CAPSULE 097864 RxNorm TAKE 1 CAPSULE ORAL DAILY Hospital [...] Status Co de Code System OPIOID Active 613033444 SNOMED-CT Plan of Treatment Pre-Op Covid-19 Testing [...]
--- OUTSIDE RECORDS SUMMARY | 2024-03-13 18:38 | XMS_ITS | Encounter Summary ---
[place] [address] Care Team Providers Care Tube Puller Name Role Phone Sun Borrero Primary Care Provider Encounter Details Date Type Department Care Team (Late st Contact Info) Description 02/18/2022 9:20 AM EDT Laboratory Appointment Lab [address] [place] [phone] Social History Tobacco Use Types Packs/Day Years [...] EDT) Creatinine 0.63(L) 0.70 - 1.20 mg/dL [facility] Est Glomerular Filtration Rate 100 >=60 mL/min/1. 73 m?? [facility] Comment: This patient's estimated GFR was [...] In Lab Betty Hahn MD CHEMISTRY ORDERABLES [facility] [place] [address] documented in this encounter Visit Diagnoses Not on filedocumented in this encounter Care Teams Tube Puller Relationship Specialty Start Date End Date Sun Borrero DO [address] [place] [address] PCP - General Internal Medicine 01/29/21 02/17/24 documented as of this encounter
--- OUTSIDE RECORDS SUMMARY | 2024-03-13 18:38 | XMS_ITS | Encounter Summary ---
[place] [address] Care Team Providers Care Senior Firewall Engineer Name Role Phone Sun Borrero DO Primary Care Provider [phone] Reason for Visit * Reason Comments Medication Refill Encounter Details Date Type Department Care Team (Late st Contact Info) Description 07/07/2018 Refill Dermatology at [address] [address] Miguel Ángel Thomason MD [address] [facility], [facility] [place] [address] Social History Tobacco Use Types Packs/Day Years [...] filedocumented in this encounter Care Teams Senior Firewall Engineer Relationship Specialty Start Date End Date Sun Borrero DO [facility] [place] [address] PCP - General Internal Medicine 01/29/21 02/17/24 documented as of this encounter
--- OUTSIDE RECORDS SUMMARY | 2024-03-13 18:38 | XMS_ITS | Encounter Summary ---
[place] [address] Care Team Providers Care Tie Worker Name Role Phone Sun Borrero DO Primary Care Provider [phone] Reason for Visit * Reason Comments Skin Check Encounter Details Date Type Department Care Team (Late st Contact Info) Description 02/23/2022 3:30 PM EDT Office Visit Dermatology at [address] [address] Miguel Ángel Thomason MD [address] [place] [address], [facility] [place] [address] History of SCC (squamous cell carcinoma) of [...] refills 2. This be called into her [facility] compounding pharmacy. Tag versus condyloma perirectal 1. Site was visualized today and is about 2 to 3 mm in diameter 2. We will schedule a 15-minute appointment for snip biopsy removal of this. She would like this nilda sent to [facility]. CC: Sun Borrero DO documented in this encounter Plan of Treatment Not on file documented as of this encounter Visit Diagnoses Diagnosis History of SCC (squamous cell carcinoma) of skin Personal history of other malignant neoplasm of skin Seborrheic keratosis Other seborrheic keratosis Seborrheic keratoses, inflamed documented in this encounter Care Teams Tie Worker Relationship Specialty Start Date End Date Sun Borrero DO [facility] [place] [address] PCP - General Internal Medicine 01/29/21 02/17/24 documented as of this encounter
--- OUTSIDE RECORDS SUMMARY | 2024-03-13 18:38 | XMS_ITS | Encounter Summary ---
[place] [address] Care Team Providers Care Ceramic Tile Installation Helper Name Role Phone Sun Borrero DO Primary Care Provider [phone] Encounter Details Date Type Department Care Team [...] on filedocumented in this encounter Care Teams Ceramic Tile Installation Helper Relationship Specialty Start Date End Date Sun Borrero DO [address] [place] [address] PCP - General Internal Medicine 01/29/21 02/17/24 documented as of this encounter
--- OUTSIDE RECORDS SUMMARY | 2024-03-13 18:38 | XMS_ITS | Encounter Summary ---
[place] [address] Care Team Providers Care Sheetmetal Worker Name Role Phone Niki Boykin MD Primary Care Provider Encounter Details Date Type [...] on filedocumented in this encounter Care Teams Sheetmetal Worker Relationship Specialty Start Date End Date Niki Boykin MD [address] [place] [address] PCP - General General Internal Medicine 02/18/24 documented as of this encounter
--- OUTSIDE RECORDS SUMMARY | 2024-03-13 18:38 | XMS_ITS | Encounter Summary ---
Author Organization [facility] [place] [address] Care Team Providers Care Cashier Gambling Name Role Phone Sun Borrero Primary Care Provider [phone] Encounter Details Date Type Department Care Team (Latest Contact Info) Description 02/21/2021 9:19 PM EDT - 02/21/2021 11:59 PM EDT Hospital [place] [address] Discharge Disposition: Home Social History Tobacco Use [...] Report (02/21/2021 12:00 PM EDT) Final Diagnosis [id number] ? Location: OPW The signing pathologist has (i) examined the relevant preparation(s) for the specimen(s) and (ii) rendered or confirmed the diagnosis(es). . ?Surgical Pathology DIAGNOSIS Right back, skin shave biopsy: - ??Seborrheic keratosis Electronically signed by: ?Dhiraj ZULETA, PhD, [facility] Verified: ??02/27/2021 10:09 ??Dermatopathol ogist Performed at: ??-[facility] Dept. of Pathology, [place], [place] SPECIMEN(S) SUBMITTED A - R back, [...] labeled A1. ??sns 02/27/2021 10:09 AM EDT [facility] SPECIMEN FROM SKIN / Unknown 02/21/2021 12:00 PM EDT 02/21/2021 12:00 PM EDT Miguel Ángel Thomason MD PATHOLOGY/CYTOLOGY Jenn [facility] [place] [address] documented in this encounter Visit Diagnoses Not on filedocumented in this encounter Care Teams Cashier Gambling Relationship Specialty Start Date End Date Sun Borrero DO [address] [place] [address] PCP - General Internal Medicine 01/29/21 02/17/24 documented as of this encounter
--- OUTSIDE RECORDS SUMMARY | 2024-03-13 18:38 | XMS_ITS | Encounter Summary ---
Author Organization [facility] [place] [address] Care Team Providers Care Design Verification Engineer Name Role Phone Sun Borrero Primary Care Provider [phone] Encounter Details Date Type Department Care Team (Late st Contact Info) Description 02/17/2022 Telephone Cardiology at [address] [place] [address] Betty Hahn MD [address] [place] [address] DR CARDIOLOGY [place], [place] [id number] Social History Tobacco Use Types Packs/Day Years [...] further review, patient sees Dr. Hahn at [facility], have called their office and requested a BMP order be sent to for this patient. documented in this encounter Plan of Treatment Not on file documented as of this encounter Visit Diagnoses Not on filedocumented in this encounter Care Teams Design Verification Engineer Relationship Specialty Start Date End Date Sun Borrero DO [address] [place] [address] PCP - General Internal Medicine 01/29/21 02/17/24 documented as of this encounter
--- OUTSIDE RECORDS SUMMARY | 2024-03-13 18:38 | XMS_ITS | Encounter Summary ---
[place] [address] Care Team Providers Care Link Trainer Operator Name Role Phone Lee Anne APRN Primary Care Provider [phone] Reason for Visit * Reason Comments Follow-up Encounter Details Date Type Department Care Team (Late st Contact Info) Description 07/05/2017 4:45 PM EST Office Visit Dermatology at [address] [address] Miguel Ángel Thomason MD [address] [facility] [place] [address] Seborrheic keratosis; Seborrheic dermatitis; History of SCC [...] which is not really yet improved utilizing fcyp-jbo-koebkki shampoos in the fluocinolone solution. She is [...] with 5 refills. Called into [facility] in [place] Allow lather to sit for 2 to minutes before rinsing out. 2. Recommend that we also advanced to selenium sulfide 2.5% lotion apply on a daily basis and she rinse out rinsing out after 2 or 3 minutes alternating every 2 weeks with ketoconazole. Dispense 120 mils with 5 refills. Also called into [facility] in [place] 3. May continue using the fluocinolone 0.01% [...] skin documented in this encounter Care Teams Link Trainer Operator Relationship Specialty Start Date End Date Lee Anne APRN [address] [place] [address] [place] [address] PCP - General Family Medicine 06/19/15 01/28/21 documented as of this encounter
--- OUTSIDE RECORDS SUMMARY | 2024-03-13 18:38 | XMS_ITS | Encounter Summary ---
[place] [address] Care Team Providers Care Electrical Manager Name Role Phone Niki Boykin MD Primary Care Provider [phone] Reason for Visit * Reason Comments Annual Exam Encounter Details Date Type Department Care Team (Late st Contact Info) Description 02/18/2024 4:00 PM EDT Office Visit Dermatology at [address] [address] Miguel Ángel Thomason MD [address] [facility] [place] [address] History of SCC (squamous cell carcinoma) of [...] of scalp, improved with softened water 4. [place] ethnic background Alejandra follows up for her [...] inflamed documented in this encounter Care Teams Electrical Manager Relationship Specialty Start Date End Date Niki Boykin MD [address] [place] [address] PCP - General General Internal Medicine 02/18/24 documented as of this encounter
--- OUTSIDE RECORDS SUMMARY | 2024-03-13 18:38 | XMS_ITS | Encounter Summary ---
[place] [address] Care Team Providers Care Vb Net Developer Name Role Phone Sun Borrero Primary Care Provider [phone] Encounter Details Date Type Department Care Team (Latest Contact Info) Description 04/13/2022 3:40 PM EST Laboratory Appointment Lab [address] [place] [address] PONCHO (obstructive sleep apnea); Pure [...] Procedure Name Priority Date/Time Associated Diagnosis Comments [facility] APOLIPO PROTEIN B Routine 04/13/2022 5:26 PM EST PONCHO (obstructive sleep apnea) Pure hypercholesterolemia PC LIPOPROTEIN A Routine 04/13/2022 5:26 PM EST PONCHO (obstructive sleep apnea) Pure hypercholesterolemia HC VENIPUNCTURE Routine 04/13/2022 5:26 PM EST PONCHO (obstructive sleep apnea) Pure hypercholesterolemia documented in this encounter Results * (ABNORMAL) Lipoprotein A (04/13/2022 5:26 PM EST) Lipoprotein(A) (AUGUST) 109(H) <75 nmol/L [facility] Comment: Lp(a) confers increased risk for [...] considered a risk enhancing factor by the [place] [employer]. This test has been modified from the etl informatica developer's instructions. Its performance characteristics were determined by [facility] in a manner consistent with CLIA requirements. This test has not been cleared or approved by the U.S. Food and Drug Administration. Test Performed by: [facility] [place] [address] Radio Installer Automobile: Venu Michaud M.D. Ph.D.; CLIA# [id number] Blood 04/13/2022 5:26 PM EST 04/14/2022 11:29 AM EST Narrative Resulting Agency Comment Spec In Lab Carmita Chandler MD LAB SEND OUT ORDERAB LES Performing Organization Address City/State/[facility] Co de Phone Number [facility] [place] [address] * Apolipoprotein B (04/13/2022 5:26 PM EST) Apolipoprotein B (AUGUST) 65 mg/dL [facility] Comment: REFERENCE VALUE Desirable: <90 Above Desirable: 90-99 Borderline high: 100-119 High: 120-139 Very high: > or = 140 Test Performed by: [facility] - [address] [address] Radio Installer Automobile: Venu Michaud M.D. Ph.D.; CLIA# [id number] Blood 04/13/2022 5:26 PM EST 04/14/2022 11:29 AM EST Narrative Resulting Agency Comment Spec In Lab Carmita Chandler MD LAB SEND OUT ORDERAB LES Performing Organization Address City/State/[facility] Co de Phone Number [facility] [place] [address] * Lipid Panel (Reflex Direct LDL) (04/13/2022 5:26 PM EST) [facility] Cholesterol, Total 127 mg/dL [facility] Comment: Lower Risk: <200 mg/dL Average Risk: 200-239 mg/dL Higher Risk: >qf=864 mg/dL Triglyceride 70 mg/dL [facility] Comment: Average Risk/Lower Risk: <150 mg/dL Borderline High Risk: 150-199 mg/dL High Risk: 200-499 mg/dL Very High Risk: >jt=217 mg/dL HDL Cholesterol 43 mg/dL [facility] Comment: Males: ?? Higher Risk: <40 mg/dL Females: ?? Higher Risk: <50 mg/dL LDL Cholesterol 70 mg/dL [facility] Comment: Lowest Risk: <100 mg/dL Lower Risk: 100-129 mg/dL Borderline High Risk: 130-159 mg/dL High Risk: 160-189 mg/dL Very High Risk: >ce=340 mg/dL Cholesterol/HDL Ratio 3.0 ratio [facility] Lipid Interpretation See Note [facility] Comment: Lipid management should be guided by a patient? s ASCVD risk, goals and preferences. ACC/AHA Guidelines recommend high intensity statin if clinical ASCVD or LDL greater than or equal to 190 mg/dL. http://tinyurl.com/QNC-MGA-Tyiswsjgm Adults aged 40-75 with LDL 70-189 mg/dL should have their 10 year ASCVD risk estimated with the ACC/AHA ASCVD risk fabric and accessories estimator http://tools.acc.org/FOVMX-Dase-Duypcfjfp/ Statin should be discussed if risk greater [...] In Lab Carmita Chandler MD CHEMISTRY ORDERABLES [facility] [place] [address] documented in this encounter Visit Diagnoses Diagnosis PONCHO (obstructive sleep apnea) Obstructive sleep apnea (adult) (pediatric) Pure hypercholesterolemia documented in this encounter Care Teams Vb Net Developer Relationship Specialty Start Date End Date Sun Borrero DO [address] [place] [address] PCP - General Internal Medicine 01/29/21 02/17/24 documented as of this encounter
--- OUTSIDE RECORDS SUMMARY | 2024-03-13 18:38 | XMS_ITS | Encounter Summary ---
[place] [address] Care Team Providers Care Radio Station Manager Name Role Phone Sun Borrero Primary Care Provider [phone] Encounter Details Date Type Department Care Team (Latest Contact Info) Description 04/16/2023 10:03 PM EST - 04/16/2023 11:59 PM EST Hospital [place] [address] Discharge Disposition: Home Social History Tobacco Use [...] Report (04/16/2023 4:30 PM EST) Final Diagnosis [id number] ? Location: OPW The signing pathologist has (i) examined the relevant preparation(s) for the specimen(s) and (ii) rendered or confirmed the diagnosis(es). . ?Surgical Pathology DIAGNOSIS Perineum, skin shave biopsy: - ??Acrochordon Electronically signed by: ?Dg ZULETA, PhD, Angelo An Verified: ??04/29/2023 9:32 ?? Dermatopatholog ist, Bone & Soft Tissue Pathologist Performed at: ??-[facility] Dept. of Pathology, [place] [address] Plastic Cutter: Quincy Ruvalcaba MD, FCAP, ??CLIA Certificate: [id number] SPECIMEN(S) SUBMITTED A - Perineum, shave CLINICAL INFORMATION Soft fleshy protuberance. ??Verruca, acrochordon, hemorrhoid (external) SPECIMEN PROCESSING A - Labeled/Fixativ e: Patient demographics, formalin. Quantity/Size: ??Single, 0.5 x 0.4 x 0.3 cm. Tissue Description: Stack-anderson papule. Sections/Proces sing: Inked, bisected and entirely submitted in 1 cassette labeled A1. ??pps 04/29/2023 9:32 AM EST [facility] SPECIMEN FROM SKIN / Unknown 04/16/2023 4:30 PM EST 04/16/2023 4:30 PM EST Miguel Ángel Thomason MD [facility] [place] [place] [address] [place] [address] documented in this encounter Visit Diagnoses Not on filedocumented in this encounter Care Teams Radio Station Manager Relationship Specialty Start Date End Date Sun Borrero DO [address] [place] [address] PCP - General Internal Medicine 01/29/21 02/17/24 documented as of this encounter
--- OUTSIDE RECORDS SUMMARY | 2024-03-13 18:38 | XMS_ITS | Encounter Summary ---
Author Organization [facility] [place] [address] Care Team Providers Care Corporate Development Manager Name Role Phone Sun Borrero DO Primary Care Provider [phone] Encounter Details Date Type Department Care Team (Late st Contact Info) Description 12/16/2021 Telephone Sleep Center at [facility] [address] [place] [address] Tanna Adams Social History Tobacco Use Types [...] on filedocumented in this encounter Care Teams Corporate Development Manager Relationship Specialty Start Date End Date Sun Borrero DO [address] [place] [address] PCP - General Internal Medicine 01/29/21 02/17/24 documented as of this encounter
--- OUTSIDE RECORDS SUMMARY | 2024-03-13 18:38 | XMS_ITS | Encounter Summary ---
Author Organization [facility] [place] [address] Care Team Providers Care Coding And Reimbursement Specialist Name Role Phone Sun Borrero DO Primary Care Provider [phone] Reason for Referral * Diagnostic Test (Routine) - Closed Specialty Diagnoses / Procedures Referred By Kaelyn garcia Referred To Contact Sleep Center Diagnoses Observed sleep apnea Procedures Home Sleep Study Ashley Lang MD [facility] [place] [address] [facility] Sleep Medicine [address] [place] [address] Referral ID Status Reason Start Date Expiration Date V isits Requested Visits Authorized [id number] Closed Specialty Service Requested 08/04/2021 08/04/2022 1 1 Reason for Visit * Consultation (Routine) - Closed Specialty Diagnoses / Procedures Referred By Contchris garcia Referred To Contact Sleep Center Diagnoses Sleep apnea, unspecified Sun Borrero DO [address] [place] [address] [facility] Sleep Medicine [address] [place] [address] Referral ID Status Reason Start Date Expiration Date V isits Requested Visits Authorized [id number] Closed Consult, Test & Treat Connection Center PCP Updated and/or Approved 01/09/2021 01/09/2022 12 12 Encounter Details Date Type Department Care Team (Late st Contact Info) Description 08/04/2021 2:30 PM EDT TH Visit (TeleHealth) Sleep Center at [facility] [address] [place] [address] Ashley Lang MD [facility] [place] [address] Observed sleep apnea; Insomnia, unspecified type; Tiredness [...] ongoing covid-19 public health emergency Patient location: [place] HPI: Alejandra Ruano is a 61 y.o. [...] stopped last summer because of concerns of terminal superintendent effects of ambien. Now sleep hit or [...] something low light and relaxing. Works at [employer]. No alertness problems while working. Can get [...] if uses breathe [employer]) Daytime Symptoms: [place]: not available Upon Awakening: depends Naps: 2-3 [...] becomes sleepy while driving, advised to immediately nail puller to a safe area and take [...] fatigue documented in this encounter Care Teams Coding And Reimbursement Specialist Relationship Specialty Start Date End Date Sun Borrero DO [address] [place] [address] PCP - General Internal Medicine 01/29/21 02/17/24 documented as of this encounter
--- OUTSIDE RECORDS SUMMARY | 2024-03-13 18:38 | XMS_ITS | Encounter Summary ---
[place] [address] Care Team Providers Care Insole Bottom Filler Name Role Phone Sun Borrero Primary Care Provider [phone] Reason for Referral * Diagnostic Test (Routine) - Closed Specialty Diagnoses / Procedures Referred By Kaelyn t Referred To Contact Radiology Diagnoses Elevated lipoprotein A level Procedures CT Angiogram Coronary Arteries Betty Hahn MD [address] [place] [address] [place] [address] [facility] [place] [address] Referral ID Status Reason Start Date Expiration Date V isits Requested Visits Authorized [id number] Closed Specialty Service Requested 01/21/2022 07/22/2023 1 1 Reason for Visit * Diagnostic Test (Routine) - Closed Specialty Diagnoses / Procedures Referred By Kaelyn garcia Referred To Contact Radiology Diagnoses Elevated lipoprotein A level Procedures CT Angiogram Coronary Arteries Betty Hahn MD [address] [place] [address] [place] [address] [facility] [place] [address] Referral ID Status Reason Start Date Expiration Date V isits Requested Visits Authorized [id number] Closed Specialty Service Requested 01/21/2022 07/22/2023 1 1 Encounter Details Date Type Department Care Team (Latest Contact Info) Description 02/18/2022 10:37 AM EDT - 02/18/2022 11:59 PM EDT Hospital [place] [address] Betty Hahn MD [address] [place] [address] [place] [address] Elevated lipoprotein A level Discharge Disposition: Home [...] who have questions please contact the health zoo caretaker that requested your imaging first. ? Electronically signed by: Janna Kumar MD, [facility] ([phone]), at 02/18/2022 6:29 PM Narrative 02/18/2022 6:29 [...] patients who have questions please contactthe health zoo caretaker that requested your imaging first. Electronically signed by: Janna Kumar MD, [facility] ([phone]), at 02/18/2022 6:29 PM Betty Hahn MD [...] mLs documented in this encounter Care Teams Insole Bottom Filler Relationship Specialty Start Date End Date Sun Borrero DO [address] [place] [address] PCP - General Internal Medicine 01/29/21 02/17/24 documented as of this encounter
--- OUTSIDE RECORDS SUMMARY | 2024-03-13 18:38 | XMS_ITS | Encounter Summary ---
Author Organization [facility] [place] [address] Care Team Providers Care Assessment Services Manager Name Role Phone Lee Anne APRN Primary Care Provider [phone] Reason for Visit * Reason Comments Skin Check Encounter Details Date Type Department Care Team (Late st Contact Info) Description 06/14/2020 4:00 PM EST Office Visit Dermatology at [address] [address] Miguel Ángel Thomason MD [address] [facility] [place] [address] History of SCC (squamous cell carcinoma) of [...] with softened water 4. ??Jaquelin ethnic background ?? Alejandra follows up for [...] keratosis documented in this encounter Care Teams Assessment Services Manager Relationship Specialty Start Date End Date Lee Anne APRN [address] [place] [address] [place] [address] PCP - General Family Medicine 06/19/15 01/28/21 documented as of this encounter
--- OUTSIDE RECORDS SUMMARY | 2024-03-13 18:38 | XMS_ITS | Encounter Summary ---
Author Organization [facility] [place] [address] Care Team Providers Care Side Framer Name Role Phone Sun Borrero Primary Care Provider [phone] Encounter Details Date Type Department Care Team (Late st Contact Info) Description 01/22/2022 2:30 PM EDT TH Visit (TeleHealth) Sleep Center at [facility] [address] [place] [address] Yamileth Rice, [facility] PONCHO (obstructive sleep apnea) Social [...] Follow-up: RTC in 9-12 weeks with laurie [employer] to assess new mask 3) Driving safety discussed, recommend patient not drive if drowsy, if drowsy while driving to mandrel puller and take a nap. 4) Patient to replace supplies routinely and understands mask cushions can be replaced monthly. 5) Script to RR for the air touch FFM documented in this encounter Progress Notes * Yamileth Rice, [employer] - 01/22/2022 2:30 PM EDT Sleep Medicine [...] stopped last summer because of concerns of half-way effects of ambien. Now sleep hit or [...] something low light and relaxing. Works at [employer]. No alertness problems while working. Can get [...] mouth breather Mouth Breathing: yes Symptom Benefit: [place]: Patient-reported last 4 scores: No flowsheet data [...] first. RTC in 9-12 weeks tele-health with pr. Recomendations: 1) CPAP 5-15 cmwith ramp and HH 2) Follow-up: RTC in 9-12 weeks with [facility] to assess new mask 3) Driving safety discussed, recommend patient not drive if drowsy, if drowsy while driving to mandrel puller and take a nap. 4) Patient to replace supplies routinely and understands mask cushions can be replaced monthly. 5) Script to RR for the air touch FFM The patient indicates understanding of these issues and agrees with the plan. The case was discussed with Sarah Cueva who saw (tele-health) the patient and participated in the formulation and decision making. * Sarah Cueva Yvette, RN LACTATION - 01/22/2022 2:30 PM EDT Sleep Medicine [...] CBTi. Study Hx: 08/04/[address] Lang: history of observed apneas, some snoring, poor [...] (pediatric) documented in this encounter Care Teams Side Framer Relationship Specialty Start Date End Date Sun Borrero DO [address] [place] [address] PCP - General Internal Medicine 01/29/21 02/17/24 documented as of this encounter
--- OUTSIDE RECORDS SUMMARY | 2024-03-13 18:38 | XMS_ITS | Encounter Summary ---
[place] [address] Care Team Providers Care Certified Master Safe Technician Name Role Phone Lee Anne APRN Primary Care Provider [phone] Encounter Details Date Type Department Care Team (Late st Contact Info) Description 03/16/2017 Refill Dermatology at [address] [address] Clarisse Marsh, ELEVATOR CONSTRUCTOR ELECTRIC Social History Tobacco Use Types Packs/Day Years [...] on filedocumented in this encounter Care Teams Certified Master Safe Technician Relationship Specialty Start Date End Date Lee Anne APRN [address] [place] [address] [place] [phone] PCP - General Family Medicine 06/19/15 01/28/21 documented as of this encounter
--- OUTSIDE RECORDS SUMMARY | 2024-03-13 18:38 | XMS_ITS | Encounter Summary ---
Author Organization [facility] [place] [address] Care Team Providers Care Division Roadmaster Name Role Phone Sun Borrero DO Primary Care Provider [phone] Reason for Visit * Reason Comments Annual Exam Encounter Details Date Type Department Care Team (Late st Contact Info) Description 04/16/2023 4:00 PM EST Office Visit Dermatology at [address] [address] Miguel Ángel Thomason MD 580 [facility] [address] History of SCC (squamous cell carcinoma) of [...] of scalp, improved with softened water 4. Belarusian ethnic background Alejandra follows up for her [...] electrodesiccation. 2. A specimen was submitted to [facility] [place] at patient request 3. Wound care instructions and supplies given. CC: Sun Borrero DO documented in this encounter Plan of Treatment Not on file documented as of this encounter Visit Diagnoses Diagnosis History of SCC (squamous cell carcinoma) of skin Personal history of other malignant neoplasm of skin Seborrheic keratosis Other seborrheic keratosis documented in this encounter Care Teams Division Roadmaster Relationship Specialty Start Date End Date Sun Borrero DO [address] [place] [address] PCP - General Internal Medicine 01/29/21 02/17/24 documented as of this encounter
--- OUTSIDE RECORDS SUMMARY | 2024-03-13 18:38 | XMS_ITS | Encounter Summary ---
Author Organization [facility] [place] [address] Care Team Providers Care Assistant Activities Director Name Role Phone MyronSun brown Rosemarie GASTON Primary Care Provider [phone] Reason for Visit * Diagnostic Test (Routine) - Closed Specialty Diagnoses / Procedures Referred By Kaelyn garcia Referred To Contact Sleep Center Diagnoses Observed sleep apnea Procedures Home Sleep Study Stefani Lang MD [facility] [place] [address] [facility] [address] [place] [address] Referral ID Status Reason Start Date Expiration Date V isits Requested Visits Authorized [id number] Closed Specialty Service Requested 08/04/2021 08/04/2022 1 1 Encounter Details Date Type Department Care Team (Late st Contact Info) Description 09/04/2021 2:00 PM EDT Procedure visit Sleep Center at [facility] [address] [place] [address] Stefani Lang MD [facility] [place] [address] PONCHO (obstructive sleep apnea) Social [...] F/U in PAP clinic after initiating CPAP [facility] Sleep [facility] HOME SLEEP APNEA TEST REPORT Patient Name: Alejandra Ruano Study Date: 09/04/2021 Age & Sex: 61 y.o. Female Height: 5'5.5 Date of : 1960 Weight: 190 BMI: 31.1 Referring Prov.: Scoring Tech: [facility] Sleep Fellow: Sleep Specialist: STEFANI LANG M.D. [...] (pediatric) documented in this encounter Care Teams Assistant Activities Director Relationship Specialty Start Date End Date Sun Borrero DO [address] [facility] [place] [address] PCP - General Internal Medicine 01/29/21 02/17/24 documented as of this encounter
--- OUTSIDE RECORDS SUMMARY | 2024-03-13 18:38 | XMS_ITS | Encounter Summary ---
Author Organization [facility] [place] [address] Care Team Providers Care Animal Husbandry Manager Name Role Phone Sun Borrero DO Primary Care Provider [phone] Encounter Details Date Type Department Care Team (Late st Contact Info) Description 01/06/2022 Refill Dermatology at [address] [address] Clarisse Marsh LPN Social History [...] on filedocumented in this encounter Care Teams Animal Husbandry Manager Relationship Specialty [place] [address] [place] [address] PCP - General Internal Medicine 01/29/21 02/17/24 documented as of this encounter
--- OUTSIDE RECORDS SUMMARY | 2024-03-13 18:38 | XMS_ITS | Encounter Summary ---
[place] [address] Care Team Providers Care Office System Analyst Name Role Phone Lee Anne APRN Primary Care Provider [phone] Reason for Visit * Reason Comments Skin Check Encounter Details Date Type Department Care Team (Late st Contact Info) Description 04/13/2019 4:15 PM EST Office Visit Dermatology at [address] [address] Miguel Ángel Thomason MD 580 [facility] [place] [address] History of SCC (squamous cell carcinoma) of [...] 4. ??Jaquelin ethnic background Alejandra follows up and is [...] unspecified documented in this encounter Care Teams Office System Analyst Relationship Specialty Start Date End Date Lee Anne APRN [address] [place] [address] [place] [address] PCP - General Family Medicine 06/19/15 01/28/21 documented as of this encounter
--- OUTSIDE RECORDS SUMMARY | 2024-03-13 18:38 | XMS_ITS | Clinical Summary ---
Author Organization [facility] [place] [address] Care Team Providers Care Epic Specialist Name Role Phone Niki Boykin MD Primary Care Provider [phone] Allergies No known active allergies Medications Medication [...] 4:00 PM EDT Office Visit Dermatology at [address] [place] [address] Miguel Ángel Thomason MD History of SCC [...] - Influenza standard series) 01/02/2024 Care Teams Epic Specialist Relationship Specialty Start Date End Date Niki Boykin MD [address] [place], [place] [address] PCP - General General Internal Medicine 02/18/24
--- OUTSIDE RECORDS SUMMARY | 2024-03-13 18:38 | XMS_ITS | Encounter Summary ---
Author Organization [facility] Address [facility] [place] [address] Care Team Providers Care Fruit Raiser Name Role Phone Sun Borrero Primary Care Provider [phone] Encounter Details Date Type Department Care Team (Latest Contact Info) Description 04/13/2022 4:40 PM EST Office Visit Cardiology at [address] [place] [address] Carmita Chandler [place] [facility] [address] PONCHO (obstructive sleep apnea); Pure hypercholesterolemia Social [...] particle burden) are based on the 2020 [place] Association ofClinical Endocrinologists and the [place] College of Endocrinology, also with information from [id number] ACC/AHA/National Lipid Association Guideline on the Management [...] cardiology, most recently by Dr. Hahn in [facility]. She states that my current bale opener does not seem to understand Lipoprotein (a) and I asked tosee someone else. She was seeing a bale opener as she has a strong family history. [...] does not use My and asks that [facility] does not put any information online. She [...] test and understood that Dr. Hahn (the bale opener who ordered the test) did not feel [...] She shared with me that coming to [facility] is a 3 hour round trip. In the future we may no longer have telemedicine and also that I strongly prefer to have in- person appointments so that I may see andexamine them. To have a stress test here would require coming to [facility] as may any follow up appointments. I [...] records, extensive discussion, documentation,coordination of care. 1) [id number] counseling as noted above 2) reviewing past medical records, cardiac testing, results of laboratory testing 3) coordinating care with other physicians and allied health care providers Carmita Chandler MD, Christina, FACC, FNLA Attending Review Specialist [facility] Cardiology Program Preventive Cardiology Lipid Clinic Advanced Hypertension Clinic documented in this encounter Plan of Treatment Not on file documented as of this encounter Procedures Procedure Name Priority Date/Time Associated Diagnosis Comments EKG 12-LEAD Routine 04/13/2022 4:44 PM EST PONCHO (obstructive sleep apnea) Pure hypercholesterolemia documented in this encounter Results * Lipid Panel (Reflex Direct LDL) (04/13/2022 5:26 PM EST) [facility] Cholesterol, Total 127 mg/dL [facility] Comment: Lower Risk: <200 mg/dL Average Risk: 200-239 mg/dL Higher Risk: >bl=807 mg/dL Triglyceride 70 mg/dL [facility] Comment: Average Risk/Lower Risk: <150 mg/dL Borderline High Risk: 150-199 mg/dL High Risk: 200-499 mg/dL Very High Risk: >od=321 mg/dL HDL Cholesterol 43 mg/dL [facility] Comment: Males: ?? Higher Risk: <40 mg/dL Females: ?? Higher Risk: <50 mg/dL LDL Cholesterol 70 mg/dL [facility] Comment: Lowest Risk: <100 mg/dL Lower Risk: 100-129 mg/dL Borderline High Risk: 130-159 mg/dL High Risk: 160-189 mg/dL Very High Risk: >aw=282 mg/dL Cholesterol/HDL Ratio 3.0 ratio [facility] Lipid Interpretation See Note [facility] Comment: Lipid management should be guided by a patient? s ASCVD risk, goals and preferences. ACC/AHA Guidelines recommend high intensity statin if clinical ASCVD or LDL greater than or equal to 190 mg/dL. http://[employer].com/IXV-FDJ-Zxcsfmsnd Adults aged 40-75 with LDL 70-189 mg/dL should have their 10 year ASCVD risk estimated with the ACC/AHA ASCVD risk senior mechanical estimator http://tools.acc.org/XIWYL-Tfdj-Msvsibael/ Statin should be discussed if risk greater [...] In Lab Carmita Chandler MD CHEMISTRY ORDERABLES [facility] [place] [address] * Apolipoprotein B (04/13/2022 5:26 PM EST) Apolipoprotein B (AUGUST) 65 mg/dL [facility] Comment: REFERENCE VALUE Desirable: <90 Above Desirable: 90-99 Borderline high: 100-119 High: 120-139 Very high: > or = 140 Test Performed by: [facility] - [address] [address] Car Audio Installer: Venu Michaud M.D. Ph.D.; CLIA# [id number] Blood 04/13/2022 5:26 PM EST 04/14/2022 11:29 AM EST Narrative Resulting Agency Comment Spec In Lab Carmita Chandler MD LAB SEND OUT ORDERAB LES Performing Organization Address City/[facility] Co de Phone Number [facility] [place] [address] * (ABNORMAL) Lipoprotein A (04/13/2022 5:26 PM EST) Lipoprotein(A) (AUGUST) 109(H) <75 nmol/L [facility] Comment: Lp(a) confers increased risk for [...] considered a risk enhancing factor by the [place] Heart Association. This test has been modified from the video control operator's instructions. Its performance characteristics were determined by [facility] in a manner consistent with CLIA requirements. This test has not been cleared or approved by the U.S. Food and Drug Administration. Test Performed by: [facility] [place] [address] Car Audio Installer: Venu Michaud M.D. Ph.D.; CLIA# [id number] Blood 04/13/2022 5:26 PM EST 04/14/2022 11:29 AM EST Narrative Resulting Agency Comment Spec In Lab Carmita Chandler MD LAB SEND OUT ORDERAB LES Performing Organization Address City/State/[facility] Co de Phone Number [facility] [place] [address] * EKG 12 Lead (04/13/2022 4:44 PM EST) Ventricular rate 73 BPM MUSE SYSTEM Atrial Rate 73 BPM MUSE SYSTEM P-R Interval 150 ms MUSE SYSTEM QRS Duration 86 ms MUSE SYSTEM Q-T Interval 402 ms MUSE SYSTEM QTC Calculated (Bezet) 442 ms MUSE SYSTEM Calculated P [place] 72 degrees MUSE SYSTEM Calculated R [place] 67 degrees MUSE SYSTEM Calculated T [place] 62 degrees MUSE SYSTEM INTERPRETATION Normal sinus rhythm with sinus arrhythmia Nonspecific ST abnormality Abnormal ECG No previous ECGs available Confirmed by MD LUIS F, SAMEER ([id number]) on 04/13/2022 9:22:54 PM MUSE SYSTEM 04/13/2022 4:44 PM EST 04/13/2022 9:22 PM EST Carmita Chandler MD ECG ORDERABLES Performing Organization Address City/[facility] Co de Phone Number MUSE SYSTEM documented in this encounter Visit Diagnoses Diagnosis PONCHO (obstructive sleep apnea) Obstructive sleep apnea (adult) (pediatric) Pure hypercholesterolemia documented in this encounter Care Teams Fruit Raiser Relationship Specialty Start Date End Date Sun Borrero DO [employer] [place] [address] PCP - General Internal Medicine 01/29/21 02/17/24 documented as of this encounter
--- OUTSIDE RECORDS SUMMARY | 2024-03-13 18:38 | XMS_ITS | Encounter Summary ---
[place] [address] Care Team Providers Care Manufacturing Engineering Technician Name Role Phone Lee Anne APRN Primary Care Provider [phone] Reason for Visit * Reason Comments Skin Check Encounter Details Date Type Department Care Team (Late st Contact Info) Description 10/18/2020 9:15 AM EDT Office Visit Dermatology at [address] [address] Miguel Ángel Thomason MD 580 [facility] [place] [address] History of SCC (squamous cell carcinoma) of [...] ??Jaquelin ethnic background Alejandra follows up for a [...] inflamed documented in this encounter Care Teams Manufacturing Engineering Technician Relationship Specialty Start Date End Date Lee Anne APRN [address] [place] [address] [place] [address] PCP - General Family Medicine 06/19/15 01/28/21 documented as of this encounter
--- OUTSIDE RECORDS SUMMARY | 2024-03-13 18:38 | XMS_ITS | Encounter Summary ---
[place] [address] Care Team Providers Care Wool Hanker Name Role Phone Sun Borrero Primary Care Provider [phone] Encounter Details Date Type Department Care Team (Late st Contact Info) Description 11/17/2023 Interpretation Only [facility] in [address] [address] Peggy Hernandez MD [address] [place], [place] [address] Social History Tobacco Use Types Packs/Day Years [...] PM EDT) PT CLASS O RAD ADMITDTTM [id number] RAD PT RAD INFO [id number]^KARON ^PEGGY^Briana RAD EXAM DESC [id number] KNEE 4V LT^RIS DH RAD WORKSTATION ID [id number] [facility] Anatomical Region Laterality Modality Knee Left Radiographic [...] who have questions please contact the health patient care associate that requested your imaging first. ? Electronically signed by: Nima Agarwal MD, [facility] ([phone]), at 12/27/2023 8:10 AM ORIGINAL REPORT EXAMINATION: [...] who have questions please contact the health patient care associate that requested your imaging first. ? Electronically signed by: Nima Agarwal MD, [facility] ([phone]), at 11/17/2023 6:11 PM Addendum by Nima [...] who have questions please contact the health patient care associate that requested your imaging first. ? Electronically signed by: Nima Agarwal MD, [facility] ([phone]), at 11/17/2023 6:11 PM Impressions 11/17/2023 6:11 [...] who have questions please contact the health patient care associate that requested your imaging first. ? Narrative [...] patients who have questions please contactthe health patient care associate that requested your imaging first. Electronically signed by: Nima Agarwal MD, [facility]([phone]), at 11/17/2023 6:11 PM Peggy Hernandez MD IMG DX ORDERABLES documented in this encounter Visit Diagnoses Not on filedocumented in this encounter Care Teams Wool Hanker Relationship Specialty Start Date End Date Sun Borrero DO [address] [place] [address] PCP - General Internal Medicine 01/29/21 02/17/24 documented as of this encounter
--- OUTSIDE RECORDS SUMMARY | 2024-03-13 18:38 | XMS_ITS | Encounter Summary ---
[place] [address] Care Team Providers Care Recycle Driver Name Role Phone Lee Anne APRN Primary Care Provider [phone] Encounter Details Date Type Department Care Team (Late st Contact Info) Description 04/05/2018 4:45 PM EST Office Visit Dermatology at [place] [address] [facility] [place] [address] Miguel Ángel Thomason MD 580 [facility] [place]Y [place], [place] [address] Seborrheic keratosis; Seborrheic dermatitis; History of SCC [...] History of seborrheic dermatitis of scalp 4. Serbian ethnic background Alejandra follows up and is [...] lived for a number of years in [facility]. Physical examination reveals a fair complected 58 [...] inflamed documented in this encounter Care Teams Recycle Driver Relationship Specialty Start Date End Date Lee Anne APRN [address] [facility] [place] [id number] PCP - General Family Medicine 06/19/15 01/28/21 documented as of this encounter
--- OUTSIDE RECORDS SUMMARY | 2024-03-13 18:38 | XMS_ITS | Encounter Summary ---
[place] [address] Care Team Providers Care Cattle Driver Name Role Phone Sun Borrero DO Primary Care Provider [phone] Encounter Details Date Type Department Care Team [...] on filedocumented in this encounter Care Teams Cattle Driver Relationship Specialty Start Date End Date Sun Borrero DO [address] [place] [address] PCP - General Internal Medicine 01/29/21 02/17/24 documented as of this encounter
--- OUTSIDE RECORDS SUMMARY | 2024-03-13 18:38 | XMS_ITS | Encounter Summary ---
Author Organization [facility] Address [facility] [place] [address] Care Team Providers Care Early Breastfeeding Care Specialist Name Role Phone Sun Borrero DO Primary Care Provider [phone] Encounter Details Date Type Department Care Team (Late st Contact Info) Description 04/14/2022 Telephone Cardiology at [address] [place] [address] Carmita Chandler [place] [facility] [address] Social History Tobacco Use Types Packs/Day Years [...] and we talked about my recommending a personal lines underwriter closer to where you live. [facility] in [facility] now has a etl architect personal lines underwriter who used to work with me here at [facility]. He also has practiced lipidology and is an excellent personal lines underwriter. They do all the stress testing at [facility] as well. His name is Dr. Aditya Lechuga and you can schedule an appointment with him by calling [phone]. He will be able to access the [...] on filedocumented in this encounter Care Teams Early Breastfeeding Care Specialist Relationship Specialty Start Date End Date Sun Borrero DO [address] [place] [address] PCP - General Internal Medicine 01/29/21 02/17/24 documented as of this encounter
--- OUTSIDE RECORDS SUMMARY | 2024-03-13 18:39 | XMS_ITS | Encounter Summary ---
Author Organization [facility] Address [address] [place] [address] Care Team Providers Care Delivery Of Shopping News Name Role Phone OmidLee Jenn VEGA Primary Care Provider [phone] Encounter Details Date Type Department Care Team (Late st Contact Info) Description 09/05/2020 Lab Requisition [facility] Pathology & Laboratory Medicine - [address] [address] Maxwell Adhikari MD [address] [place] [phone] Encounter for other general examination Social History Tobacco Use Types Packs/Day Years Used Date Smoking Tobacco: Former Cigarettes Smokeless Tobacco: Never Comments:quit 13 years ago Alcohol Use Standard Drinks/Week Comments No 0 (1 standard drink = 0.6 oz pur e alcohol) Interpersonal Safety Answer Date Record ed Physically Hurt Never 12/03/2019 Verbally Threaten Not on file 12/03/2019 Comments No Sex and Gender Information Value Date Recorded Sex Assigned at Not on file Legal Sex Female 18:38 EST Gender Identity Not on file Sexual Orientation Not on file documented as of this encounter Functional Status * Because of a physical, mental, or emotional condition, does this person have difficulty doing errands alone such as visiting a doctor's office or shopping? Answer Date of Assessment Author No 10/14/2017 14:08 EDT documented as of this encounter Mental Status * Because of a physical, mental, or emotional condition, does this person have serious difficulty concentrating, remembering, or making decisions? Answer Entry Date Author Yes 10/14/2017 14:08 EDT documented in this encounter Plan of Treatment [...] - Deeper sections x3 examined. 09/09/2020 6:54 [facility] Attestation By the signature below, the attending physician certifies that they have 1) personally conducted a gross and/or microscopic examination of the described specimen(s), and/or personally interpreted the results of laboratory testing of the described specimen(s), and 2) personally rendered or confirmed the above diagnosis. 09/09/2020 6:54 [facility] at 0654 Clinical History Dysphagia and family history of colon cancer; rectal polyps, esophagitis 09/09/2020 6:54 [facility] Gross Description A. Received in [...] AGUSTÍN LUGO(ASCP) 09/06/2020 8:32 09/09/2020 6:54 EDT [facility] Performing Lab [facility] 09/09/2020 6:54 EDT [facility] Scanned Images 09/09/2020 6:54 EDT [facility] Tissue SPECIMEN FROM RECTUM [...] Unknown 09/05/2020 12:00 EDT 09/06/2020 8:01 EDT us Maxwell Adhikari MD PATHOLOGY ORDERABLES F inal Result [facility] [address] [place] [address] documented in this encounter Visit Diagnoses Diagnosis Encounter for other general examination documented in this encounter Care Teams Delivery Of Shopping News Relationship Specialty Start Date End Date Lee Anne APRN [address] [place] [address] [address] [place] [address] PCP - General 07/16/17 documented as of this encounter
--- OUTSIDE RECORDS SUMMARY | 2024-03-13 18:39 | XMS_ITS | Encounter Summary ---
Author Organization [facility] Address [address] [place] [address] Care Team Providers Care Program Director Substance Abuse Name Role Phone Lee Anne Jenn VEGA Primary Care Provider [phone] Reason for Visit * Reason Onset Date Comments Results 10/27/2017 thyroid Encounter Details Date Type Department Care Team (Late st Contact Info) Description 10/27/2017 Telephone [facility] Endocrinology - [address] [address] Arpan Truong MD [address] [place] [address] Results (thyroid) Social History Tobacco Use Types Packs/Day Years Used Date Smoking Tobacco: Former Cigarettes Smokeless Tobacco: Never Comments:quit 13 years ago Alcohol Use Standard Drinks/Week Comments No 0 (1 standard drink = 0.6 oz pur e alcohol) Comments No Sex and Gender Information Value [...] 10/14/2017 14:08 EDT documented in this encounter Miscellaneous Notes * [...] on filedocumented in this encounter Care Teams Program Director Substance Abuse Relationship Specialty Start Date End Date Lee Anne APRN [address] [place] [address] [address] [place] [address] PCP - General 07/16/17 documented as of this encounter
--- OUTSIDE RECORDS SUMMARY | 2024-03-13 18:39 | XMS_ITS | Encounter Summary ---
Author Organization [facility] Address [address] [place] [address] Care Team Providers Care Armoured Corps Officer Name Role Phone Lee Anne APRN Primary Care Provider [phone] Reason for Visit * Reason Comments Pain * Referral (Routine) - Closed Specialty Diagnoses / Procedures [facility] Referred To Contact Orthopedic Surgery Diagnoses Pain in left foot Lee Anne APRN [address] [place] [address] Phone: tel: fax: [facility] Orthopedics & Podiatry [address] [place] [address] Phone: tel: fax: Referral ID Status Reason Start Date Expiration Date Visits Re quested Visits Authorized [id number] Closed 1 1 Encounter Details Date Type Department Care Team (Late st Contact Info) Description 03/08/2020 11:00 EST Office Visit [facility] Orthopedics & Podiatry [address] [place], [place] [id number] Niki Meng, [facility] [address] [facility] [address] [place] [address] Pain in right foot (Primary Dx) Social [...] - documented in this encounter Functional Status * Because of [...] 10/14/2017 14:08 EDT documented in this encounter Progress Notes * Niki Meng DPM - 03/08/2020 1100 EST Due to computer system disruption, additional clinical information for this visit is Scanned Note. For patients, please refer to guidance in HereOrTheret on how to locate information. Generally this information will appear as a scanned documents saved in My Documents activity. documented in this encounter Plan of Treatment Not on file documented as of this encounter Visit Diagnoses Diagnosis Pain in right foot- Primary Pain in limb documented in this encounter Care Teams Armoured Corps Officer Relationship Specialty Start Date End Date Lee Anne APRN [address] [place] [address] DR L[address] [place] [address] PCP - General 07/16/17 documented as of this encounter
--- OUTSIDE RECORDS SUMMARY | 2024-03-13 18:39 | XMS_ITS | Encounter Summary ---
Author Organization [facility] Address [address] [place] [address] Care Team Providers Care Booster Plant Operator Name Role Phone Unknown, Provider Primary Care Provider Unava ilable Encounter Details Date Type Department Care Team (Late st Contact Info) Description 07/14/2017 Results Only Imaging [facility] [phone] Unknown, Provider, Social History Tobacco Use Types Packs/Day Years Used Date Smoking Tobacco: Never Assessed Comments Unknown Sex and Gender Information Value Date Recorded [...] on filedocumented in this encounter Care Teams Booster Plant Operator Relationship Specialty Start Date End Date Unknown, Provider, PCP - General 11/27/13 07/15/17 documented as of this encounter
--- OUTSIDE RECORDS SUMMARY | 2024-03-13 18:39 | XMS_ITS | Encounter Summary ---
Author Organization [facility] Address [address] [place] [address] Care Team Providers Care Tyre Builder Name Role Phone AnneLee Jenn VEGA Primary Care Provider [phone] Encounter Details Date Type Department Care Team (Late st Contact Info) Description 07/17/2017 Orders Only [facility] Endocrinology - [address] [phone] Arpan Truong MD [address] [place] [address] Abnormal serum thyroxine (T4) level [...] shopping? Answer Date of Assessment Author No 07/16/2017 15:15 EDT documented as of this encounter Mental Status * Because of a physical, mental, or emotional condition, does this person have serious difficulty concentrating, remembering, or making decisions? Answer Entry Date Author Yes 07/16/2017 15:15 EDT documented in this encounter Plan of Treatment Not on file documented as of this encounter Procedures Procedure Name Priority Date/Time Associated Diagnosis Comments OUTPATIENT ADD-ON Routine 07/17/2017 17: 08 EDT Abnormal serum thyroxine (T4) level documented in this encounter Results * OUTPATIENT ADD-ON (07/17/2017 17:08 EDT) Tests to be added TOTAL T4, TOTAL T3, FREE T3 07/17/2017 17:08 EDT [facility] Diagnosis Code NA 07/17/2017 17:12 EDT [facility] Number for problems HARDY RAMSEY 07/17/2017 17:08 EDT [facility] Accession number [id number] 07/17/2017 17:12 EDT [facility] Acknowledge ABP Done 8 17:12 EDT [facility] BLOOD SPECIMEN / Unknown 07/17/2017 17:08 EDT 07/17/2017 17:12 EDT us Arpan Solorzano MD HEMATOLOGY & PF4 ORD ERABLES Final Result [facility] [address] [place] [address] documented in this encounter Visit Diagnoses Diagnosis Abnormal serum thyroxine (T4) level- Primary documented in this encounter Care Teams Tyre Builder Relationship Specialty Start Date End Date Lee Anne APRN [address] [place] [address] [address] [place] [address] PCP - General 07/16/17 documented as of this encounter
--- OUTSIDE RECORDS SUMMARY | 2024-03-13 18:39 | XMS_ITS | Encounter Summary ---
Author Organization [facility] Address [address] [place] [address] Care Team Providers Care Policy Analyst Name Role Phone OmidLee Jenn VEGA Primary Care Provider [phone] Reason for Visit * Reason Onset Date Comments Dizziness 05/19/2021 Encounter Details Date Type Department Care Team (Late st Contact Info) Description 05/19/[address] [address] Yamileth Loco LPN Dizziness Social History Tobacco [...] Encounter - Kaye Fisher RN - 05/19/2021 1414 EST Patient has been triaged with our dizziness screening protocol and notes have been reviewed. It hasbeen determined that patient would benefit from an evaluation with ENT. * Telephone Encounter - Yamileth Loco LPN - 05/19/2021 1330 EST DIZZINESS QUESTIONNAIRE DEPARTMENT OF OTOLARYNGOLOGY - HEAD AND NECK SURGERY I. When you are dizzy, do you experience any of the following sensation? Please read the entire list first. Then the [place] the numbers of those which describe your [...] to discuss the recommendations. + Meclizine and zofrmaddy rivera tired Sonal at home. feels like there is water in her ears. Comments: documented in this encounter Plan of Treatment Not on file documented as of this encounter Visit Diagnoses Not on filedocumented in this encounter Care Teams Policy Analyst Relationship Specialty Start Date End Date Lee Anne APRN [address] [place] [address] [address] [place] [address] PCP - General 07/16/17 documented as of this encounter
--- OUTSIDE RECORDS SUMMARY | 2024-03-13 18:39 | XMS_ITS | Encounter Summary ---
Author Organization [facility] Address [address] [place] [address] Care Team Providers Care Bonding Machine Tender Name Role Phone OmidElizabethjessica Barajas APRN Primary Care Provider Reason for Referral * Vascular Lab (Routine) - Authorization Not Required Specialty Diagnoses / Procedures Referred By Contchris t Referred To Contact Diagnoses Varicose veins of bilateral lower extremities with other complications Procedures US VARICOSE VEIN DUPLEX Sun Borrero DO [address] [address] Phone: tel: fax: [facility] Vascular Lab Referral ID Status Reason Start Date Expiration Date Visits Requested Visits Authorized [id number] Authorization Not Required 09/25/2021 1 1 Encounter Details Date Type Department Care Team (Latest Contact Info) Description 09/25/2021 Transcribe Orders Vascular Surgery and Endovascular Therapy - [address] [id number] Sun Borrero DO [address] [place] [address] Varicose veins of bilateral lower [...] left arm when dehydrated, 8 year duration. us Sun Borrero DO IMG US VASCULAR ORDERABLES Fi nal Result documented in this encounter Visit Diagnoses Diagnosis Varicose veins of bilateral lower extremities with other complications- Primary documented in this encounter Care Teams Bonding Machine Tender Relationship Specialty Start Date End Date Lee Anne APRN [address] [place] [address] [address] [place] [address] PCP - General 07/16/17 documented as of this encounter
--- OUTSIDE RECORDS SUMMARY | 2024-03-13 18:39 | XMS_ITS | Encounter Summary ---
Author Organization [facility] Address [address] [place] [address] Care Team Providers Care Medical Records Coordinator Name Role Phone Omid Lee Barajas APRN Primary Care Provider [phone] Encounter Details Date Type Department Care Team (Late st Contact Info) Description 05/06/2021 Lab Requisition [facility] Pathology & Laboratory Medicine - [address] [address] Outr Resulting Lab, Provider Social History Tobacco [...] 30 - 100 ng/mL 05/07/2021 10:30 EST [facility] Comment: Vitamin D 25,OH Interpretive Ranges: Deficiency: ??<10.0 ng/mL Insufficiency: ??10.0 - 30.0 ng/mL Sufficiency: ??30.0 - 100.0 ng/mL Toxicity: ??>100.0 ng/mL Blood VENOUS BLOOD / Unknown 05/06/2021 12:12 EST 05/06/2021 21:29 EST us Provider Outr Resulting Lab CHEMISTRY & BLOOD GA S ORDERABLES Final Result [facility] [address] [place] [address] documented in this encounter Visit Diagnoses Not on filedocumented in this encounter Care Teams Medical Records Coordinator Relationship Specialty Start Date End Date Lee Anne APRN [address] [place] [address] [address] [place], [place] [address] PCP - General 07/16/17 documented as of this encounter
--- OUTSIDE RECORDS SUMMARY | 2024-03-13 18:39 | XMS_ITS | Encounter Summary ---
Author Organization [facility] Address [address] [place] [address] Care Team Providers Care Mold Worker Name Role Phone OmidElizabethjessica Barajas APRN Primary Care Provider [phone] Encounter Details Date Type Department Care Team (Late st Contact Info) Description 10/20/2019 Lab Requisition [facility] Pathology & Laboratory Medicine - [address] [address] Outr Resulting Lab, Provider Social History Tobacco [...] Priority Date/Time Associated Diagnosis Comments ZZCOVID-19 TEST [facility] PCR Today 10/20/2019 15:03 EDT COVID-19 TESTING Routine 10/20/2019 15:0 3 EDT documented in this encounter Results * COVID-19 TEST [facility] PCR (10/20/2019 15:03 EDT) Swab ENTIRE NASOPHARYNX / Unknown 10/20/2019 15:03 EDT 10/20/2019 21:38 EDT us Provider Outr Resulting Lab MICROBIOLOGY - GENER AL ORDERABLES Final Result Performing Organization Address [facility] Co de Phone Number [facility] [address] [place] [address] * COVID-19 TESTING (10/20/2019 15:03 EDT) COVID-19 rt-PCR Result Negative Negative 10/21/2019 16:48 EDT [facility] Comment: This test has [...] history, and epidemiological information. Performed on the [employer] Fusion instrument Performing Lab [place] [facility] 10/21/2019 16:48 EDT [facility] Swab 10/20/2019 15:0 3 EDT 10/20/2019 21:38 EDT us Provider Outr Resulting Lab MICROBIOLOGY - GENER AL ORDERABLES Final Result Performing Organization Address City/[facility]/ZIP Co de Phone Number [facility] [address] [place] [address] documented in this encounter Visit Diagnoses Not on filedocumented in this encounter Additional Health Concerns Infection Onset Date Last Indicated Resolved Time R/O COVID-19 11/04/2019 11/04/2019 11/09/2019 22:1 6 EDT documented as of this encounter Care Teams Mold Worker Relationship Specialty Start Date End Date Lee Anne APRN [address] [facility] [address] [place] [address] PCP - General 07/16/17 documented as of this encounter
--- OUTSIDE RECORDS SUMMARY | 2024-03-13 18:39 | XMS_ITS | Encounter Summary ---
Author Organization [facility] Address [address] [place] [address] Care Team Providers Care Forest Technology Professor Name Role Phone AnneLee Jenn VEGA Primary Care Provider [phone] Encounter Details Date Type Department Care Team (Late st Contact Info) Description 12/31/2020 Transcribe Orders [facility] Gastroenterology - Main [address] [address] Maxwell Adhikari MD [address] [place] [phone] Dysphagia, unspecified type (Primary Dx); Family history [...] disease documented in this encounter Care Teams Forest Technology Professor Relationship Specialty Start Date End Date Lee Anne APRN [address] [place] [address] [address] [place] [address] PCP - General 07/16/17 documented as of this encounter
--- OUTSIDE RECORDS SUMMARY | 2024-03-13 18:39 | XMS_ITS | Encounter Summary ---
Author Organization [facility] Address [address] [place] [address] Care Team Providers Care Personnel Technician Name Role Phone AnneLee Jenn VEGA Primary Care Provider [phone] Encounter Details Date Type Department Care Team (Late st Contact Info) Description 07/16/2017 Results Only [facility] Endocrinology - [address] [address] Arpan Truong MD [address] [place] [address] Social History Tobacco Use Types [...] 5.5 - 11.0 ug/dl 07/17/2017 17:59 EDT [facility] BLOOD SPECIMEN / Unknown 07/16/2017 16:25 EDT 07/16/2017 18:52 EDT us Arpan Solorzano MD CHEMISTRY & BLOOD GA S ORDERABLES Final Result [facility] [address] [place] [address] * T3, TOTAL (07/16/2017 16:25 EDT) T3, Total 168 97 - 169 ng/dl 07/17/2017 18:12 EDT [facility] BLOOD SPECIMEN / Unknown 07/16/2017 16:25 EDT 07/16/2017 18:52 EDT us Arpan Solorzano MD CHEMISTRY & BLOOD GA S ORDERABLES Final Result [facility] [address] [place] [address] * T3 FREE (07/16/2017 16:25 EDT) T3, Free 4.7 2.8 - 5.3 pg/ml 07/17/2017 17:59 EDT [facility] BLOOD SPECIMEN / Unknown 07/16/2017 16:25 EDT 07/16/2017 18:52 EDT us Arpan Solorzano MD CHEMISTRY & BLOOD GA S ORDERABLES Final Result [facility] [address] [place] [address] * HOLD RED TOP (07/16/2017 16:25 EDT) Hold Red Top Hold for further testing. Specimen will be held for 5 days. 07/16/2017 18:52 EDT [facility] BLOOD SPECIMEN / Unknown 07/16/2017 16:25 EDT 07/16/2017 18:52 EDT us Arpan Solorzano MD LAB INFO SERVICE AND SUPPORT & PHONE RESULT Final Result Performing Organization Address City/[facility] Co de Phone Number [facility] [address] [place] [address] documented in this encounter Visit Diagnoses Not on filedocumented in this encounter Care Teams Personnel Technician Relationship Specialty Start Date End Date Lee Anne APRN [address] [place] [address] [address] [place] [address] PCP - General 07/16/17 documented as of this encounter
--- OUTSIDE RECORDS SUMMARY | 2024-03-13 18:39 | XMS_ITS | Encounter Summary ---
Author Organization [facility] Address [facility] [place] [address] Care Team Providers Care Landfill Gas Plant Field Technician Name Role Phone Theresa Duran APRN Primary Care Provider [phone] Encounter Details Date Type Department Care Team (Late st Contact Info) Description 10/18/[address] [facility] [address] [place] [address] Zion Kowalski III, MD [facility] [place] [address] Social History Tobacco Use Types Packs/Day Years [...] . She lives in the [facility] and wants to see someone closer to home. I advised her to call about 3 months before she needs to be seen as he stays booked up. documented in this encounter Plan of Treatment Not on file documented as of this encounter Visit Diagnoses Not on filedocumented in this encounter Care Teams Landfill Gas Plant Field Technician Relationship Specialty Start Date End Date Theresa Duran APRN [address] [place] [address] [place] [address] PCP - General 11/23/11 01/22/13 documented as of this encounter
--- OUTSIDE RECORDS SUMMARY | 2024-03-13 18:39 | XMS_ITS | Encounter Summary ---
Author Organization [facility] Address [address] [place] [address] Care Team Providers Care Sr Risk Management Consultant Name Role Phone OmidElizabethjessica Barajas APRN Primary Care Provider [phone] Encounter Details Date Type Department Care Team (Late st Contact Info) Description 07/24/2020 Lab Requisition [facility] Pathology & Laboratory Medicine - [address] [address] Outr Resulting Lab, Provider Social History Tobacco [...] Priority Date/Time Associated Diagnosis Comments ZZCOVID-19 TEST [facility] PCR Today 07/24/2020 15:04 EDT COVID-19 TESTING Routine 07/24/2020 15:0 4 EDT documented in this encounter Results * COVID-19 TEST [facility] PCR (07/24/2020 15:04 EDT) Swab ENTIRE NASOPHARYNX / Unknown 07/24/2020 15:04 EDT 07/24/2020 22:01 EDT us Provider Outr Resulting Lab MICROBIOLOGY - GENER AL ORDERABLES Final Result [facility] [address] [place] [address] * COVID-19 TESTING (07/24/2020 15:04 EDT) COVID-19 rt-PCR Result Negative Negative 07/25/2020 11:38 EDT [facility] Comment: This test has not [...] performed using the jonna SARS-CoV-2 assay (Anatoly Your Image by [employer] on the Jonna 6800 System Performing Lab Jonna [address] [facility] 07/25/2020 11:38 EDT [facility] Swab 07/24/2020 15:0 4 EDT 07/24/2020 22:01 EDT us Provider Outr Resulting Lab MICROBIOLOGY - GENER AL ORDERABLES Final Result [facility] [address] [place] [address] documented in this encounter Visit Diagnoses Not on filedocumented in this encounter Care Teams Sr Risk Management Consultant Relationship Specialty Start Date End Date Lee Anne APRN [address] [place] [address] [address] [place] [address] PCP - General 07/16/17 documented as of this encounter
--- OUTSIDE RECORDS SUMMARY | 2024-03-13 18:39 | XMS_ITS | Encounter Summary ---
[place] [address] Care Team Providers Care Lead Web Developer Name Role Phone Lee Anne APRN Primary Care Provider [phone] Reason for Visit * Reason Comments Skin Check Encounter Details Date Type Department Care Team (Late st Contact Info) Description 03/16/2017 3:45 PM EST Office Visit Dermatology at [address] [address] Miguel Ángel Thomason MD [address] [facility] [place] [address] Seborrheic keratosis; Seborrheic dermatitis Social History Tobacco [...] and reminds me that she is 100% [place] ethnic background. She is concerned about her [...] unspecified documented in this encounter Care Teams Lead Web Developer Relationship Specialty Start Date End Date Lee Anne APRN [address] [place] [address] [place] [address] PCP - General Family Medicine 06/19/15 01/28/21 documented as of this encounter
--- OUTSIDE RECORDS SUMMARY | 2024-03-13 18:39 | XMS_ITS | Encounter Summary ---
Author Organization [facility] Address [address] [place] [address] Care Team Providers Care Industrial Pharmacist Name Role Phone OmidElizabethjessica Barajas APRN Primary Care Provider [phone] Encounter Details Date Type Department Care Team (Late st Contact Info) Description 08/29/2020 Lab Requisition [facility] Pathology & Laboratory Medicine - [address] [address] Outr Resulting Lab, Provider Social History Tobacco [...] Priority Date/Time Associated Diagnosis Comments ZZCOVID-19 TEST [facility] PCR Today 08/29/2020 15:00 EDT COVID-19 TESTING Routine 08/29/2020 15:0 0 EDT documented in this encounter Results * COVID-19 TEST [facility] PCR (08/29/2020 15:00 EDT) Swab ENTIRE NASOPHARYNX / Unknown 08/29/2020 15:00 EDT 08/29/2020 20:28 EDT us Provider Outr Resulting Lab MICROBIOLOGY - GENER AL ORDERABLES Final Result [facility] [address] [place] [address] * COVID-19 TESTING (08/29/2020 15:00 EDT) COVID-19 rt-PCR Result Negative Negative 08/30/2020 14:42 EDT [facility] Comment: This test has not [...] performed using the jonna SARS-CoV-2 assay (Anatoly [employer] on the Jonna 6800 System Performing Lab Jonna [address] [facility] 08/30/2020 14:42 EDT [facility] Swab 08/29/2020 15:0 0 EDT 08/29/2020 20:28 EDT us Provider Outr Resulting Lab MICROBIOLOGY - GENER AL ORDERABLES Final Result [facility] [address] [place] [address] documented in this encounter Visit Diagnoses Not on filedocumented in this encounter Care Teams Industrial Pharmacist Relationship Specialty Start Date End Date Lee Anne APRN [address] [place] [address] [address] [place] [address] PCP - General 07/16/17 documented as of this encounter
--- OUTSIDE RECORDS SUMMARY | 2024-03-13 18:39 | XMS_ITS | Encounter Summary ---
[place] [address] Care Team Providers Care Manager Product Management Name Role Phone Franko Vance MD Primary Care Provider [phone] Reason for Visit * Reason Comments Skin Check Encounter Details Date Type Department Care Team (Late st Contact Info) Description 06/19/2014 9:45 AM EST Office Visit Dermatology at [address] [place] [address] Miguel Ángel Thomason MD [address] [facility] [place] [address] [place] (actinic keratosis) Discharge Disposition: Home Social [...] from the original note were not included. [facility] Seborrheic Keratosis: After Your Visit Your [...] color and feel of the skin. ?? deboning team leader front of a full-length mirror. Look carefully [...] more? Visit our health information library at [email or web address] You can also view health information on Atavist, your personal patient account. Log in or sign up today. Enter [id number] in the search box to learn more about Seborrheic Keratosis: After Your Visit. ?? [id number] [employer]. Care instructions adapted under license by [facility]. This care instruction is for use with your licensed healthcare professional. If you have questions about a medical condition or this instruction, always ask your healthcare professional. [employer] disclaims any warranty or liability for your use of this information. Content Version: 10.3.447256; Current as of: July 12, 2013 documented in this encounter Progress Notes * Miguel Ángel Thomason MD - 06/19/2014 10:32 AM EST Problem: Yearly skin checkup. Alejandra follows up and is doing well. She would like to have a yearly skin checkup. She reminds me that she lived for many years in [facility] but did have a lot [...] keratosis documented in this encounter Care Teams Manager Product Management Relationship Specialty Start Date End Date Franko Vance MD [address] [place] [address] PCP - General 01/23/13 06/18/15 documented as of this encounter
--- OUTSIDE RECORDS SUMMARY | 2024-03-13 18:39 | XMS_ITS | Encounter Summary ---
Author Organization [facility] Address [address] [place] [address] Care Team Providers Care Thread Tool Grinder Set Up Operator Name Role Phone OmidLee Jenn [place] Primary Care Provider [phone] Encounter Details Date Type Department Care Team (Late st Contact Info) Description 03/08/2020 Results Only Imaging [facility] Radiology Results [address] [place] [address] Niki Meng, [facility] [address] [place], [place] [address] Social History Tobacco Use Types Packs/Day Years [...] CC: ? Transcribed Date/Time: 03/08/2020 (1203) ? Hay Farmer: ? Printed Date/Time: 03/08/2020 (1203) ? PAGE [...] Meadows MD CC: Transcribed Date/Time: 03/08/2020 (1203) Hay Farmer: Printed Date/Time: 03/08/2020 (1203) PAGE 1 Signed Report Niki eMng DPJuve IMG DIAGNOSTIC IMAGING ORDBriana REILLY Final Result documented in this encounter Visit Diagnoses Not on filedocumented in this encounter Care Teams Thread Tool Grinder Set Up Operator Relationship Specialty Start Date End Date Lee Anne APRN [address] [place] [address] [address] [place] [address] PCP - General 07/16/17 documented as of this encounter
--- OUTSIDE RECORDS SUMMARY | 2024-03-13 18:39 | XMS_ITS | Encounter Summary ---
Author Organization [facility] Address [facility] [place] [address] Care Team Providers Care Header Operator Name Role Phone Sun Borrero Primary Care Provider [phone] Encounter Details Date Type Department Care Team (Late st Contact Info) Description 01/20/2010 Orders Only Dermatology at [facility] [address] [place] [address] Zion Kowalski III, MD [facility] [address] [address] Social History Tobacco Use Types Packs/Day Years [...] (01/20/2010 3:06 PM EDT) Surgical Pathology Report [id number] ? Location: [facility] The signing pathologist has (i) examined the [...] on filedocumented in this encounter Care Teams Header Operator Relationship Specialty Start Date End Date Sun Borrero DO [address] [place] [address] PCP - General Internal Medicine 01/29/21 02/17/24 documented as of this encounter
--- OUTSIDE RECORDS SUMMARY | 2024-03-13 18:39 | XMS_ITS | Encounter Summary ---
Author Organization [facility] Address [address] [place] [address] Care Team Providers Care Area Operations Director Name Role Phone Franklin Benedict APRN Primary Care Provider [phone] Encounter Details Date Type Department Care Team (Late st Contact Info) Description 09/19/2018 Results Only [facility] [phone] Franklin Benedict APRN [address] [place] [address] [address] [place], [place] [id number] Social History Tobacco Use Types Packs/Day Years [...] ? ALEJANDRA DAVIS ? Accession #: ? [id number] ? : ? 1960 (Age: 58) ??F [...] types 16,18,31,33,35, 39,45,51,52,56,58, 59,66, and 68 by corn husker machine operator mediated amplification. Comments Document reviewed and electronically signed by: ? System Interface ? Report date: 09/23/2018 By the signature above, the attending physician certifies that he/she has personally conducted a gross and/or microscopic examination of the described specimens and rendered or confirmed the above diagnosis. End of Report [facility] 09/19/2018 09/21/2018 us Franklin Benedict APRN PATHOLOGY ORDERABLES Final Resu lt [facility] [address] [place] [address] documented in this encounter Visit Diagnoses Not on filedocumented in this encounter Care Teams Area Operations Director Relationship Specialty Start Date End Date Franklin Benedict APRN [address] [place] [address] [address] [place] [address] PCP - General 07/16/17 documented as of this encounter
--- OUTSIDE RECORDS SUMMARY | 2024-03-13 18:39 | XMS_ITS | Encounter Summary ---
Author Organization [facility] Address [address] [place] [address] Care Team Providers Care Food Service Coordinator Name Role Phone Lee Anne APRN Primary Care Provider [phone] Reason for Visit * Reason Onset Date Comments Paperwork request 07/31/2019 procedure note s Encounter Details Date Type Department Care Team (Late st Contact Info) Description 07/31/2019 Telephone [facility] Endocrinology - [address] [address] Arpan Truong MD [address] [place] [address] Paperwork request (procedure notes) Social [...] mailed to pt per request. Katerine Stephen RN Endocrinology * Telephone Encounter - Sahara Caldwell - 07/31/2019 1443 EDT Patient calling, she would like the procedure notes and information from her 10/22/2017 biopsy sent to her for her job. Her address is [address] [place] [address], [facility]. documented in this encounter Plan of Treatment Not on file documented as of this encounter Visit Diagnoses Not on filedocumented in this encounter Care Teams Food Service Coordinator Relationship Specialty Start Date End Date Lee Anne APRN [address] [place] [address] [address] [place] [address] PCP - General 07/16/17 documented as of this encounter
--- OUTSIDE RECORDS SUMMARY | 2024-03-13 18:39 | XMS_ITS | Encounter Summary ---
Author Organization [facility] Address [address] [place] [address] Care Team Providers Care Station Captain Name Role Phone Lee Anne APRN Primary Care Provider [phone] Reason for Visit * Reason Comments New Patient Visit u/s first * Referral (Routine) - Closed Specialty Diagnoses / Procedures Referred By Contchris t Referred To Contact Vascular Surgery Diagnoses Phlebitis and thrombophlebitis of unspecified deep vessels of lower extremities, bilateral ([facility] Sima Anne MD Phone: tel: fax: Vascular Surgery and Endovascular Therapy - [address] [address] Phone: tel: fax: Referral ID Status Reason Start Date Expiration Date Visits Re quested Visits Authorized [id number] Closed 1 1 Encounter Details Date Type Department Care Team (Latest Contact Info) Description 10/14/2017 14:00 EDT Office Visit Vascular Surgery [place] [address] Russ Soriano MD Venous insufficiency of lower [...] EDT documented in this encounter Functional Status * [...] 10/14/2017 14:08 EDT documented in this encounter Patient Instructions * Patient Instructions* Anna Marie Elaine - 10/14/2017 14:00 EDT Greater saphenous vein documented in this encounter Progress Notes * Russ Soriano MD - 10/14/2017 1400 EDT [facility] Vascular Surgery H & P Consultation Note - Initial Visit Note Date: 10/14/2017 Patient: Alejandra Ruano Subjective: Alejandra Ruano is a 57 y.o. female who presents [...] this visit. History was documented as follows: [facility] Past Medical History: Diagnosis Date ??? Anxiety ??? Cancer ([facility]) ([facility]) skin ??? Depression ??? Environmental allergies ??? Neuromuscular disorder ([facility]) ([facility]) ??? Ruptured lumbar disc ??? Thyroid disease [...] extremity documented in this encounter Care Teams Station Captain Relationship Specialty Start Date End Date Lee Anne APRN [address] [place] [address] [address] [place] [address] PCP - General 07/16/17 documented as of this encounter
--- OUTSIDE RECORDS SUMMARY | 2024-03-13 18:39 | XMS_ITS | Encounter Summary ---
[place] [address] Care Team Providers Care Colon And Rectal Surgeon Name Role Phone Franko Vance MD Primary Care Provider [phone] Reason for Visit * Reason Comments Skin Check Encounter Details Date Type Department Care Team (Late st Contact Info) Description 01/23/2013 3:00 PM EDT Office Visit Dermatology [address] [facility] [address] [place] [address] Miguel Ángel Thomason MD [address] [facility] [place] [address] Seborrheic keratosis (Primary Dx) Social History Tobacco [...] have her skin checkups done in the [facility], as she lives in [place]. She denies any personal history of skin [...] keratosis documented in this encounter Care Teams Colon And Rectal Surgeon Relationship Specialty Start Date End Date Franko Vance MD [address] [place] [address] [place] [address] PCP - General 01/23/13 06/18/15 documented as of this encounter
--- OUTSIDE RECORDS SUMMARY | 2024-03-13 18:39 | XMS_ITS | Encounter Summary ---
Author Organization [facility] Address [address] [place] [address] Care Team Providers Care Cruller Maker Machine Name Role Phone Lee Anne APRN Primary Care Provider [phone] Encounter Details Date Type Department Care Team (Late st Contact Info) Description 11/02/2019 Lab Requisition [facility] Pathology & Laboratory Medicine - [address] [address] Lee Anne APRN [address] [place] [address] [address] [place], [place] [id number] Encounter for other general examination Social History [...] types, PCR Negative Negative 11/14/2019 11:12 EDT [facility] Comment:No E6 or E7 mRNA is detected from HPV types 16,18,31,33,35,39,45,51,52,56,58,59,66, and 68 by elevator installer apprentice mediated amplification. Papanicolaou smear specimen (specimen) CERVIX UTERI STRUCTURE / Unknown 11/02/2019 17:22 EDT 11/10/2019 15:51 EDT us Lee Anne APRN MICROBIOLOGY - GENERAL ORDERABL ES Final Result [facility] [address] [place] [address] * PAP TEST (11/02/2019 17:22 EDT) Specimens A. Cervix and/or Endocervix , ThinPrep Imaging System with Manual Evaluation 11/14/2019 11:12 [facility] Specimen Adequacy Satisfactory for Evaluation - assessment of transformation zone component not applicable ( e.g. atrophy, vaginal sample, hysterectomy) 11/14/2019 11:12 [facility] General Categorization Negative for intraepithelial lesion or malignancy 11/14/2019 11:12 [facility] Attestation . 11/14/2019 11:12 [facility] at 1112 Clinical History SEE ORDER COMMENT 0 11/14/2019 11:12 [facility] HPV The result for the Human Papillomavirus (HPV) Detection-High Risk Types is Negative. No E6 or E7 mRNA is detected from HPV types 16,18,31,33,35,39 ,45,51,52,56,58,5 9,66, and 68 by elevator installer apprentice mediated amplification.Melany ting was performed on specimen [id number] and was resulted on 11/14/2019 1059 EDT by LYNDSAY, LAB INSTRUMENT RESULTS IN 11/14/2019 11:12 EDT [facility] Scanned Images 11/14/2019 11:12 EDT [facility] Papanicolaou smear specimen (specimen) CERVIX UTERI STRUCTURE / Unknown 11/02/2019 17:22 EDT 11/06/2019 10:55 EDT us Lee Anne APRN PATHOLOGY ORDERABLES Final Resu lt [facility] [address] [place] [address] documented in this encounter Visit Diagnoses Diagnosis Encounter for other general examination documented in this encounter Additional Health Concerns Infection Onset Date Last Indicated Resolved Time R/O COVID-19 11/04/2019 11/04/2019 11/09/2019 22:1 6 EDT documented as of this encounter Care Teams Cruller Maker Machine Relationship Specialty Start Date End Date Lee Anne APRN [address] [place] [address] [address] [place] [address] PCP - General 07/16/17 documented as of this encounter
--- OUTSIDE RECORDS SUMMARY | 2024-03-13 18:39 | XMS_ITS | Encounter Summary ---
Author Organization [facility] Address [facility] [place] [address] Care Team Providers Care Mineral Economist Name Role Phone Theresa Duran APRN Primary Care Provider [phone] Reason for Visit * Reason Comments Skin Check Encounter Details Date Type Department Care Team (Late st Contact Info) Description 11/23/2011 10:45 AM EDT [place] [address] iZon Kowalski III, MD [facility] [place] [address] Seborrheic keratosis, inflamed Discharge Disposition: Home Social [...] changes: Zion Kowalski MD Section of Dermatology [facility] documented in this encounter Plan of Treatment Not on file documented as of this encounter Visit Diagnoses Diagnosis Seborrheic keratosis, inflamed Inflamed seborrheic keratosis documented in this encounter Care Teams Mineral Economist Relationship Specialty Start Date End Date Theresa Duran APRN [address] [place] [address] [place] [address] PCP - General 11/23/11 01/22/13 documented as of this encounter
--- OUTSIDE RECORDS SUMMARY | 2024-03-13 18:39 | XMS_ITS | Referral Summary ---
Author Organization [facility] Address [address] [place] [address] Care Team Providers Care Industrial Cook Name Role Phone Lee Anne Jenn [place] Primary Care Provider [phone] Allergies No known active allergies Medications ASCORBIC ACID/HESPERIDIN (BIOFLAVONOID PRODUCTS ORAL) Take by [...] Index 32.6 10/22/2017 1441 EDT Functional Status * Because of a physical, mental, or emotional condition, does this person have difficulty doing errands alone such as visiting a doctor's office or shopping? Answer Date of Assessment Author No 10/14/2017 14:08 EDT Mental Status * Because of a physical, mental, or emotional condition, does this person have serious difficulty concentrating, remembering, or making decisions? Answer Entry Date Author Yes 10/14/2017 14:08 EDT Plan of Treatment Not on file [place] Care Teams Industrial Cook Relationship Specialty Start Date End Date Lee Anne APRN [address] [place] [address] [address] [place], [place] [address] PCP - General 07/16/17
--- OUTSIDE RECORDS SUMMARY | 2024-03-13 18:39 | XMS_ITS | Encounter Summary ---
Author Organization [facility] Address [address] [place] [address] Care Team Providers Care Director Of People Name Role Phone Unknown, Provider Primary Care Provider Unava ilable Encounter Details Date Type Department Care Team (Late st Contact Info) Description 05/18/2017 Results Only [facility] [phone] Franklin Benedict, TRAFFIC DIRECTOR [address] [facility] [address] [place], [place] [id number] Social History Tobacco Use Types Packs/Day Years [...] ? ALEJANDRA DAVIS ? Accession #: ? [id number] ? : ? 1960 (Age: 57) ??F ?Collect Date: ? 05/18/2017 ? Location: ? [facility] ? Receive Date: ? 05/21/2017 ? Provider: FRANKLIN BENEDICT PARTNER MANAGEMENT CONSULTANT Copy to: ? Final Report SPECIMEN ADEQUACY [...] types 16,18,31,33,35, 39,45,51,52,56,58, 59,66, and 68 by goat herder mediated amplification. Comments Document reviewed and electronically signed by: ? System Interface ? Report date: 06/01/2017 By the signature above, the attending physician certifies that he/she has personally conducted a gross and/or microscopic examination of the described specimens and rendered or confirmed the above diagnosis. End of Report [facility] 05/18/2017 05/21/2017 us Franklin Benedict TRAFFIC DIRECTOR PATHOLOGY ORDERABLES Final Resu lt [facility] [address] [place] [address] documented in this encounter Visit Diagnoses Not on filedocumented in this encounter Care Teams Director Of People Relationship Specialty Start Date End Date Unknown, Provider, PCP - General 11/27/13 07/15/17 documented as of this encounter
--- OUTSIDE RECORDS SUMMARY | 2024-03-13 18:39 | XMS_ITS | Encounter Summary ---
Author Organization [facility] Address [address] [place] [address] Care Team Providers Care Eyelet Machine Operator Name Role Phone Lee Anne Jenn [place] Primary Care Provider [phone] Encounter Details Date Type Department Care Team (Late st Contact Info) Description 12/11/2021 Lab Requisition [facility] Pathology & Laboratory Medicine - [address] [address] Rossana Hernandez MD [address] [place] [address], [address] [place] [address] Neoplasm of uncertain behavior of [...] explore management options, if applicable. 12/12/2021 11:46 [facility] Final Diagnosis A. SKIN OF BACK, LEFT MID, SHAVE BIOPSY: - Seborrheic keratosis, inflamed. 12/12/2021 11:46 [facility] Attestation By the signature below, the attending physician certifies that they have 1) personally conducted a gross and/or microscopic examination of the described specimen(s), and/or personally interpreted the results of laboratory testing of the described specimen(s), and 2) personally rendered or confirmed the above diagnosis. 12/12/2021 11:46 [facility] at 1146 Clinical History ISK vs SCC; clinical diagnosis code: D48.5 12/12/2021 11:46 [facility] Gross Description A. Received in formalin labelled with proper patient identification (initials C, P) and L mid back is a shave biopsy of a pearly white lobulated, granular papule (1.5 x 0.8 x 0.2 cm). The specimen is inked, trisected, and submitted in A1. AGUSTÍN CRUZ(ASCP) 12/11/2021 19:40 12/12/2021 11:46 [facility] Performing Lab [facility] 12/12/2021 11:46 [facility] Scanned Images 12/12/2021 11:46 [facility] Tissue TISSUE SPECIMEN FROM SKIN / Unknown 12/11/2021 15:51 EDT 12/11/2021 19:14 EDT us Rossana Hernandez MD PATHOLOGY ORDERABLES Miley alvarado Result [facility] [address] [place] [address] documented in this encounter Visit Diagnoses Diagnosis Neoplasm of uncertain behavior of skin documented in this encounter Care Teams Eyelet Machine Operator Relationship Specialty Start Date End Date Lee Anne APRN [address] [place] [address] [address] [place] [address] PCP - General 07/16/17 documented as of this encounter
--- OUTSIDE RECORDS SUMMARY | 2024-03-13 18:39 | XMS_ITS | Encounter Summary ---
Author Organization [facility] Address [address] [place] [address] Care Team Providers Care Concrete Mixer Loader Truck Mounted Name Role Phone OmidLee Jenn [place] Primary Care Provider [phone] Reason for Visit * Reason Onset Date Comments Ultrasound 12/25/2019 Encounter Details Date Type Department Care Team (Late st Contact Info) Description 12/25/2019 Telephone [facility] [place] [address] [address] Arpan Truong MD [address] [place] [address] Ultrasound Social History Tobacco Use [...] EDT Calling patient 01/23/20 10:06 Wrong number [phone]. Calling phone number [phone] Unable to reach patient. Left message to [...] Called and requested results of US from [facility] for provider to review. * Telephone Encounter - Kristie Archer - 12/25/2019 1404 EDT Per patient, has in person follow up with Dr Suarez 02-25. Per patient, had ultrasound ordered by Lee Anne done recently at [facility]. Would like him to view results and for nurse to call her back. Has been having some symptoms with her thyroid. Please call back documented in this encounter Plan of Treatment Not on file documented as of this encounter Visit Diagnoses Not on filedocumented in this encounter Care Teams Concrete Mixer Loader Truck Mounted Relationship Specialty Start Date End Date Lee Anne APRN [address] [place] [address] [address] [place] [address] PCP - General 07/16/17 documented as of this encounter
--- OUTSIDE RECORDS SUMMARY | 2024-03-13 18:39 | XMS_ITS | Encounter Summary ---
Author Organization [facility] Address [address] [place] [address] Care Team Providers Care Access Control Specialist Name Role Phone Lee Anne APRN Primary Care Provider [phone] Encounter Details Date Type Department Care Team [...] on filedocumented in this encounter Care Teams Access Control Specialist Relationship Specialty Start Date End Date Lee Anne APRN [address] [place] [address] [address] [place] [address] PCP - General 07/16/17 documented as of this encounter
--- OUTSIDE RECORDS SUMMARY | 2024-03-13 18:39 | XMS_ITS | Encounter Summary ---
Author Organization [facility] Address [address] [place] [address] Care Team Providers Care Site Foreman Name Role Phone AnneLee Jenn [place] Primary Care Provider [phone] Reason for Visit * Reason Onset Date Comments Discuss Test Results 07/20/2017 3.16.18 Encounter Details Date Type Department Care Team (Late st Contact Info) Description 07/20/2017 Telephone [facility] Endocrinology - [address] [address] Arpan Truong MD [address] [place] [address] Discuss Test Results (3.16.18) Social [...] 07/16/2017 15:15 EDT documented in this encounter Miscellaneous Notes * Telephone Encounter - Sravan Atwood, GUNNAR - 07/20/2017 1634 EDT Called and relayed [...] on filedocumented in this encounter Care Teams Site Foreman Relationship Specialty Start Date End Date Lee Anne APRN [address] [place] [address] [address] [place] [address] PCP - General 07/16/17 documented as of this encounter
--- OUTSIDE RECORDS SUMMARY | 2024-03-13 18:39 | XMS_ITS | Encounter Summary ---
Author Organization [facility] Address [address] [place] [address] Care Team Providers Care Interior Design Professor Name Role Phone AnneLee Jenn [place] Primary Care Provider [phone] Reason for Visit * Reason Onset Date Comments Results 02/27/2020 Encounter Details Date Type Department Care Team (Late st Contact Info) Description 02/27/2020 Telephone [facility] [place] [address] [address] Arpan Truong MD [address] [place] [address] Results Social History Tobacco Use [...] 10/14/2017 14:08 EDT documented in this encounter Ordered Prescriptions Prescription Sig Dispense Quantity Refills Last Filled Start Date End Date rosuvastatin (CRESTOR) 20 mg tablet Take 1 [...] no print. Calling patient 02/27/20 13:01 This automotive service writer relayed Dr. Oropeza message to the patient. [...] documented as of this encounter Care Teams Interior Design Professor Relationship Specialty Start Date End Date Lee Anne APRN [address] [place] [address] [address] [place] [address] PCP - General 07/16/17 documented as of this encounter
--- OUTSIDE RECORDS SUMMARY | 2024-03-13 18:39 | XMS_ITS | Encounter Summary ---
Author Organization [facility] Address [address] [place] [address] Care Team Providers Care Natural Gas Field Processing Supervisor Name Role Phone OmidElizabethjessica Barajas APRN Primary Care Provider [phone] Encounter Details Date Type Department Care Team (Late st Contact Info) Description 11/04/2019 Lab Requisition [facility] Pathology & Laboratory Medicine - [address] [address] Outr Resulting Lab, Provider Social History Tobacco [...] Priority Date/Time Associated Diagnosis Comments ZZCOVID-19 TEST [facility] PCR Today 11/04/2019 14:00 EDT COVID-19 TESTING Routine 11/04/2019 14:0 0 EDT documented in this encounter Results * COVID-19 TEST [facility] PCR (11/04/2019 14:00 EDT) Swab ENTIRE NASOPHARYNX / Unknown 11/04/2019 14:00 EDT 11/04/2019 21:53 EDT us Provider Outr Resulting Lab MICROBIOLOGY - GENER AL ORDERABLES Final Result Performing Organization Address [facility] Co de Phone Number [facility] [address] [place] [address] * COVID-19 TESTING (11/04/2019 14:00 EDT) COVID-19 rt-PCR Result Negative Negative 11/05/2019 2:21 EDT [facility] Comment: This test [...] history, and epidemiological information. Performed on the [employer] instrument Performing Lab Center [facility] 11/05/2019 2:21 EDT [facility] Swab 11/04/2019 14:0 0 EDT 11/04/2019 21:53 EDT us Provider Outr Resulting Lab MICROBIOLOGY - GENER AL ORDERABLES Final Result Performing Organization Address [facility]/ZIP Co de Phone Number [facility] [address] [place] [address] documented in this encounter Visit Diagnoses Not on filedocumented in this encounter Additional Health Concerns Infection Onset Date Last Indicated Resolved Time R/O COVID-19 11/04/2019 11/04/2019 11/09/2019 22:1 6 EDT documented as of this encounter Care Teams Natural Gas Field Processing Supervisor Relationship Specialty Start Date End Date Lee Anne APRN [address] [place] [address] PCP - General 07/16/17 documented as of this encounter
--- OUTSIDE RECORDS SUMMARY | 2024-03-13 18:39 | XMS_ITS | Encounter Summary ---
Author Organization [facility] Address [address] [place] [address] Care Team Providers Care Sql Programmer Analyst Name Role Phone Lee Anne Jenn VEGA Primary Care Provider Reason for Visit * Reason Comments Thyroid Problem Encounter Details Date Type Department Care Team (Late st Contact Info) Description 07/16/2017 15:00 EDT Office Visit [facility] Endocrinology - [address] [address] Arpan Truong MD [address] [place] [address] Thyroid nodule (Primary Dx); Dyslipidemia; [...] 07/16/2017 15:15 EDT documented in this encounter Discharge Disposition Disposition [...] 231 LDL: 150 A1c: 5.6% Ultrasound from [facility] reveals: #1 well circumscribed, heterogeneous, hypoechoic, wider [...] office However based on the report from [facility] primary [facility], I will schedule the patient to undergoa fine needle aspiration of her dominant hand right sided 1.4 cm nodule. She knows that the fellow/attending manager file will perform a thyroid ultrasound and if [...] spent 45 minutes with her in a [id number] encounter, more than 50% of time was [...] Ab <28 <61 U/mL 2017 11:51 EDT [facility] Blood specimen (specimen) BLOOD SPECIMEN / Unknown 07/16/2017 16:25 EDT 07/16/2017 18:52 EDT us Arpan Solorzano MD CHEMISTRY & BLOOD GA S ORDERABLES Final Result [facility] [address] [place] [address] * (ABNORMAL) T4 FREE (07/16/2017 16:25 EDT) Pathologist [facility] T4, Free 0.7(L) 0.8 - 2.2 ng/dl 07/16/2017 20:01 EDT [facility] Blood specimen (specimen) BLOOD SPECIMEN / Unknown 07/16/2017 16:25 EDT 07/16/2017 18:52 EDT us Arpan Solorzano MD CHEMISTRY & BLOOD GA S ORDERABLES Final Result Performing Organization Address [facility]/ZIP Co de Phone Number [facility] [address] [place] [address] * TSH (07/16/2017 16:25 EDT) Pathologist [facility] TSH 1.23 0.47 - 4.68 uIU/ml 07/16/2017 20:15 EDT [facility] Blood specimen (specimen) BLOOD SPECIMEN / Unknown 07/16/2017 16:25 EDT 07/16/2017 18:52 EDT us Arpan Solorzano MD CHEMISTRY & BLOOD GA S ORDERABLES Final Result Performing Organization Address [facility]/ZIP Co de Phone Number [facility] [address] [place] [address] documented in this encounter Visit Diagnoses Diagnosis Thyroid nodule- Primary Nontoxic uninodular goiter Dyslipidemia Other and unspecified hyperlipidemia Obesity (BMI 30-39.9) Obesity, unspecified documented in this encounter Historical Medications * This list may reflect changes made after this encounter. sertraline (ZOLOFT) 100 mg tablet Take 100 [...] 02/26/2020 added in this encounter Care Teams Sql Programmer Analyst Relationship Specialty Start Date End Date Lee Anne APRN [address] [place] [address] [address] [place] [address] PCP - General 07/16/17 documented as of this encounter
--- OUTSIDE RECORDS SUMMARY | 2024-03-13 18:39 | XMS_ITS | Encounter Summary ---
[place] [address] Care Team Providers Care County Health Officer Name Role Phone Lee Anne APRN Primary Care Provider [phone] Reason for Visit * Reason Comments Skin Check Encounter Details Date Type Department Care Team (Late st Contact Info) Description 08/16/2015 3:45 PM EDT Office Visit Dermatology at [address] [place] [address] Miguel Ángel Thomason MD [address] [facility] [place] [address] Seborrheic keratosis Social History Tobacco Use Types [...] She reminds me that she is 100% [place] ethnic background and has had a number [...] keratosis documented in this encounter Care Teams County Health Officer Relationship Specialty Start Date End Date Lee Anne APRN [address] [place] [address] [place] [address] PCP - General Family Medicine 06/19/15 01/28/21 documented as of this encounter
--- OUTSIDE RECORDS SUMMARY | 2024-03-13 18:39 | XMS_ITS | Encounter Summary ---
Author Organization [facility] Address [address] [place] [address] Care Team Providers Care Knot Tying Operator Name Role Phone AnneLee Jenn VEGA Primary Care Provider [phone] Reason for Visit * Reason Onset Date Comments Appointment Related 09/09/2017 Encounter Details Date Type Department Care Team (Late st Contact Info) Description 09/09/2017 Telephone [facility] Endocrinology - [address] [address] Arpan Truong MD [address] [place] [address] Appointment Related Social History Tobacco [...] Telephone Encounter - Юлия Barth - 09/10/2017 1457 EDT Clarified with patient * Telephone Encounter [...] on filedocumented in this encounter Care Teams Knot Tying Operator Relationship Specialty Start Date End Date Lee Anne APRN [address] [place] [address] [address] [place] [address] PCP - General 07/16/17 documented as of this encounter
--- OUTSIDE RECORDS SUMMARY | 2024-03-13 18:39 | XMS_ITS | Encounter Summary ---
Author Organization [facility] Address [address] [place] [address] Care Team Providers Care Bioinformatics Engineer Name Role Phone Lee Anne APRN Primary Care Provider [phone] Encounter Details Date Type Department Care Team (Late st Contact Info) Description 05/21/2021 Lab Requisition [facility] Pathology & Laboratory Medicine - [address] [address] Outr Resulting Lab, Provider Social History Tobacco [...] on filedocumented in this encounter Care Teams Bioinformatics Engineer Relationship Specialty Start Date End Date Lee Anne APRN [address] [place] [address] [address] [place] [address] PCP - General 07/16/17 documented as of this encounter
--- OUTSIDE RECORDS SUMMARY | 2024-03-13 18:39 | XMS_ITS | Encounter Summary ---
Author Organization [facility] Address [address] [place] [address] Care Team Providers Care Cord Tire Builder Name Role Phone AnneLee Jenn VEGA Primary Care Provider [phone] Encounter Details Date Type Department Care Team (Late st Contact Info) Description 02/26/2020 Orders Only [facility] Endocrinology - [address] [id number] Arpan Truong MD [address] [place] [address] Social History Tobacco Use Types [...] documented as of this encounter Care Teams Cord Tire Builder Relationship Specialty Start Date End Date Lee Anne APRN [address] [place] [address] [address] [place] [address] PCP - General 07/16/17 documented as of this encounter
--- OUTSIDE RECORDS SUMMARY | 2024-03-13 18:39 | XMS_ITS | Encounter Summary ---
Author Organization [facility] Address [address] [place] [address] Care Team Providers Care Vest Backer Name Role Phone AnneLee Jenn VEGA Primary Care Provider [phone] Reason for Visit * Reason Onset Date Comments Results 01/24/2020 Encounter Details Date Type Department Care Team (Late st Contact Info) Description 01/24/2020 Telephone [facility] - [address] [address] Katerine Stephen RN Results Social [...] Notes * Telephone Encounter - Nita Pereira - 01/24/2020 1628 EDT Patients record updated with [...] that her current Cell Phone Is : [phone] Patient verbalized understanding. No barriers to learning noted. Katerine Stephen RN Endocrinology documented in this encounter Plan of Treatment Not on file documented as of this encounter Visit Diagnoses Not on filedocumented in this encounter Care Teams Vest Backer Relationship Specialty Start Date End Date Lee Anne APRN [address] [place] [address] [address] [place] [address] PCP - General 07/16/17 documented as of this encounter
--- OUTSIDE RECORDS SUMMARY | 2024-03-13 18:39 | XMS_ITS | Encounter Summary ---
Author Organization [facility] Address [address] [place] [address] Care Team Providers Care Water Main Inspector Name Role Phone Lee Anne Jenn VEGA Primary Care Provider [phone] Reason for Visit * Reason Comments Goiter Encounter Details Date Type Department Care Team (Late st Contact Info) Description 02/26/2020 11:10 EDT Office Visit [facility] Endocrinology - [address] [address] Arpan Truong MD [address] [place] [address] Thyroid nodule (Primary Dx); Dyslipidemia [...] follow-up thyroid ultrasound around December 2019 at [facility] which basically reports a 0.8 cm isoechoic well-defined nodule in the right thyroid lobe.He does not report the previously found thyroid nodules when the US was done at [facility]. She also has a history of dyslipidemia with an elevated lipoprotein (a). Back in 2018 she did not have diabetes and her A1c was 5.6%. Her LDL cholesterol was also elevated at 150. She reports workingon her diet. She understands that her BMI is consistent with overweight and reports that her cholesterol improved with dietary changes alone. However, she understands the lipoprotein (a) is genetically determined #1 thyroid nodule Ultrasound from [facility] on June 24, 2017 revealed: #1 well [...] file Gets together: Not on file Attends temple service: Not on file Active member of [...] 12 months 2. Follow-up thyroid ultrasound and [facility] around December 2020 3. Checking cholesterol [...] <=30 mg/dL 02/27/2020 11:37 EDT [facility] Comment: Test Performed by: [facility] [place] [address] Complex Manager: Venu Michaud M.D. Ph.D.; CLIA# [id number] Blood VENOUS BLOOD / Unknown Venipuncture / Unknown 02/26/2020 11:52 EDT 02/26/2020 11:52 EDT Arpan Solorzano MD CHEMISTRY & BLOOD GA S ORDERABLES Final Result [facility] [address] [place] [address] * TSH (02/26/2020 11:52 EDT) TSH 2.59 0.47 - 4.68 uIU/mL 02/26/2020 13:59 EDT [facility] Blood VENOUS BLOOD / Unknown Venipuncture / Unknown 02/26/2020 11:52 EDT 02/26/2020 11:52 EDT Narrative [facility] - 02/26/2020 13:59 EDT The results of this assay can be falsely lowered due to the consumption of Biotin. Arpan Solorzano MD CHEMISTRY & BLOOD GA S ORDERABLES Final Result [facility] [address] [place] [address] * LIPID PROFILE (INCLUDES CHOLESTEROL, TRIGLYCERIDES, HDL, LDL) (02/26/2020 11:52 EDT) Pathologist [facility] Cholesterol 153 See Note mg/dL [facility]2020 [facility] Comment: Acceptable: ?<200 mg/dL Borderline High: 200-239 mg/dL High: ?> or = 240 mg/dL HDL 41 See Note mg/dL 02/26/2020 13:25 [facility] Comment: Low: ? <40 mg/dL Normal: ??40-60 mg/dL High: ?>60 mg/dL LDL, Calculated 87 See Note mg/dL 02/26/2020 13:25 [facility] Comment: Optimal: ? <100 mg/dL Near Optimal: ?100-129 mg/dL Borderline High: 130-159 mg/dL High: ?160-189 mg/dL Very High: ? > or = 190 mg/dL Triglyceride 126 See Note mg/dL 02/26/2020 13:25 [facility] Comment: Normal: ? <150 mg/dL Borderline High: ??150 - 199 mg/dL High: ? 200 - 499 mg/dL Very High: ?> or = 500 mg/dL Chol/HDL Ratio 3.7 See Note 02/26/2020 13:25 [facility] Comment:No reference range h as been established for CHOL/HDL ratio. Non HDL Cholesterol 112 See Note mg/dL 02/26/2020 13:25 EDT [facility] Comment: Desirable: ?<130 mg/dL Borderline High: ??130-159 mg/dL High: ? 160-189 mg/dL Very High: ?> or = 190 mg/dL Blood VENOUS BLOOD / Unknown Venipuncture / Unknown 02/26/2020 11:52 EDT 02/26/2020 11:52 EDT Arpan Solorzano MD CHEMISTRY & BLOOD GA S ORDERABLES Final Result [facility] [address] [place] [address] * HEMOGLOBIN A1C (02/26/2020 11:52 EDT) Hemoglobin A1c 5.5 <5.7 % 02/26/2020 15:24 T [facility] Comment: Glycemic Status References: Normal: [...] Avg Glucose 111 mg/dL 0 15:24 EDT [facility] Comment:The eAG represents t he A1c result expressed as average glucose in mg/dL. Blood VENOUS BLOOD / Unknown Venipuncture / Unknown 02/26/2020 11:52 EDT 02/26/2020 11:52 EDT us Arpan Solorzano MD CHEMISTRY & BLOOD GA S ORDERABLES Final Result [facility] [address] [place] [address] documented in this encounter Visit Diagnoses Diagnosis Thyroid nodule- Primary Nontoxic uninodular goiter Dyslipidemia (high LDL; low HDL) Other and unspecified hyperlipidemia documented in this encounter Historical Medications * This list may reflect changes made after this encounter. aspirin chewable 81 mg tablet Take 81 mg by mouth daily. added in this encounter Care Teams Water Main Inspector Relationship Specialty Start Date End Date Lee Anne APRN [address] [place] [address] [address] [place] [address] PCP - General 07/16/17 documented as of this encounter
--- OUTSIDE RECORDS SUMMARY | 2024-03-13 18:39 | XMS_ITS | Encounter Summary ---
Author Organization [facility] Address [address] [place] [address] Care Team Providers Care Manager Banquet Name Role Phone Omid Lee Barajas APRN Primary Care Provider [phone] Reason for Visit * Vascular Lab (Routine) - Authorization Not Required Specialty Diagnoses / Procedures Referred By Contac t Referred To Contact Diagnoses Varicose veins of bilateral lower extremities with other complications Procedures VARICOSE VEIN DUPLEX Sun Borrero, [address] [address] Phone: tel: fax: [facility] Vascular Lab Referral ID Status Reason Start Date Expiration Date Visits Requested Visits Authorized [id number] Authorization Not Required 09/25/2021 1 1 Encounter Details Date Type Department Care Team (Late st Contact Info) Description 10/07/2021 16:00 EDT Ancillary Procedure Vascular Surgery and [place] [address] Social History Tobacco Use Types Packs/Day Years [...] on filedocumented in this encounter Care Teams Manager Banquet Relationship Specialty Start Date End Date eLe Anne APRN [address] [place] [address] [address] [place] [address] PCP - General 07/16/17 documented as of this encounter
--- OUTSIDE RECORDS SUMMARY | 2024-03-13 18:39 | XMS_ITS | Encounter Summary ---
[place] [address] Care Team Providers Care Social Media Sr Strategy Manager Name Role Phone Lee Anne APRN Primary Care Provider [phone] Encounter Details Date Type Department Care Team (Late st Contact Info) Description 06/21/2015 Abstract [place] [address] Iram Dinh, RN Social History Tobacco Use [...] on filedocumented in this encounter Care Teams Social Media Sr Strategy Manager Relationship Specialty Start Date End Date Lee Anne APRN [address] [place] [address] [place] [address] PCP - General Family Medicine 06/19/15 01/28/21 documented as of this encounter
--- OUTSIDE RECORDS SUMMARY | 2024-03-13 18:39 | XMS_ITS | Clinical Summary ---
Author Organization [facility] Address [address] [place] [address] Care Team Providers Care Cosmetology Professor Name Role Phone OmidLee Jenn VEGA Primary Care Provider [phone] Allergies No known active allergies Medications ASCORBIC [...] - 1-dose 60+ series) 2020 COVID-19 Vaccine ( season) 2023 [place] Care Teams Cosmetology Professor Relationship Specialty Start Date End Date Lee Anne APRN [address] [place] [address] [address] [place] [address] PCP - General 07/16/17
--- OUTSIDE RECORDS SUMMARY | 2024-03-13 18:39 | XMS_ITS | Encounter Summary ---
Author Organization [facility] Address [address] [place] [address] Care Team Providers Care Beverage Steward Name Role Phone Unknown, Provider MD Primary Care Provider Unava ilable Encounter Details Date Type Department Care Team (Late st Contact Info) Description 07/09/2017 Results Only [facility] [phone] Unknown, Provider, Social History Tobacco Use Types [...] on filedocumented in this encounter Care Teams Beverage Steward Relationship Specialty Start Date End Date Unknown, Provider, PCP - General 11/27/13 07/15/17 documented as of this encounter
--- OUTSIDE RECORDS SUMMARY | 2024-03-13 18:39 | XMS_ITS | Encounter Summary ---
Author Organization [facility] Address [address] [place] [address] Care Team Providers Care Customer Service Voice Name Role Phone Lee Anne APRN Primary Care Provider [phone] Reason for Referral * Vascular Lab (Other (Specify in Question)) - New Request Specialty Diagnoses / Procedures Referred By Contchris t Referred To Contact Diagnoses Pain in both lower extremities Procedures VL VENOUS INSUFFICIENCY (VARICOSE VEINS) CONCETTA Russ Soriano MD Referral ID Status Reason Start Date Expiration Date V isits Requested Visits Authorized [id number] New Request 10/05/2017 1 1 Reason for Visit * Reason Onset Date Comments Procedure 10/05/2017 Encounter Details Date Type Department Care Team (Late st Contact Info) Description 10/05/2017 Orders Only Vascular Surgery and Endovascular Therapy - [address] [address] Russ Soriano MD Pain in both lower [...] Narrative 10/18/2017 8:45 EDT Vascular Diagnostic Laboratory [facility], [facility] [address] [place] [address] Technologist: Mary Alice Sharpe Fellow: IMPRESSIONS 1. [...] MD - 10/18/2017 Vascular Diagnostic Laboratory [facility], [facility], Level 5 [address] [facility] [place] [address] Technologist: Mary Alice Sharpe Fellow: IMPRESSIONS 1. [...] Electronically signed by: Elpidio Lynn 10/18/2017 08:45 us Russ Soriano MD IMG US VASCULAR ORDERABLE S Final Result documented in this encounter Visit Diagnoses Diagnosis Pain in both lower extremities- Primary documented in this encounter Care Teams Customer Service Voice Relationship Specialty Start Date End Date Lee Anne APRN [address] [place] [address] [address] [place] [address] PCP - General 07/16/17 documented as of this encounter
--- OUTSIDE RECORDS SUMMARY | 2024-03-13 18:39 | XMS_ITS | Encounter Summary ---
Author Organization [facility] Address [address] [place] [address] Care Team Providers Care Supervisor Keymodule Assembly Name Role Phone AnneLee Jenn VEGA Primary Care Provider [phone] Reason for Visit * Reason Onset Date Comments Appointment Related 2021 Encounter Details Date Type Department Care Team (Late st Contact Info) Description 2021 Telephone [facility] - [address] [address] Arpan Truong MD [address] [place] [address] Appointment Related Social History Tobacco [...] on filedocumented in this encounter Care Teams Supervisor Keymodule Assembly Relationship Specialty Start Date End Date Lee Anne APRN [address] [place] [address] [address] [place] [address] PCP - General 07/16/17 documented as of this encounter
--- OUTSIDE RECORDS SUMMARY | 2024-03-13 18:39 | XMS_ITS | Encounter Summary ---
Author Organization [facility] Address [address] [place] [address] Care Team Providers Care Head Pumper Name Role Phone Lee Anne APRN Primary Care Provider [phone] Reason for Referral * Radiology Services (STAT) - New Request Specialty Diagnoses / Procedures Referred By Kaelyn t Referred To Contact Diagnoses Thyroid nodule Procedures ENDOCRINE CLINIC US GUIDANCE THYROID BIOPSY Chapin Brink MD Phone: tel: fax: Referral ID Status Reason Start Date Expiration Date V isits Requested Visits Authorized [id number] New Request 10/22/2017 1 1 Reason for Visit * Reason Comments Thyroid Problem Encounter Details Date Type Department Care Team (Latest Contact Info) Description 10/22/2017 14:30 EDT Office Visit [facility] Endocrinology - [facility] [address] [place] [address] Unknown, Provider, Chapin Reyna MD [address] [facility] [address] [place] [address] Clinic, Thyroid Biopsy Thyroid nodule [...] 10/14/2017 14:08 EDT documented in this encounter Discharge Diagnoses Diagnosis E04.1 Nontoxic single thyroid nodule-E04.1[ICD-10-CM] documented in this encounter Patient Instructions * Patient Instructions* Yariel Acevedo MD - 10/22/2017 14:30 EDT Images from the original note were not included. [facility] Patient Instructions Fine-Needle Thyroid Biopsy: What [...] your doctor if you can take an jmkn-exh-[id number] medicine. ? ?? If you think your [...] Where can you learn more? Go to [email or web address] or log into your [employer] account at [email or web address]. Enter O887 in the search box to learn more about Fine-Needle Thyroid Biopsy: What to Expect at Home. Current as of: September 11, 2016 Content Version: 11.6 ?? [id number] [employer]. Care instructions adapted under license by [facility] If you have questions about a medical condition or this instruction, always ask your healthcare professional. [employer] disclaims any warranty or liability foryour use [...] 15:00 EDT Non Reportable Exam Procedure Note WIRED MUSIC OPERATOR, IMAGING - 10/25/2017 Non Reportable Exam Chapin Brink MD [facility] [place] Miley l Result * CYTOPATHOLOGY (10/22/2017 0:00 EDT) Pathology Report: CYTOPATHOLOGY REPORT Reports generated via electronic interface contain original data; however they are lacking the format of the original report. Caution should be taken when reading/interpret ing unformatted reports. Name: ? ALEJANDRA DAVIS ? Accession #: ? [id number] : ? 1960 (Age: 57) ??F ?Collect [...] cellular enhancement technique. ? End of Report [facility] 10/22/2017 10/22/2017 17: 15 EDT us Chapin Brink MD PATHOLOGY ORDERABLES F inal Result [facility] [address] [place] [address] documented in this encounter Visit Diagnoses Diagnosis Thyroid nodule- Primary Nontoxic uninodular goiter documented in this encounter Care Teams Head Pumper Relationship Specialty Start Date End Date Lee Anne APRN [address] [place] [address] [address] [place] [address] PCP - General 07/16/17 documented as of this encounter
--- OUTSIDE RECORDS SUMMARY | 2024-03-13 18:39 | XMS_ITS | Encounter Summary ---
Author Organization [facility] Address [address] [place] [address] Care Team Providers Care Barrel Rifler Name Role Phone AnneLee Jenn VEGA Primary Care Provider [phone] Encounter Details Date Type Department Care Team (Latest Contact Info) Description 07/16/2017 16:00 EDT Procedure visit [facility] Endocrinology - [address] [phone] Arpan Truong MD [address] [place] [address] Phlebotomy, [facility] Endo Thyroid nodule (Primary Dx) Discharge Disposition: [...] 15:15 EDT documented in this encounter Discharge Diagnoses [...] Ab <28 <61 U/mL 2017 11:51 EDT [facility] Blood specimen (specimen) BLOOD SPECIMEN / Unknown 07/16/2017 16:25 EDT 07/16/2017 18:52 EDT us Arpan Solorzano MD CHEMISTRY & BLOOD GA S ORDERABLES Final Result [facility] [address] [place] [address] * (ABNORMAL) T4 FREE (07/16/2017 16:25 EDT) T4, Free 0.7(L) 0.8 - 2.2 ng/dl 07/16/2017 20:01 EDT [facility] Blood specimen (specimen) BLOOD SPECIMEN / Unknown 07/16/2017 16:25 EDT 07/16/2017 18:52 EDT us Arpan Solorzano MD CHEMISTRY & BLOOD GA S ORDERABLES Final Result Performing Organization Address City/[facility] Co de Phone Number [facility] [address] [place] [address] * TSH (07/16/2017 16:25 EDT) TSH 1.23 0.47 - 4.68 uIU/ml 07/16/2017 20:15 EDT [facility] Blood specimen (specimen) BLOOD SPECIMEN / Unknown 07/16/2017 16:25 EDT 07/16/2017 18:52 EDT us Arpan Solorzano MD CHEMISTRY & BLOOD GA S ORDERABLES Final Result Performing Organization Address [facility] Co de Phone Number [facility] [address] [place] [address] documented in this encounter Visit Diagnoses Diagnosis Thyroid nodule- Primary Nontoxic uninodular goiter documented in this encounter Care Teams Barrel Rifler Relationship Specialty Start Date End Date Lee Anne APRN [address] [place] [address] [address] [place] [address] PCP - General 07/16/17 documented as of this encounter
--- OUTSIDE RECORDS SUMMARY | 2024-03-13 18:40 | XMS_ITS | Encounter Summary ---
Author Organization [facility] Address [address] [place] [address] Care Team Providers Care Auto Accessories Installer Name Role Phone Unavailable Primary Care Provider Unavailabl e Encounter Details Date Type Department Care Team (Late st Contact Info) Description 11/21/2013 Results Only [facility]- [facility] [phone] Quinten Estrella MD [address] [facility] [address] [place] [address] Social History Tobacco Use Types [...] ? ALEJANDRA DAVIS ? Accession #: ? [id number] ? : ? 1960 (Age: 53) ??F [...] Priscilla Viera 11/22/2013 End of Report [facility] 11/21/2013 15:4 5 EDT 11/22/2013 15:45 EDT us Quinten Estrella MD PATHOLOGY ORDERABLES Final Resul t [facility] [address] [place] [address] documented in this encounter Visit Diagnoses Not on filedocumented in this encounter
--- OUTSIDE RECORDS SUMMARY | 2024-03-13 18:40 | XMS_ITS | Encounter Summary ---
Author Organization [facility] Address [address] [place] [address] Care Team Providers Care Foreign Languages Professor Name Role Phone Unavailable Primary Care Provider Unavailabl e Encounter Details Date Type Department Care Team ([facility] st Contact Info) Description 10/02/2005 Results Only [facility] - Maple conversion [address] [place] [address] Sameer Still MD [address] [place] [address] [phone] Social History Tobacco Use Types Packs/Day Years [...] ? ALEJANDRA DAVIS ? Accession #: ? [id number] : ? 1960 (Age: 45) ??F ?Collect Date: ? 10/02/2005 Location: ? [facility] ? Receive Date: ? 10/05/2005 Provider: ?SAMEER STILL MD Copy to: ? Specimen/Source: ?ThinPrep Pap Test, Source Not Provided, processed on [employer] ThinPrep Imaging System, with manual evaluation Last [...] End of Report [facility] 10/02/2005 10/05/2005 us Sameer Still MD PATHOLOGY ORDERABLES Final Re sult [facility] [address] [place] [address] documented in this encounter Visit Diagnoses Not on filedocumented in this encounter
--- OUTSIDE RECORDS SUMMARY | 2024-03-13 18:40 | XMS_ITS | Encounter Summary ---
Author Organization [facility] Address [address] [place] [address] Care Team Providers Care Industrial Gas Production Operator Name Role Phone Unavailable Primary Care Provider Unavailabl e Encounter Details Date Type Department Care Team (Latest Contact Info) Description 11/21/2013 12:17 EDT - 11/21/2013 23:59 EDT Hospital Encounter [address] [address] Unknown, Provider, MD Discharge Disposition: Home or [...] Code Departure Means Destination Home or Self Custodial documented in this encounter Plan of Treatment Not on file documented as of this encounter Visit Diagnoses Not on filedocumented in this encounter
--- OUTSIDE RECORDS SUMMARY | 2024-03-13 18:40 | XMS_ITS | Encounter Summary ---
Author Organization [facility] Address [address] [place] [address] Care Team Providers Care Slab Depiler Operator Name Role Phone Unknown, Provider Primary Care Provider Unava ilable Encounter Details Date Type Department Care Team (Late st Contact Info) Description 04/09/2014 Results Only [facility] [phone] Franklin Benedict, MEDIA OPERATOR [address] [facility] [address] [place], [place] [phone] Social History Tobacco Use Types Packs/Day Years [...] ? ALEJANDRA DAVIS ? Accession #: ? [id number] ? : ? 1960 (Age: 54) ??F ?Collect Date: ? 04/09/2014 ? Location: ? [facility] ? Receive Date: ? 04/10/2014 ? Provider: FRANKLIN BENEDICT EDITOR [place] Copy to: ? Final Report SPECIMEN ADEQUACY ? Satisfactory for Evaluation - transformation zone component absent GENERAL CATEGORIZATION ? Negative for Intraepithelial Lesion or Malignancy ?? Last Menstrual Period: 2011 Hormonal/Contracep tive status: LUISA Exposure: Daughter Specimen/Source: ??Pap Test, Cervix/Endocervix, ThinPrep Imaging System with manual evaluation Document reviewed and electronically signed by: ? Elaina Benavides, [facility](ASCP) ? Report ??Date: 04/16/2014 09:34 HPV with Pap Test ? Date Ordered: ? 04/13/2014 ? Status: ?? Signed Out ?Date Complete: ? 04/17/2014 ? By: ??System Interface ? Date Reported: ? 04/17/2014 ? Interpretation RESULT: Negative for HPV. No E6 or E7 mRNA is detected from HPV types 16,18,31,33,35, 39,45,51,52,56,58, 59,66, and 68 by director of health care marketing mediated amplification. Comments Document reviewed and electronically signed by: ? System Interface ? Report date: 04/17/2014 By the signature above, the attending physician certifies that he/she has personally conducted a gross and/or microscopic examination of the described specimens and rendered or confirmed the above diagnosis. End of Report [facility] 04/09/2014 04/10/2014 us Franklin Benedict MEDIA OPERATOR PATHOLOGY ORDERABLES Final Resu lt [facility] [address] [place] [address] documented in this encounter Visit Diagnoses Not on filedocumented in this encounter Care Teams Slab Depiler Operator Relationship Specialty Start Date End Date Unknown, Provider, PCP - General 11/27/13 07/15/17 documented as of this encounter
--- OUTSIDE RECORDS SUMMARY | 2024-03-13 18:40 | XMS_ITS | Encounter Summary ---
Author Organization [facility] Address [address] [place] [address] Care Team Providers Care Chief Data Officer Name Role Phone Unknown, Provider Primary Care Provider Unava ilable Encounter Details Date Type Department Care Team (Late st Contact Info) Description 05/15/2016 Results Only [facility]- [facility] [phone] Franklin Benedict, CHILD ABUSE WORKER [address] [facility] [address] [place], [place] [phone] Social History Tobacco Use Types Packs/Day Years [...] ? ALEJANDRA DAVIS ? Accession #: ? [id number] ? : ? 1960 (Age: 56) ??F ?Collect Date: ? 05/15/2016 ? Location: ? [facility] ? Receive Date: ? 05/18/2016 ? Provider: FRANKLIN EBNEDICT VAULT MAKER Copy to: ? Final Report SPECIMEN ADEQUACY ? Satisfactory for Evaluation - transformation zone component present GENERAL CATEGORIZATION ? Negative for Intraepithelial Lesion or Malignancy ?? Last Menstrual Period: 2014 Hormonal/Contracep tive status: None LUISA Exposure: daughter Other: Previous NIL Pap(s): all normal Specimen/Source: ??Pap Test, Cervix/Endocervix, ThinPrep Imaging System with manual evaluation Document reviewed and electronically signed by: ? Nicki Schaffer, [place](ASCP) ? Report ??Date: 05/20/2016 14:49 HPV with Pap Test ? Date Ordered: ? 05/20/2016 ? Status: ?? Signed Out ?Date Complete: ? 05/22/2016 ? By: ??System Interface ? Date Reported: ? 05/22/2016 ? Interpretation RESULT: Negative for HPV. No E6 or E7 mRNA is detected from HPV types 16,18,31,33,35, 39,45,51,52,56,58, 59,66, and 68 by train operator mediated amplification. Comments Document reviewed and electronically signed by: ? System Interface ? Report date: 05/22/2016 By the signature above, the attending physician certifies that he/she has personally conducted a gross and/or microscopic examination of the described specimens and rendered or confirmed the above diagnosis. End of Report [facility] 05/15/2016 05/18/2016 us Franklin Benedict CHILD ABUSE WORKER PATHOLOGY ORDERABLES Final Resu lt [facility] [address] [place] [address] documented in this encounter Visit Diagnoses Not on filedocumented in this encounter Care Teams Chief Data Officer Relationship Specialty Start Date End Date Unknown, Provider, PCP - General 11/27/13 07/15/17 documented as of this encounter
--- OUTSIDE RECORDS SUMMARY | 2024-03-13 18:40 | XMS_ITS | Encounter Summary ---
Author Organization [facility] Address [address] [place] [address] Care Team Providers Care Perishable Fruit Inspector Name Role Phone Unavailable Primary Care Provider Unavailabl e Encounter Details Date Type Department Care Team (Late st Contact Info) Description 04/05/2009 Orders Only [facility] - [facility] ([facility] [address] [place] [phone] Elaina Pro NP Social History Tobacco Use [...] 14:3 6 EST 04/10/2009 14:36 EST Elaina Morteza BLEACH CHLORINATOR MICROBIOLOGY - GENERAL ORDERABLE S Final Result [facility] [address] [place] [address] * CYTOPATHOLOGY (04/05/2009 0:00 EST) Pathology Report: CYTOPATHOLOGY REPORT ? Reports generated via electronic interface contain original data; ? however they are lacking the format of the original report. ? Caution should be taken when reading/interpreti ng unformatted reports. ? Name: ? ALEJANDRA DAVIS ? Accession #: ? [id number] ? : ? 1960 (Age: 49) ??F ?Collect Date: ? 04/05/2009 ? Location: ? [facility] ? Receive Date: ? 04/08/2009 ? Provider: ?ELAINA PRO APRN ? Copy to: ? Specimen/Source: ?Pap Test, [...] Document reviewed and electronically signed by: ? Pino Mckeon, [place](ASCP) ? Report Date: ??04/10/2009 10:12 ? End of Report ? [facility] 04/05/2009 04/08/2009 us Eliana Pro NP PATHOLOGY ORDERABLES Final Resul t [facility] [address] [place] [address] documented in this encounter Visit Diagnoses Not on filedocumented in this encounter
--- OUTSIDE RECORDS SUMMARY | 2024-03-13 18:40 | XMS_ITS | Encounter Summary ---
Author Organization [facility] Address [address] [place] [address] Care Team Providers Care Chief Informatics Officer Name Role Phone Unavailable Primary Care Provider Unavailabl e Encounter Details Date Type Department Care Team (Late st Contact Info) Description 08/19/[address] [facility] - Maple conversion [address] [place] [address] Diane aJved PA [address] [place] [phone] Social History Tobacco Use Types Packs/Day Years [...] 68. [facility] Report Status Final [id number] [facility] 08/19/2007 8:26 EDT 08/29/2007 8:26 EDT us Diane RANDOLPH MICROBIOLOGY - GENERAL ORDER CRISTIANE Final Result [facility] [address] [place] [address] * CYTOPATHOLOGY (08/19/2007 0:00 EDT) Pathology Report: CYTOPATHOLOGY REPORT Reports generated via electronic interface contain original data; however they are lacking the format of the original report. Caution should be taken when reading/interpreti ng unformatted reports. Name: ? ALEJANDRA DAVIS ? Accession #: ? [id number] : ? 1960 (Age: 47) ??F ?Collect Date: ? 08/19/2007 Location: ? [facility] ? Receive Date: ? 08/22/2007 Provider: ?DIANE RANDOLPH Copy to: ? Specimen/Source: ?ThinPrep Pap Test, Cervix/Endocervix, processed on [employer] ThinPrep Imaging System, with manual evaluation Last [...] Date: ??08/26/2007 09:42 End of Report [facility] 08/19/2007 08/22/2007 us Diane RANDOLPH PATHOLOGY ORDERABLES Final R esult [facility] [address] [place] [address] documented in this encounter Visit Diagnoses Not on filedocumented in this encounter
--- OUTSIDE RECORDS SUMMARY | 2024-03-13 18:40 | XMS_ITS | Encounter Summary ---
Author Organization [facility] Address [address] [place] [address] Care Team Providers Care Tent Finisher Name Role Phone Unavailable Primary Care Provider Unavailabl e Encounter Details Date Type Department Care Team (Late st Contact Info) Description 09/18/2011 Results Only [facility] ([facility]) [address] [place], [place] [phone] Andreea Greene, JACOBO [address] [place] [address],[address] [place] [address] Social History Tobacco Use Types [...] ? ALEJANDRA DAVIS ? Accession #: ? [id number] : ? 1960 (Age: 51) ??F ?Collect [...] End of Report [facility] 09/18/2011 09/21/2011 us Andreea Greene NP PATHOLOGY ORDERABLES Final Resul t [facility] [address] [place] [address] documented in this encounter Visit Diagnoses Not on filedocumented in this encounter
[2024-03-16 14:23] LABS: Apolipoprotein A1 121 mg/dL (>=140)
== END 2024-03-13 18:29 | disposition home or self-care (01) ==
LOC: NCHCN 18:28
PROVIDERS: PCP Internal Medicine; Visit Provider Internal Medicine
DX: E78.2 Mixed hyperlipidemia (principal)
CPT/HCPCS: 82172

== ENCOUNTER 2024-11-01 22:26 | Outpatient (REF) | payer BC, SELFPAY | END 2024-11-01 22:27 | disposition home or self-care (01) | LOC: NCHCN 22:26 | PROVIDERS: PCP Internal Medicine; Visit Provider Nurse Practitioner Family | DX: R30.0 Dysuria (principal) | CPT/HCPCS: 87086 ==